=== PATIENT | male | born 1970 | race Caucasian/White ===

== ENCOUNTER 2020-12-03 15:47 | Emergency (ER) | payer MEDICARE, MEDICAID, SELFPAY ==
--- NOTE | ~2020-12-03 | XR_ITS ---
EXAMINATION: XR FOOT, RIGHT CLINICAL INFORMATION: Evaluate for ostial with wound over great toe COMPARISON: None TECHNIQUE: AP, lateral, and oblique views of the right foot. FINDINGS: There is amputation of the second third and fourth digits. The second and third digit is transmetatarsal. On the fourth digit, a portion of the proximal phalanx remains. Marked degenerative changes present at the first metatarsal tarsal joints. Surgical hardware is noted with the calcaneus and intramedullary vaughn in the tibia with a healed fibular fracture. The presumed ulcer is seen overlying the head of the first metatarsal (see stratton images). No gross bony destruction is seen there is some mild lucency seen in the metatarsal head medially with some heterotopic bone/accessory ossicle seen adjacent to this. XR/XR foot RT 2V IMPRESSION: No definite evidence of destructive osteomyelitis. MRI is recommended for greater sensitivity.
[2020-12-03 20:20] VITALS: BP 143/68; PULSE 83; RESP 18; O2SAT 98; BMI 30.7
--- NOTE | 2020-12-03 20:59 | ED_ITS ---
HPI - Wound/Laceration General Chief Complaint: Wound/Laceration Stated Complaint: diabetic foot ulcer x3 weeks Time Seen by Provider: 12/03/20 20:16 Source: EMS Mode of arrival: EMS Limitations: no limitations History of Present Illness HPI narrative: 50-year-old male with a past medical history of insulin-dependent diabetes here with complaints of wound to the right foot for about 2 weeks. Patient tells me there is redness and swelling around the site. There is drainage with foul odor. He denies any fevers or chills. He denies any injury or trauma. He does have a history of osteomyelitis to the right foot to the 2nd 3rd digit with amputation Related Data Home Medications Medication Instructions Recorded Confirmed albuterol sulfate 90 mcg/actuation 2 puff PO Q4H PRN 12/03/20 12/03/20 aerosol inhaler amlodipine 10 mg tablet 1 tab PO DAILY 12/03/20 12/03/20 atenolol 25 mg tablet 1 tab PO DAILY 12/03/20 12/03/20 clonazepam 0.5 mg tablet 1 tab PO DAILY PRN 12/03/20 12/03/20 escitalopram oxalate 10 mg tablet 1 tab PO DAILY 12/03/20 12/03/20 fluticasone propionate 110 2 puff PO BID 12/03/20 12/03/20 mcg/actuation HFA aerosol inhaler (Flovent HFA) gabapentin 800 mg tablet 1 tab PO TID 12/03/20 12/03/20 insulin aspart U-100 100 unit/mL 10 - 15 unit SUBCUT TID 12/03/20 12/03/20 subcutaneous cartridge (Novolog PenFill U-100 Insulin aspart) insulin degludec 100 unit/mL (3 18 unit SUBCUT DAILY 12/03/20 12/03/20 mL) subcutaneous pen (Tresiba FlexTouch U-100 insulin) lisinopril 40 mg tablet 1 tab PO DAILY 12/03/20 12/03/20 metformin 1,000 mg tablet 1 tab PO BID 12/03/20 12/03/20 ondansetron 4 mg disintegrating 1 tab SUBLINGUAL BID PRN 12/03/20 12/03/20 tablet Previous Rx's Medication Instructions Recorded doxycycline monohydrate 100 mg 100 mg PO BID #20 tab 12/03/20 tablet oxycodone 5 mg tablet 5 mg PO Q6H PRN #8 tab 12/03/20 Allergies Allergy/AdvReac Type Severity Reaction Status Date / Time No Known Allergies Allergy Unknown Unverified 11/30/19 15:25 [No Known Allergies*] Review of Systems Review of Systems: Yes all other systems are reviewed and are negative Constitutional: Constitutional: Reports no additional constitutional complaints, Denies body ache(s), Denies chills, Denies fever(s), Denies headache(s) and Denies weakness Eyes: Eyes: Reports no additional eye complaints and Denies change in vision ENT: Reports system reviewed and no additional complaints, except as documented, Denies dizziness, Denies headache(s), Denies nasal congestion, Denies nasal discharge and Denies neck pain Cardiovascular: Cardiovascular: Reports no additional cardiovascular complaints, Denies chest pain, Denies leg edema and Denies dyspnea Respiratory: Respiratory: Reports no additional respiratory complaints, Denies cough and Denies dyspnea Gastrointestinal: Gastrointestinal: Reports no additional gastrointestinal complaints, Denies abdominal pain, Denies diarrhea, Denies nausea and Denies vomiting Genitourinary: Genitourinary: Denies urinary incontinence Musculoskeletal: Musculoskeletal: Reports no additional musculoskeletal complaints, Denies back pain, Denies arthralgias, Denies joint swelling, Denies neck pain, Denies numbness and Denies tingling Integumentary/Breasts: Skin/Breast: Reports system reviewed and no additional complaints, except as docu, Reports swelling, Reports non-healing lesions and Denies rash Neurologic: Reports system reviewed and no additional complaints, except as documented, Denies Abnormal speech present, Denies dizziness, Denies headache(s), Denies numbness, Denies tingling and Denies weakness [facility] Past Medical History Attestation statement: The following information was validated with the patient. Source: old records reviewed and nursing notes reviewed Social History Social History Advance Directives: No Advance Directives Information Provided: No Physical Exam Vital Signs: Vital Signs: Last Vital Signs Pulse 83 12/03/20 20:20 Resp 18 12/03/20 20:20 BP 143/68 H 12/03/20 20:20 Pulse Ox 98 12/03/20 20:20 Body Mass Index 30.7 Const: General: cooperative, healthy appearing, comfortable and no acute distress Orientation/consciousness: patient oriented x3 Limitations: no limitations HENMT: Head: Yes normal to inspection Ears: hearing grossly normal bilaterally General nose exam: Normal external nose present Face and sinus: Yes normal facial exam Mouth: Normal oral and palatal mucosa present Throat: Yes posterior oropharynx normal Eyes: General: appearance normal, both eyes and all related structures Pu pils: Equal, round and reactive pupils present Neck: Neck: Yes normal visual inspection Chest: Chest palpation & inspection: normal inspection of the chest Resp: Effort & Inspection: normal respiratory effort Auscultation: clear to auscultation bilaterally Cardio: Rate: regular rate Rhythm: regular rhythm Peripheral pulses: Peripheral pulses 2+ throughout GI: Inspection: Yes normal to inspection Palpation (GI): Soft to palpation and nontender Auscultation: normal bowel sounds Back/Spine/Pelvis: Thoracic/Lumbar Spine: thoracic and lumbar spine normal to inspection Skin: General skin exam: no rashes or lesions noted Neuro: General: patient oriented x3, no focal motor deficits and normal sensation to monofilament Cranial nerves: Yes Equal, round and reactive pupils present Cognition (Neuro): normal cognition Speech: No Abnormal spe ech present Gait exam (Neuro): Normal gait present Motor exam (neuro): 5/5 motor strength present throughout Extrem: Other: Pain on palpation, warmth, redness, foul odor Palpable pulses on the dorsal aspect or felt General: Yes normal to inspection Course Course Course Narrative: 50-year-old male with a past medical history of insulin- dependent diabetes and recurrent osteomyelitis here with wound to the right foot for several weeks with redness, warmth, pain, swelling and odor. No fevers or chills. Will check x-ray of foot, labs. At this time infection suspected. Antibiotics ordered 2249-patient has elevated lactic acid with leukocytosis. He likely has osteomyelitis of the right foot. Patient tells me that he has to go home to take care of his rabbit and cat. He is aware that he has early sepsis and likely osteomyelitis and he will likely get sicker and may required amputation of the toe. He plans on returning tomorrow for admission. MDM - Wound/Laceration Medical Records Attestation: I reviewed the patient's medical records. Lab Data Attestation: I reviewed the patient's lab results. Result diagrams: 12/03/20 20:52 12/03/20 20:52 Labs: Lab Results 12/03/20 12/03/20 12/03/20 Range/Units 20:52 20:52 20:52 WBC 14.4 H (4.8-10.8) X10*3/uL RBC 4.56 L (4.60-5.80) X10*6/uL Hgb 13.4 L (14.0-18.0) g/dl Hct 39.6 L (42-52) % MCV 86.8 (80-98) fL MCH 29.4 (27.0-33.0) pg MCHC 33.8 (31.0-36.0) g/dl RDW 13.2 (11.0-16.0) % Plt Count 373 (160-400) X10*3/uL MPV 9.8 (9.4-12.4) fL Immature Gran % (Auto) 0.5 H (0.0-0.4) % Neut % (Auto) 74.0 H (45-73) % Lymph % (Auto) 18.8 L (20-40) % [place] % (Auto) 5.6 (2-11) % Eos % (Auto) 0.9 (0-4) % Baso % (Auto) 0.2 (0-2) % Lymph # (Auto) 2.7 (1.2-4.9) X10*3/uL [place] # (Auto) 0.8 (0.1-1.2) X10*3/uL Eos # (Auto) 0.1 (0.0-0.4) X10*3/uL Baso # (Auto) 0.0 (0.0-0.2) X10*3/uL Abs Immat Gran (auto) 0.07 H (0.00-0.03) X10*3/uL Absolute Neuts (auto) 10.7 H (2.0-8.3) X10*3/uL Absolute Nucleated RBC 0.000 (0.0-0.012) X10*3/uL Nucleated RBC % (auto) 0.0 (0.0-0.2) /100WBC Sodium 140 (135-145) mmol/L Potassium 4.8 (3.3-5.1) mmol/L Chloride 101 (96-108) mmol/L Carbon Dioxide 28 (22-29) mmol/L Anion Gap 16 (12-20) BUN 12 (9-16) mg/dL Creatinine 0.74 (0.5-1.4) mg/dL Estim Creat Clear Calc 140.5 Estimated GFR > 60 Random Glucose 125 H (60-115) mg/dL Lactic Acid 2.9 H* (0.5-2.0) mmol/L Calcium 9.9 (8.4-10.2) mg/dL Total Bilirubin 0.5 (0.0-1.0) mg/dL Direct Bilirubin 0.2 (0.0-0.5) mg/dL AST 14 (5-37) U/L ALT 17 (0-40) U/L Alkaline Phosphatase 101 (39-117) U/L Total Protein 6.8 (6.5-8.0) g/dL Albumin 3.9 (3.5-5.0) g/dL COVID-19 ([place]) (Negative) COVID-19 Clin Com 12/03/20 Range/Units 20:52 WBC (4.8-10.8) X10*3/uL RBC (4.60-5.80) X10*6/uL Hgb (14.0-18.0) g/dl Hct (42-52) % MCV (80-98) fL MCH (27.0-33.0) pg MCHC (31.0-36.0) g/dl RDW (11.0-16.0) % Plt Count (160-400) X10*3/uL MPV (9.4-12.4) fL Immature Gran % (Auto) (0.0-0.4) % Neut % (Auto) (45-73) % Lymph % (Auto) (20-40) % [place] % (Auto) (2-11) % Eos % (Auto) (0-4) % Baso % (Auto) (0-2) % Lymph # (Auto) (1.2-4.9) X10*3/uL [place] # (Auto) (0.1-1.2) X10*3/uL Eos # (Auto) (0.0-0.4) X10*3/uL Baso # (Auto) (0.0-0.2) X10*3/uL Abs Immat Gran (auto) (0.00-0.03) X10*3/uL Absolute Neuts (auto) (2.0-8.3) X10*3/uL Absolute Nucleated RBC (0.0-0.012) X10*3/uL Nucleated RBC % (auto) (0.0-0.2) /100WBC Sodium (135-145) mmol/L Potassium (3.3-5.1) mmol/L Chloride (96-108) mmol/L Carbon Dioxide (22-29) mmol/L Anion Gap (12-20) BUN (9-16) mg/dL Creatinine (0.5-1.4) mg/dL Estim Creat Clear Calc Estimated GFR Random Glucose (60-115) mg/dL Lactic Acid (0.5-2.0) mmol/L Calcium (8.4-10.2) mg/dL Total Bilirubin (0.0-1.0) mg/dL Direct Bilirubin (0.0-0.5) mg/dL AST (5-37) U/L ALT (0-40) U/L Alkaline Phosphatase (39-117) U/L Total Protein (6.5-8.0) g/dL Albumin (3.5-5.0) g/dL COVID-19 ([place]) Negative (Negative) COVID-19 Clin Com See Note Imaging Data foot xray: Attestation: I personally reviewed and interpreted this imaging study as follows: Radiologist's impression: FINDINGS: There is amputation of the second third and fourth digits. The second and third digit is transmetatarsal. On the fourth digit, a portion of the proximal phalanx remains. Marked degenerative changes present at the first metatarsal tarsal joints. Surgical hardware is noted with the calcaneus and intramedullary vaughn in the tibia with a healed fibular fracture. The presumed ulcer is seen overlying the head of the first metatarsal (see stratton images). No gross bony destruction is seen there is some mild lucency seen in the metatarsal head medially with some heterotopic bone/accessory ossicle seen adjacent to this. XR/XR foot RT 2V IMPRESSION: No definite evidence of destructive osteomyelitis. MRI is recommended for greater sensitivity. Discharge Plan Discharge Clinical Impression: Cellulitis, Leukocytosis, Elevated lactic acid level Patient Disposition: Left Against Medical Advice Instructions: Cellulitis (ED), Against Medical Advice (ED) Additional Instructions: We cannot rule out osteomyelitis You have evidence of sepsis Return as soon as possible Prescriptions: New doxycycline monohydrate 100 mg tablet 100 mg PO BID Qty: 20 RF: 0 oxycodone 5 mg tablet 5 mg PO Q6H PRN (Reason: pain) Qty: 8 RF: 0 No Action clonazepam 0.5 mg tablet 1 tab PO DAILY PRN (Reason: Anxiety) RF: 0 atenolol 25 mg tablet 1 tab PO DAILY RF: 0 gabapentin 800 mg tablet 1 tab PO TID RF: 0 amlodipine 10 mg tablet 1 tab PO DAILY RF: 0 metformin 1,000 mg tablet 1 tab PO BID RF: 0 albuterol sulfate 90 mcg/actuation HFA aerosol inhaler 2 puff PO Q4H PRN (Reason: Shortness Of Breath) RF: 0 lisinopril 40 mg tablet 1 tab PO DAILY RF: 0 Flovent HFA 110 mcg/actuation HFA aerosol inhaler 2 puff PO BID RF: 0 insulin aspart U-100 [Novolog PenFill U-100 Insulin] 100 unit/mL cartridge 10 - 15 unit subcut TID RF: 0 escitalopram oxalate 10 mg tablet 1 tab PO DAILY RF: 0 Tresiba FlexTouch U-100 100 unit/mL (3 mL) insulin pen 18 unit subcut DAILY RF: 0 ondansetron 4 mg tablet,disintegrating 1 tab sublingual BID PRN (Reason: Nausea) RF: 0 Referrals: Physician,Unknown [Primary Care Provider] - 2 days Stand Alone Forms: Against Medical Advice
[2020-12-03 21:07] LABS: MANUAL DIFF FLAG NO
[2020-12-03 21:10] LABS: Basophils Percent Auto 0.2 % (0-2); Eosinophils Absolute Auto 0.1 X10*3/uL (0.0-0.4); Eosinophils Percent Auto 0.9 % (0-4); Hematocrit 39.6 % (42-52); Hemoglobin 13.4 g/dl (14.0-18.0); Imm Gran Abs Auto 0.07 X10*3/uL (0.00-0.03); Imm Gran Pct Auto 0.5 % (0.0-0.4); Lymphocytes Absolute Auto 2.7 X10*3/uL (1.2-4.9); Lymphocytes Percent Auto 18.8 % (20-40); Mean Corpuscular HGB Conc 33.8 g/dl (31.0-36.0); Mean Corpuscular Hemoglobin 29.4 pg (27.0-33.0); Mean Corpuscular Volume 86.8 fL (80-98); Mean Platelet Volume 9.8 fL (9.4-12.4); Monocytes Absolute Auto 0.8 X10*3/uL (0.1-1.2); Monocytes Percent Auto 5.6 % (2-11); Neutrophils Absolute Auto 10.7 X10*3/uL (2.0-8.3); Platelet Count 373 X10*3/uL (160-400); Red Blood Count 4.56 X10*6/uL (4.60-5.80); Red Cell Distribution Width 13.2 % (11.0-16.0); White Blood Count 14.4 X10*3/uL (4.8-10.8)
--- NOTE | 2020-12-03 21:14 | PHA.MEDREC ---
Pharmacy Consult ? Medication Reconciliation Pharmacy has completed the medication reconciliation.
--- NOTE | 2020-12-03 21:20 | PC.NURSE ---
patient arrives to ED with c/o R.foot infection. Has hx of osteo of that foot and states pain is similar. Yellow drainage. 12/22 pain. A+Ox4. Resting safely.
[2020-12-03 21:27] LABS: Alanine Aminotransferase 17 U/L (0-40); Albumin Level 3.9 g/dL (3.5-5.0); Alkaline Phosphatase 101 U/L (39-117); Anion Gap 16 (12-20); Aspartate Amino Transferase 14 U/L (5-37); Bilirubin Direct 0.2 mg/dL (0.0-0.5); Bilirubin Total 0.5 mg/dL (0.0-1.0); Blood Urea Nitrogen 12 mg/dL (9-16); COVID-19 Test Negative (Negative); Calcium 9.9 mg/dL (8.4-10.2); Carbon Dioxide 28 mmol/L (22-29); Chloride 101 mmol/L (96-108); Creatinine Clr Calc Pharmacy 140.5; Estimated Glomerular Filt Rate > 60; Glucose Random 125 mg/dL (60-115); Lactic Acid 2.9 mmol/L (0.5-2.0); Potassium 4.8 mmol/L (3.3-5.1); Sodium 140 mmol/L (135-145); Total Protein 6.8 g/dL (6.5-8.0)
[2020-12-03] MEDS: Morphine Sulfate 4 MG/ML CARTRIDGE IVPUSH (22:00)
[2020-12-03] MEDS: Piperacillin Sodium/Tazobactam 3.375 GM in 0.9 % Sodium Chloride 50 ML IV (22:02)
[2020-12-03 23:03] LABS: Reflex Lactate? Lactic Acid Added
== END 2020-12-03 22:49 | disposition left against medical advice (07) ==
PROVIDERS: Nurse Practitioner Family; Emergency Provider Emergency Medicine Emergency Medical Services
DX: L03.115 Cellulitis of right lower limb (principal); E11.69 Type 2 diabetes mellitus with other specified complication; M86.9 Osteomyelitis, unspecified; Z20.822 Contact with and (suspected) exposure to COVID-19; Z79.4 Long term (current) use of insulin; Z79.899 Other long term (current) drug therapy
CPT/HCPCS: 36415; 73620; 80048; 80076; 83605; 85025; 87040; 87635; 99283; J2270; J2543

== ENCOUNTER 2020-12-04 10:58 | Inpatient (IN) | payer MEDICARE, MEDICAID, SELFPAY ==
[2020-12-04] VITALS (10 sets, daily range): BP systolic 104–140; BP diastolic 60–94; PULSE 74–88; RESP 16–18; TEMP 36.4–37.4; O2SAT 94–98; BMI 30.7
--- NOTE | ~2020-12-04 | XR_ITS ---
EXAMINATION: XR FOOT, RIGHT CLINICAL INFORMATION: Cellulitis. Diabetic. Infection. COMPARISON: Right foot December 03, 2020 TECHNIQUE: AP, lateral, and oblique views of the right foot. FINDINGS: Stable chronic changes from prior amputation to the second, third and fourth toes. There are periarticular bone erosions of the proximal phalanx of the great toe adjacent to the first metatarsal phalangeal joint. Erosion or involving both medial and lateral periarticular bone. Findings concerning for osteomyelitis. This finding can be further assessed with MRI pre and postcontrast. There is a small skin ulcer at the medial side of the foot adjacent to the head of the first metatarsal. No definite destruction of the head of the first metatarsal is present. XR/XR foot RT min 3V IMPRESSION: 1. Small skin ulcer adjacent to the head of the first metatarsal. 2. Periarticular bone erosions of the proximal phalanx of the great toe at the first metatarsal phalangeal joint. This is concerning for osteomyelitis. Consider MRI of the foot without and with contrast.
--- NOTE | 2020-12-04 12:31 | ED.LOWEXIN ---
HPI - Extremity Injury (Lower) General Chief Complaint: Extremity Injury, Lower Stated Complaint: rt foot ulcers Time Seen by Provider: 12/04/20 12:28 Source: patient Mode of arrival: ambulatory Limitations: no limitations History of Present Illness HPI Narrative: 50-year-old with 2 diabetic foot ulcers presents emergency room after leaving his medical ice last night. Patient is waiting to be admitted he bring his back to be here for several days. Patient had take care of things were getting admitted yesterday. Patient denies any falls or injuries he states he noticed the infection the past week and has gradually gotten worse patient was given a dose of antibiotics yesterday x-rays were done and they were images found in the note from yesterday as well. MD complaint: foot injury Related Data Home Medications Medication Instructions Recorded Confirmed albuterol sulfate 90 mcg/actuation 2 puff PO Q4H PRN 12/03/20 12/03/20 aerosol inhaler amlodipine 10 mg tablet 1 tab PO DAILY 12/03/20 12/03/20 atenolol 25 mg tablet 1 tab PO DAILY 12/03/20 12/03/20 clonazepam 0.5 mg tablet 1 tab PO DAILY PRN 12/03/20 12/03/20 escitalopram oxalate 10 mg tablet 1 tab PO DAILY 12/03/20 12/03/20 fluticasone propionate 110 2 puff PO BID 12/03/20 12/03/20 mcg/actuation HFA aerosol inhaler (Flovent HFA) gabapentin 800 mg tablet 1 tab PO TID 12/03/20 12/03/20 insulin aspart U-100 100 unit/mL 10 - 15 unit SUBCUT TID 12/03/20 12/03/20 subcutaneous cartridge (Novolog PenFill U-100 Insulin aspart) insulin degludec 100 unit/mL (3 18 unit SUBCUT DAILY 12/03/20 12/03/20 mL) subcutaneous pen (Tresiba FlexTouch U-100 insulin) lisinopril 40 mg tablet 1 tab PO DAILY 12/03/20 12/03/20 metformin 1,000 mg tablet 1 tab PO BID 12/03/20 12/03/20 ondansetron 4 mg disintegrating 1 tab SUBLINGUAL BID PRN 12/03/20 12/03/20 tablet Previous Rx's Medication Instructions Recorded doxycycline monohydrate 100 mg 100 mg PO BID #20 tab 12/03/20 tablet oxycodone 5 mg tablet 5 mg PO Q6H PRN #8 tab 12/03/20 Allergies Allergy/AdvReac Type Severity Reaction Status Date / Time No Known Allergies Allergy Unknown Unverified 11/30/19 15:25 [No Known Allergies*] Review of Systems Review of Systems: Review of systems: General: Patient denies any fever chills recent illness or falls Musculoskeletal: Denies back pain or body aches or other injuries HEENT: denies headache, runny nose, ear pain Respiratory: denies shortness of breath, cough Cardiovascular: no chest pain or palpitations : denies dysuria, frequency Abdomen: no nausea vomiting denies abdominal pain Extremities: To diabetic foot ulcers swelling pain redness to the midfoot pain all the way to the mid calf. Skin: no diaphoresis Yes all other systems are reviewed and are negative COUNT INCLUDES THE [facility] Past Medical History Medical History (Updated 12/04/20 @ 13:35 by Deshawn Woodard DO) Diabetes mellitus Hypertension Surgical History (Updated 12/04/20 @ 13:35 by Ismael Kim MD) History of amputation of lesser toe Social History Social History Advance Directives: Yes Advance Directives Information Provided: No Advance Directives on File: No Physical Exam Vital Signs: Vital Signs: Last Vital Signs Temp 98.7 F 12/04/20 12:00 Pulse 88 12/04/20 11:17 Resp 16 12/04/20 12:00 BP 112/63 12/04/20 12:00 Pulse Ox 95 12/04/20 12:00 Body Mass Index 30.7 MDM - Extremity Injury (Lower) MDM Narrative Medical decision making narrative: Concern for diabetic foot infection patient will need admission also the patient on vancomycin and Ancef. I will recheck labs and get a another x-ray of the foot. I did have Dr. calderon is see the patient here in the ED he agrees the patient will require admission also the patient antibiotics and admit. Discharge Plan Discharge Clinical Impression: Diabetic foot infection Patient Disposition: Admitted As Inpatient
[2020-12-04] MEDS: 0.9 % Sodium Chloride 500 ML 999 ML IV ×2 (13:08→13:42)
[2020-12-04] MEDS: Morphine Sulfate 4 MG/ML CARTRIDGE IVPUSH ×2 (13:16→15:30)
[2020-12-04] MEDS: ceFAZolin Sodium/Dextrose,Iso 2 GM/50 ML PIGGYBACK IV (13:30)
--- NOTE | 2020-12-04 13:34 | PM.CNGS ---
History of Present Illness Consult details Consult date: 12/04/20 Narrative: 50-year-old male with a long history of diabetes, who is here in the ER because of an ulcer on the right foot. He was actually here last night because of the same problem. He describes this open wound which she has noted for more than 2 weeks now. He describes redness around the area. He also says that this had been draining at home. He denies any trauma to the area. He has a history of amputation of the 2nd 3rd and 4th toes on the same foot. He signed out against medical advise last night as he said he had to take care of his CT and came back this morning. Review of Systems Constitutional: Constitutional: Denies chills and Denies fever(s) Cardiovascular: Cardiovascular: Denies chest pain, Denies dyspnea and Denies dyspnea on exertion Respiratory: Respiratory: Denies cough, Denies dyspnea and Denies dyspnea on exertion Gastrointestinal: Gastrointestinal: Denies hematochezia and Denies change in bowel habits Genitourinary: Genitourinary: Denies hematuria and Denies difficulty urinating Musculoskeletal: Musculoskeletal: Denies back pain and Denies limited range of motion Neurologic: Denies focal weakness and Denies convulsions Psychiatric: Psychiatric: Denies depression and Denies mood swings PMFSH Past Medical History Medical History Diabetes mellitus Hypertension Surgical History Surgical History History of amputation of lesser toe Social History Social History Household Members: None Household Members Other:: 1 Housing: Apartment Do you presently have visiting nurse or other home services: No Alcohol intake: never Patient Tobacco Use Status: Never used Tobacco Second Hand Smoke Exposure: No Substance Use Type: Marijuana service: No Current occupational status: disabled Meds Allergies Allergy/AdvReac Type Severity Reaction Status Date / Time No Known Allergies Allergy Unknown Unverified 11/30/19 15:25 [No Known Allergies*] Active Medications: Current Medications Vancomycin HCl 2,000 mg/ (Sodium Chloride) 540 mls @ 270 mls/hr IV ONCE ONE Stop: 12/04/20 14:43 Pharmacy Consult (Consult Rx Vancomycin Dosing) 1 each MISCELLANE DAILY PRN PRN Reason: Consult order Home Medications Medication Instructions Recorded Confirmed Last Taken Type albuterol sulfate 90 mcg/actuation 2 puff PO Q4H PRN 12/03/20 12/06/20 Unknown History aerosol inhaler amlodipine 10 mg tablet 1 tab PO DAILY 12/03/20 12/06/20 12/03/20 History atenolol 25 mg tablet 1 tab PO DAILY 12/03/20 12/06/20 12/03/20 History clonazepam 0.5 mg tablet 1 tab PO DAILY PRN 12/03/20 12/06/20 Unknown History escitalopram oxalate 10 mg tablet 1 tab PO DAILY 12/03/20 12/06/20 12/03/20 History fluticasone propionate 110 2 puff PO BID 12/03/20 12/06/20 12/03/20 History mcg/actuation HFA aerosol inhaler (Flovent HFA) gabapentin 800 mg tablet 1 tab PO TID 12/03/20 12/06/20 12/03/20 History insulin aspart U-100 100 unit/mL 10 - 15 unit SUBCUT TID 12/03/20 12/06/20 12/03/20 History subcutaneous cartridge (Novolog PenFill U-100 Insulin aspart) insulin degludec 100 unit/mL (3 18 unit SUBCUT DAILY 12/03/20 12/06/20 12/03/20 History mL) subcutaneous pen (Tresiba FlexTouch U-100 insulin) lisinopril 40 mg tablet 1 tab PO DAILY 12/03/20 12/06/20 12/03/20 History metformin 1,000 mg tablet 1 tab PO BID 12/03/20 12/06/20 12/03/20 History ondansetron 4 mg disintegrating 1 tab SUBLINGUAL BID PRN 12/03/20 12/04/20 Unknown History tablet Physical Exam Vital Signs: Vital Signs: Last Vital Signs Temp 98.7 F 12/04/20 12:00 Pulse 88 12/04/20 11:17 Resp 16 12/04/20 12:00 BP 112/63 12/04/20 12:00 Pulse Ox 95 12/04/20 12:00 Body Mass Index 30.7 Const: General: comfortable and no acute distress Orientation/consciousness: patient oriented x3 Neck: Neck: Yes no lymphadenopathy Resp: Auscultation: clear to auscultation bilaterally Cardio: Rhythm: regular rhythm GI: Palpation (GI): Soft to palpation, nontender and no guarding Neuro: General: patient oriented x3 Extrem: Other: Right foot medial aspect towards the forefoot and dorsally - ulcer involving skin and subcutaneous layer, about 2 cm in widest diameter, no pus at this time but with surrounding cellulitis; there was note of an ulcer as well on the plantar aspect of the amputation site of the forefoot, more superficial, about 3 cm in diameter with surrounding callus Second, 3rd, and 4th toes have been amputated Results Labs Result diagrams: 12/05/20 07:36 12/06/20 05:38 Labs: All other labs normal. Assessment and Plan (1) Diabetic foot infection: Status: Acute He has an known diabetic and has ulcers on the foot as described above. This does not need to be debrided at this time. However, we need to rule out an underlying osteomyelitis. Furthermore, he has some cellulitic changes so I would recommend him to be admitted for IV antibiotics. He needs good wound care and I will follow along while he is in the hospital. Procedures Date of Service Date of Service: 12/04/20
[2020-12-04 13:42] LABS: COVID-19 Test Negative (Negative)
[2020-12-04] MEDS: 0.9 % Sodium Chloride 1,000 ML 999 ML IV (13:50)
[2020-12-04 14:05] LABS: MANUAL DIFF FLAG NO
[2020-12-04 14:08] LABS: Basophils Percent Auto 0.1 % (0-2); Eosinophils Absolute Auto 0.1 X10*3/uL (0.0-0.4); Eosinophils Percent Auto 0.5 % (0-4); Hematocrit 34.5 % (42-52); Hemoglobin 11.7 g/dl (14.0-18.0); Imm Gran Abs Auto 0.08 X10*3/uL (0.00-0.03); Imm Gran Pct Auto 0.5 % (0.0-0.4); Lymphocytes Absolute Auto 2.2 X10*3/uL (1.2-4.9); Lymphocytes Percent Auto 14.1 % (20-40); Mean Corpuscular HGB Conc 33.9 g/dl (31.0-36.0); Mean Corpuscular Hemoglobin 29.4 pg (27.0-33.0); Mean Corpuscular Volume 86.7 fL (80-98); Mean Platelet Volume 9.7 fL (9.4-12.4); Monocytes Absolute Auto 0.9 X10*3/uL (0.1-1.2); Monocytes Percent Auto 5.7 % (2-11); Neutrophils Absolute Auto 12.2 X10*3/uL (2.0-8.3); Neutrophils Percent Auto 79.1 % (45-73); Platelet Count 352 X10*3/uL (160-400); Red Blood Count 3.98 X10*6/uL (4.60-5.80); Red Cell Distribution Width 13.2 % (11.0-16.0); White Blood Count 15.5 X10*3/uL (4.8-10.8)
[2020-12-04 14:26] LABS: Anion Gap 14 (12-20); Blood Urea Nitrogen 16 mg/dL (9-16); C Reactive Protein 8.52 mg/dL (< or = 0.50); Calcium 8.4 mg/dL (8.4-10.2); Carbon Dioxide 25 mmol/L (22-29); Chloride 99 mmol/L (96-108); Creatinine Clr Calc Pharmacy 95.4; Estimated Glomerular Filt Rate > 60; Glucose Random 220 mg/dL (60-115); Potassium 4.6 mmol/L (3.3-5.1); Sodium 133 mmol/L (135-145)
[2020-12-04 14:32] LABS: Lactic Acid 2.1 mmol/L (0.5-2.0)
[2020-12-04 15:06] LABS: Erythrocyte Sedimentation Rate 48 MM/HR (0-15)
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
[2020-12-04 16:06] LABS: Reflex Lactate? Lactic Acid Added
--- NOTE | 2020-12-04 16:18 | PHA.PROG ---
Admission Date/Time: December 04, 2020 15:36 Indication: Skin/Skin structure, Diabetic foot Ulcer Weight in k.79 kg Adjusted body weight in K kg [place] body weight in K.3 Obesity Dosing Indication % IBW:30% Serum Creatinine - Last 168 Hours 12/04/20 14:01 Creatinine 1.09 Estimated CrCl and GFR - Last 168 Hours 12/04/20 14:01 Estim Creat Clear Calc 95.4 Estimated GFR > 60 Vancomycin Loading Dose: 2000mg Current Vancomycin Dosing Regimen: 1000mg Q12H starting at 0200 on 12/05 (12 hours after LD) Vancomycin Monitoring using AUC goal of 400 - 600 range with trough as surrogate marker: Predicted trough 15, Predicted AUC 463 Date and Time for next Vancomycin Level to be drawn: 12/06 @ 0100 Pharmacist Comments on Vancomycin Plan: Vancomycin dosing will take advantage of [id number] as a clinical decision support tool that uses Bayesian modeling to calculate individual patient's pharmacokinetic parameters and forecast the patient's drug concentration time course with the target goal AUC 24 range of 400 - 600 mg/L/hr.
[2020-12-04 16:42] LABS: Glucose, Whole Blood 197 mg/dL (60-115)
[2020-12-04 16:45] LABS: ~Lactic Acid-LAB USE ONLY 0.7 mmol/L (0.5-2.0)
[2020-12-04] MEDS: Piperacillin Sodium/Tazobactam 3.375 GM in 0.9 % Sodium Chloride 50 ML IV ×2 (17:05→21:56)
[2020-12-04] MEDS: Enoxaparin Sodium 40 MG/0.4 ML SYRINGE SUBCUT (17:06)
[2020-12-04] MEDS: Insulin Lispro 100 UNIT/ML 3 ML VIAL SUBCUT ×2 (17:06→21:57)
[2020-12-04] MEDS: Gabapentin 400 MG CAPSULE 800 MG PO ×2 (17:07→21:56)
[2020-12-04 17:41] LABS: Appearance Urine CLEAR; Color Urine DK YELLOW; Glucose Urine UA NEG (NEG); Leukocyte Esterase Urine NEG (NEG); Nitrite Urine NEG (NEG); Specific Gravity - Urine 1.025 (1.005-1.025); Urine Blood NEG (NEG); Urine Ketones 5 MG/DL (NEG); Urine Protein NEG (NEG-TRACE)
[2020-12-04] MEDS: Lactated Ringers 1,000 ML 100 ML IVCONT (18:40)
[2020-12-04] MEDS: Morphine Sulfate 2 MG/ML CARTRIDGE IVPUSH ×2 (19:55→23:58)
[2020-12-04] MEDS: Fluticasone Propionate 100 MCG BLST.W.DEV 2 PUFF INHALE (20:45)
[2020-12-04 21:20] LABS: Glucose, Whole Blood 160 mg/dL (60-115)
[2020-12-05] MEDS: Piperacillin Sodium/Tazobactam 3.375 GM in 0.9 % Sodium Chloride 50 ML IV ×3 (06:07→19:09)
[2020-12-05] MEDS: vancomycin HCL 1,000 MG in 0.9 % Sodium Chloride 250 ML 180 MG IV (06:08)
[2020-12-05 07:49] LABS: Hematocrit 36.8 % (42-52); Hemoglobin 12.2 g/dl (14.0-18.0); Mean Corpuscular HGB Conc 33.2 g/dl (31.0-36.0); Mean Corpuscular Hemoglobin 28.7 pg (27.0-33.0); Mean Corpuscular Volume 86.6 fL (80-98); Mean Platelet Volume 9.8 fL (9.4-12.4); Platelet Count 347 X10*3/uL (160-400); Red Blood Count 4.25 X10*6/uL (4.60-5.80); Red Cell Distribution Width 13.2 % (11.0-16.0); White Blood Count 10.2 X10*3/uL (4.8-10.8)
[2020-12-05 08:11] LABS: Anion Gap 14 (12-20); Blood Urea Nitrogen 9 mg/dL (9-16); Calcium 9.2 mg/dL (8.4-10.2); Carbon Dioxide 26 mmol/L (22-29); Chloride 104 mmol/L (96-108); Creatinine Clr Calc Pharmacy 140.5; Estimated Glomerular Filt Rate > 60; Glucose Random 163 mg/dL (60-115); Potassium 5.2 mmol/L (3.3-5.1); Sodium 139 mmol/L (135-145)
[2020-12-05 08:32] VITALS: BP 117/69; PULSE 80; RESP 16; TEMP 36.7; O2SAT 93
[2020-12-05 08:41] LABS: Glucose, Whole Blood 172 mg/dL (60-115)
[2020-12-05] MEDS: Morphine Sulfate 2 MG/ML CARTRIDGE IVPUSH ×4 (08:56→21:03)
[2020-12-05] MEDS: Sodium Polystyrene Sulfon/Sorb 15 GM/60 ML ORAL.SUSP PO (08:56)
[2020-12-05] MEDS: Insulin Glargine,Hum.rec.anlog 100 UNIT/ML 10 ML VIAL 13 UNIT SUBCUT (08:56)
[2020-12-05 08:57] VITALS: BP 117/69; PULSE 80
[2020-12-05] MEDS: amLODIPine Besylate 10 MG TABLET PO (08:57)
[2020-12-05] MEDS: atenoloL 25 MG TABLET PO (08:57)
[2020-12-05] MEDS: Gabapentin 400 MG CAPSULE 800 MG PO ×3 (08:57→21:03)
[2020-12-05] MEDS: Escitalopram Oxalate 10 MG TABLET PO (08:57)
[2020-12-05 10:14] VITALS: BP 167/101; PULSE 84; RESP 18; TEMP 36.4; O2SAT 94; BMI 30.7
[2020-12-05 11:21] LABS: Glucose, Whole Blood 181 mg/dL (60-115)
[2020-12-05 11:51] VITALS: BP 140/80; PULSE 82; RESP 20; TEMP 36.1; O2SAT 90
--- NOTE | 2020-12-05 12:27 | P.CONGS_ITS ---
History of Present Illness Consult details Consult date: 12/05/20 Reason for consult: wound care Narrative: 50-year-old gentleman presented to the emergency room yesterday with nonhealing right lower extremity diabetic foot ulcer. Of note he has had prior toe amputations done at [facility]. He had increased purulence discharge over the past week. It was concerning for him and the odor was also concerning and he presented to the emergency room. He now presents to us for vascular evaluation. Review of Systems Review of Systems: Yes all other systems are reviewed and are negative Constitutional: Constitutional: Reports no additional constitutional complaints ENT: Reports Normal hearing present Cardiovascular: Cardiovascular: Denies chest pain, Denies chest pain at rest, Denies chest pain with activity and Denies pedal edema Respiratory: Respiratory: Denies cough Gastrointestinal: Gastrointestinal: Denies abdominal pain Musculoskeletal: Musculoskeletal: Denies abnormal gait, Denies muscle cramps and Denies radiating pain into limb Integumentary/Breasts: Skin/Breast: Denies skin ulcer and Denies wounds Neurologic: Reports Normal hearing present and Denies abnormal gait Psychiatric: Psychiatric: Reports no additional psychiatric complaints [facility] Past Medical History Medical History Diabetes mellitus Hypertension Surgical History Surgical History History of amputation of lesser toe Social History Social History Household Members: None Household Members Other:: 1 Housing: Apartment Do you presently have visiting nurse or other home services: No Patient Tobacco Use Status: Never used Tobacco Second Hand Smoke Exposure: No Substance Use Type: Marijuana Meds Allergies Allergy/AdvReac Type Severity Reaction Status Date / Time No Known Allergies Allergy Unknown Unverified 11/30/19 15:25 [No Known Allergies*] Active Medications: Current Medications Albuterol Sulfate (Albuterol Sulfate 90 Mcg 8 Gm Inhaler) 2 puff INHALE Q4H PRN PRN Reason: Shortness Of Breath Amlodipine Besylate (Amlodipine Besylate 10 Mg Tablet) 10 mg PO DAILY NICK; Pro tocol Last Admin: 12/05/20 08:57 Dose: 10 mg Documented by: Atenolol (Atenolol 25 Mg Tablet) 25 mg PO DAILY NICK; Protocol Last Admin: 12/05/20 08:57 Dose: 25 mg Documented by: Clonazepam (Clonazepam 0.5 Mg Tablet) 0.5 mg PO DAILY PRN PRN Reason: Anxiety Dextrose (Dextrose 50 % 25 Gm/50 Ml Vial) 25 gm IVPUSH Q15M PRN; Protocol PRN Reason: per Hypoglycemia Standing Ord. Enoxaparin Sodium (Enoxaparin Sodium 40 Mg/0.4 Ml Syringe) 40 mg SUBCUT Q24H [facility] Last Admin: 12/04/20 17:06 Dose: 40 mg Documented by: Escitalopram Oxalate (Escitalopram Oxalate 10 Mg Tablet) 10 mg PO DAILY [facility] Last Admin: 12/05/20 08:57 Dose: 10 mg Documented by: Fluticasone Propionate (Fluticasone Propionate 100 Mcg Blst.W.Dev) 2 puff INHALE RBID [facility] Last Admin: 12/05/20 08:35 Dose: Not Given Documented by: Gabapentin (Gabapentin 400 Mg Capsule) 800 mg PO TID [facility] Last Admin: 12/05/20 08:57 Dose: 800 mg Documented by: Glucose (Glucose Gel 15 Gm Gel..Gram.) 15 gm PO Q15M PRN; Protocol PRN Reason: per Hypoglycemia Standing Ord. Vancomycin HCl 1,000 mg/ (Sodium Chloride) 270 mls @ 180 mls/hr IV Q12H [facility] Last Infusion: 12/05/20 08:23 Dose: Infused Documented by: Piperacillin Sod/Tazobactam (Sod 3.375 gm/ Sodium Chloride) 50 mls @ 100 mls/hr IV Q6H [facility] Last Admin: 12/05/20 12:24 Dose: 100 mls/hr Documented by: Insulin Glargine (Insulin Glargine,Hum.Rec.Anlog 100 Unit/Ml 10 Ml Vial) 13 unit SUBCUT DAILY [facility] Last Admin: 12/05/20 08:56 Dose: 13 unit Documented by: Insulin Human Lispro (Insulin Lispro 100 Unit/Ml 3 Ml Vial) 0 unit SUBCUT QIDACHS [facility]; Protocol Last Admin: 12/05/20 10:44 Dose: Not Given Documented by: Morphine Sulfate (Morphine Sulfate 2 Mg/Ml Cartridge) 2 mg IVPUSH Q4H PRN; Protocol PRN Reason: pain Last Admin: 12/05/20 12:24 Dose: 2 mg Documented by: Pharmacy Consult (Consult Rx Perform Med Rec) 1 each MISCELLANE ONCE PRN PRN Reason: Consult order Pharmacy Consult (Consult Rx Vancomycin Dosing) 1 each MISCELLANE DAILY PRN PRN Reason: Consult order Sodium Chloride (0.9 % Sodium Chloride Flush 3 Ml Syringe) 3 ml IVFLUSH [facility] Last Admin: 12/05/20 10:48 Dose: Not Given Documented by: Sodium Chloride (0.9 % Sodium Chloride Flush 3 Ml Syringe) 3 ml IVFLUSH [facility] Last Admin: 12/05/20 10:48 Dose: Not Given Documented by: Home Medications Medication Instructions Recorded Confirmed Last Taken Type albuterol sulfate 90 mcg/actuation 2 puff PO Q4H PRN 12/03/20 12/04/20 Unknown History aerosol inhaler amlodipine 10 mg tablet 1 tab PO DAILY 12/03/20 12/04/20 12/03/20 History atenolol 25 mg tablet 1 tab PO DAILY 12/03/20 12/04/20 12/03/20 History clonazepam 0.5 mg tablet 1 tab PO DAILY PRN 12/03/20 12/04/20 Unknown History escitalopram oxalate 10 mg tablet 1 tab PO DAILY 12/03/20 12/04/20 12/03/20 History fluticasone propionate 110 2 puff PO BID 12/03/20 12/04/20 12/03/20 History mcg/actuation HFA aerosol inhaler (Flovent HFA) gabapentin 800 mg tablet 1 tab PO TID 12/03/20 12/04/20 12/03/20 History insulin aspart U-100 100 unit/mL 10 - 15 unit SUBCUT TID 12/03/20 12/04/20 12/03/20 History subcutaneous cartridge (Novolog PenFill U-100 Insulin aspart) insulin degludec 100 unit/mL (3 18 unit SUBCUT DAILY 12/03/20 12/04/20 12/03/20 History mL) subcutaneous pen (Tresiba FlexTouch U-100 insulin) lisinopril 40 mg tablet 1 tab PO DAILY 12/03/20 12/04/20 12/03/20 History metformin 1,000 mg tablet 1 tab PO BID 12/03/20 12/04/20 12/03/20 History ondansetron 4 mg disintegrating 1 tab SUBLINGUAL BID PRN 12/03/20 12/04/20 Unknown History tablet Physical Exam Vital Signs: Vital Signs: Last Vital Signs Temp 97.0 F 12/05/20 11:51 Pulse 82 12/05/20 11:51 Resp 20 12/05/20 11:51 BP 140/80 H 12/05/20 11:51 Pulse Ox 90 L 12/05/20 11:51 Body Mass Index 30.7 Const: General: cooperative, healthy appearing and comfortable Orientation/consciousness: oriented to person, oriented to place and oriented to time HENMT: Head: Yes normal to inspection Neck: Neck: Yes normal visual inspection Carotids: no bruits Chest: Chest palpation & inspection: normal inspection of the chest Resp: Effort & Inspection: normal respiratory effort and able to speak in complete sentences Auscultation: clear to auscultation bilaterally, no crackles, no rales, no rhonchi and no wheezes Cardio: Rate: regular rate Rhythm: regular rhythm Heart sounds: S1 normal heart sound present and S2 normal heart sound present Bruits: no carotid bruits Peripheral pulses: Peripheral pulses 2+ throughout GI: Inspection: Yes normal to inspection Skin: Wounds: amputation site (Amp site at nearly healed) and wounds noted (Right MT head open ulcer with surrounding cellulitis which appears stable) Hair: normal Neuro: General: oriented to person, oriented to place and oriented to time Cranial nerves: Yes CN's II-XII intact bilaterally and Yes Normal hearing p resent Cognition (Neuro): normal cognition Motor exam (neuro): 5/5 motor strength present throughout Extrem: Other: venous exam: No significant superficial varicosities or spider telangiectasias, minimal edema General: No clubbing, No cyanosis and No edema Psych: Appearance: grossly normal Mental Status: mental status grossly normal Speech and movement: Normal speech and movement present Results Labs Result diagrams: 12/05/20 07:36 12/05/20 07:36 Labs: Abnormal lab results 12/04/20 12/04/20 12/04/20 Range/Units 14:01 14:01 14:01 WBC 15.5 H (4.8-10.8) X10*3/uL RBC 3.98 L (4.60-5.80) X10*6/uL Hgb 11.7 L (14.0-18.0) g/dl Hct 34.5 L (42-52) % Immature Gran % (Auto) 0.5 H (0.0-0.4) % Neut % (Auto) 79.1 H (45-73) % Lymph % (Auto) 14.1 L (20-40) % Abs Immat Gran (auto) 0.08 H (0.00-0.03) X10*3/uL Absolute Neuts (auto) 12.2 H (2.0-8.3) X10*3/uL ESR (0-15) MM/HR Sodium 133 L (135-145) mmol/L Potassium (3.3-5.1) mmol/L POC Glucose (60-115) mg/dL Random Glucose 220 H D (60-115) mg/dL Lactic Acid 2.1 H* (0.5-2.0) mmol/L C-Reactive Protein (< or = 0.50) mg/dL 12/04/20 12/04/20 12/04/20 Range/Units 14:01 14:01 16:33 WBC (4.8-10.8) X10*3/uL RBC (4.60-5.80) X10*6/uL Hgb (14.0-18.0) g/dl Hct (42-52) % Immature Gran % (Auto) (0.0-0.4) % Neut % (Auto) (45-73) % Lymph % (Auto) (20-40) % Abs Immat Gran (auto) (0.00-0.03) X10*3/uL Absolute Neuts (auto) (2.0-8.3) X10*3/uL ESR 48 H (0-15) MM/HR Sodium (135-145) mmol/L Potassium (3.3-5.1) mmol/L POC Glucose 197 H (60-115) mg/dL Random Glucose (60-115) mg/dL Lactic Acid (0.5-2.0) mmol/L C-Reactive Protein 8.52 H (< or = 0.50) mg/dL 12/04/20 12/05/20 12/05/20 Range/Units 21:16 07:36 07:36 WBC (4.8-10.8) X10*3/uL RBC 4.25 L (4.60-5.80) X10*6/uL Hgb 12.2 L (14.0-18.0) g/dl Hct 36.8 L (42-52) % Immature Gran % (Auto) (0.0-0.4) % Neut % (Auto) (45-73) % Lymph % (Auto) (20-40) % Abs Immat Gran (auto) (0.00-0.03) X10*3/uL Absolute Neuts (auto) (2.0-8.3) X10*3/uL ESR (0-15) MM/HR Sodium (135-145) mmol/L Potassium 5.2 H (3.3-5.1) mmol/L POC Glucose 160 H (60-115) mg/dL Random Glucose 163 H (60-115) mg/dL Lactic Acid (0.5-2.0) mmol/L C-Reactive Protein (< or = 0.50) mg/dL 12/05/20 12/05/20 Range/Units 08:38 11:17 WBC (4.8-10.8) X10*3/uL RBC (4.60-5.80) X10*6/uL Hgb (14.0-18.0) g/dl Hct (42-52) % Immature Gran % (Auto) (0.0-0.4) % Neut % (Auto) (45-73) % Lymph % (Auto) (20-40) % Abs Immat Gran (auto) (0.00-0.03) X10*3/uL Absolute Neuts (auto) (2.0-8.3) X10*3/uL ESR (0-15) MM/HR Sodium (135-145) mmol/L Potassium (3.3-5.1) mmol/L POC Glucose 172 H 181 H (60-115) mg/dL Random Glucose (60-115) mg/dL Lactic Acid (0.5-2.0) mmol/L C-Reactive Protein (< or = 0.50) mg/dL Short CBC 12/04/20 12/05/20 Range/Units 14:01 07:36 WBC 15.5 H 10.2 (4.8-10.8) X10*3/uL Hgb 11.7 L 12.2 L (14.0-18.0) g/dl Hct 34.5 L 36.8 L (42-52) % Plt Count 352 347 (160-400) X10*3/uL BMP 12/04/20 12/05/20 14:01 07:36 Sodium 133 L 139 Potassium 4.6 5.2 H Chloride 99 104 Carbon Dioxide 25 26 BUN 16 9 Creatinine 1.09 0.74 Calcium 8.4 D 9.2 D Urine 12/04/20 Range/Units 17:33 Urine Color DK YELLOW Urine Appearance CLEAR Urine pH 6.0 (5.0-8.0) Ur Specific [place] 1.025 (1.005-1.025) Urine Protein NEG (NEG-TRACE) MG/DL Urine Glucose (UA) NEG (NEG) MG/DL All other labs normal. Assessment and Plan (1) Diabetic foot infection: Status: Acute Patient is stable from a vascular standpoint. I was able to appreciate a palpable dorsalis pedis pulse. It appears that the infection is better controlled. X-ray was reviewed and is concerning for osteomyelitis. He may be better served with an MRI. In addition would recommend FAC she has disease consult. At the current time will need local wound care and dressings. We will monitor this patient with you. Thank you for allowing us to assist in his care. If there are any questions or concerns please do not hesitate to contact us. Procedures Date of Service Date of Service: 12/05/20
--- NOTE | 2020-12-05 12:39 | HE.PHANOTE ---
VANCOMYCIN DOSING ADDENDUM BASED ON THE PATIENT NEW RENAL FUNCTION DOSE CHANGED 1250MG Q 12. NEW AUC GOAL OF 462 AND TROUGH OF 14.1. PREVIOUS DOSE WITH OLD RENAL FUNCTION GAVE AUC OF 371. TROUGH SAME BEFORE TO DOUBLE CHECK
--- NOTE | 2020-12-05 12:48 | HO.PM.IMPN ---
Subjective Subjective Date of Service: 12/05/20 Interval History: Foot cellulitis/osteomyelitis Review of Systems Patient still has for pain Denies any new complaint of chest pain or shortness of breath or abdominal pain or fever or chills or nausea or vomiting Denies any cough Denies any weakness or numbness. Physical Exam Vital Signs: Vital Signs: Last Vital Signs Temp 97.0 F 12/05/20 11:51 Pulse 82 12/05/20 11:51 Resp 20 12/05/20 11:51 BP 140/80 H 12/05/20 11:51 Pulse Ox 90 L 12/05/20 11:51 Body Mass Index 30.7 Physical exam : Appearance: Alert.? Oriented X3.? not in distress.? Eyes: Pupils equal, round and reactive to light.? Sclera nonicteric.? ENT: Pharynx normal.? Moist mucous membranes. cvs: rrr, [id number] , no murmur res: clear to auscultation ,no rhonchii or wheezing abd: no rebound or guarding ,nt, bs present. ext pulses present , no cyanosis ,right toe-has 2 middle toes missing probably is previous surgery due to infection. Also has big toe ulcer on that side lateral side as well as on the bottom of the toe, seems more dry and no significant discharge today. Still has erythema around the toe and midfoot area, no fluctuation. neuro: axo3 , nonfocal. Objective Data Active Medications Albuterol Sulfate (Albuterol Sulfate 90 Mcg 8 Gm Inhaler) 2 puff INHALE Q4H PRN PRN Reason: Shortness Of Breath Amlodipine Besylate (Amlodipine Besylate 10 Mg Tablet) 10 mg PO DAILY [facility]; Protocol Last Admin: 12/05/20 08:57 Dose: 10 mg Documented by: ROBERTH Atenolol (Atenolol 25 Mg Tablet) 25 mg PO DAILY [facility]; Protocol Last Admin: 12/05/20 08:57 Dose: 25 mg Documented by: ROBERTH Clonazepam (Clonazepam 0.5 Mg Tablet) 0.5 mg PO DAILY PRN PRN Reason: Anxiety Dextrose (Dextrose 50 % 25 Gm/50 Ml Vial) 25 gm IVPUSH Q15M PRN; Protocol PRN Reason: per Hypoglycemia Standing Ord. Enoxaparin Sodium (Enoxaparin Sodium 40 Mg/0.4 Ml Syringe) 40 mg SUBCUT Q24H [facility] Last Admin: 12/04/20 17:06 Dose: 40 mg Documented by: JARED Escitalopram Oxalate (Escitalopram Oxalate 10 Mg Tablet) 10 mg PO DAILY [facility] Last Admin: 12/05/20 08:57 Dose: 10 mg Documented by: ROBERTH Fluticasone Propionate (Fluticasone Propionate 100 Mcg Blst.W.Dev) 2 puff INHALE RBID [facility] Last Admin: 12/05/20 08:35 Dose: Not Given Documented by: SUZAN Non-Admin Reason: Med Not Available Gabapentin (Gabapentin 400 Mg Capsule) 800 mg PO TID [facility] Last Admin: 12/05/20 08:57 Dose: 800 mg Documented by: ROBERTH Glucose (Glucose Gel 15 Gm Gel..Gram.) 15 gm PO Q15M PRN; Protocol PRN Reason: per Hypoglycemia Standing Ord. Piperacillin Sod/Tazobactam (Sod 3.375 gm/ Sodium Chloride) 50 mls @ 100 mls/hr IV Q6H [facility] Last Admin: 12/05/20 12:24 Dose: 100 mls/hr Documented by: LEROY Vancomycin HCl 1,250 mg/ (Sodium Chloride) 250 mls @ 166.667 mls/hr IV Q12H [facility] Insulin Glargine (Insulin Glargine,Hum.Rec.Anlog 100 Unit/Ml 10 Ml Vial) 13 unit SUBCUT DAILY [facility] Last Admin: 12/05/20 08:56 Dose: 13 unit Documented by: ROBERTH Insulin Human Lispro (Insulin Lispro 100 Unit/Ml 3 Ml Vial) 0 unit SUBCUT QIDACHS [facility]; Protocol Last Admin: 12/05/20 10:44 Dose: Not Given Documented by: LEROY Non-Admin Reason: pt in the ED at this time Morphine Sulfate (Morphine Sulfate 2 Mg/Ml Cartridge) 2 mg IVPUSH Q4H PRN; Protocol PRN Reason: pain Last Admin: 12/05/20 12:24 Dose: 2 mg Documented by: LEROY Pharmacy Consult (Consult Rx Perform Med Rec) 1 each MISCELLANE ONCE PRN PRN Reason: Consult order Pharmacy Consult (Consult Rx Vancomycin Dosing) 1 each MISCELLANE DAILY PRN PRN Reason: Consult order Sodium Chloride (0.9 % Sodium Chloride Flush 3 Ml Syringe) 3 ml IVFLUSH QSHIFT [facility] Last Admin: 12/05/20 10:48 Dose: Not Given Documented by: LEROY Non-Admin Reason: pt in the ED at this time Sodium Chloride (0.9 % Sodium Chloride Flush 3 Ml Syringe) 3 ml IVFLUSH QSHIFT [facility] Last Admin: 12/05/20 10:48 Dose: Not Given Documented by: LEROY Non-Admin Reason: pt in the ED at this time Labs CBC & Chem 7: 12/05/20 07:36 12/05/20 07:36 Labs: Laboratory Results - last 24 hr 12/04/20 12/04/20 12/04/20 13:21 14:01 14:01 MCV 86.7 MCH 29.4 MCHC 33.9 RDW 13.2 Plt Count 352 MPV 9.7 Immature Gran % (Auto) 0.5 H Neut % (Auto) 79.1 H Lymph % (Auto) 14.1 L [place] % (Auto) 5.7 Eos % (Auto) 0.5 Baso % (Auto) 0.1 Lymph # (Auto) 2.2 [place] # (Auto) 0.9 Eos # (Auto) 0.1 Baso # (Auto) 0.0 Abs Immat Gran (auto) 0.08 H Absolute Neuts (auto) 12.2 H Absolute Nucleated RBC 0.000 Nucleated RBC % (auto) 0.0 ESR Anion Gap 14 Estim Creat Clear Calc 95.4 Estimated GFR > 60 POC Glucose Random Glucose 220 H D Lactic Acid Lactic Acid Fup @ 2Hr Calcium 8.4 D C-Reactive Protein Urine Color Urine Appearance Urine pH Ur Specific [place] Urine Protein Urine Glucose (UA) Urine Ketones Urine Blood Urine Nitrite Ur Leukocyte Esterase COVID-19 ([facility]) Negative COVID-19 Clin Com See Note 12/04/20 12/04/20 12/04/20 14:01 14:01 14:01 MCV MCH MCHC RDW Plt Count MPV Immature Gran % (Auto) Neut % (Auto) Lymph % (Auto) [place] % (Auto) Eos % (Auto) Baso % (Auto) Lymph # (Auto) [place] # (Auto) Eos # (Auto) Baso # (Auto) Abs Immat Gran (auto) Absolute Neuts (auto) Absolute Nucleated RBC Nucleated RBC % (auto) ESR 48 H Anion Gap Estim Creat Clear Calc Estimated GFR POC Glucose Random Glucose Lactic Acid 2.1 H* Lactic Acid Fup @ 2Hr Calcium C-Reactive Protein 8.52 H Urine Color Urine Appearance Urine pH Ur Specific [place] Urine Protein Urine Glucose (UA) Urine Ketones Urine Blood Urine Nitrite Ur Leukocyte Esterase COVID-19 ([place]) COVID-19 [employer] Com 12/04/20 12/04/20 12/04/20 16:23 16:33 17:33 MCV MCH MCHC RDW Plt Count MPV Immature Gran % (Auto) Neut % (Auto) Lymph % (Auto) [place] % (Auto) Eos % (Auto) Baso % (Auto) Lymph # (Auto) [place] # (Auto) Eos # (Auto) Baso # (Auto) Abs Immat Gran (auto) Absolute Neuts (auto) Absolute Nucleated RBC Nucleated RBC % (auto) ESR Anion Gap Estim Creat Clear Calc Estimated GFR POC Glucose 197 H Random Glucose Lactic Acid Lactic Acid Fup @ 2Hr 0.7 Calcium C-Reactive Protein Urine Color DK YELLOW Urine Appearance CLEAR Urine pH 6.0 Ur Specific [place] 1.025 Urine Protein NEG Urine Glucose (UA) NEG Urine Ketones 5 Urine Blood NEG Urine Nitrite NEG Ur Leukocyte Esterase NEG COVID-19 ([place]) COVID-Net [place] 12/04/20 12/05/20 12/05/20 21:16 07:36 07:36 MCV 86.6 MCH 28.7 MCHC 33.2 RDW 13.2 Plt Count 347 MPV 9.8 Immature Gran % (Auto) Neut % (Auto) Lymph % (Auto) [place] % (Auto) Eos % (Auto) Baso % (Auto) Lymph # (Auto) [place] # (Auto) Eos # (Auto) Baso # (Auto) Abs Immat Gran (auto) Absolute Neuts (auto) Absolute Nucleated RBC 0.000 Nucleated RBC % (auto) 0.0 ESR Anion Gap 14 Estim Creat Clear Calc 140.5 Estimated GFR > 60 POC Glucose 160 H Random Glucose 163 H Lactic Acid Lactic Acid Fup @ 2Hr Calcium 9.2 D C-Reactive Protein Urine Color Urine Appearance Urine pH Ur Specific [place] Urine Protein Urine Glucose (UA) Urine Ketones Urine Blood Urine Nitrite Ur Leukocyte Esterase COVID-19 ([place]) COVID-19 Clin Com 12/05/20 12/05/20 08:38 11:17 MCV MCH MCHC RDW Plt Count MPV Immature Gran % (Auto) Neut % (Auto) Lymph % (Auto) [place] % (Auto) Eos % (Auto) Baso % (Auto) Lymph # (Auto) [place] # (Auto) Eos # (Auto) Baso # (Auto) Abs Immat Gran (auto) Absolute Neuts (auto) Absolute Nucleated RBC Nucleated RBC % (auto) ESR Anion Gap Estim Creat Clear Calc Estimated GFR POC Glucose 172 H 181 H Random Glucose Lactic Acid Lactic Acid Fup @ 2Hr Calcium C-Reactive Protein Urine Color Urine Appearance Urine pH Ur Specific [place] Urine Protein Urine Glucose (UA) Urine Ketones Urine Blood Urine Nitrite Ur Leukocyte Esterase COVID-19 ([place]) COVID-19 Clin Com Assessment and Plan (1) Diabetic foot infection: Status: Acute (2) Diabetes mellitus: Status: Acute Assessment and Plan: 1. Probable cellulitis versus osteomyelitis of right foot ? also has hepatitis c as per patient Will start the patient on Vanco and Zosyn Id evaluation Lactic acid is sees improv improved. Gentle hydration, pain control with morphine IV, wound care evaluation 2. Diabetes:? Seems controlled Will continue fingerstick with sliding scale coverage, hold more metformin. 3. Hypertension:? Controlled Continue atenolol, hold lisinopril. 4. Anxiety:? Continue clonazepam 5. Asthma:? Stable continue albuterol and flu cortisone. 6. hyperkalemia : off fluids , given kayxelate. DVT prophylaxis:? With Lovenox. Quality Stroke Does the patient have a stroke diagnosis?: No VTE Prior VTE?: No VTE Risk Level:: Medical - moderate - high VTE Device Contraindication: N/A - Device Ordered VTE Drug Contraindication: N/A - Med Ordered
[2020-12-05] MEDS: vancomycin HCL 1,250 MG in 0.9 % Sodium Chloride 250 ML 166.67 MG IV (14:50)
[2020-12-05] MEDS: Insulin Lispro 100 UNIT/ML 3 ML VIAL SUBCUT ×3 (14:50→21:03)
[2020-12-05] MEDS: Enoxaparin Sodium 40 MG/0.4 ML SYRINGE SUBCUT (14:53)
[2020-12-05 16:00] VITALS: BP 140/74; PULSE 85; RESP 18; TEMP 36.3; O2SAT 96
--- NOTE | 2020-12-05 16:25 | MHC.CM.PN ---
Met with patient in regards to discharge planning. Patient lives alone, ambulates independently and had no services prior to coming to the hospital. Patient requesting referral to [facility] for [facility] for chronic disease management and an off-loading shoe. PCP verified. Patient denies having a HCP. Not interested in completed one. Patient denies receiving a Covid vaccine. Not interested in getting any. IMM explained and signed. Patient will use an Uber for transport home when medically stable.Continue to monitor for d/c needs.
[2020-12-05 17:07] LABS: Glucose, Whole Blood 225 mg/dL (60-115)
[2020-12-05 19:34] VITALS: BP 155/83; PULSE 87; RESP 18; TEMP 36.3; O2SAT 96
[2020-12-05 20:23] LABS: Glucose, Whole Blood 186 mg/dL (60-115)
[2020-12-05] MEDS: 0.9 % Sodium Chloride Flush 3 ML SYRINGE IVFLUSH (21:04)
[2020-12-06] VITALS: BP 160/90; PULSE 90; RESP 17; TEMP 36.3; O2SAT 97
[2020-12-06] MEDS: Piperacillin Sodium/Tazobactam 3.375 GM in 0.9 % Sodium Chloride 50 ML IV ×2 (00:08→05:49)
[2020-12-06] MEDS: 0.9 % Sodium Chloride Flush 3 ML SYRINGE IVFLUSH (00:23)
[2020-12-06] MEDS: Morphine Sulfate 2 MG/ML CARTRIDGE IVPUSH ×2 (00:55→04:56)
[2020-12-06 01:47] LABS: Vancomycin Trough 8.2 mcg/mL (10.0-20.0)
[2020-12-06] MEDS: vancomycin HCL 1,250 MG in 0.9 % Sodium Chloride 250 ML 166.67 MG IV (02:09)
[2020-12-06 04:00] VITALS: BP 164/88; PULSE 90; RESP 17; TEMP 36.5; O2SAT 95
[2020-12-06 06:42] LABS: Estimated Glomerular Filt Rate > 60
--- NOTE | 2020-12-06 07:09 | HE.PHANOTE ---
Pharmacy Note- Vancomycin Dosing Addendum Based on current Scr 0.77 and a trough that came back at 8.2, the vancomycin dose was changed to 1500 mg Q12H. This new regimen is predicting a AUC of 432 and a trough of 11.3. Tg Tejeda, PharmD [phone]
[2020-12-06 07:46] VITALS: BP 160/83; PULSE 88; RESP 18; TEMP 36.7; O2SAT 94
[2020-12-06 07:59] LABS: Glucose, Whole Blood 214 mg/dL (60-115)
--- NOTE | 2020-12-06 09:04 | P.PNVS_ITS ---
Subjective Subjective Date of Service: 12/06/20 Patient reports: no new complaints and feels better Interval history: 50-year-old gentleman for follow-up regarding nonhealing foot ulcer. Upon my arrival he was being seen and examined by the hospitalist physician. He was frustrated with the situation and was threatening to sign out AMA. Upon my arrival he was yelling at the hospitalist physician Dr. Aldrich who was trying to calmly explained the situation. It is unclear if this nonhealing ulcer is leading to osteomyelitis. We are waiting MRI. Physical Exam Vital Signs: Vital Signs: Last Vital Signs Temp 98.1 F 12/06/20 07:46 Pulse 88 12/06/20 07:46 Resp 18 12/06/20 07:46 BP 160/83 H 12/06/20 07:46 Pulse Ox 94 12/06/20 07:46 Body Mass Index 30.7 Cardio: Peripheral pulses: dorsalis pedis present (Palpable do bilateral DP noted yesterday) Skin: Other: Dressing clean dry intact Progress Note: A&P Assessment and plan (1) Diabetic foot infection: Status: Acute Assessment and Plan: Recurrent diabetic foot infection. There is concern for underlying osteomyelitis. The patient was yelling, threatening, and abusive to the hospitalist physician. The physician try to calmly explain that we are in the process of trying to work him up and provide the best care possible. I explained that his leg is stable from a vascular standpoint he may need long- term IV antibiotics and wound care. It is unclear why this patient had all his prior care performed at [facility] in showed up to our hospital. He has had his prior toe amputation is performed there as well. He has no vascular concerns at the current time. We will follow up with him on an as- needed basis. Thank you for allowing us to assist in his care. Please note a total of 40 minutes was required for the care of this patient between chart review imaging review and extensive discussion with the patient Fall Risk Details Current Medications: Current Medications Albuterol Sulfate (Albuterol Sulfate 90 Mcg 8 Gm Inhaler) 2 puff INHALE Q4H PRN PRN Reason: Shortness Of Breath Amlodipine Besylate (Amlodipine Besylate 10 Mg Tablet) 10 mg PO DAILY [facility]; Protocol Last Admin: 12/06/20 08:05 Dose: Not Given Documented by: Atenolol (Atenolol 25 Mg Tablet) 25 mg PO DAILY [facility]; Protocol Last Admin: 12/06/20 08:05 Dose: Not Given Documented by: Clonazepam (Clonazepam 0.5 Mg Tablet) 0.5 mg PO DAILY PRN PRN Reason: Anxiety Dextrose (Dextrose 50 % 25 Gm/50 Ml Vial) 25 gm IVPUSH Q15M PRN; Protocol PRN Reason: per Hypoglycemia Standing Ord. Enoxaparin Sodium (Enoxaparin Sodium 40 Mg/0.4 Ml Syringe) 40 mg SUBCUT Q24H [facility] Last Admin: 12/05/20 14:53 Dose: 40 mg Documented by: Escitalopram Oxalate (Escitalopram Oxalate 10 Mg Tablet) 10 mg PO DAILY [facility] Last Admin: 12/06/20 08:05 Dose: Not Given Documented by: Fluticasone Propionate (Fluticasone Propionate 100 Mcg Blst.W.Dev) 2 puff INHALE RBID [facility] Last Admin: 12/06/20 08:18 Dose: Not Given Documented by: Gabapentin (Gabapentin 400 Mg Capsule) 800 mg PO TID [facility] Last Admin: 12/06/20 08:06 Dose: Not Given Documented by: Glucose (Glucose Gel 15 Gm Gel..Gram.) 15 gm PO Q15M PRN; Protocol PRN Reason: per Hypoglycemia Standing Ord. Piperacillin Sod/Tazobactam (Sod 3.375 gm/ Sodium Chloride) 50 mls @ 100 mls/hr IV Q6H [facility] Last Admin: 12/06/20 05:49 Dose: 10 mls/hr Documented by: Vancomycin HCl 1,500 mg/ (Sodium Chloride) 500 mls @ 333.333 mls/hr IV Q12H [facility] Insulin Glargine (Insulin Glargine,Hum.Rec.Anlog 100 Unit/Ml 10 Ml Vial) 13 unit SUBCUT DAILY [facility] Last Admin: 12/06/20 08:57 Dose: Not Given Documented by: Insulin Human Lispro (Insulin Lispro 100 Unit/Ml 3 Ml Vial) 0 unit SUBCUT QIDACHS [facility]; Protocol Last Admin: 12/06/20 08:04 Dose: Not Given Documented by: Morphine Sulfate (Morphine Sulfate 2 Mg/Ml Cartridge) 2 mg IVPUSH Q4H PRN; Protocol PRN Reason: pain Last Admin: 12/06/20 04:56 Dose: 2 mg Documented by: Pharmacy Consult (Consult Rx Perform Med Rec) 1 each MISCELLANE ONCE PRN PRN Reason: Consult order Pharmacy Consult (Consult Rx Vancomycin Dosing) 1 each MISCELLANE DAILY PRN PRN Reason: Consult order Sodium Chloride (0.9 % Sodium Chloride Flush 3 Ml Syringe) [facility] Last Admin: 12/06/20 08:06 Dose: Not Given Documented by: Sodium Chloride (0.9 % Sodium Chloride Flush 3 Ml Syringe) 3 ml IVFLUSH [facility] Last Admin: 12/06/20 08:06 Dose: Not Given Documented by: Time Spent With Patient Time: Total time spent is greater than 50% in coordination of care (as documented) at patient's floor/unit and/or counseling patient: Time with patient: Greater than 35 minutes Procedures Date of Service Date of Service: 12/06/20 Quality Stroke Does the patient have a stroke diagnosis?: No VTE Prior VTE?: No VTE Risk Level:: Medical - moderate - high VTE Device Contraindication: N/A - Device Ordered VTE Drug Contraindication: N/A - Med Ordered
--- NOTE | 2020-12-06 09:24 | MHC.CM.PN ---
CM MET WITH PT AT THE REQUEST OF HOSPITALIST WHO REPORTED THE PT WAS SIGNING OUT AMA BUT WANTED HOME SERVICES. CM MET WITH PT WHO WAS INITIALLY PLEASANT AND REPORTED HE COULD NOT STAY ANY LONGER BECAUSE HE HAS ANIMALS HE NEEDS TO CARE FOR AT HOME. PT STATED I HAVEN'T EVEN SEEN YOU BEFORE THIS CM EXPLAINED THERE IS A DIFFERENT CM IN THE ED OVERFLOW AREA, PT STATES HE DID NOT SEE ONE BUT STILL NEEDS TO LEAVE TODAY HE HAS A CAT AND RABBIT AT HOME. PT STATED HE WAS VERY CONCERNED ABOUT THE RABBIT IT IS VERY DELICATE CM EMPATHIZED BUT ALSO REMINDED HIM THAT HIS CONDITION MAY BE SERIOUS AND REQUIRE AMP IF NOT TREATED. PT REPORTS, I KNOW, I HAD THREE TOES AMPUTATED ALREADY . CM EXPLAINED IF PT LEAVES AMA, THERE IS NO WAY TO ARRANGE VNA OR HOME INFUSIONS. PT REPORTS HE DID NOT REALIZE HOME ABX WOULD BE AN OPTION. CM EXPLAINED IT COULD BE HOWEVER HE WOULD NEED TO STAY INPT UNTIL EVERYTHING IS ARRANGED. PT REPORTS HE CANNOT STAY. PT STATES HE WAS TOLD IT WOULD BE A COUPLE DAYS AND HE DID HIS RESEARCH AND THIS SHOULD ONLY TAKE 48-72 HRS . CM EXPLAINED THIS IS NOT ALWAYS THE CASE THERE ARE SEVERAL STEPS INVOLVED. PT BEGAN TO APPEAR AGITATED AND REPORTS JUST GIVE ME AN ETA . CM ASKED WHAT HE WANTED AN ETA FOR AND HE REPORTED FOR THE HOME SERVICES. CM AGAIN EXPLAINED HE CANNOT HAVE HOME SERVICES IF HE LEAVES AMA TODAY. HE STATES, IF I WAS GOING TO STAY I WOULD NOT NEED HOME SERVICES AT ALL . CM EXPLAINED PROPER TREATMENT COULD REQUIRE 4-6 WEEKS OF IV ABX. PT BECAME ANGRY AND STATES I'M NOT STAYING HERE FOR 4-6 WEEKS! CM AGAIN EXPLAINED THAT IS WHY SERVICES ARE ARRANGED AT HOME. PT STATES DO YOU WANT TO ARGUE WITH ME THIS IS COUNTER PRODUCTIVE . CM APOLOGIZES AND EXPLAINS THERE APPEARS TO BE SOME MISCOMMUNICATION OCCURRING. PT STATES YEAH RIGHT AND WALKS OUT. OF NOTE: PT WAS SEEN BY ED CM WITHIN 24 HOURS OF ADMISSION. PT DISCHARGED TO HOME TODAY AGAINST MEDICAL ADVICE. PT ARRANGED HIS OWN TRANSPORTATION PT AWARE HOSPITALIST SENT A RX FOR PO ABX TO HIS PREFERRED PHARMACY ([id number] [id number] [place])
--- NOTE | 2020-12-06 09:29 | PC.NURSE ---
0830 Left AMA seen by Dr Aldrich, and Dr Solis. prior to him leaving. Understands consequences. also seen by [facility]. Has scripts for A/B at his pharmacy and pt aware. signed AMA paper and IV removed
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
== END 2020-12-06 09:29 | disposition left against medical advice (07) | DRG 638 ==
LOC: HO.ED 13:35 → HO.EDOVER 15:48 → HO.ISO 12-05 08:40 → HO.S3 12-05 15:32
PROVIDERS: Admitting Provider Internal Medicine; Emergency Provider Student in an Organized Health Care Education/Training Program; PCP Nurse Practitioner Pediatrics; Visit Provider Internal Medicine
DX: E11.69 Type 2 diabetes mellitus with other specified complication (principal); L03.115 Cellulitis of right lower limb; L97.516 Non-pressure chronic ulcer of other part of right foot with bone involvement without evidence of necrosis; M86.9 Osteomyelitis, unspecified; I10 Essential (primary) hypertension; E11.621 Type 2 diabetes mellitus with foot ulcer; J45.909 Unspecified asthma, uncomplicated; F41.9 Anxiety disorder, unspecified; E87.5 Hyperkalemia; Z98.1 Arthrodesis status; Z20.822 Contact with and (suspected) exposure to COVID-19; Z79.4 Long term (current) use of insulin; Z79.899 Other long term (current) drug therapy
CPT/HCPCS: 36415; 73620; 73630; 80048; 80076; 80202; 81003; 82565; 82947; 83605; 85025; 85027; 85652; 86140; 87040; 87635; 99283; 99284; J0690; J1650; J2270; J2543; J3370

== ENCOUNTER 2020-12-06 13:53 | Inpatient (IN) | payer MEDICARE, MEDICAID, SELFPAY ==
--- NOTE | ~2020-12-06 | MR_ITS ---
EXAMINATION: MRI FOOT WITHOUT AND WITH CONTRAST, RIGHT CLINICAL INFORMATION: Wound of foot. Evaluate for osteomyelitis. COMPARISON: Radiographs of foot from 12/04/2020. TECHNIQUE: MR imaging of the right foot was performed using standard sequences on a high-field 1.5 Hannah magnet without and with intravenous administration of 10 mL Gadavist. FINDINGS: The tarsometatarsal joints and midfoot joints are degenerated. The osteoarthritis is severe at the first tarsometatarsal joint where there is irregular loss of the articular cartilage, subchondral sclerosis, prominent subchondral cystic change and osteophyte formation. 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 A wound located medial to the first metatarsal head extends toward the surface of the metatarsal head and appears to penetrate into the MTP joint (image 22 of 38, series 9). There is associated metatarsophalangeal joint effusion and synovitis. There appears to be a small ulcer plantar to the 1st metatarsophalangeal joint, as well (image 24, series 9). The wound, or small abscess, extends plantar to the medial sesamoid of the great toe. The medial and lateral sesamoids of the great toe are edematous, highly suggestive of osteomyelitis involving these bones. A small pericapsular fluid collection (i.e., abscess) measures approximately 0.5 cm wide lateral and dorsolateral to the 1st MTP joint (image 24, series 9). There are marginal erosions at the base of the 1st proximal phalanx. Also, small area of cortical bone loss of the dorsal metatarsal head is noted. There is loss of fatty marrow signal from edema/inflammation within the proximal two thirds of the proximal phalanx of the great toe, highly suggestive of osteomyelitis involving this bone. Also, there is extensive loss of fatty marrow signal within the great toe metatarsal. A nondisplaced hypointense fracture line is present within the 1st metatarsal neck. Diffuse bone marrow edema and bone marrow enhancement are observed within the metatarsal which has mildly thickened cortex/periosteal reaction. The edema within the 1st metatarsal likely represents a combination of infection and stress related changes. The second and third toes have been previously amputated through the distal metatarsals, and fourth toe amputated through the base of the proximal phalanx. The residual bones within these toes have preserved fatty marrow signal. No evidence of osteomyelitis within the 2nd - 5th digits. No tears are identified within the Lisfranc ligament complex. Diffuse atrophy and partial fatty replacement of the visualized muscles of the forefoot. The atrophy and fatty replacement most severely affects the abductor digiti minimi muscle, which could be secondary to chronic denervation. The visualized muscles have a diffusely edematous appearance. Although findings could be secondary to soft tissue inflammation, chronic denervation changes of muscles could produce these signal alterations, as well. No evidence of an acute tendon tear within the foot. There appears to be localized tenosynovitis of the flexor hallucis longus where it travels plantar to the region of the great toe MTP joint. MR/MR foot RT wo/w con IMPRESSION: * Degenerative arthropathy in the visualized midfoot and Lisfranc joint. The osteoarthritis is severe at the first tarsometatarsal joint. The degenerative changes could be a manifestation of neuropathic arthropathy. * There is a nondisplaced fracture (stress fracture) of the 1st metatarsal neck. The mild cortical thickening/periosteal reaction along the 1st metatarsal shaft is probably stress related change. * An ulcer/wound medial to the 1st metatarsal head appears to penetrate into the 1st metatarsophalangeal joint space where there is synovitis and erosive changes. Also, there appears to be a small ulcer plantar to the 1st metatarsophalangeal joint. Findings are consistent with infectious synovitis and osteomyelitis involving the proximal phalanx, first metatarsal and sesamoids. A small soft tissue abscess is noted lateral and dorsolateral to the region of the 1st metatarsophalangeal joint.
[2020-12-06 14:05] VITALS: BP 122/59; PULSE 88; RESP 20; TEMP 36.8; O2SAT 95; BMI 31.2
[2020-12-06 16:49] VITALS: BP 120/70; PULSE 82; RESP 18; TEMP 37.1; O2SAT 92
[2020-12-06 16:56] LABS: MANUAL DIFF FLAG NO
[2020-12-06 16:57] LABS: Basophils Percent Auto 0.3 % (0-2); Eosinophils Absolute Auto 0.1 X10*3/uL (0.0-0.4); Eosinophils Percent Auto 1.1 % (0-4); Hemoglobin 12.2 g/dl (14.0-18.0); Imm Gran Abs Auto 0.06 X10*3/uL (0.00-0.03); Imm Gran Pct Auto 0.6 % (0.0-0.4); Lymphocytes Absolute Auto 1.5 X10*3/uL (1.2-4.9); Lymphocytes Percent Auto 14.2 % (20-40); Mean Corpuscular HGB Conc 33.9 g/dl (31.0-36.0); Mean Corpuscular Hemoglobin 28.9 pg (27.0-33.0); Mean Corpuscular Volume 85.3 fL (80-98); Mean Platelet Volume 9.4 fL (9.4-12.4); Monocytes Absolute Auto 0.7 X10*3/uL (0.1-1.2); Monocytes Percent Auto 6.6 % (2-11); Neutrophils Absolute Auto 8.3 X10*3/uL (2.0-8.3); Neutrophils Percent Auto 77.2 % (45-73); Platelet Count 384 X10*3/uL (160-400); Red Blood Count 4.22 X10*6/uL (4.60-5.80); Red Cell Distribution Width 13.1 % (11.0-16.0); White Blood Count 10.8 X10*3/uL (4.8-10.8)
[2020-12-06 17:15] LABS: Alanine Aminotransferase 14 U/L (0-40); Aspartate Amino Transferase 17 U/L (5-37); Blood Urea Nitrogen 10 mg/dL (9-16); Creatinine Clr Calc Pharmacy 127.9; Estimated Glomerular Filt Rate > 60
--- NOTE | 2020-12-06 17:57 | ED_ITS ---
HPI - General Adult General Chief complaint: General Medical Stated complaint: SEPSIS R FOOT Time Seen by Provider: 12/06/20 15:55 Source: patient Mode of arrival: ambulatory Limitations: no limitations History of Present Illness HPI narrative: Patient presents to the ED for readmission for right foot osteomyelitis. Patient was admitted yesterday for osteomyelitis and sepsis but signed out against medical advice to go to the care of his pets. Patient return to the ED to be readmitted. Patient states no other complaints. Related Data Home Medications Medication Instructions Recorded Confirmed albuterol sulfate 90 mcg/actuation 2 puff PO Q4H PRN 12/03/20 12/04/20 aerosol inhaler amlodipine 10 mg tablet 1 tab PO DAILY 12/03/20 12/04/20 atenolol 25 mg tablet 1 tab PO DAILY 12/03/20 12/04/20 clonazepam 0.5 mg tablet 1 tab PO DAILY PRN 12/03/20 12/04/20 escitalopram oxalate 10 mg tablet 1 tab PO DAILY 12/03/20 12/04/20 fluticasone propionate 110 2 puff PO BID 12/03/20 12/04/20 mcg/actuation HFA aerosol inhaler (Flovent HFA) gabapentin 800 mg tablet 1 tab PO TID 12/03/20 12/04/20 insulin aspart U-100 100 unit/mL 10 - 15 unit SUBCUT TID 12/03/20 12/04/20 subcutaneous cartridge (Novolog PenFill U-100 Insulin aspart) insulin degludec 100 unit/mL (3 18 unit SUBCUT DAILY 12/03/20 12/04/20 mL) subcutaneous pen (Tresiba FlexTouch U-100 insulin) lisinopril 40 mg tablet 1 tab PO DAILY 12/03/20 12/04/20 metformin 1,000 mg tablet 1 tab PO BID 12/03/20 12/04/20 ondansetron 4 mg disintegrating 1 tab SUBLINGUAL BID PRN 12/03/20 12/04/20 tablet Previous Rx's Medication Instructions Recorded doxycycline monohydrate 100 mg 100 mg PO BID #20 tab 12/03/20 tablet oxycodone 5 mg tablet 5 mg PO Q6H PRN #8 tab 12/03/20 amoxicillin 875 mg-potassium 1 tab PO BID #28 tab 12/06/20 clavulanate 125 mg tablet (Augmentin) doxycycline hyclate 100 mg capsule 100 mg PO DAILY #28 cap 12/06/20 Allergies Allergy/AdvReac Type Severity Reaction Status Date / Time No Known Allergies Allergy Unknown Unverified 11/30/19 15:25 [No Known Allergies*] Review of Systems Review of Systems: Yes all other systems are reviewed and are negative Constitutional: Constitutional: Reports as per HPI and Reports no additional constitutional complaints Eyes: Eyes: Reports as per HPI and Reports no additional eye complaints ENT: Reports system reviewed and no additional complaints, except as documented and Reports as per HPI Cardiovascular: Cardiovascular: Reports as per HPI and Reports no additional cardiovascular complaints Respiratory: Respiratory: Reports as per HPI and Reports no additional res piratory complaints Gastrointestinal: Gastrointestinal: Reports as per HPI and Reports no additional gastrointestinal complaints Genitourinary: Genitourinary: Reports no additional male genitourinary complaints and Reports as per HPI Musculoskeletal: Musculoskeletal: Reports no additional musculoskeletal complaints and Reports as per HPI Comments: Right foot infection Neurologic: Reports system reviewed and no additional complaints, except as documented and Reports as per HPI Psychiatric: Psychiatric: Reports no additional psychiatric complaints and Reports as per HPI [facility] Past Medical History Medical History Diabetes mellitus Hypertension Surgical History History of amputation of lesser toe Social History Social History Household Members: None Household Members Other:: 1 Housing: Apartment Do you presently have visiting nurse or other home services: No Alcohol intake: never Patient Tobacco Use Status: Never used Tobacco Second Hand Smoke Exposure: No Use of substances other than those prescribed or required for medical reasons: No Substance Use Type: Marijuana Advance Directives: No Advance Directives Information Provided: No service: No Physical Exam 2 Vital Signs: Vital Signs: Last Vital Signs Temp 98.8 F 12/06/20 16:49 Pulse 82 12/06/20 16:49 Resp 18 12/06/20 16:49 BP 120/70 12/06/20 16:49 Pulse Ox 92 12/06/20 16:49 Body Mass Index 31.2 Const: General: cooperative, healthy appearing, comfortable, no acute distress, well developed, alert, awake and Physically active Orientation/consciousness: patient oriented x3 HENMT: Head: Yes normal to inspection, Yes No palpable skull fracture present, Yes normocephalic, Yes atraumatic and No abrasion Eyes: General: appearance normal, both eyes and all related structures Neck: Neck: Yes normal visual inspection, Yes full ROM, Yes no lymphadenopath y, Yes no meningeal signs, Yes trachea midline, Yes supple and No tender Chest: Chest palpation & inspection: normal inspection of the chest and normal palpation of entire chest wall Resp: Effort & Inspection: normal respiratory effort and able to speak in complete sentences Auscultation: clear to auscultation bilaterally Cardio: Jugular venous distension: no JVD Heart sounds: S1 normal heart sound present and S2 normal heart sound present GI: Inspection: Yes normal to inspection and No abdominal wall ecchymosis Palpation (GI): Soft to palpation, not firm, nontender, no guarding and not rigid : General: No CVA tenderness and Yes no CVA tenderness Back/Spine/Pelvis: Back: no CVA tenderness, No CVA tenderness and No back tenderness Skin: General skin exam: no rashes or lesions noted and elasticity normal Neuro: General: patient oriented x3, gait normal, no meningeal signs and CN's II-XI intact bilaterally Cranial nerves: Yes CN's II-XII intact bilaterally Extrem: Other: Right foot dorsal cellulitis with 2 plantar ulcers with yellow discharge and foul odor with pus Course Course Course Narrative: Patient to be readmitted. Reevaluation(s) Reevaluation #1: Spoke with the hospitalist who accepted the case for patient to be readmitted for osteomyelitis. Time: 18:06 Medical Decision Making [facility] Narrative Medical decision making narrative: Osteomyelitis Lab Data Result diagrams: 12/06/20 16:48 12/06/20 16:48 Labs: Lab Results 12/06/20 12/06/20 Range/Units 16:48 16:48 WBC 10.8 (4.8-10.8) X10*3/uL RBC 4.22 L (4.60-5.80) X10*6/uL Hgb 12.2 L (14.0-18.0) g/dl Hct 36.0 L (42-52) % MCV 85.3 (80-98) fL MCH 28.9 (27.0-33.0) pg MCHC 33.9 (31.0-36.0) g/dl RDW 13.1 (11.0-16.0) % Plt Count 384 (160-400) X10*3/uL MPV 9.4 (9.4-12.4) fL Immature Gran % (Auto) 0.6 H (0.0-0.4) % Neut % (Auto) 77.2 H (45-73) % Lymph % (Auto) 14.2 L (20-40) % [place] % (Auto) 6.6 (2-11) % Eos % (Auto) 1.1 (0-4) % Baso % (Auto) 0.3 (0-2) % Lymph # (Auto) 1.5 (1.2-4.9) X10*3/uL [place] # (Auto) 0.7 (0.1-1.2) X10*3/uL Eos # (Auto) 0.1 (0.0-0.4) X10*3/uL Baso # (Auto) 0.0 (0.0-0.2) X10*3/uL Abs Immat Gran (auto) 0.06 H (0.00-0.03) X10*3/uL Absolute Neuts (auto) 8.3 (2.0-8.3) X10*3/uL Absolute Nucleated RBC 0.000 (0.0-0.012) X10*3/uL Nucleated RBC % (auto) 0.0 (0.0-0.2) /100WBC BUN 10 (9-16) mg/dL Creatinine 0.82 (0.5-1.4) mg/dL Estim Creat Clear Calc 127.9 Estimated GFR > 60 AST 17 (5-37) U/L ALT 14 (0-40) U/L Discharge Plan Discharge Clinical Impression: Osteomyelitis Patient Disposition: Admitted As Inpatient
--- NOTE | 2020-12-06 18:04 | PM.IMHP ---
History of Present Illness Date of Service: 12/06/20 Attending physician on admission: Nelly Gleason Chief Complaint: Right foot wound This is a 50-year-old male with history of diabetes, hypertension, hepatitis-C who presents to the emergency department with diabetic foot wound. Patient was evaluated in the emergency department on December 03 and was determined to have probable osteomyelitis. At that time the patient decided to leave against medical advice to care for his pets. He returned the next day and was admitted to the hospital and was started on IV antibiotics. Unfortunately he left the hospital against medical advice earlier today again to take care of his pets. He returns to the emergency department this evening requesting antibiotics and management for his foot wound. He is reporting burning pain in his affected foot. His lab work was reviewed and there is no leukocytosis, chemistries are unremarkable. Patient is afebrile. He has no other specific complaints at this time. He is stating that he will only be able to stay in the hospital for 3 days at the most. It was relayed to the patient that it is unclear how long his workup and management will take, but it is likely that he will need to remain in the hospital through the weekend. The patient is agreeable for admission at this time. Review of Systems Review of Systems: Yes all other systems are reviewed and are negative Constitutional: Constitutional: Denies chills and Denies fever(s) Cardiovascular: Cardiovascular: Denies chest pain Respiratory: Respiratory: Denies cough Gastrointestinal: Gastrointestinal: Denies abdominal pain [facility] Medical History Diabetes mellitus Hypertension Pertinent family history: Mom-hyperlipidemia Father history of bladder cancer Surgical History History of amputation of lesser toe Social History Household Members: None Household Members Other:: 1 Housing: Apartment Do you presently have visiting nurse or other home services: No Alcohol intake: never Patient Tobacco Use Status: Never used Tobacco Second Hand Smoke Exposure: No Use of substances other than those prescribed or required for medical reasons: No Substance Use Type: Marijuana Advance Directives: No Advance Directives Information Provided: No service: No Meds Allergies Allergy/AdvReac Type Severity Reaction Status Date / Time No Known Allergies Allergy Unknown Unverified 11/30/19 15:25 [No Known Allergies*] Active Medications: Current Medications Acetaminophen (Acetaminophen 325 Mg Tablet) 650 mg PO Q6H PRN PRN Reason: Pain, Mild (Pain Scale 1-3) Dextrose (Dextrose 50 % 25 Gm/50 Ml Vial) 25 gm IVPUSH Q15M PRN; Protocol PRN Reason: per Hypoglycemia Standing Ord. Docusate Sodium (Docusate Sodium 100 Mg Capsule) 100 mg PO DAILY PRN PRN Reason: Constipation Enoxaparin Sodium (Enoxaparin Sodium 40 Mg/0.4 Ml Syringe) 40 mg SUBCUT Q24H NICK Glucose (Glucose Gel 15 Gm Gel..Gram.) 15 gm PO Q15M PRN; Protocol PRN Reason: per Hypoglycemia Standing Ord. Piperacillin Sod/Tazobactam (Sod 3.375 gm/ Sodium Chloride) 50 mls @ 100 mls/hr IV Q6H [facility]1983 Insulin Human Lispro (Insulin Lispro 100 Unit/Ml 3 Ml Vial) 0 unit SUBCUT QIDACHS [facility], 1928[facility]1983; Protocol Magnesium Hydroxide (Milk Of Magnesia 30 Ml Oral.Susp) 30 ml PO DAILY PRN PRN Reason: Constipation Ondansetron HCl (Ondansetron Hcl 4 Mg/2 Ml Vial) 4 mg IVPUSH Q8H PRN PRN Reason: Nausea and Vomiting Oxycodone HCl (Oxycodone Hcl Immed Release 5 Mg Tablet) 5 mg PO Q6H PRN PRN Reason: Pain, Severe (Pain Scale 7-10) Pharmacy Consult (Consult Rx Vancomycin Dosing) 1 each MISCELLANE DAILY PRN PRN Reason: Consult order Sodium Chloride (0.9 % Sodium Chloride Flush 3 Ml Syringe) 3 ml IVFLUSH [facility] Home Medications Medication Instructions Recorded Confirmed Last Taken Type albuterol sulfate 90 mcg/actuation 2 puff PO Q4H PRN 12/03/20 12/04/20 Unknown History aerosol inhaler amlodipine 10 mg tablet 1 tab PO DAILY 12/03/20 12/04/20 12/03/20 History atenolol 25 mg tablet 1 tab PO DAILY 12/03/20 12/04/20 12/03/20 History clonazepam 0.5 mg tablet 1 tab PO DAILY PRN 12/03/20 12/04/20 Unknown History escitalopram oxalate 10 mg tablet 1 tab PO DAILY 12/03/20 12/04/20 12/03/20 History fluticasone propionate 110 2 puff PO BID 12/03/20 12/04/20 12/03/20 History mcg/actuation HFA aerosol inhaler (Flovent HFA) gabapentin 800 mg tablet 1 tab PO TID 12/03/20 12/04/20 12/03/20 History insulin aspart U-100 100 unit/mL 10 - 15 unit SUBCUT TID 12/03/20 12/04/20 12/03/20 History subcutaneous cartridge (Novolog PenFill U-100 Insulin aspart) insulin degludec 100 unit/mL (3 18 unit SUBCUT DAILY 12/03/20 12/04/20 12/03/20 History mL) subcutaneous pen (Tresiba FlexTouch U-100 insulin) lisinopril 40 mg tablet 1 tab PO DAILY 12/03/20 12/04/20 12/03/20 History metformin 1,000 mg tablet 1 tab PO BID 12/03/20 12/04/20 12/03/20 History ondansetron 4 mg disintegrating 1 tab SUBLINGUAL BID PRN 12/03/20 12/04/20 Unknown History tablet Physical Exam Vital Signs and Narrative: Vital Signs: Last Vital Signs Temp 98.8 F 12/06/20 16:49 Pulse 82 12/06/20 16:49 Resp 18 12/06/20 16:49 BP 120/70 12/06/20 16:49 Pulse Ox 92 12/06/20 16:49 Body Mass Index 31.2 Const: Nutritional Appearance: well nourished Orientation/consciousness: patient oriented x3 HENMT: Head: Yes normocephalic and Yes atraumatic Eyes: Sclerae: sclerae normal Resp: Effort & Inspection: normal respiratory effort and no respiratory distress Cardio: Rate: regular rate Rhythm: regular rhythm GI: Palpation (GI): Soft to palpation and nontender Skin: Other: Neuro: General: patient oriented x3 Cranial nerves: Yes CN's II-XII intact bilaterally and Yes Bilaterally intact EOM present Results Labs CBC and Chem 7: 12/06/20 16:48 12/06/20 16:48 Labs: Laboratory Results - last 24 hr 12/06/20 12/06/20 16:48 16:48 MCV 85.3 MCH 28.9 MCHC 33.9 RDW 13.1 Plt Count 384 MPV 9.4 Immature Gran % (Auto) 0.6 H Neut % (Auto) 77.2 H Lymph % (Auto) 14.2 L [place] % (Auto) 6.6 Eos % (Auto) 1.1 Baso % (Auto) 0.3 Lymph # (Auto) 1.5 [place] # (Auto) 0.7 Eos # (Auto) 0.1 Baso # (Auto) 0.0 Abs Immat Gran (auto) 0.06 H Absolute Neuts (auto) 8.3 Absolute Nucleated RBC 0.000 Nucleated RBC % (auto) 0.0 Estim Creat Clear Calc 127.9 Estimated GFR > 60 AST 17 ALT 14 Assessment and Plan (1) Diabetic foot infection: Status: Acute (2) Hypertension: Status: Acute (3) Diabetes mellitus: Status: Acute This is a 50-year-old male with diabetes, hypertension, hepatitis-C virus, recent admission for right foot wound who returns after leaving against medical advice for the same. Right foot diabetic wound Probable osteomyelitis No evidence of sepsis Vancomycin, Zosyn MRI to evaluate for osteomyelitis Pain management ID consult Patient has been seen by both General surgery and vascular surgery on previous admissions and was not deemed to need any debridement or vascular intervention Diabetes SSI, POC Continue ADA diet Hypertension Will resume home meds with med reconciliation has been completed DVT prophylaxis-Lovenox Code status-full code Attending physician-Dr. Gleason Quality Stroke Does the patient have a stroke diagnosis?: No VTE Prior VTE?: No VTE Risk Level:: Medical - moderate - high VTE Device Contraindication: N/A - Device Ordered VTE Drug Contraindication: N/A - Med Ordered
[2020-12-06 18:07] LABS: COVID-19 Test Negative (Negative)
[2020-12-06 18:15] LABS: Albumin Level 3.7 g/dL (3.5-5.0); Alkaline Phosphatase 88 U/L (39-117); Anion Gap 12 (12-20); Bilirubin Total 0.4 mg/dL (0.0-1.0); Calcium 9.1 mg/dL (8.4-10.2); Carbon Dioxide 29 mmol/L (22-29); Chloride 104 mmol/L (96-108); Glucose Random 130 mg/dL (60-115); Sodium 141 mmol/L (135-145); Total Protein 6.4 g/dL (6.5-8.0)
[2020-12-06] MEDS: oxyCODONE HCl Immed Release 5 MG TABLET PO (19:33)
[2020-12-06] MEDS: Piperacillin Sodium/Tazobactam 3.375 GM in 0.9 % Sodium Chloride 50 ML IV (19:33)
--- NOTE | 2020-12-06 19:52 | PC.NURSE ---
Report called x3. Recieving RN unable to take report, bedside report to be given.
[2020-12-06 21:09] VITALS: BP 168/84; PULSE 93; RESP 18; TEMP 37.3; O2SAT 98
[2020-12-06 21:22] LABS: Glucose, Whole Blood 124 mg/dL (60-115)
[2020-12-06 22:46] VITALS: BMI 30.7
[2020-12-06] MEDS: vancomycin HCL 1,500 MG in 0.9 % Sodium Chloride 500 ML 333.33 MG IV (23:00)
[2020-12-06] MEDS: 0.9 % Sodium Chloride Flush 3 ML SYRINGE IVFLUSH (23:01)
[2020-12-06] MEDS: Enoxaparin Sodium 40 MG/0.4 ML SYRINGE SUBCUT (23:01)
[2020-12-06 23:05] LABS: Glucose, Whole Blood 271 mg/dL (60-115)
[2020-12-06] MEDS: Insulin Lispro 100 UNIT/ML 3 ML VIAL SUBCUT (23:13)
[2020-12-06] MEDS: Morphine Sulfate 4 MG/ML CARTRIDGE IVPUSH (23:52)
[2020-12-07] VITALS (7 sets, daily range): BP systolic 138–157; BP diastolic 53–88; PULSE 70–94; RESP 15–20; TEMP 36.1–36.9; O2SAT 93–97
[2020-12-07] MEDS: Piperacillin Sodium/Tazobactam 3.375 GM in 0.9 % Sodium Chloride 50 ML IV ×4 (00:55→19:20)
[2020-12-07] MEDS: Morphine Sulfate 4 MG/ML CARTRIDGE IVPUSH ×5 (06:06→22:43)
[2020-12-07 06:32] LABS: MANUAL DIFF FLAG NO
[2020-12-07 06:47] LABS: Basophils Percent Auto 0.3 % (0-2); Eosinophils Absolute Auto 0.2 X10*3/uL (0.0-0.4); Eosinophils Percent Auto 2.1 % (0-4); Hematocrit 41.7 % (42-52); Hemoglobin 13.9 g/dl (14.0-18.0); Imm Gran Abs Auto 0.04 X10*3/uL (0.00-0.03); Imm Gran Pct Auto 0.4 % (0.0-0.4); Lymphocytes Absolute Auto 2.2 X10*3/uL (1.2-4.9); Lymphocytes Percent Auto 22.2 % (20-40); Mean Corpuscular HGB Conc 33.3 g/dl (31.0-36.0); Mean Corpuscular Hemoglobin 28.9 pg (27.0-33.0); Mean Corpuscular Volume 86.7 fL (80-98); Monocytes Absolute Auto 0.7 X10*3/uL (0.1-1.2); Monocytes Percent Auto 6.6 % (2-11); Neutrophils Absolute Auto 6.9 X10*3/uL (2.0-8.3); Neutrophils Percent Auto 68.4 % (45-73); Platelet Count 469 X10*3/uL (160-400); Red Blood Count 4.81 X10*6/uL (4.60-5.80); Red Cell Distribution Width 13.2 % (11.0-16.0); White Blood Count 10.1 X10*3/uL (4.8-10.8)
[2020-12-07 06:55] LABS: Anion Gap 17 (12-20); Blood Urea Nitrogen 8 mg/dL (9-16); Calcium 9.6 mg/dL (8.4-10.2); Carbon Dioxide 28 mmol/L (22-29); Chloride 101 mmol/L (96-108); Creatinine Clr Calc Pharmacy 138.6; Estimated Glomerular Filt Rate > 60; Glucose Random 128 mg/dL (60-115); Potassium 4.4 mmol/L (3.3-5.1); Sodium 142 mmol/L (135-145)
--- NOTE | 2020-12-07 07:44 | MHC.CM.PN ---
PATIENT LIVES ALONE. HE IS DISABLED FROM A [id number], AND REPORTS THAT HE IS HOPING TO OBTAIN A CANE AND OFF LOADING BOOT PATIENT IS AWARE THAT PLAN IS FOR HOME WITH [facility] AND HOME INFUSION. HE CHOOSE [facility] AND [facility]. REFERRALS PLACED FOR AGENCIES TO FOLLOW. PATIENT USES [employer] TO TRAVEL WHERE NEEDED, WHICH IS BECOMING COSTLY. HE IS AWARE THAT HE CAN BE PROVIDED A TAXI (OR [facility] SHUTTLE IF DC AT TIME THAT TRANSPORT CAN ACCOMMODATE) NO HCP IS ON FILE AND PATIENT DOES NOT HAVE ANYONE THAT HE FEELS WOULD BE HIS AGENT. HE WILL CONSIDER THIS FURTHER CASE MANAGEMENT ABLE TO ASSIST WITH COMPLETION IF NEEDED. IMM 12/07 IN CHART
[2020-12-07 07:58] LABS: Glucose, Whole Blood 125 mg/dL (60-115)
[2020-12-07] MEDS: amLODIPine Besylate 10 MG TABLET PO (08:39)
[2020-12-07] MEDS: lisinopriL 40 MG TABLET PO (08:40)
[2020-12-07] MEDS: Insulin Glargine,Hum.rec.anlog 100 UNIT/ML 10 ML VIAL 13 UNIT SUBCUT (08:40)
[2020-12-07] MEDS: atenoloL 25 MG TABLET PO (08:40)
[2020-12-07] MEDS: Escitalopram Oxalate 10 MG TABLET PO (08:40)
[2020-12-07] MEDS: vancomycin HCL 1,500 MG in 0.9 % Sodium Chloride 500 ML 333.33 MG IV ×2 (08:41→20:37)
[2020-12-07] MEDS: 0.9 % Sodium Chloride Flush 3 ML SYRINGE IVFLUSH ×2 (08:41→15:57)
[2020-12-07 11:50] LABS: Glucose, Whole Blood 228 mg/dL (60-115)
[2020-12-07] MEDS: Insulin Lispro 100 UNIT/ML 3 ML VIAL SUBCUT ×3 (12:58→20:41)
--- NOTE | 2020-12-07 13:31 | HO.PM.IMPN ---
Subjective Subjective Date of Service: 12/07/20 <EMERITA Cortes - Last Filed: 12/07/20 14:03> 12/07/20 <Nelly Gleason MD - Last Filed: 12/07/20 16:18> Interval History: seen and examined this morning follow-up for right foot wound no overnight events no specific complaints this morning. Reiterates that he will not stay in the hospital for too long <EMERITA Cortes - Last Filed: 12/07/20 14:03> Review of Systems Review of Systems: Yes all other systems are reviewed and are negative <EMERITA Cortes - Last Filed: 12/07/20 14:03> Constitutional Constitutional: Denies chills and Denies fever(s) <EMERITA Cortes - Last Filed: 12/07/20 14:03> Cardiovascular Cardiovascular: Denies chest pain <EMERITA Cortes - Last Filed: 12/07/20 14:03> Respiratory Respiratory: Denies cough <EMERITA Cortes - Last Filed: 12/07/20 14:03> Gastrointestinal Gastrointestinal: Denies abdominal pain <EMERITA Cortes - Last Filed: 12/07/20 14:03> Physical Exam Vital Signs: Vital Signs: Last Vital Signs Temp 98.1 F 12/07/20 11:42 Pulse 76 12/07/20 11:42 Resp 15 12/07/20 11:42 BP 138/65 12/07/20 11:42 Pulse Ox 95 12/07/20 11:42 Body Mass Index 30.7 <EMERITA Cortes - Last Filed: 12/07/20 14:03> Const: Nutritional Appearance: well nourished <EMERITA Cortes - Last Filed: 12/07/20 14:03> Orientation/consciousness: patient oriented x3 <EMERITA Cortes - Last Filed: 12/07/20 14:03> HENMT: Head: Yes normocephalic and Yes atraumatic <EMERITA Cortes Last Filed: 12/07/20 14:03> Eyes: Sclerae: sclerae normal <EMERITA Cortes - Last Filed: 12/07/20 14:03> Resp: Effort & Inspection: normal respiratory effort and no respiratory distress <EMERITA Cortes Last Filed: 12/07/20 14:03> Cardio: Rate: regular rate <EMERITA Cortes - Last Filed: 12/07/20 14:03> Rhythm: regular rhythm <EMERITA Cortes - Last Filed: 12/07/20 14:03> GI: Palpation (GI): Soft to palpation and nontender <EMERITA Cortes - Last Filed: 12/07/20 14:03> Skin: Other: seems similar to yesterday <EMERITA Cortes - Last Filed: 12/07/20 14:03> Neuro: General: patient oriented x3 <EMERITA Cortes Last Filed: 12/07/20 14:03> Cranial nerves: Yes CN's II-XII intact bilaterally and Yes Bilaterally intact EOM present <EMERITA Cortes Last Filed: 12/07/20 14:03> Objective Data Active Medications Acetaminophen (Acetaminophen 325 Mg Tablet) 650 mg PO Q6H PRN PRN Reason: Pain, Mild (Pain Scale 1-3) Albuterol Sulfate (Albuterol Sulfate 90 Mcg 8 Gm Inhaler) 2 puff INHALE Q4H PRN PRN Reason: Shortness Of Breath Amlodipine Besylate (Amlodipine Besylate 10 Mg Tablet) 10 mg PO DAILY [facility]; Protocol Last Admin: 12/07/20 08:39 Dose: 10 mg Documented by: AURY Atenolol (Atenolol 25 Mg Tablet) 25 mg PO DAILY [facility]; Protocol Last Admin: 12/07/20 08:40 Dose: 25 mg Documented by: AURY Clonazepam (Clonazepam 0.5 Mg Tablet) 0.5 mg PO DAILY PRN PRN Reason: Anxiety Dextrose (Dextrose 50 % 25 Gm/50 Ml Vial) 25 gm IVPUSH Q15M PRN; Protocol PRN Reason: per Hypoglycemia Standing Ord. Docusate Sodium (Docusate Sodium 100 Mg Capsule) 100 mg PO DAILY PRN PRN Reason: Constipation Enoxaparin Sodium (Enoxaparin Sodium 40 Mg/0.4 Ml Syringe) 40 mg SUBCUT Q24H [facility] Last Admin: 12/06/20 23:01 Dose: 40 mg Documented by: TARYN Escitalopram Oxalate (Escitalopram Oxalate 10 Mg Tablet) 10 mg PO DAILY [facility] Last Admin: 12/07/20 08:40 Dose: 10 mg Documented by: AURY Glucose (Glucose Gel 15 Gm Gel..Gram.) 15 gm PO Q15M PRN; Protocol PRN Reason: per Hypoglycemia Standing Ord. Piperacillin Sod/Tazobactam (Sod 3.375 gm/ Sodium Chloride) 50 mls @ 100 mls/hr IV Q6H [facility] Last Admin: 12/07/20 12:59 Dose: 100 mls/hr Documented by: AURY Vancomycin HCl 1,500 mg/ (Sodium Chloride) 500 mls @ 333.333 mls/hr IV Q12H [facility] Last Infusion: 12/07/20 10:12 Dose: 333.33 mls/hr Documented by: AURY Insulin Glargine (Insulin Glargine,Hum.Rec.Anlog 100 Unit/Ml 10 Ml Vial) 13 unit SUBCUT DAILY [facility] Last Admin: 12/07/20 08:40 Dose: 1 unit Documented by: AURY Insulin Human Lispro (Insulin Lispro 100 Unit/Ml 3 Ml Vial) 0 unit SUBCUT QIDACHS [facility]; Protocol Last Admin: 12/07/20 12:58 Dose: 4 unit Documented by: AURY Lisinopril (Lisinopril 40 Mg Tablet) 40 mg PO DAILY [facility]; Protocol Last Admin: 12/07/20 08:40 Dose: 40 mg Documented by: AURY Magnesium Hydroxide (Milk Of Magnesia 30 Ml Oral.Susp) 30 ml PO DAILY PRN PRN Reason: Constipation Morphine Sulfate (Morphine Sulfate 4 Mg/Ml Cartridge) 4 mg IVPUSH Q4H PRN; Protocol PRN Reason: Pain, Severe (Pain Scale 7-10) Last Admin: 12/07/20 10:04 Dose: 4 mg Documented by: AURY Ondansetron HCl (Ondansetron Hcl 4 Mg/2 Ml Vial) 4 mg IVPUSH Q8H PRN PRN Reason: Nausea and Vomiting Oxycodone HCl (Oxycodone Hcl Immed Release 5 Mg Tablet) 5 mg PO Q6H PRN PRN Reason: Pain, Severe (Pain Scale 7-10) Last Admin: 12/06/20 19:33 Dose: 5 mg Documented by: NELLY Pharmacy Consult (Consult Rx Vancomycin Dosing) 1 each MISCELLANE DAILY PRN PRN Reason: Consult order Sodium Chloride (0.9 % Sodium Chloride Flush 3 Ml Syringe) [facility] Last Admin: 12/07/20 08:41 Dose: 3 ml Documented by: AURY <EMERITA Cortes - Last Filed: 12/07/20 14:03> Labs CBC & Chem 7: : 12/07/20 05:54 12/07/20 05:54 <EMERITA Cortes - Last Filed: 12/07/20 14:03> Labs: Laboratory Results - last 24 hr 12/06/20 12/06/20 12/06/20 16:48 16:48 17:43 MCV 85.3 MCH 28.9 MCHC 33.9 RDW 13.1 Plt Count 384 MPV 9.4 Immature Gran % (Auto) 0.6 H Neut % (Auto) 77.2 H Lymph % (Auto) 14.2 L Burnett % (Auto) 6.6 Eos % (Auto) 1.1 Baso % (Auto) 0.3 Lymph # (Auto) 1.5 Burnett # (Auto) 0.7 Eos # (Auto) 0.1 Baso # (Auto) 0.0 Abs Immat Gran (auto) 0.06 H Absolute Neuts (auto) 8.3 Absolute Nucleated RBC 0.000 Nucleated RBC % (auto) 0.0 Anion Gap 12 Estim Creat Clear Calc 127.9 Estimated GFR > 60 POC Glucose Random Glucose 130 H Calcium 9.1 Total Bilirubin 0.4 AST 17 ALT 14 Alkaline Phosphatase 88 Total Protein 6.4 L Albumin 3.7 COVID-19 ([facility]) Negative COVID-19 Clin Com See Note 12/06/20 12/06/20 12/07/20 21:16 22:59 05:54 MCV 86.7 MCH 28.9 MCHC 33.3 RDW 13.2 Plt Count 469 H MPV 10.0 Immature Gran % (Auto) 0.4 Neut % (Auto) 68.4 Lymph % (Auto) 22.2 Burnett % (Auto) 6.6 Eos % (Auto) 2.1 Baso % (Auto) 0.3 Lymph # (Auto) 2.2 Burnett # (Auto) 0.7 Eos # (Auto) 0.2 Baso # (Auto) 0.0 Abs Immat Gran (auto) 0.04 H Absolute Neuts (auto) 6.9 Absolute Nucleated RBC 0.000 Nucleated RBC % (auto) 0.0 Anion Gap Estim Creat Clear Calc Estimated GFR POC Glucose 124 H 271 H Random Glucose Calcium Total Bilirubin AST ALT Alkaline Phosphatase Total Protein Albumin COVID-19 ([facility]) COVID-19 Clin Com 12/07/20 12/07/20 12/07/20 05:54 07:14 11:41 MCV MCH MCHC RDW Plt Count MPV Immature Gran % (Auto) Neut % (Auto) Lymph % (Auto) Burnett % (Auto) Eos % (Auto) Baso % (Auto) Lymph # (Auto) Burnett # (Auto) Eos # (Auto) Baso # (Auto) Abs Immat Gran (auto) Absolute Neuts (auto) Absolute Nucleated RBC Nucleated RBC % (auto) Anion Gap 17 Estim Creat Clear Calc 138.6 Estimated GFR > 60 POC Glucose 125 H 228 H Random Glucose 128 H Calcium 9.6 Total Bilirubin AST ALT Alkaline Phosphatase Total Protein Albumin COVID-19 ([facility]) COVID-19 Clin Com <EMERITA Cortes - Last Filed: 12/07/20 14:03> Assessment and Plan (1) Diabetic foot infection: Status: Acute <EMERITA Cortes - Last Filed: 12/07/20 14:03> (2) Hypertension: Status: Acute <EMERITA Cortes - Last Filed: 12/07/20 14:03> (3) Diabetes mellitus: Status: Acute <EMERITA Cortes - Last Filed: 12/07/20 14:03> Assessment and Plan: This is a 50-year-old male with diabetes, hypertension, hepatitis-C virus, recent admission for right foot wound who returns after leaving against medical advice for the same. Right foot diabetic wound Probable osteomyelitis No evidence of sepsis Continue Vancomycin, Zosyn started 12/06 MRI to evaluate for osteomyelitis, report pending Pain management ID consult Patient has been seen by both General surgery and vascular surgery on previous admission and was not deemed to need any debridement or vascular intervention Diabetes Tresiba is converted to Lantus SSI, POC Continue ADA diet Hypertension BP controlled Continue home dose of Norvasc, atenolol, lisinopril DVT prophylaxis-Lovenox Code status-full code Attending physician-Dr. Gleason <EMERITA Cortes - Last Filed: 12/07/20 14:03> Quality Stroke Does the patient have a stroke diagnosis?: No <EMERITA Cortes - Last Filed: 12/07/20 14:03> VTE Prior VTE?: No <EMERITA Cortes - Last Filed: 12/07/20 14:03> VTE Risk Level:: Medical - moderate - high <EMERITA Cortes - Last Filed: 12/07/20 14:03> VTE Device Contraindication: N/A - Device Ordered <EMERITA Cortes - Last Filed: 12/07/20 14:03> VTE Drug Contraindication: N/A - Med Ordered <EMERITA Cortes - Last Filed: 12/07/20 14:03>
[2020-12-07] MEDS: clonazePAM 0.5 MG TABLET PO (16:10)
[2020-12-07] MEDS: oxyCODONE HCl Immed Release 5 MG TABLET PO (16:11)
[2020-12-07 16:37] LABS: Glucose, Whole Blood 151 mg/dL (60-115)
[2020-12-07 20:25] LABS: Glucose, Whole Blood 228 mg/dL (60-115)
[2020-12-07] MEDS: Enoxaparin Sodium 40 MG/0.4 ML SYRINGE SUBCUT (20:40)
--- NOTE | 2020-12-07 22:48 | W.PM.IDCN ---
History of Present Illness Data of Consult Service Date: 12/07/20 Requesting physician: Renetta Duarte Primary Care Provider: Erica Aguilar NP HPI Reason for consult: diabetic foot ulcer He presents to hospital with right foot ulcer under great toe. He says it is present about a month He has no fever and chills He has no injury. He has previous amputation of 2,3,4 toes in 2016 due to osteomyelitis. Review of Systems Review of Systems: Yes all other systems are reviewed and are negative PMFSH Past Medical History Medical History Diabetes mellitus Hypertension Family History Family history: reviewed and not pertinent Surgical History Surgical History History of amputation of lesser toe Social History Social History Household Members: None Household Members Other:: 1 Housing: Apartment Do you presently have visiting nurse or other home services: No Alcohol intake: never Patient Tobacco Use Status: Never used Tobacco Second Hand Smoke Exposure: No Substance Use Type: Marijuana service: No Current occupational status: disabled Meds Allergies Allergy/AdvReac Type Severity Reaction Status Date / Time No Known Allergies Allergy Unknown Unverified 11/30/19 15:25 [No Known Allergies*] Active Medications: Current Medications Acetaminophen (Acetaminophen 325 Mg Tablet) 650 mg PO Q6H PRN PRN Reason: Pain, Mild (Pain Scale 1-3) Albuterol Sulfate (Albuterol Sulfate 90 Mcg 8 Gm Inhaler) 2 puff INHALE Q4H PRN PRN Reason: Shortness Of Breath Amlodipine Besylate (Amlodipine Besylate 10 Mg Tablet) 10 mg PO DAILY [facility]; Protocol Last Admin: 12/07/20 08:39 Dose: 10 mg Documented by: Atenolol (Atenolol 25 Mg Tablet) 25 mg PO DAILY [facility]; Protocol Last Admin: 12/07/20 08:40 Dose: 25 mg Documented by: Clonazepam (Clonazepam 0.5 Mg Tablet) 0.5 mg PO DAILY PRN PRN Reason: Anxiety Last Admin: 12/07/20 16:10 Dose: 0.5 mg Documented by: Dextrose (Dextrose 50 % 25 Gm/50 Ml Vial) 25 gm IVPUSH Q15M PRN; Protocol PRN Reason: per Hypoglycemia Standing Ord. Docusate Sodium (Docusate Sodium 100 Mg Capsule) 100 mg PO DAILY PRN PRN Reason: Constipation Enoxaparin Sodium (Enoxaparin Sodium 40 Mg/0.4 Ml Syringe) 40 mg SUBCUT Q24H [facility] Last Admin: 12/07/20 20:40 Dose: 40 mg Documented by: Escitalopram Oxalate (Escitalopram Oxalate 10 Mg Tablet) 10 mg PO DAILY [facility] Last Admin: 12/07/20 08:40 Dose: 10 mg Documented by: Glucose (Glucose Gel 15 Gm Gel..Gram.) 15 gm PO Q15M PRN; Protocol PRN Reason: per Hypoglycemia Standing Ord. Piperacillin Sod/Tazobactam (Sod 3.375 gm/ Sodium Chloride) 50 mls @ 100 mls/hr IV Q6H [facility] Last Infusion: 12/07/20 20:04 Dose: Infused Documented by: Vancomycin HCl 1,500 mg/ (Sodium Chloride) 500 mls @ 333.333 mls/hr IV Q12H [facility] Last Infusion: 12/07/20 22:35 Dose: Infused Documented by: Insulin Glargine (Insulin Glargine,Hum.Rec.Anlog 100 Unit/Ml 10 Ml Vial) 13 unit SUBCUT DAILY [facility] Last Admin: 12/07/20 08:40 Dose: 1 unit Documented by: Insulin Human Lispro (Insulin Lispro 100 Unit/Ml 3 Ml Vial) 0 unit SUBCUT QIDACHS [facility]; Protocol Last Admin: 12/07/20 20:41 Dose: 4 unit Documented by: Lisinopril (Lisinopril 40 Mg Tablet) 40 mg PO DAILY [facility]; Protocol Last Admin: 12/07/20 08:40 Dose: 40 mg Documented by: Magnesium Hydroxide (Milk Of Magnesia 30 Ml Oral.Susp) 30 ml PO DAILY PRN PRN Reason: Constipation Morphine Sulfate (Morphine Sulfate 4 Mg/Ml Cartridge) 4 mg IVPUSH Q4H PRN; Protocol PRN Reason: Pain, Severe (Pain Scale 7-10) Last Admin: 12/07/20 22:43 Dose: 4 mg Documented by: Ondansetron HCl (Ondansetron Hcl 4 Mg/2 Ml Vial) 4 mg IVPUSH Q8H PRN PRN Reason: Nausea and Vomiting Oxycodone HCl (Oxycodone Hcl Immed Release 5 Mg Tablet) 5 mg PO Q6H PRN PRN Reason: Pain, Severe (Pain Scale 7-10) Last Admin: 12/07/20 16:11 Dose: 5 mg Documented by: Pharmacy Consult (Consult Rx Vancomycin Dosing) 1 each MISCELLANE DAILY PRN PRN Reason: Consult order Sodium Chloride (0.9 % Sodium Chloride Flush 3 Ml Syringe) [facility] Last Admin: 12/07/20 15:57 Dose: 3 ml Documented by: Home Medications Medication Instructions Recorded Confirmed Last Taken Type albuterol sulfate 90 mcg/actuation 2 puff PO Q4H PRN 12/03/20 12/06/20 Unknown History aerosol inhaler amlodipine 10 mg tablet 1 tab PO DAILY 12/03/20 12/06/20 12/03/20 History atenolol 25 mg tablet 1 tab PO DAILY 12/03/20 12/06/20 12/03/20 History clonazepam 0.5 mg tablet 1 tab PO DAILY PRN 12/03/20 12/06/20 Unknown History escitalopram oxalate 10 mg tablet 1 tab PO DAILY 12/03/20 12/06/20 12/03/20 History fluticasone propionate 110 2 puff PO BID 12/03/20 12/06/20 12/03/20 History mcg/actuation HFA aerosol inhaler (Flovent HFA) gabapentin 800 mg tablet 1 tab PO TID 12/03/20 12/06/20 12/03/20 History insulin aspart U-100 100 unit/mL 10 - 15 unit SUBCUT TID 12/03/20 12/06/20 12/03/20 History subcutaneous cartridge (Novolog PenFill U-100 Insulin aspart) insulin degludec 100 unit/mL (3 18 unit SUBCUT DAILY 12/03/20 12/06/20 12/03/20 History mL) subcutaneous pen (Tresiba FlexTouch U-100 insulin) lisinopril 40 mg tablet 1 tab PO DAILY 12/03/20 12/06/20 12/03/20 History metformin 1,000 mg tablet 1 tab PO BID 12/03/20 12/06/20 12/03/20 History ondansetron 4 mg disintegrating 1 tab SUBLINGUAL BID PRN 12/03/20 12/04/20 Unknown History tablet Physical Exam Vital Signs: Vital Signs: Last Vital Signs Temp 97.0 F 12/07/20 19:17 Pulse 70 12/07/20 19:17 Resp 16 12/07/20 19:17 BP 144/71 H 12/07/20 19:17 Pulse Ox 93 12/07/20 19:17 Body Mass Index 30.7 Const: General: cooperative HENMT: Head: Yes normal to inspection Mouth: Normal oral and palatal mucosa present Eyes: General: appearance normal, both eyes and all related structures Resp: Effort & Inspection: normal respiratory effort Cardio: Rate: regular rate Rhythm: regular rhythm GI: Palpation (GI): Soft to palpation and nontender Extrem: Other: right foot 1 cm ulcer as well as redness around toe Results Labs CBC & Chem 7: 12/07/20 05:54 12/07/20 05:54 Labs: Short CBC 12/07/20 Range/Units 05:54 WBC 10.1 (4.8-10.8) X10*3/uL Hgb 13.9 L (14.0-18.0) g/dl Hct 41.7 L (42-52) % Plt Count 469 H (160-400) X10*3/uL BMP 12/07/20 05:54 Sodium 142 Potassium 4.4 Chloride 101 Carbon Dioxide 28 BUN 8 L Creatinine 0.75 Calcium 9.6 Assessment and Plan (1) Osteomyelitis: Status: Acute (2) Diabetic foot infection: Status: Acute There is possible staph or strep He has osteomyelits great toe on Xray Would continue broad spectrum antibiotics Would have Vascular see ?drain abscess seen MRI if able. Will need six weeks IV antibiotics depends on culture.
[2020-12-08] VITALS: BP 134/67; PULSE 78; RESP 16; TEMP 36.1; O2SAT 95
[2020-12-08] MEDS: Piperacillin Sodium/Tazobactam 3.375 GM in 0.9 % Sodium Chloride 50 ML IV ×4 (00:41→17:57)
[2020-12-08] MEDS: oxyCODONE HCl Immed Release 5 MG TABLET PO ×3 (00:46→18:14)
[2020-12-08] MEDS: 0.9 % Sodium Chloride Flush 3 ML SYRINGE IVFLUSH ×3 (00:54→15:51)
[2020-12-08] MEDS: Morphine Sulfate 4 MG/ML CARTRIDGE IVPUSH ×5 (03:00→20:07)
[2020-12-08 04:00] VITALS: BP 154/79; PULSE 86; RESP 16; TEMP 37.1; O2SAT 98
[2020-12-08 07:03] VITALS: BP 161/85; PULSE 87; RESP 16; TEMP 36.6; O2SAT 96
[2020-12-08 07:22] LABS: Glucose, Whole Blood 172 mg/dL (60-115)
[2020-12-08] MEDS: Insulin Lispro 100 UNIT/ML 3 ML VIAL SUBCUT ×3 (07:57→21:43)
[2020-12-08] MEDS: lisinopriL 40 MG TABLET PO (07:58)
[2020-12-08] MEDS: Escitalopram Oxalate 10 MG TABLET PO (07:58)
[2020-12-08] MEDS: Insulin Glargine,Hum.rec.anlog 100 UNIT/ML 10 ML VIAL 13 UNIT SUBCUT (07:58)
[2020-12-08] MEDS: amLODIPine Besylate 10 MG TABLET PO (07:58)
[2020-12-08 07:59] LABS: Creatinine Clr Calc Pharmacy 136.7; Estimated Glomerular Filt Rate > 60
[2020-12-08] MEDS: atenoloL 25 MG TABLET PO (07:59)
[2020-12-08 08:00] LABS: Vancomycin Trough 13.2 mcg/mL (10.0-20.0)
[2020-12-08] MEDS: vancomycin HCL 1,500 MG in 0.9 % Sodium Chloride 500 ML 333.33 MG IV ×2 (09:52→20:09)
[2020-12-08 11:09] VITALS: BP 165/90; PULSE 91; RESP 17; TEMP 36.2; O2SAT 97
--- NOTE | 2020-12-08 11:31 | HO.PM.IMPN ---
Subjective Subjective Date of Service: 12/08/20 Interval History: Seen and examined this morning Follow-up for diabetic foot wound/osteomyelitis No overnight events Upset this morning about how long it takes for him to get his pain medication Reporting 8/10 pain prior to medication administration No fevers/chills Review of Systems Review of Systems: Yes all other systems are reviewed and are negative Constitutional Constitutional: Denies chills and Denies fever(s) Eyes Eyes: Reports as per HPI and Reports no additional eye complaints ENT Ears, Nose, Mouth, and Throat: Reports system reviewed and no additional complaints, except as documented and Reports as per HPI Cardiovascular Cardiovascular: Denies chest pain Respiratory Respiratory: Denies cough Gastrointestinal Gastrointestinal: Denies abdominal pain Genitourinary Genitourinary: Reports no additional male genitourinary complaints and Reports as per HPI Musculoskeletal Musculoskeletal: Reports no additional musculoskeletal complaints and Reports as per HPI Neurologic Neurologic: Reports system reviewed and no additional complaints, except as documented and Reports as per HPI Psychiatric Psychiatric: Reports no additional psychiatric complaints and Reports as per HPI Physical Exam Vital Signs: Vital Signs: Last Vital Signs Temp 97.2 F 12/08/20 11:09 Pulse 91 12/08/20 11:09 Resp 17 12/08/20 11:09 BP 165/90 H 12/08/20 11:09 Pulse Ox 97 12/08/20 11:09 Body Mass Index 30.7 Const: Nutritional Appearance: well nourished Orientation/consciousness: patient oriented x3 HENMT: Head: Yes normocephalic and Yes atraumatic Eyes: Sclerae: sclerae normal Resp: Effort & Inspection: normal respiratory effort and no respiratory distress Cardio: Rate: regular rate Rhythm: regular rhythm GI: Palpation (GI): Soft to palpation and nontender Skin: Other: some improvement in erythema Neuro: General: patient oriented x3 Cranial nerves: Yes CN's II-XII intact bilaterally and Yes Bilaterally intact EOM present Objective Data Active Medications Acetaminophen (Acetaminophen 325 Mg Tablet) 650 mg PO Q6H PRN PRN Reason: Pain, Mild (Pain Scale 1-3) Albuterol Sulfate (Albuterol Sulfate 90 Mcg 8 Gm Inhaler) 2 puff INHALE Q4H PRN PRN Reason: Shortness Of Breath Amlodipine Besylate (Amlodipine Besylate 10 Mg Tablet) 10 mg PO DAILY N[facility]; Protocol Last Admin: 12/08/20 07:58 Dose: 10 mg Documented by: PLACIDO Atenolol (Atenolol 25 Mg Tablet) 25 mg PO DAILY [facility]; Protocol Last Admin: 12/08/20 07:59 Dose: 25 mg Documented by: PLACIDO Clonazepam (Clonazepam 0.5 Mg Tablet) 0.5 mg PO DAILY PRN PRN Reason: Anxiety Last Admin: 12/07/20 16:10 Dose: 0.5 mg Documented by: SANDY Dextrose (Dextrose 50 % 25 Gm/50 Ml Vial) 25 gm IVPUSH Q15M PRN; Protocol PRN Reason: per Hypoglycemia Standing Ord. Docusate Sodium (Docusate Sodium 100 Mg Capsule) 100 mg PO DAILY PRN PRN Reason: Constipation Enoxaparin Sodium (Enoxaparin Sodium 40 Mg/0.4 Ml Syringe) 40 mg SUBCUT Q24H [facility] Last Admin: 12/07/20 20:40 Dose: 40 mg Documented by: SANDY Escitalopram Oxalate (Escitalopram Oxalate 10 Mg Tablet) 10 mg PO DAILY [facility] Last Admin: 12/08/20 07:58 Dose: 10 mg Documented by: PLACIDO Glucose (Glucose Gel 15 Gm Gel..Gram.) 15 gm PO Q15M PRN; Protocol PRN Reason: per Hypoglycemia Standing Ord. Piperacillin Sod/Tazobactam (Sod 3.375 gm/ Sodium Chloride) 50 mls @ 100 mls/hr IV Q6H [facility] Last Infusion: 12/08/20 08:02 Dose: 0 mls/hr Documented by: PLACIDO Vancomycin HCl 1,500 mg/ (Sodium Chloride) 500 mls @ 333.333 mls/hr IV Q12H [facility] Last Admin: 12/08/20 09:52 Dose: 333.33 mls/hr Documented by: AURY Insulin Glargine (Insulin Glargine,Hum.Rec.Anlog 100 Unit/Ml 10 Ml Vial) 13 unit SUBCUT DAILY [facility] Last Admin: 12/08/20 07:58 Dose: 13 unit Documented by: PLACIDO Insulin Human Lispro (Insulin Lispro 100 Unit/Ml 3 Ml Vial) 0 unit SUBCUT QIDACHS [facility]; Protocol Last Admin: 12/08/20 07:57 Dose: 2 unit Documented by: PLACIDO Lisinopril (Lisinopril 40 Mg Tablet) 40 mg PO DAILY [facility]; Protocol Last Admin: 12/08/20 07:58 Dose: 40 mg Documented by: PLACIDO Magnesium Hydroxide (Milk Of Magnesia 30 Ml Oral.Susp) 30 ml PO DAILY PRN PRN Reason: Constipation Morphine Sulfate (Morphine Sulfate 4 Mg/Ml Cartridge) 4 mg IVPUSH Q4H PRN; Protocol PRN Reason: Pain, Severe (Pain Scale 7-10) Last Admin: 12/08/20 07:43 Dose: 4 mg Documented by: PLACIDO Ondansetron HCl (Ondansetron Hcl 4 Mg/2 Ml Vial) 4 mg IVPUSH Q8H PRN PRN Reason: Nausea and Vomiting Oxycodone HCl (Oxycodone Hcl Immed Release 5 Mg Tablet) 5 mg PO Q6H PRN PRN Reason: Pain, Severe (Pain Scale 7-10) Last Admin: 12/08/20 09:57 Dose: 5 mg Documented by: AURY Pharmacy Consult (Consult Rx Vancomycin Dosing) 1 each MISCELLANE DAILY PRN PRN Reason: Consult order Sodium Chloride (0.9 % Sodium Chloride Flush 3 Ml Syringe) 3 ml IVFLUSH [facility] Last Admin: 12/08/20 07:50 Dose: 3 ml Documented by: PLACIDO Labs CBC & Chem 7: 12/07/20 05:54 12/08/20 07:05 Labs: Laboratory Results - last 24 hr 12/07/20 12/07/20 12/07/20 11:41 16:29 20:02 Estim Creat Clear Calc Estimated GFR POC Glucose 228 H 151 H 228 H Vancomycin Trough 12/08/20 12/08/20 12/08/20 07:02 07:04 07:05 Estim Creat Clear Calc 136.7 Estimated GFR > 60 POC Glucose 172 H Vancomycin Trough 13.2 Assessment and Plan (1) Diabetic foot infection: Status: Acute Assessment and Plan: his is a 50-year-old male with diabetes, hypertension, hepatitis-C virus, recent admission for right foot wound who returns after leaving against medical advice for the same. Right foot diabetic wound MRI confirms synovitis/osteomyelitis. also showing abscess Continue Vancomycin, Zosyn started 12/06 General surgery consult for drainage of abscess Pain management Seen by ID, further antibiotic selection based on wound culture if able to obtain Blood cultures negative Patient see by vascular surgery on previous admission and was not deemed to need any vascular intervention PICC line ordered for 6 weeks of IV antibiotics Diabetes Tresiba is converted to Lantus SSI, POC Continue ADA diet Hypertension BP somewhat elevated this morning Follow blood pressure closely. May need up titration of home medication if no improvement Continue home dose of Norvasc, atenolol, lisinopril DVT prophylaxis-Lovenox Code status-full code Attending physician-Dr. Gleason Quality Stroke Does the patient have a stroke diagnosis?: No VTE Prior VTE?: No VTE Risk Level:: Medical - moderate - high VTE Device Contraindication: N/A - Device Ordered VTE Drug Contraindication: N/A - Med Ordered
[2020-12-08 11:34] LABS: Glucose, Whole Blood 152 mg/dL (60-115)
--- NOTE | 2020-12-08 11:54 | P.PNGS_ITS ---
Subjective Subjective Date of Service: 12/08/20 Patient reports: pain is less Interval history: right foot pain better Ordering Physician: Renetta Duarte Date of Service: 12/06/20 Procedure(s): MR foot RT wo/w con Accession Number(s): [id number] cc: Renetta Duarte~ EXAMINATION: MRI FOOT WITHOUT AND WITH CONTRAST, RIGHT CLINICAL INFORMATION: Wound of foot. Evaluate for osteomyelitis.? COMPARISON: Radiographs of foot from 12/04/2020.? TECHNIQUE: MR imaging of the right foot was performed using standard sequences on a high-field 1.5 Hannah magnet without and with intravenous administration of 10 mL Gadavist.? FINDINGS: The tarsometatarsal joints and midfoot joints are degenerated. The osteoarthritis is severe at the first tarsometatarsal joint where there is irregular loss of the articular cartilage, subchondral sclerosis, prominent subchondral cystic change and osteophyte formation. 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 A wound located medial to the first metatarsal head extends toward the surface of the metatarsal head and appears to penetrate into the MTP joint (image 22 of 38, series 9). There is associated metatarsophalangeal joint effusion and synovitis. There appears to be a small ulcer plantar to the 1st metatarsophalangeal joint, as well (image 24, series 9). The wound, or small abscess, extends plantar to the medial sesamoid of the great toe. The medial and lateral sesamoids of the great toe are edematous, highly suggestive of osteomyelitis involving these bones. A small pericapsular fluid collection (i.e., abscess) measures approximately 0.5 cm wide lateral and dorsolateral to the 1st MTP joint (image 24, series 9). There are marginal erosions at the base of the 1st proximal phalanx. Also, small area of cortical bone loss of the dorsal metatarsal head is noted. There is loss of fatty marrow signal from edema/inflammation within the proximal two thirds of the proximal phalanx of the great toe, highly suggestive of osteomyelitis involving this bone. Also, there is extensive loss of fatty marrow signal within the great toe metatarsal. A nondisplaced hypointense fracture line is present within the 1st metatarsal neck. Diffuse bone marrow edema and bone marrow enhancement are observed within the metatarsal which has mildly thickened cortex/periosteal reaction. The edema within the 1st metatarsal likely represents a combination of infection and stress related changes. The second and third toes have been previously amputated through the distal metatarsals, and fourth toe amputated through the base of the proximal phalanx. The residual bones within these toes have preserved fatty marrow signal. No evidence of osteomyelitis within the 2nd - 5th digits. No tears are identified within the Lisfranc ligament complex.? Diffuse atrophy and partial fatty replacement of the visualized muscles of the forefoot. The atrophy and fatty replacement most severely affects the abductor digiti minimi muscle, which could be secondary to chronic denervation.? The visualized muscles have a diffusely edematous appearance. Although findings could be secondary to soft tissue inflammation, chronic denervation changes of muscles could produce these signal alterations, as well. No evidence of an acute tendon tear within the foot. There appears to be localized tenosynovitis of the flexor hallucis longus where it travels plantar to the region of the great toe MTP joint. MR/MR foot RT wo/w con IMPRESSION: *? Degenerative arthropathy in the visualized midfoot and Lisfranc joint. The osteoarthritis is severe at the first tarsometatarsal joint. The degenerative changes could be a manifestation of neuropathic arthropathy. *? There is a nondisplaced fracture (stress fracture) of the 1st metatarsal neck. The mild cortical thickening/periosteal reaction along the 1st metatarsal shaft is probably stress related change. *? An ulcer/wound medial to the 1st metatarsal head appears to penetrate into the 1st metatarsophalangeal joint space where there is synovitis and erosive changes. Also, there appears to be a small ulcer plantar to the 1st metatarsophalangeal joint. Findings are consistent with infectious synovitis and osteomyelitis involving the proximal phalanx, first metatarsal and sesamoids. A small soft tissue abscess is noted lateral and dorsolateral to the region of the 1st metatarsophalangeal joint. Dictated By: MARIO POLLACK MD Signed By: <Electronically signed by MARIO POLLACK MD in OV> 12/07/20 1641 DD/ 29 TD/TT:? Clinic Nurse: Physical Exam Vital Signs: Vital Signs: Last Vital Signs Temp 97.2 F 12/08/20 11:09 Pulse 91 12/08/20 11:09 Resp 17 12/08/20 11:09 BP 165/90 H 12/08/20 11:09 Pulse Ox 97 12/08/20 11:09 Body Mass Index 30.7 Extrem: Other: right foot medial area has erythema and some puffy tissue along dorsum of foot that is erythematous but not truly fluctuant and compression does not express any pus either here or the plantar aspect. area is tender to palpation vascular status seems fine Procedures Date of Service Date of Service: 12/08/20 Progress Note: A&P Assessment and plan (1) Diabetic foot infection: Status: Acute Assessment and Plan: at this point i dont see any indication for surgery or drainage. cont with iv antibx as per ID for infection and osteo may consider outpt wound care visits and possible hyperbaric oxygen treatment for osteo if chronic refractory - pt says the area was treated for osteo in the past. (2) Osteomyelitis: Status: Acute Fall Risk Details Current Medications: Current Medications Acetaminophen (Acetaminophen 325 Mg Tablet) 650 mg PO Q6H PRN PRN Reason: Pain, Mild (Pain Scale 1-3) Albuterol Sulfate (Albuterol Sulfate 90 Mcg 8 Gm Inhaler) 2 puff INHALE Q4H PRN PRN Reason: Shortness Of Breath Amlodipine Besylate (Amlodipine Besylate 10 Mg Tablet) 10 mg PO DAILY [facility]; Protocol Last Admin: 12/08/20 07:58 Dose: 10 mg Documented by: Atenolol (Atenolol 25 Mg Tablet) 25 mg PO DAILY [facility]; Protocol Last Admin: 12/08/20 07:59 Dose: 25 mg Documented by: Clonazepam (Clonazepam 0.5 Mg Tablet) 0.5 mg PO DAILY PRN PRN Reason: Anxiety Last Admin: 12/07/20 16:10 Dose: 0.5 mg Documented by: Dextrose (Dextrose 50 % 25 Gm/50 Ml Vial) 25 gm IVPUSH Q15M PRN; Protocol PRN Reason: per Hypoglycemia Standing Ord. Docusate Sodium (Docusate Sodium 100 Mg Capsule) 100 mg PO DAILY PRN PRN Reason: Constipation Enoxaparin Sodium (Enoxaparin Sodium 40 Mg/0.4 Ml Syringe) 40 mg SUBCUT Q24H [facility] Last Admin: 12/07/20 20:40 Dose: 40 mg Documented by: Escitalopram Oxalate (Escitalopram Oxalate 10 Mg Tablet) 10 mg PO DAILY [facility] Last Admin: 12/08/20 07:58 Dose: 10 mg Documented by: Glucose (Glucose Gel 15 Gm Gel..Gram.) 15 gm PO Q15M PRN; Protocol PRN Reason: per Hypoglycemia Standing Ord. Piperacillin Sod/Tazobactam (Sod 3.375 gm/ Sodium Chloride) 50 mls @ 100 mls/hr IV Q6H [facility] Last Infusion: 12/08/20 08:02 Dose: Infused Documented by: Vancomycin HCl 1,500 mg/ (Sodium Chloride) 500 mls @ 333.333 mls/hr IV Q12H [facility] Last Admin: 12/08/20 09:52 Dose: 333.33 mls/hr Documented by: Insulin Glargine (Insulin Glargine,Hum.Rec.Anlog 100 Unit/Ml 10 Ml Vial) 13 unit SUBCUT DAILY [facility] Last Admin: 12/08/20 07:58 Dose: 13 unit Documented by: Insulin Human Lispro (Insulin Lispro 100 Unit/Ml 3 Ml Vial) 0 unit SUBCUT QIDACHS [facility]; Protocol Last Admin: 12/08/20 07:57 Dose: 2 unit Documented by: Lisinopril (Lisinopril 40 Mg Tablet) 40 mg PO DAILY [facility]; Protocol Last Admin: 12/08/20 07:58 Dose: 40 mg Documented by: Magnesium Hydroxide (Milk Of Magnesia 30 Ml Oral.Susp) 30 ml PO DAILY PRN PRN Reason: Constipation Morphine Sulfate (Morphine Sulfate 4 Mg/Ml Cartridge) 4 mg IVPUSH Q4H PRN; Protocol PRN Reason: Pain, Severe (Pain Scale 7-10) Last Admin: 12/08/20 07:43 Dose: 4 mg Documented by: Ondansetron HCl (Ondansetron Hcl 4 Mg/2 Ml Vial) 4 mg IVPUSH Q8H PRN PRN Reason: Nausea and Vomiting Oxycodone HCl (Oxycodone Hcl Immed Release 5 Mg Tablet) 5 mg PO Q6H PRN PRN Reason: Pain, Severe (Pain Scale 7-10) Last Admin: 12/08/20 09:57 Dose: 5 mg Documented by: Pharmacy Consult (Consult Rx Vancomycin Dosing) 1 each MISCELLANE DAILY PRN PRN Reason: Consult order Sodium Chloride (0.9 % Sodium Chloride Flush 3 Ml Syringe) 3 ml IVFLUSH QSHIFT [facility] Last Admin: 12/08/20 07:50 Dose: 3 ml Documented by: Time Spent With Patient Time: Total time spent is greater than 50% in coordination of care (as documented) at patient's floor/unit and/or counseling patient: Time with patient: 25 - 35 minutes Quality Stroke Does the patient have a stroke diagnosis?: No VTE Prior VTE?: No VTE Risk Level:: Medical - moderate - high VTE Device Contraindication: N/A - Device Ordered VTE Drug Contraindication: N/A - Med Ordered
[2020-12-08 15:11] VITALS: BP 138/77; PULSE 80; RESP 17; TEMP 36.2; O2SAT 97
[2020-12-08] MEDS: clonazePAM 0.5 MG TABLET PO (15:43)
[2020-12-08 16:55] LABS: Glucose, Whole Blood 138 mg/dL (60-115)
[2020-12-08 20:00] VITALS: BP 156/89; PULSE 83; RESP 17; TEMP 36.6; O2SAT 95
[2020-12-08] MEDS: Enoxaparin Sodium 40 MG/0.4 ML SYRINGE SUBCUT (20:08)
[2020-12-08 21:15] LABS: Glucose, Whole Blood 227 mg/dL (60-115)
[2020-12-09] VITALS: BP 130/70; PULSE 75; RESP 17; TEMP 36.2; O2SAT 93
[2020-12-09] MEDS: Morphine Sulfate 4 MG/ML CARTRIDGE IVPUSH ×4 (00:14→13:02)
[2020-12-09] MEDS: Piperacillin Sodium/Tazobactam 3.375 GM in 0.9 % Sodium Chloride 50 ML IV ×3 (00:14→13:03)
[2020-12-09] MEDS: 0.9 % Sodium Chloride Flush 3 ML SYRINGE IVFLUSH ×2 (00:15→07:34)
[2020-12-09] MEDS: oxyCODONE HCl Immed Release 5 MG TABLET PO ×3 (02:35→16:16)
[2020-12-09 04:00] VITALS: BP 148/89; PULSE 80; RESP 17; TEMP 36.2; O2SAT 96
[2020-12-09 05:05] LABS: Mean Corpuscular HGB Conc 34.2 g/dl (31.0-36.0); Mean Corpuscular Volume 84.8 fL (80-98); Mean Platelet Volume 9.7 fL (9.4-12.4); Platelet Count 396 X10*3/uL (160-400); Red Blood Count 4.48 X10*6/uL (4.60-5.80); Red Cell Distribution Width 13.1 % (11.0-16.0); White Blood Count 9.9 X10*3/uL (4.8-10.8)
[2020-12-09 05:24] LABS: Creatinine Clr Calc Pharmacy 136.7; Estimated Glomerular Filt Rate > 60
[2020-12-09] MEDS: vancomycin HCL 1,500 MG in 0.9 % Sodium Chloride 500 ML 333.33 MG IV (07:32)
[2020-12-09 07:34] VITALS: BP 127/67; PULSE 71; RESP 18; TEMP 36.1; O2SAT 93
[2020-12-09 07:36] LABS: Glucose, Whole Blood 123 mg/dL (60-115)
[2020-12-09] MEDS: Insulin Glargine,Hum.rec.anlog 100 UNIT/ML 10 ML VIAL 13 UNIT SUBCUT (08:51)
[2020-12-09] MEDS: amLODIPine Besylate 10 MG TABLET PO (08:51)
[2020-12-09] MEDS: atenoloL 25 MG TABLET PO (08:51)
[2020-12-09] MEDS: lisinopriL 40 MG TABLET PO (08:52)
[2020-12-09] MEDS: Escitalopram Oxalate 10 MG TABLET PO (08:52)
--- NOTE | 2020-12-09 12:07 | PM.DS ---
DS: Providers Provider Date of Service: 12/09/20 Date of admission: 12/06/20 17:57 Primary care physician: Erica Aguilar NP Consults: 12/06/20 18:01 Consult to Infectious Diseases Routine Consulting Provider: Chantelle Santillan Reason for consultation: DM foot wound ?osteo Has provider been notified: No 12/08/20 07:15 Consult to General Surgery Routine Consulting Provider: Chelo Oconnor Reason for consultation: diabetic foot wound with abscess Has provider been notified: No DS: Diagnosis Discharge Diagnosis (1) Diabetic foot infection: Status: Acute (2) Hypertension: Status: Acute (3) Osteomyelitis: Status: Acute DS: Summary Status at Discharge Cognitive/behavioral status at discharge: Patient was admitted for right foot diabetic wound with osteomyelitis. He was treated with vancomycin Zosyn. He was seen by vascular in deemed not to need vascular intervention. He was seen by surgery and did not need surgical intervention. He was seen by infectious disease recommended 6 weeks of IV ertapenem. Blood cultures are negative. Patient had PICC line placed and will continue treatment at home. End date 01/16/2021. Time Spent with Patient Time attestation: Total time spent providing and/or coordinating discharge services: Discharge coordination time: Greater than 30 minutes Quality: Stroke Does the patient have a stroke diagnosis?: No Physical Exam Vital Signs: Vital Signs: Last Vital Signs Temp 97.0 F 12/09/20 07:34 Pulse 71 12/09/20 07:34 Resp 18 12/09/20 07:34 BP 127/67 12/09/20 07:34 Pulse Ox 93 12/09/20 07:34 Body Mass Index 30.7 right foot medial area has erythema and some puffy tissue along dorsum of foot that is erythematous but not truly fluctuant and compression does not express any pus either here or the plantar aspect. area is tender to palpation vascular status seems fine DS: Data Data Completed and Pending Labs on day of discharge: Laboratory Results - last 24 hr 12/08/20 12/08/20 12/09/20 16:31 20:46 04:20 WBC RBC Hgb Hct MCV MCH MCHC RDW Plt Count MPV Absolute Nucleated RBC Nucleated RBC % (auto) Creatinine 0.76 Estim Creat Clear Calc 136.7 Estimated GFR > 60 POC Glucose 138 H 227 H 12/09/20 12/09/20 04:20 07:19 WBC 9.9 RBC 4.48 L Hgb 13.0 L Hct 38.0 L MCV 84.8 MCH 29.0 MCHC 34.2 RDW 13.1 Plt Count 396 MPV 9.7 Absolute Nucleated RBC 0.000 Nucleated RBC % (auto) 0.0 Creatinine Estim Creat Clear Calc Estimated GFR POC Glucose 123 H Discharge Plan Discharge Patient Disposition: Home Health Service Discharge Diagnosis: om Referrals: Erica Aguilar NP [Primary Care Provider] - 1 Week Chantelle Santillan MD [Physician] - 1 Week Discharge Medications: New ertapenem 1 gram recon soln 1 g IM DAILY 38 Days Qty: 10 RF: 0 Continued clonazepam 0.5 mg tablet 1 tab PO DAILY PRN (Reason: Anxiety) RF: 0 atenolol 25 mg tablet 1 tab PO DAILY RF: 0 gabapentin 800 mg tablet 1 tab PO TID RF: 0 amlodipine 10 mg tablet 1 tab PO DAILY RF: 0 metformin 1,000 mg tablet 1 tab PO BID RF: 0 albuterol sulfate 90 mcg/actuation HFA aerosol inhaler 2 puff PO Q4H PRN (Reason: Shortness Of Breath) RF: 0 lisinopril 40 mg tablet 1 tab PO DAILY RF: 0 Flovent HFA 110 mcg/actuation HFA aerosol inhaler 2 puff PO BID RF: 0 insulin aspart U-100 [Novolog PenFill U-100 Insulin] 100 unit/mL cartridge 10 - 15 unit subcut TID RF: 0 escitalopram oxalate 10 mg tablet 1 tab PO DAILY RF: 0 Tresiba FlexTouch U-100 100 unit/mL (3 mL) insulin pen 18 unit subcut DAILY RF: 0 ondansetron 4 mg tablet,disintegrating 1 tab sublingual BID PRN (Reason: Nausea) RF: 0 oxycodone 5 mg tablet 5 mg PO Q6H PRN (Reason: pain) Qty: 8 RF: 0 Discontinued doxycycline monohydrate 100 mg tablet 100 mg PO BID Qty: 20 RF: 0 doxycycline hyclate 100 mg capsule 100 mg PO DAILY Qty: 28 RF: 0 Discharge Orders: Discharge Order (Routine); Ordered 12/09/20 Ordered By: Tahir Servin Diet: advance to usual diet Activity on Discharge: As tolerated Stand Alone Forms: Patient Portal Discharge page Care Plan Goals: recovery Health Concerns: OM Plan of Treatment: ertapenem 6 weeks Assessment: see above
--- NOTE | 2020-12-09 13:10 | HO.PICC ---
PICC Line Insertion NPICC Diagnosis: [Osteomyelitis] Indication: [assisted antibiotics needed] Pertinent Labs: [reviewed] Technique: Following informed consent including risks, benefits and alternatives and using sterile technique including cap and mask, sterile gown, glove and drape, the [right] arm was prepped and draped in the usual sterile fashion of full barrier technique with CHG. Following completion of [place] Protocol the skin and soft tissues were anesthetized with 1% Lidocaine plain. Using ultrasound guidance, [right brachial] vein access was obtained twice by Ami Salas RN and twice by Cirilo Georges RN, but unable to pass guidewire. Right basilic vein accessed by Dr Coates. Over an 0.018 wire through peel-away sheath, a [4FR single lumen] PICC line was positioned. Catheter length is [48 CM] internal length, [0 CM] external length, for a total trimmed length of [48 CM]. The procedure was performed in [room 272]. Tip verification was performed by Sammie Miller with Sherlock 3CG. Tip located in SVC. Ultrasound was used to document vein patency and for needle entry. A formal ultrasound picture and cardiac rhythm strip was recorded. Vascular Configuration Management Analyst has released the line for use and it is currently dressed with a StatLock, Tegaderm, and CHG disc. Verification has been performed for blood return and line patency. Arm Circumference: [36 CM] Equipment: [[employer] Power PICC Solo] Catheter Type: [4FR single lumen PICC] Lot #: [[id number]]
[2020-12-09] MEDS: Insulin Lispro 100 UNIT/ML 3 ML VIAL SUBCUT (13:24)
--- NOTE | 2020-12-09 13:31 | P.F2F_ITS ---
Service Date Service Date: 12/09/20 Encounter Date of encounter: 12/09/20 Reasons for Services Reason for senior living: medication management and medication treatment Homebound: Leaving the home is medically contraindicated at this time without the asist of a device and/or another person due th the listed conditions above and below. Certification: Based on the above findings, I certify that this patient is confined to the home and needs intermittent senior living care, physical therapy and/or speech therapy, or continues to need occupational therapy. The patient is under my care, and I have initiated the establishment of the plan of care. The patient will be followed by a physician who will periodically review the plan of care.
[2020-12-09 13:41] LABS: Glucose, Whole Blood 159 mg/dL (60-115)
--- NOTE | 2020-12-09 14:00 | MHC.CM.PN ---
Addendum entered by Naima Herring RN 12/09/20 16:33: PER [facility] NEXT AVAILABLE IS 5:30-6PM, PT, NSG AND UNIT AWARE. Original Note: PT DISCHARGING HOME W/[facility] AND [facility] FOR IV ABX IV X 38 DAYS, CM TO ARRANGE TRANSPORT
[2020-12-09] MEDS: Ertapenem Sodium 1 GM in 0.9 % Sodium Chloride 50 ML IV (14:37)
[2020-12-09 15:20] VITALS: BP 152/73; PULSE 74; RESP 16; TEMP 36.6; O2SAT 94
--- NOTE | 2020-12-09 16:10 | MHC.INPTTRAN ---
PICC line placed today. Had ist dose of A/B therapy and elaine well.
== END 2020-12-09 17:04 | disposition home health service (06) | DRG 638 ==
LOC: HO.ED 18:07 → HO.EDOVER 18:14 → HO.S3 18:29
PROVIDERS: Physician Assistant; Admitting Provider Physician Assistant Medical; Emergency Provider Emergency Medicine; PCP Nurse Practitioner Pediatrics; Visit Provider Internal Medicine
DX: E11.69 Type 2 diabetes mellitus with other specified complication (principal); M86.9 Osteomyelitis, unspecified; L97.516 Non-pressure chronic ulcer of other part of right foot with bone involvement without evidence of necrosis; I10 Essential (primary) hypertension; E11.621 Type 2 diabetes mellitus with foot ulcer; Z20.822 Contact with and (suspected) exposure to COVID-19; Z79.4 Long term (current) use of insulin; Z79.899 Other long term (current) drug therapy
CPT/HCPCS: 36415; 36573; 73620; 73630; 73720; 80048; 80053; 80076; 80202; 81003; 82565; 82947; 83605; 85025; 85027; 85652; 86140; 87040; 87635; 99283; 99284; 99285; A9585; C1751; J0690; J1335; J1650; J2270; J2543; J3370

== ENCOUNTER 2020-12-16 10:06 | Outpatient (REF) | payer MEDICARE, MEDICAID, SELFPAY ==
[2020-12-16 10:09] LABS: MANUAL DIFF FLAG NO
[2020-12-16 10:11] LABS: Basophils Percent Auto 0.3 % (0-2); Eosinophils Absolute Auto 0.3 X10*3/uL (0.0-0.4); Eosinophils Percent Auto 2.7 % (0-4); Hematocrit 37.5 % (42-52); Hemoglobin 12.4 g/dl (14.0-18.0); Imm Gran Abs Auto 0.03 X10*3/uL (0.00-0.03); Imm Gran Pct Auto 0.3 % (0.0-0.4); Lymphocytes Absolute Auto 2.8 X10*3/uL (1.2-4.9); Lymphocytes Percent Auto 29.6 % (20-40); Mean Corpuscular HGB Conc 33.1 g/dl (31.0-36.0); Mean Corpuscular Hemoglobin 28.8 pg (27.0-33.0); Mean Platelet Volume 10.6 fL (9.4-12.4); Monocytes Absolute Auto 0.6 X10*3/uL (0.1-1.2); Monocytes Percent Auto 5.9 % (2-11); Neutrophils Absolute Auto 5.8 X10*3/uL (2.0-8.3); Neutrophils Percent Auto 61.2 % (45-73); Platelet Count 284 X10*3/uL (160-400); Red Blood Count 4.31 X10*6/uL (4.60-5.80); Red Cell Distribution Width 13.5 % (11.0-16.0); White Blood Count 9.5 X10*3/uL (4.8-10.8)
[2020-12-16 10:37] LABS: Anion Gap 13 (12-20); Blood Urea Nitrogen 15 mg/dL (9-16); Calcium 9.4 mg/dL (8.4-10.2); Carbon Dioxide 29 mmol/L (22-29); Chloride 104 mmol/L (96-108); Estimated Glomerular Filt Rate > 60; Glucose Random 171 mg/dL (60-115); Potassium 4.5 mmol/L (3.3-5.1); Sodium 141 mmol/L (135-145)
== END 2020-12-16 10:07 | disposition home or self-care (01) ==
LOC: HO.HVNA 10:06
PROVIDERS: Visit Provider Internal Medicine
DX: M86.171 Other acute osteomyelitis, right ankle and foot (principal); Z79.2 Long term (current) use of antibiotics
CPT/HCPCS: 36415; 80048; 85025

== ENCOUNTER 2020-12-24 10:11 | Outpatient (REF) | payer MEDICARE, MEDICAID, SELFPAY ==
[2020-12-24 10:16] LABS: MANUAL DIFF FLAG NO
[2020-12-24 10:21] LABS: Basophils Absolute Auto 0.1 X10*3/uL (0.0-0.2); Basophils Percent Auto 0.5 % (0-2); Eosinophils Absolute Auto 0.3 X10*3/uL (0.0-0.4); Eosinophils Percent Auto 2.6 % (0-4); Hematocrit 41.1 % (42-52); Hemoglobin 13.9 g/dl (14.0-18.0); Imm Gran Abs Auto 0.03 X10*3/uL (0.00-0.03); Imm Gran Pct Auto 0.3 % (0.0-0.4); Lymphocytes Absolute Auto 2.5 X10*3/uL (1.2-4.9); Lymphocytes Percent Auto 23.6 % (20-40); Mean Corpuscular HGB Conc 33.8 g/dl (31.0-36.0); Mean Corpuscular Hemoglobin 29.3 pg (27.0-33.0); Mean Corpuscular Volume 86.7 fL (80-98); Mean Platelet Volume 11.2 fL (9.4-12.4); Monocytes Absolute Auto 0.5 X10*3/uL (0.1-1.2); Monocytes Percent Auto 4.4 % (2-11); Neutrophils Absolute Auto 7.3 X10*3/uL (2.0-8.3); Neutrophils Percent Auto 68.6 % (45-73); Platelet Count 245 X10*3/uL (160-400); Red Blood Count 4.74 X10*6/uL (4.60-5.80); White Blood Count 10.6 X10*3/uL (4.8-10.8)
[2020-12-24 11:01] LABS: Anion Gap 13 (12-20); Blood Urea Nitrogen 10 mg/dL (9-16); Carbon Dioxide 28 mmol/L (22-29); Chloride 103 mmol/L (96-108); Estimated Glomerular Filt Rate > 60; Glucose Random 138 mg/dL (60-115); Potassium 4.7 mmol/L (3.3-5.1); Sodium 139 mmol/L (135-145)
== END 2020-12-24 10:12 | disposition home or self-care (01) ==
LOC: HO.HVNA 10:11
PROVIDERS: Visit Provider Internal Medicine
DX: E11.621 Type 2 diabetes mellitus with foot ulcer (principal); L97.415 Non-pressure chronic ulcer of right heel and midfoot with muscle involvement without evidence of necrosis; M86.171 Other acute osteomyelitis, right ankle and foot
CPT/HCPCS: 36415; 80048; 85025

== ENCOUNTER 2020-12-31 10:32 | Outpatient (REF) | payer MEDICARE, MEDICAID, SELFPAY ==
[2020-12-31 10:34] LABS: MANUAL DIFF FLAG NO
[2020-12-31 10:40] LABS: Basophils Percent Auto 0.3 % (0-2); Eosinophils Absolute Auto 0.4 X10*3/uL (0.0-0.4); Eosinophils Percent Auto 4.2 % (0-4); Hematocrit 39.6 % (42-52); Hemoglobin 13.2 g/dl (14.0-18.0); Imm Gran Abs Auto 0.03 X10*3/uL (0.00-0.03); Imm Gran Pct Auto 0.3 % (0.0-0.4); Lymphocytes Absolute Auto 2.8 X10*3/uL (1.2-4.9); Lymphocytes Percent Auto 31.7 % (20-40); Mean Corpuscular HGB Conc 33.3 g/dl (31.0-36.0); Mean Corpuscular Hemoglobin 28.9 pg (27.0-33.0); Mean Corpuscular Volume 86.8 fL (80-98); Mean Platelet Volume 11.4 fL (9.4-12.4); Monocytes Absolute Auto 0.5 X10*3/uL (0.1-1.2); Monocytes Percent Auto 5.3 % (2-11); Neutrophils Absolute Auto 5.1 X10*3/uL (2.0-8.3); Neutrophils Percent Auto 58.2 % (45-73); Platelet Count 229 X10*3/uL (160-400); Red Blood Count 4.56 X10*6/uL (4.60-5.80); Red Cell Distribution Width 14.4 % (11.0-16.0); White Blood Count 8.8 X10*3/uL (4.8-10.8)
[2020-12-31 11:40] LABS: Anion Gap 14 (12-20); Blood Urea Nitrogen 17 mg/dL (9-16); Calcium 9.3 mg/dL (8.4-10.2); Carbon Dioxide 26 mmol/L (22-29); Chloride 101 mmol/L (96-108); Estimated Glomerular Filt Rate > 60; Glucose Random 187 mg/dL (60-115); Potassium 4.8 mmol/L (3.3-5.1); Sodium 136 mmol/L (135-145)
== END 2020-12-31 10:33 | disposition home or self-care (01) ==
LOC: HO.HVNA 10:32
PROVIDERS: Visit Provider Internal Medicine
DX: M86.171 Other acute osteomyelitis, right ankle and foot (principal)
CPT/HCPCS: 36415; 80048; 85025

== ENCOUNTER 2021-01-07 11:58 | Outpatient (REF) | payer MEDICARE, MEDICAID, SELFPAY ==
[2021-01-07 12:00] LABS: MANUAL DIFF FLAG NO
[2021-01-07 12:04] LABS: Basophils Absolute Auto 0.1 X10*3/uL (0.0-0.2); Basophils Percent Auto 0.5 % (0-2); Eosinophils Absolute Auto 0.4 X10*3/uL (0.0-0.4); Eosinophils Percent Auto 3.4 % (0-4); Hematocrit 41.6 % (42-52); Imm Gran Abs Auto 0.04 X10*3/uL (0.00-0.03); Imm Gran Pct Auto 0.4 % (0.0-0.4); Lymphocytes Absolute Auto 2.5 X10*3/uL (1.2-4.9); Lymphocytes Percent Auto 22.9 % (20-40); Mean Corpuscular HGB Conc 33.7 g/dl (31.0-36.0); Mean Corpuscular Hemoglobin 29.5 pg (27.0-33.0); Mean Corpuscular Volume 87.6 fL (80-98); Mean Platelet Volume 10.9 fL (9.4-12.4); Monocytes Absolute Auto 0.7 X10*3/uL (0.1-1.2); Monocytes Percent Auto 6.1 % (2-11); Neutrophils Absolute Auto 7.3 X10*3/uL (2.0-8.3); Neutrophils Percent Auto 66.7 % (45-73); Platelet Count 212 X10*3/uL (160-400); Red Blood Count 4.75 X10*6/uL (4.60-5.80); Red Cell Distribution Width 14.5 % (11.0-16.0); White Blood Count 10.9 X10*3/uL (4.8-10.8)
[2021-01-07 12:48] LABS: Anion Gap 13 (12-20); Blood Urea Nitrogen 18 mg/dL (9-16); Calcium 8.9 mg/dL (8.4-10.2); Carbon Dioxide 25 mmol/L (22-29); Chloride 103 mmol/L (96-108); Estimated Glomerular Filt Rate > 60; Glucose Random 275 mg/dL (60-115); Potassium 4.8 mmol/L (3.3-5.1); Sodium 136 mmol/L (135-145)
== END 2021-01-07 11:59 | disposition home or self-care (01) ==
LOC: HO.HVNA 11:58
PROVIDERS: Visit Provider Internal Medicine
DX: M86.171 Other acute osteomyelitis, right ankle and foot (principal)
CPT/HCPCS: 36415; 80048; 85025

== ENCOUNTER 2021-01-14 10:22 | Outpatient (REF) | payer MEDICARE, MEDICAID, SELFPAY ==
[2021-01-14 10:25] LABS: MANUAL DIFF FLAG NO
[2021-01-14 11:00] LABS: Basophils Percent Auto 0.3 % (0-2); Eosinophils Absolute Auto 0.3 X10*3/uL (0.0-0.4); Eosinophils Percent Auto 2.5 % (0-4); Hematocrit 46.6 % (42.0-52.0); Hemoglobin 15.7 g/dl (14.0-18.0); Imm Gran Abs Auto 0.04 X10*3/uL (0.00-0.03); Imm Gran Pct Auto 0.4 % (0.0-0.4); Lymphocytes Absolute Auto 2.6 X10*3/uL (1.2-4.9); Lymphocytes Percent Auto 22.9 % (20-40); Mean Corpuscular HGB Conc 33.7 g/dl (31.0-36.0); Mean Platelet Volume 11.5 fL (9.4-12.4); Monocytes Absolute Auto 0.7 X10*3/uL (0.1-1.2); Monocytes Percent Auto 5.7 % (2-11); Neutrophils Absolute Auto 7.76 x10*3/uL (2.0-8.3); Neutrophils Percent Auto 68.2 % (45-73); Platelet Count 252 X10*3/uL (160-400); Red Blood Count 5.42 X10*6/uL (4.60-5.80); Red Cell Distribution Width 14.5 % (11.0-16.0); White Blood Count 11.4 X10*3/uL (4.8-10.8)
[2021-01-14 12:06] LABS: Anion Gap 15 (12-20); Blood Urea Nitrogen 15 mg/dL (9-16); Calcium 9.4 mg/dL (8.4-10.2); Carbon Dioxide 24 mmol/L (22-29); Chloride 104 mmol/L (96-108); Estimated Glomerular Filt Rate > 60; Glucose Random 220 mg/dL (60-115); Potassium 4.2 mmol/L (3.3-5.1); Sodium 139 mmol/L (135-145)
== END 2021-01-14 10:23 | disposition home or self-care (01) ==
LOC: HO.HVNA 10:22
PROVIDERS: Visit Provider Internal Medicine
DX: M86.171 Other acute osteomyelitis, right ankle and foot (principal)
CPT/HCPCS: 36415; 80048; 85025

== ENCOUNTER → 2021-01-21 10:35 | Outpatient (BNVA) | payer MEDICARE, MEDICAID, SELFPAY | PROVIDERS: PCP Nurse Practitioner Pediatrics; Visit Provider Internal Medicine | DX: E11.628 Type 2 diabetes mellitus with other skin complications (principal); L08.9 Local infection of the skin and subcutaneous tissue, unspecified; M86.9 Osteomyelitis, unspecified | CPT/HCPCS: 99212 ==

== ENCOUNTER 2021-03-02 13:30 | Inpatient (IN) | payer MEDICARE, MEDICAID, SELFPAY ==
--- NOTE | ~2021-03-02 | MR_ITS ---
EXAMINATION: MR FOOT WITHOUT AND WITH CONTRAST, LEFT CLINICAL INFORMATION: Left diabetic foot infection; evaluate for osteomyelitis. COMPARISON: None TECHNIQUE: MRI of the left foot was performed before and after the intravenous administration of 10 mL of Gadavist on a high-field scanner. FINDINGS: There is soft tissue swelling along the plantar-medial aspect of the 1st MTP joint and proximal phalanx. There is an irregular banana-shaped region of low T1 and increased T2 signal intensity extending along the deep subcutaneous tissues plantar and medial to the 1st MTP joint and proximal phalanx measuring approximately 2.1 cm proximal to distal, 2.7 cm transverse, and 0.7 cm plantar to dorsal. This demonstrates a peripheral rim of enhancement and no central enhancement. This is suspicious for a complex abscess. There is no evidence of bone marrow edema to suggest osteomyelitis. There is fatty atrophy and some edema involving multiple foot muscles which is nonspecific and could be related to denervation injury or myositis. MR/MR foot LT wo/w con IMPRESSION: Complex subcutaneous abscess along the plantar-medial aspect of the 1st MTP joint and 1st proximal phalanx. No MRI evidence of osteomyelitis.
--- NOTE | ~2021-03-02 | XR_ITS ---
EXAMINATION: XR FOOT, LEFT CLINICAL INFORMATION: Evaluate for osteopenia. COMPARISON: None TECHNIQUE: AP, lateral, and oblique views of the left foot. FINDINGS: There is mild hallux valgus deformity and the knee joint. There is mild soft tissue swelling along the first MTP joint but no visible fracture, dislocation or loose bodies. The ankle mortise and subtalar joints are normal. There is a moderate size retrocalcaneal enthesophyte. Mild dorsal intertarsal spurring is seen. XR/XR foot LT min 3V IMPRESSION: Moderate soft tissue swelling first MTP joint without any underlying fracture, dislocation bony erosive changes. Mild hallux valgus deformity first MTP joint. Moderate-sized retrocalcaneal enthesophyte.
[2021-03-02 13:39] VITALS: BP 123/64; PULSE 86; O2SAT 98
[2021-03-02 13:46] VITALS: BP 109/62; PULSE 91; RESP 19; TEMP 37.4; O2SAT 96; BMI 32.1
--- NOTE | 2021-03-02 14:19 | ED.WOUNDLAC ---
HPI - Wound/Laceration General Chief Complaint: Wound/Laceration Stated Complaint: TOE INFECTION,H/O SEPSIS PER EMS Time Seen by Provider: 03/02/21 13:42 Source: patient Mode of arrival: ambulatory History of Present Illness HPI narrative: 50-year-old male with a past medical history of diabetes, hypertension, recently discharged from our facility for right foot diabetic wound with osteo finished 6 weeks of IV Ertapenem, followed by 1 month of PO Doxycycline last week presenting to the ED complaining of left foot swelling, erythema, pain, and blistering progressively worsening over 3 days. Also reports chills and subjective fever. Denies CP/SOB, abdominal pain, drainage from site, known injury/trauma Onset (ago): day(s) Related Data Home Medications Medication Instructions Recorded Confirmed albuterol sulfate 90 mcg/actuation 2 puff PO Q4H PRN 12/03/20 03/02/21 aerosol inhaler amlodipine 10 mg tablet 1 tab PO DAILY 12/03/20 03/02/21 atenolol 25 mg tablet 1 tab PO DAILY 12/03/20 03/02/21 clonazepam 0.5 mg tablet 1 tab PO DAILY PRN 12/03/20 03/02/21 escitalopram oxalate 10 mg tablet 1 tab PO DAILY 12/03/20 03/02/21 fluticasone propionate 110 2 puff PO BID 12/03/20 03/02/21 mcg/actuation HFA aerosol inhaler (Flovent HFA) gabapentin 800 mg tablet 1 tab PO TID PRN 12/03/20 03/02/21 insulin aspart U-100 100 unit/mL 10 - 15 unit SUBCUT TID 12/03/20 03/02/21 subcutaneous cartridge (Novolog PenFill U-100 Insulin aspart) insulin degludec 100 unit/mL (3 33 unit SUBCUT DAILY 12/03/20 03/02/21 mL) subcutaneous pen (Tresiba FlexTouch U-100 insulin) lisinopril 40 mg tablet 1 tab PO DAILY 12/03/20 03/02/21 metformin 1,000 mg tablet 1 tab PO BID 12/03/20 03/02/21 ondansetron 4 mg disintegrating 1 tab SUBLINGUAL BID PRN 12/03/20 03/02/21 tablet empagliflozin 10 mg tablet 10 mg PO DAILY 03/02/21 03/02/21 (Jardiance) omeprazole 40 mg capsule,delayed 40 mg PO DAILY@0630 03/02/21 03/02/21 release Allergies Allergy/AdvReac Type Severity Reaction Status Date / Time No Known Allergies Allergy Unknown Verified 01/21/21 10:31 [No Known Allergies*] Review of Systems Review of Systems: Constitutional: + Fever, + Chills, No Fatigue, No Malaise ENT/Mouth: No Ear Pain, No Nasal Congestion, No sore throat, No Rhinorrhea, No Swallowing Difficulty Eyes: No Eye Pain, No Swelling, No Vision Changes Cardiovascular: No Chest Pain, No SOB, No Edema Respiratory: No Cough, No Dyspnea Gastrointestinal: No Nausea, No Vomiting, No Diarrhea, No Constipation, No Abdominal pain Genitourinary: No Dysuria, No Urinary Frequency, No Hematuria, No Flank Pain Musculoskeletal: + joint pain, No Myalgias, + Joint Swelling Skin: + Skin Lesions, No rash Neuro: No Weakness, No Numbness, No Paresthesias, No Dizziness, No Headache Yes all other systems are reviewed and are negative [facility] Past Medical History Attestation statement: The following information was validated with the patient. Medical History (Updated 03/02/21 @ 16:51 by EMERITA Cortes) Asthma Diabetes mellitus Hypertension Neuropathy Surgical History History of amputation of lesser toe Family History Family History (Updated 03/02/21 @ 16:51 by EMERITA Cortes) Mother HLD (hyperlipidemia) Father Bladder cancer Social History Social History Household Members: None Household Members Other:: 1 Housing: Apartment Do you presently have visiting nurse or other home services: No Alcohol intake: never Patient Tobacco Use Status: Former Tobacco user Second Hand Smoke Exposure: No Substance Use Type: Marijuana Advance Directives: No Advance Directives Information Provided: Yes service: No Current occupational status: disabled Physical Exam Vital Signs: Vital Signs: Last Vital Signs Temp 99.1 F 03/02/21 16:36 Pulse 91 03/02/21 16:36 Resp 18 03/02/21 16:36 BP 130/68 03/02/21 16:36 Pulse Ox 94 03/02/21 16:36 BMI result Body Mass Index 32.1 Const: General: cooperative and no acute distress Orientation/consciousness: patient oriented x3 Limitations: no limitations HENMT: Head: Yes normal to inspection and Yes atraumatic Ears: hearing grossly normal bilaterally General nose exam: Normal external nose present Face and sinus: Yes normal facial exam Eyes: General: appearance normal, both eyes and all related structures EOM: EOMs intact bilaterally Neck: Neck: Yes normal visual inspection and Yes no meningeal signs Resp: Effort & Inspection: normal respiratory effort and no respiratory distress Auscultation: clear to auscultation bilaterally Cardio: Rate: regular rate Heart sounds: S1 normal heart sound present and S2 normal heart sound present Peripheral pulses: dorsalis pedis present Skin: Rashes: no rashes Wounds: no wounds Neuro: General: patient oriented x3 and no meningeal signs Gait exam (Neuro): Normal gait present Extrem: Other: Please refer to images above. Left foot with noted swelling, erythema, warmth, and blistering to 1st MCP. Very tender to palpation. Course Course Course Narrative: -1526--noted leukocytosis of 16.8, CRP elevated to 15.49. Lactic acid negative -1530--Patient does not meet severe sepsis criteria at this time. sepsis fluids based on patient's ideal body weight due to obesity = 1560cc IVF XR foot LT min 3V IMPRESSION: Moderate soft tissue swelling first MTP joint without any underlying fracture, dislocation bony erosive changes. Mild hallux valgus deformity first MTP joint. ? Moderate-sized retrocalcaneal enthesophyte. >> plan for admission MDM - Wound/Laceration MDM Narrative Medical decision making narrative: 50-year-old male with a past medical history of diabetes, hypertension, recently discharged from our facility for right foot diabetic wound with osteo finished 6 weeks of IV Ertapenem, followed by 1 month of PO Doxycycline last week presenting to the ED complaining of left foot swelling, erythema, pain, and blistering progressively worsening over 3 days. On exam low-grade temp 99.3?, physical exam as above please refer to images. Concern for cellulitis vs osteomyelitis vs tenosynovitis/septic joint Low concern for severe sepsis at this time Plan: Labs, lactic/blood cultures, empiric IV antibiotics, x-ray, anticipated admission Medical Records Attestation: I reviewed the patient's medical records. Lab Data Attestation: I reviewed the patient's lab results. Result diagrams: 03/02/21 14:48 03/02/21 14:48 Labs: Lab Results 03/02/21 03/02/21 03/02/21 Range/Units 14:47 14:48 14:48 WBC 16.8 H (4.8-10.8) X10*3/uL RBC 4.95 (4.60-5.80) X10*6/uL Hgb 14.7 (14.0-18.0) g/dl Hct 43.3 (42.0-52.0) % MCV 87.5 (80.0-98.0) fL MCH 29.7 (27.0-33.0) pg MCHC 33.9 (31.0-36.0) g/dl RDW 14.2 (11.0-16.0) % Plt Count 195 (160-400) X10*3/uL MPV 11.0 (9.4-12.4) fL Immature Gran % (Auto) 0.5 H (0.0-0.4) % Neut % (Auto) 77.7 H (45-73) % Lymph % (Auto) 14.3 L (20-40) % [place] % (Auto) 7.1 (2-11) % Eos % (Auto) 0.2 (0-4) % Baso % (Auto) 0.2 (0-2) % Lymph # (Auto) 2.4 (1.2-4.9) X10*3/uL [place] # (Auto) 1.2 (0.1-1.2) X10*3/uL Eos # (Auto) 0.0 (0.0-0.4) X10*3/uL Baso # (Auto) 0.0 (0.0-0.2) X10*3/uL Abs Immat Gran (auto) 0.08 H (0.00-0.03) X10*3/uL Absolute Neuts (auto) 13.1 H (2.0-8.3) x10*3/uL Absolute Nucleated RBC 0.000 (0.0-0.012) X10*3/uL Nucleated RBC % (auto) 0.0 (0.0-0.2) /100WBC Sodium 136 (135-145) mmol/L Potassium 4.2 (3.3-5.1) mmol/L Chloride 99 (96-108) mmol/L Carbon Dioxide 27 (22-29) mmol/L Anion Gap 14 (12-20) BUN 14 (9-16) mg/dL Creatinine 0.91 (0.5-1.4) mg/dL Estim Creat Clear Calc 116.7 Estimated GFR > 60 Random Glucose 125 H D (60-115) mg/dL Lactic Acid 1.4 (0.5-2.0) mmol/L Calcium 9.3 (8.4-10.2) mg/dL Magnesium 1.8 (1.6-2.6) mg/dL Total Bilirubin 0.7 (0.0-1.0) mg/dL Direct Bilirubin 0.3 (0.0-0.5) mg/dL AST 17 (5-37) U/L ALT 21 (0-40) U/L Alkaline Phosphatase 112 D (39-117) U/L C-Reactive Protein 15.49 H (< or = 0.50) mg/dL B-Natriuretic Peptide (<100) pg/mL Total Protein 6.8 (6.5-8.0) g/dL Albumin 3.9 (3.5-5.0) g/dL 03/02/21 Range/Units 14:48 WBC (4.8-10.8) X10*3/uL RBC (4.60-5.80) X10*6/uL Hgb (14.0-18.0) g/dl Hct (42.0-52.0) % MCV (80.0-98.0) fL MCH (27.0-33.0) pg MCHC (31.0-36.0) g/dl RDW (11.0-16.0) % Plt Count (160-400) X10*3/uL MPV (9.4-12.4) fL Immature Gran % (Auto) (0.0-0.4) % Neut % (Auto) (45-73) % Lymph % (Auto) (20-40) % [place] % (Auto) (2-11) % Eos % (Auto) (0-4) % Baso % (Auto) (0-2) % Lymph # (Auto) (1.2-4.9) X10*3/uL [place] # (Auto) (0.1-1.2) X10*3/uL Eos # (Auto) (0.0-0.4) X10*3/uL Baso # (Auto) (0.0-0.2) X10*3/uL Abs Immat Gran (auto) (0.00-0.03) X10*3/uL Absolute Neuts (auto) (2.0-8.3) x10*3/uL Absolute Nucleated RBC (0.0-0.012) X10*3/uL Nucleated RBC % (auto) (0.0-0.2) /100WBC Sodium (135-145) mmol/L Potassium (3.3-5.1) mmol/L Chloride (96-108) mmol/L Carbon Dioxide (22-29) mmol/L Anion Gap (12-20) BUN (9-16) mg/dL Creatinine (0.5-1.4) mg/dL Estim Creat Clear Calc Estimated GFR Random Glucose (60-115) mg/dL Lactic Acid (0.5-2.0) mmol/L Calcium (8.4-10.2) mg/dL Magnesium (1.6-2.6) mg/dL Total Bilirubin (0.0-1.0) mg/dL Direct Bilirubin (0.0-0.5) mg/dL AST (5-37) U/L ALT (0-40) U/L Alkaline Phosphatase (39-117) U/L C-Reactive Protein (< or = 0.50) mg/dL B-Natriuretic Peptide 71 (<100) pg/mL Total Protein (6.5-8.0) g/dL Albumin (3.5-5.0) g/dL Critical Care Time Critical Care Time Critical Care Time: Yes Total Critical Care Time: 35 Attestation: I have personally provided critical care time exclusive of time spent on separately billable procedures. Time includes review of lab data, radiology results, discussion with consultants, and monitoring for potential decompensation. Intervention performed as documented. Discharge Plan Discharge Clinical Impression: Cellulitis Qualifiers: Site of cellulitis: extremity Site of cellulitis of extremity: lower extremity Laterality: left Qualified Code(s): L03.116 - Cellulitis of left lower limb Patient Disposition: Admitted As Inpatient
[2021-03-02] MEDS: Piperacillin Sodium/Tazobactam 3.375 GM in 0.9 % Sodium Chloride 50 ML IV ×2 (14:52→21:14)
[2021-03-02] MEDS: 0.9 % Sodium Chloride 1,000 ML 999 ML IVCONT ×2 (14:53→17:38)
[2021-03-02 14:55] LABS: MANUAL DIFF FLAG NO
[2021-03-02 14:56] LABS: Basophils Percent Auto 0.2 % (0-2); Eosinophils Percent Auto 0.2 % (0-4); Hematocrit 43.3 % (42.0-52.0); Hemoglobin 14.7 g/dl (14.0-18.0); Imm Gran Abs Auto 0.08 X10*3/uL (0.00-0.03); Imm Gran Pct Auto 0.5 % (0.0-0.4); Lymphocytes Absolute Auto 2.4 X10*3/uL (1.2-4.9); Lymphocytes Percent Auto 14.3 % (20-40); Mean Corpuscular HGB Conc 33.9 g/dl (31.0-36.0); Mean Corpuscular Hemoglobin 29.7 pg (27.0-33.0); Mean Corpuscular Volume 87.5 fL (80.0-98.0); Monocytes Absolute Auto 1.2 X10*3/uL (0.1-1.2); Monocytes Percent Auto 7.1 % (2-11); Neutrophils Absolute Auto 13.1 x10*3/uL (2.0-8.3); Neutrophils Percent Auto 77.7 % (45-73); Platelet Count 195 X10*3/uL (160-400); Red Blood Count 4.95 X10*6/uL (4.60-5.80); Red Cell Distribution Width 14.2 % (11.0-16.0); White Blood Count 16.8 X10*3/uL (4.8-10.8)
[2021-03-02 15:08] LABS: Lactic Acid 1.4 mmol/L (0.5-2.0)
[2021-03-02 15:13] LABS: Alanine Aminotransferase 21 U/L (0-40); Albumin Level 3.9 g/dL (3.5-5.0); Alkaline Phosphatase 112 U/L (39-117); Anion Gap 14 (12-20); Aspartate Amino Transferase 17 U/L (5-37); Bilirubin Direct 0.3 mg/dL (0.0-0.5); Bilirubin Total 0.7 mg/dL (0.0-1.0); Blood Urea Nitrogen 14 mg/dL (9-16); C Reactive Protein 15.49 mg/dL (< or = 0.50); Calcium 9.3 mg/dL (8.4-10.2); Carbon Dioxide 27 mmol/L (22-29); Chloride 99 mmol/L (96-108); Creatinine Clr Calc Pharmacy 116.7; Estimated Glomerular Filt Rate > 60; Glucose Random 125 mg/dL (60-115); Magnesium 1.8 mg/dL (1.6-2.6); Potassium 4.2 mmol/L (3.3-5.1); Sodium 136 mmol/L (135-145); Total Protein 6.8 g/dL (6.5-8.0)
[2021-03-02 15:19] LABS: B Type Natriuretic Peptide 71 pg/mL (<100)
[2021-03-02] MEDS: oxyCODONE HCl Immed Release 5 MG TABLET PO ×2 (15:32→21:10)
--- NOTE | 2021-03-02 15:58 | PHA.MEDREC ---
MED REC COMPLETE, NO ISSUES Pharmacy Consult ? Medication Reconciliation Pharmacy has completed the medication reconciliation.
[2021-03-02 16:36] VITALS: BP 130/68; PULSE 91; RESP 18; TEMP 37.3; O2SAT 94
--- NOTE | 2021-03-02 16:44 | P.HPHOSP_ITS ---
History of Present Illness Date of Service: 03/02/21 <EMERITA Cortes - Last Filed: 03/02/21 17:00> Attending physician on admission: Rosy Villasenor <EMERITA Cortes - Last Filed: 03/02/21 17:00> Chief Complaint: left leg pain <EMERITA Cortes - Last Filed: 03/02/21 17:00> this is a 50-year-old male history of diabetes who presents to the emergency department today with pain in his left foot. He has noticed pain and swelling of his left foot and left leg which as been progressing over the past few days. He has generally been feeling unwell, feeling very tired and sleeping more than usual. He has also had associated nausea but no vomiting. He was treated with antibiotics for osteomyelitis of the right foot in November in completed his antibiotics at the beginning of January. This is right foot has improved and is doing well at this time. in the emergency department his workup was significant for leukocytosis of 16.8, elevated CRP 15.49. X-ray of his left foot showed soft tissue swelling with no bony erosions. He was started on broad-spectrum antibiotics in the decision was made to admit him to the hospital for further management. <EMERITA Cortes - Last Filed: 03/02/21 17:00> Review of Systems Review of Systems: Yes all other systems are reviewed and are negative <EMERITA Cortes Last Filed: 03/02/21 17:00> Constitutional: Constitutional: Denies chills, Reports fatigue, Reports feve r(s) and Reports lethargy <EMERITA Cortes Last Filed: 03/02/21 17:00> Cardiovascular: Cardiovascular: Denies chest pain <EMERITA Cortes Last Filed: 03/02/21 17:00> Respiratory: Respiratory: Denies cough <EMERITA Cortes Last Filed: 03/02/21 17:00> Gastrointestinal: Gastrointestinal: Denies abdominal pain <EMERITA Cortes Last Filed: 03/02/21 17:00> Musculoskeletal: Comments: left leg pain <EMERITA Cortes Last Filed: 03/02/21 17:00> Endocrine: Endocrine: Reports fatigue <EMERITA Cortes - Last Filed: 03/02/21 17:00> [facility] Medical History: Medical History (Updated 03/02/21 @ 16:51 by EMERITA Cortes) Asthma Diabetes mellitus Hypertension Neuropathy <EMERITA Cortes - Last Filed: 03/02/21 17:00> Functional capacity: independent ambulation <EMERITA Cortes - Last Filed: 03/02/21 17:00> Family History: Family History (Updated 03/02/21 @ 16:51 by EMERITA Cortes) Mother HLD (hyperlipidemia) Father Bladder cancer <EMERITA Cortes - Last Filed: 03/02/21 17:00> Surgical History: Surgical History History of amputation of lesser toe <EMERITA Cortes - Last Filed: 03/02/21 17:00> Social History: Social History Household Members: None Household Members Other:: 1 Housing: Apartment Do you presently have visiting nurse or other home services: No Alcohol intake: never Patient Tobacco Use Status: Former Tobacco user Second Hand Smoke Exposure: No Substance Use Type: Marijuana Advance Directives: No Advance Directives Information Provided: Yes service: No Current occupational status: disabled <EMERITA Cortes - Last Filed: 03/02/21 17:00> Meds Allergies/Adverse reactions: Allergies Allergy/AdvReac Type Severity Reaction Status Date / Time No Known Allergies Allergy Unknown Verified 01/21/21 10:31 [No Known Allergies*] <EMERITA Cortes - Last Filed: 03/02/21 17:00> Active Medications: Current Medications Acetaminophen (Acetaminophen 325 Mg Tablet) 650 mg PO Q6H PRN PRN Reason: Pain, Mild (Pain Scale 1-3) Dextrose (Dextrose 50 % 25 Gm/50 Ml Vial) 25 gm IVPUSH Q15M PRN; Protocol PRN Reason: per Hypoglycemia Standing Ord. Docusate Sodium (Docusate Sodium 100 Mg Capsule) 100 mg PO DAILY NICK Enoxaparin Sodium (Enoxaparin Sodium 40 Mg/0.4 Ml Syringe) 40 mg SUBCUT Q24H [facility] Glucose (Glucose Gel 15 Gm Gel..Gram.) 15 gm PO Q15M PRN; Protocol PRN Reason: per Hypoglycemia Standing Ord. Piperacillin Sod/Tazobactam (Sod 3.375 gm/ Sodium Chloride) 50 mls @ 100 mls/hr IV Q6H [facility] Insulin Human Lispro (Insulin Lispro 100 Unit/Ml 3 Ml Vial) 0 unit SUBCUT QIDACHS NICK; Protocol Magnesium Hydroxide (Milk Of Magnesia 30 Ml Oral.Susp) 30 ml PO DAILY PRN PRN Reason: Constipation Morphine Sulfate (Morphine Sulfate 4 Mg/Ml Cartridge) 2 mg IVPUSH Q4H PRN; Protocol PRN Reason: Pain, Severe (Pain Scale 7-10) Ondansetron HCl (Ondansetron Hcl 4 Mg/2 Ml Vial) 4 mg IVPUSH Q8H PRN PRN Reason: Nausea and Vomiting Oxycodone HCl (Oxycodone Hcl Immed Release 5 Mg Tablet) 5 mg PO Q6H PRN PRN Reason: Pain, Moderate (Pain Scale 4-6 Pharmacy Consult (Consult Rx Perform Med Rec) 1 each MISCELLANE ONCE PRN PRN Reason: Consult order Pharmacy Consult (Consult Rx Vancomycin Dosing) 1 each MISCELLANE DAILY PRN PRN Reason: Consult order Sodium Chloride (0.9 % Sodium Chloride Flush 3 Ml Syringe) 3 ml IVFLUSH QSHIFT [facility] <EMERITA Cortes - Last Filed: 03/02/21 17:00> Home medications: Home Medications Medication Instructions Recorded Confirmed Last Taken Type albuterol sulfate 90 mcg/actuation 2 puff PO Q4H PRN 12/03/20 03/02/21 Unknown History aerosol inhaler amlodipine 10 mg tablet 1 tab PO DAILY 12/03/20 03/02/21 12/03/20 History atenolol 25 mg tablet 1 tab PO DAILY 12/03/20 03/02/21 12/03/20 History clonazepam 0.5 mg tablet 1 tab PO DAILY PRN 12/03/20 03/02/21 Unknown History escitalopram oxalate 10 mg tablet 1 tab PO DAILY 12/03/20 03/02/21 12/03/20 History fluticasone propionate 110 2 puff PO BID 12/03/20 03/02/21 12/03/20 History mcg/actuation HFA aerosol inhaler (Flovent HFA) gabapentin 800 mg tablet 1 tab PO TID PRN 12/03/20 03/02/21 12/03/20 History insulin aspart U-100 100 unit/mL 10 - 15 unit SUBCUT TID 12/03/20 03/02/21 12/03/20 History subcutaneous cartridge (Novolog PenFill U-100 Insulin aspart) insulin degludec 100 unit/mL (3 33 unit SUBCUT DAILY 12/03/20 03/02/21 03/02/21 History mL) subcutaneous pen (Tresiba FlexTouch U-100 insulin) lisinopril 40 mg tablet 1 tab PO DAILY 12/03/20 03/02/21 03/02/21 History metformin 1,000 mg tablet 1 tab PO BID 12/03/20 03/02/21 12/03/20 History ondansetron 4 mg disintegrating 1 tab SUBLINGUAL BID PRN 12/03/20 03/02/21 Unknown History tablet empagliflozin 10 mg tablet 10 mg PO DAILY 03/02/21 03/02/21 03/02/21 History (Jardiance) omeprazole 40 mg capsule,delayed 40 mg PO DAILY@0630 03/02/21 03/02/21 03/02/21 History release <EMERITA Cortes - Last Filed: 03/02/21 17:00> Physical Exam Vital Signs and Narrative: Vital Signs: Last Vital Signs Temp 99.1 F 03/02/21 16:36 Pulse 91 03/02/21 16:36 Resp 18 03/02/21 16:36 BP 130/68 03/02/21 16:36 Pulse Ox 94 03/02/21 16:36 BMI result Body Mass Index 32.1 <EMERITA Cortes - Last Filed: 03/02/21 17:00> Const: General: comfortable, alert and awake <EMERITA Cortes - Last Filed: 03/02/21 17:00> Nutritional Appearance: well nourished <EMERITA Cortes - Last Filed: 03/02/21 17:00> Orientation/consciousness: patient oriented x3 <EMERITA Cortes - Last Filed: 03/02/21 17:00> HENMT: Head: Yes normocephalic and Yes atraumatic <EMERITA Cortes - Last Filed: 03/02/21 17:00> Eyes: Sclerae: sclerae normal <EMERITA Cortes - Last Filed: 03/02/21 17:00> Resp: Effort & Inspection: normal respiratory effort and no respiratory distress <EMERITA Cortes - Last Filed: 03/02/21 17:00> Auscultation: clear to auscultation bilaterally <EMERITA Cortes - Last Filed: 03/02/21 17:00> Cardio: Rate: regular rate <EMERITA Cortes - Last Filed: 03/02/21 17:00> Rhythm: regular rhythm <EMERITA Cortes - Last Filed: 03/02/21 17:00> GI: Inspection: No distended <EMERITA Cortes - Last Filed: 03/02/21 17:00> Palpation (GI): Soft to palpation and nontender <EMERITA Cortes - Last Filed: 03/02/21 17:00> Neuro: General: patient oriented x3 <EMERITA Cortes - Last Filed: 03/02/21 17:00> Cranial nerves: Yes CN's II-XII intact bilaterally and Yes Bilaterally intact EOM present <EMERITA Cortes - Last Filed: 03/02/21 17:00> Extrem: Other: erythema of left foot with more mild erythema extending up left leg; very tender to touch; no drainage above left foot; below right foot <EMERITA Cortes - Last Filed: 03/02/21 17:00> Results Labs CBC and Chem 7: : 03/02/21 14:48 03/02/21 14:48 <EMERITA Cortes - Last Filed: 03/02/21 17:00> Labs: Laboratory Results - last 24 hr 03/02/21 03/02/21 03/02/21 14:47 14:48 14:48 MCV 87.5 MCH 29.7 MCHC 33.9 RDW 14.2 Plt Count 195 MPV 11.0 Immature Gran % (Auto) 0.5 H Neut % (Auto) 77.7 H Lymph % (Auto) 14.3 L [place] % (Auto) 7.1 Eos % (Auto) 0.2 Baso % (Auto) 0.2 Lymph # (Auto) 2.4 [place] # (Auto) 1.2 Eos # (Auto) 0.0 Baso # (Auto) 0.0 Abs Immat Gran (auto) 0.08 H Absolute Neuts (auto) 13.1 H Absolute Nucleated RBC 0.000 Nucleated RBC % (auto) 0.0 Anion Gap 14 Estim Creat Clear Calc 116.7 Estimated GFR > 60 Random Glucose 125 H D Lactic Acid 1.4 Calcium 9.3 Magnesium 1.8 Total Bilirubin 0.7 Direct Bilirubin 0.3 AST 17 ALT 21 Alkaline Phosphatase 112 D C-Reactive Protein 15.49 H B-Natriuretic Peptide Total Protein 6.8 Albumin 3.9 03/02/21 14:48 MCV MCH MCHC RDW Plt Count MPV Immature Gran % (Auto) Neut % (Auto) Lymph % (Auto) [place] % (Auto) Eos % (Auto) Baso % (Auto) Lymph # (Auto) [place] # (Auto) Eos # (Auto) Baso # (Auto) Abs Immat Gran (auto) Absolute Neuts (auto) Absolute Nucleated RBC Nucleated RBC % (auto) Anion Gap Estim Creat Clear Calc Estimated GFR Random Glucose Lactic Acid Calcium Magnesium Total Bilirubin Direct Bilirubin AST ALT Alkaline Phosphatase C-Reactive Protein B-Natriuretic Peptide 71 Total Protein Albumin <EMERITA Cortes - Last Filed: 03/02/21 17:00> Imaging Radiologist's Impressions: Impressions Foot X-Ray 03/02/21 14:28 IMPRESSION: Moderate soft tissue swelling first MTP joint without any underlying fracture, dislocation bony erosive changes. Mild hallux valgus deformity first MTP joint. Moderate-sized retrocalcaneal enthesophyte. <EMERITA Cortes - Last Filed: 03/02/21 17:00> Assessment and Plan (1) Cellulitis: Qualifiers: Laterality: left Site of cellulitis: extremity Site of cellulitis of extremity: lower extremity Qualified Code(s): L03.116 - Cellulitis of left lower limb <EMERITA Cortes - Last Filed: 03/02/21 17:00> Status: Acute <EMERITA Cortes - Last Filed: 03/02/21 17:00> (2) Diabetic foot infection: Status: Acute <EMERITA Cortes - Last Filed: 03/02/21 17:00> This is a 50-year-old male with history of diabetes, hypertension, peripheral neuropathy who presents to the emergency department with pain redness and swelling of his left leg found to have cellulitis/ diabetic foot infection sepsis secondary to cellulitis/diabetic foot wound meets sepsis criteria with HR 91, WBC 16.8 LA 1.4, no severe features left diabetic foot wound/ left leg cellulitis possible osteomyelitis continue IV vancomycin, zosyn MRI of left foot pain control DM Tresiba will be converted to Lantus hold Jardiance, hold metformin SSI, POCs, ADA diet HTN bp controlled continue home lisinopril, norvasc and atenolol Mood Continue lexapro, klonopin peripheral neuropathy continue gabapentin dvt ppx - lovenox code status - full code attending - dr villasenor <EMERITA Cortes - Last Filed: 03/02/21 17:00> Quality Stroke Does the patient have a stroke diagnosis?: No <EMERITA Cortes - Last Filed: 03/02/21 17:00> VTE Prior VTE?: No <EMERITA Cortes - Last Filed: 03/02/21 17:00> VTE Risk Level:: Medical - moderate - high <EMERITA Cortes - Last Filed: 03/02/21 17:00> VTE Device Contraindication: Treatment Not Indicated <EMERITA Cortes - Last Filed: 03/02/21 17:00> VTE Drug Contraindication: N/A - Med Ordered <EMERITA Cortes - Last Filed: 03/02/21 17:00>
[2021-03-02 17:00] LABS: COVID-19 Test Negative (Negative); IDNOW Serial# 9DD0AD1C
[2021-03-02] MEDS: vancomycin HCL 1,250 MG in 0.9 % Sodium Chloride 250 ML 166.67 MG IV (17:38)
[2021-03-02] MEDS: Morphine Sulfate 4 MG/ML CARTRIDGE 2 MG IVPUSH ×2 (17:58→22:24)
[2021-03-02 18:54] LABS: Erythrocyte Sedimentation Rate 29 MM/HR (0-15)
[2021-03-02 21:07] LABS: Glucose, Whole Blood 266 mg/dL (60-115)
[2021-03-02] MEDS: Enoxaparin Sodium 40 MG/0.4 ML SYRINGE SUBCUT (21:11)
--- NOTE | 2021-03-02 21:22 | PC.NURSE ---
PT BECAME VERY ANGRY ABOUT HIS INSULIN SCHEDULE AND PT SPOKE WITH AND THERE WAS AN ARGUMENT ASK ME TO CALL PHARMACY TO CHANGE THE PRESCRIPTION AND THEY SAID THEY COULD NOT CHANGE THE PRESCRIPTION BECAUSE IT WAS OUTSIDE THERE SCOPE OF PRACTICE.
--- NOTE | 2021-03-02 21:50 | PC.NURSE ---
rn called to [facility] where this pt is being cared for, pt yelling at the staff, stating he is not getting good care, the staff isn't doing anything rn tried to explain to pt the acuity with the dept. pt began to escalate stating he has been recording all interactions w/staff, security called to bedside to explain recording policy. pt began to threaten staff I will see you again don't worry big boy to the Clinical Coordinator. per security d/t pts escalating behavior hpd has called to speak w/pt re: recording policy & threatening the staff. pt speaking w/hpd at this time, pt also challenging this rn to a lie detector test
[2021-03-02] MEDS: Insulin Lispro 100 UNIT/ML 3 ML VIAL SUBCUT (22:23)
--- NOTE | 2021-03-02 22:23 | PC.NURSE ---
6 UNITS OF SLIDING SCALE INSULIN GIVEN TO PT AT 9PM UNABLE TO SCAN IN ROOM PT WAS BEING VERBALLY ABUSIVE TO STAFF SECURITY INVOLVED SUPERVISIOR INVOLVED.
[2021-03-02 22:24] VITALS: RESP 20
--- NOTE | 2021-03-02 23:52 | PC.NURSE ---
Assumed care of pt Pt AxO x 4 Pt ambulatory Pt verbalized understanding of plan -- awaiting MRI in AM Will continue to monitor
[2021-03-03 04:07] VITALS: BP 80/38; PULSE 79; RESP 23; O2SAT 89
[2021-03-03] MEDS: Morphine Sulfate 4 MG/ML CARTRIDGE 2 MG IVPUSH ×4 (04:52→21:03)
[2021-03-03] MEDS: Piperacillin Sodium/Tazobactam 3.375 GM in 0.9 % Sodium Chloride 50 ML IV ×4 (04:54→21:04)
[2021-03-03 06:09] VITALS: BP 118/64; PULSE 80; RESP 14; TEMP 37.2; O2SAT 99
[2021-03-03 07:22] LABS: MANUAL DIFF FLAG NO
[2021-03-03 07:57] LABS: Anion Gap 14 (12-20); Blood Urea Nitrogen 11 mg/dL (9-16); Calcium 8.5 mg/dL (8.4-10.2); Carbon Dioxide 23 mmol/L (22-29); Chloride 102 mmol/L (96-108); Creatinine Clr Calc Pharmacy 151.7; Estimated Glomerular Filt Rate > 60; Glucose Random 118 mg/dL (60-115); Sodium 135 mmol/L (135-145)
[2021-03-03 08:39] LABS: Basophils Percent Auto 0.2 % (0-2); Eosinophils Absolute Auto 0.1 X10*3/uL (0.0-0.4); Eosinophils Percent Auto 0.5 % (0-4); Hematocrit 42.2 % (42.0-52.0); Hemoglobin 13.9 g/dl (14.0-18.0); Imm Gran Abs Auto 0.04 X10*3/uL (0.00-0.03); Imm Gran Pct Auto 0.3 % (0.0-0.4); Lymphocytes Absolute Auto 1.4 X10*3/uL (1.2-4.9); Lymphocytes Percent Auto 10.4 % (20-40); Mean Corpuscular HGB Conc 32.9 g/dl (31.0-36.0); Mean Corpuscular Hemoglobin 28.3 pg (27.0-33.0); Mean Corpuscular Volume 85.9 fL (80.0-98.0); Mean Platelet Volume 12.2 fL (9.4-12.4); Monocytes Absolute Auto 0.9 X10*3/uL (0.1-1.2); Neutrophils Absolute Auto 10.5 x10*3/uL (2.0-8.3); Neutrophils Percent Auto 81.6 % (45-73); Platelet Count 195 X10*3/uL (160-400); Red Blood Count 4.91 X10*6/uL (4.60-5.80); Red Cell Distribution Width 13.9 % (11.0-16.0); White Blood Count 12.9 X10*3/uL (4.8-10.8)
[2021-03-03 08:56] LABS: Glucose, Whole Blood 121 mg/dL (60-115)
--- NOTE | 2021-03-03 09:18 | PC.NURSE ---
Pt received from hand stitcher: Pt AOx4. Heart sounds normal and clear lungs. Diabetic ulcer noted to L foot. Pt able to ambulate with no complaints.
--- NOTE | 2021-03-03 09:43 | P.PNIM_ITS ---
Subjective Subjective Date of Service: 03/03/21 Review of Systems follow-up left foot cellulitis Complaints of pain and swelling to left foot Denies chest pain, shortness breath, nausea, vomiting, diarrhea All other systems are reviewed and are negative Physical Exam Vital Signs: Vital Signs: Last Vital Signs Temp 99 F 03/03/21 06:09 Pulse 80 03/03/21 06:09 Resp 14 03/03/21 06:09 BP 118/64 03/03/21 06:09 Pulse Ox 99 03/03/21 06:09 BMI result Body Mass Index 32.1 Appearing in no acute distress lung sounds are clear to auscultation heart regular rate rhythm, clear S1, S2 positive bowel sounds, abdomen is soft, nontender neuro patient is alert x3, no focal deficits Large callused area to left foot, no drainage or eschar noted Objective Data Active Medications Acetaminophen (Acetaminophen 325 Mg Tablet) 650 mg PO Q6H PRN PRN Reason: Pain, Mild (Pain Scale 1-3) Albuterol Sulfate (Albuterol Sulfate 90 Mcg 8 Gm Inhaler) 2 puff INHALE Q4H PRN PRN Reason: Shortness Of Breath Amlodipine Besylate (Amlodipine Besylate 10 Mg Tablet) 10 mg PO DAILY [facility]; Protocol Atenolol (Atenolol 25 Mg Tablet) 25 mg PO DAILY [facility]; Protocol Clonazepam (Clonazepam 0.5 Mg Tablet) 0.5 mg PO DAILY PRN PRN Reason: Anxiety Dextrose (Dextrose 50 % 25 Gm/50 Ml Vial) 25 gm IVPUSH Q15M PRN; Protocol PRN Reason: per Hypoglycemia Standing Ord. Docusate Sodium (Docusate Sodium 100 Mg Capsule) 100 mg PO DAILY [facility] Enoxaparin Sodium (Enoxaparin Sodium 40 Mg/0.4 Ml Syringe) 40 mg SUBCUT Q24H [facility] Last Admin: 03/02/21 21:11 Dose: 40 mg Documented by: CHRISTOPHER Escitalopram Oxalate (Escitalopram Oxalate 10 Mg Tablet) 10 mg PO DAILY [facility] Fluticasone Propionate (Fluticasone Propionate 100 Mcg Blst.W.Dev) 2 puff INHALE RBID [facility] Last Admin: 03/03/21 08:08 Dose: Not Given Documented by: SUZAN Non-Admin Reason: Med Not Available Gabapentin (Gabapentin 400 Mg Capsule) 800 mg PO TID PRN PRN Reason: NERVE PAIN Glucose (Glucose Gel 15 Gm Gel..Gram.) 15 gm PO Q15M PRN; Protocol PRN Reason: per Hypoglycemia Standing Ord. Piperacillin Sod/Tazobactam (Sod 3.375 gm/ Sodium Chloride) 50 mls @ 100 mls/hr IV Q6H [facility] Last Infusion: 03/03/21 06:11 Dose: 0 mls/hr Documented by: DUNCAN Vancomycin HCl 1,500 mg/ (Sodium Chloride) 500 mls @ 333.333 mls/hr IV Q12H [facility] Insulin Glargine (Insulin Glargine,Hum.Rec.Anlog 100 Unit/Ml 10 Ml Vial) 23 unit SUBCUT DAILY [facility] Insulin Human Lispro (Insulin Lispro 100 Unit/Ml 3 Ml Vial) 0 unit SUBCUT QIDACHS [facility]; Protocol Last Admin: 03/03/21 09:17 Dose: Not Given Documented by: VY Non-Admin Reason: No Insulin Coverage Comments: B/S 121 Lisinopril (Lisinopril 40 Mg Tablet) 40 mg PO DAILY [facility]; Protocol Magnesium Hydroxide (Milk Of Magnesia 30 Ml Oral.Susp) 30 ml PO DAILY PRN PRN Reason: Constipation Morphine Sulfate (Morphine Sulfate 4 Mg/Ml Cartridge) 2 mg IVPUSH Q4H PRN; Protocol PRN Reason: Pain, Severe (Pain Scale 7-10) Last Admin: 03/03/21 04:52 Dose: 2 mg Documented by: DUNCAN Omeprazole (Omeprazole 40 Mg Capsule.Dr) 40 mg PO DAILY@0630 [facility] Last Admin: 03/03/21 06:12 Dose: Not Given Documented by: DUNCAN Non-Admin Reason: Patient Refused Ondansetron HCl (Ondansetron Hcl 4 Mg/2 Ml Vial) 4 mg IVPUSH Q8H PRN PRN Reason: Nausea and Vomiting Oxycodone HCl (Oxycodone Hcl Immed Release 5 Mg Tablet) 5 mg PO Q6H PRN PRN Reason: Pain, Moderate (Pain Scale 4-6 Last Admin: 03/02/21 21:10 Dose: 5 mg Documented by: CHRISTOPHER Pharmacy Consult (Consult Rx Perform Med Rec) 1 each MISCELLANE ONCE PRN PRN Reason: Consult order Pharmacy Consult (Consult Rx Vancomycin Dosing) 1 each MISCELLANE DAILY PRN PRN Reason: Consult order Sodium Chloride (0.9 % Sodium Chloride Flush 3 Ml Syringe) 3 ml IVFLUSH QSHIFT [facility] Last Admin: 03/03/21 09:17 Dose: Not Given Documented by: VY Non-Admin Reason: Med Not Available Labs CBC & Chem 7: 03/03/21 06:32 03/03/21 06:32 Labs: Laboratory Results - last 24 hr 03/02/21 03/02/21 03/02/21 14:47 14:48 14:48 MCV 87.5 MCH 29.7 MCHC 33.9 RDW 14.2 Plt Count 195 MPV 11.0 Immature Gran % (Auto) 0.5 H Neut % (Auto) 77.7 H Lymph % (Auto) 14.3 L Mcdonald % (Auto) 7.1 Eos % (Auto) 0.2 Baso % (Auto) 0.2 Lymph # (Auto) 2.4 Mcdonald # (Auto) 1.2 Eos # (Auto) 0.0 Baso # (Auto) 0.0 Abs Immat Gran (auto) 0.08 H Absolute Neuts (auto) 13.1 H Absolute Nucleated RBC 0.000 Nucleated RBC % (auto) 0.0 ESR 29 H Anion Gap Estim Creat Clear Calc Estimated GFR POC Glucose Random Glucose Lactic Acid 1.4 Calcium Magnesium Total Bilirubin Direct Bilirubin AST ALT Alkaline Phosphatase C-Reactive Protein B-Natriuretic Peptide Total Protein Albumin COVID-19 ([facility]) COVID-19 Clin Com 03/02/21 03/02/21 03/02/21 14:48 14:48 16:33 MCV MCH MCHC RDW Plt Count MPV Immature Gran % (Auto) Neut % (Auto) Lymph % (Auto) Mcdonald % (Auto) Eos % (Auto) Baso % (Auto) Lymph # (Auto) Mcdonald # (Auto) Eos # (Auto) Baso # (Auto) Abs Immat Gran (auto) Absolute Neuts (auto) Absolute Nucleated RBC Nucleated RBC % (auto) ESR Anion Gap 14 Estim Creat Clear Calc 116.7 Estimated GFR > 60 POC Glucose Random Glucose 125 H D Lactic Acid Calcium 9.3 Magnesium 1.8 Total Bilirubin 0.7 Direct Bilirubin 0.3 AST 17 ALT 21 Alkaline Phosphatase 112 D C-Reactive Protein 15.49 H B-Natriuretic Peptide 71 Total Protein 6.8 Albumin 3.9 COVID-19 ([facility]) Negative COVID-19 Clin Com See Note 03/02/21 03/03/21 03/03/21 21:03 06:32 06:32 MCV 85.9 MCH 28.3 MCHC 32.9 RDW 13.9 Plt Count 195 MPV 12.2 Immature Gran % (Auto) 0.3 Neut % (Auto) 81.6 H Lymph % (Auto) 10.4 L Mcdonald % (Auto) 7.0 Eos % (Auto) 0.5 Baso % (Auto) 0.2 Lymph # (Auto) 1.4 Mcdonald # (Auto) 0.9 Eos # (Auto) 0.1 Baso # (Auto) 0.0 Abs Immat Gran (auto) 0.04 H Absolute Neuts (auto) 10.5 H Absolute Nucleated RBC 0.000 Nucleated RBC % (auto) 0.0 ESR Anion Gap 14 Estim Creat Clear Calc 151.7 Estimated GFR > 60 POC Glucose 266 H Random Glucose 118 H Lactic Acid Calcium 8.5 D Magnesium Total Bilirubin Direct Bilirubin AST ALT Alkaline Phosphatase C-Reactive Protein B-Natriuretic Peptide Total Protein Albumin COVID-19 ([facility]) COVID-19 Clin Com 03/03/21 08:51 MCV MCH MCHC RDW Plt Count MPV Immature Gran % (Auto) Neut % (Auto) Lymph % (Auto) Mcdonald % (Auto) Eos % (Auto) Baso % (Auto) Lymph # (Auto) Mcdonald # (Auto) Eos # (Auto) Baso # (Auto) Abs Immat Gran (auto) Absolute Neuts (auto) Absolute Nucleated RBC Nucleated RBC % (auto) ESR Anion Gap Estim Creat Clear Calc Estimated GFR POC Glucose 121 H Random Glucose Lactic Acid Calcium Magnesium Total Bilirubin Direct Bilirubin AST ALT Alkaline Phosphatase C-Reactive Protein B-Natriuretic Peptide Total Protein Albumin COVID-19 ([facility]) COVID-19 Clin Com Assessment and Plan (1) Cellulitis: Status: Acute (2) Diabetic foot infection: Status: Acute (3) Hypertension: Status: Acute (4) Diabetes mellitus: Status: Acute Assessment and Plan: This is a 50-year-old male with history of diabetes, hypertension, peripheral neuropathy who presents to the emergency department with pain redness and swelling of his left leg found to have cellulitis/ diabetic foot infection Left diabetic foot wound/ left leg cellulitis possible osteomyelitis continue IV vancomycin, zosyn MRI of left foot pending pain control sepsis secondary to cellulitis/diabetic foot wound. Resolved meets sepsis criteria with HR 91, WBC 16.8 LA 1.4, no severe features DM Tresiba will be converted to Lantus hold Jardiance, hold metformin SSI, POCs, ADA diet HTN bp controlled continue home lisinopril, norvasc and atenolol Mood Continue lexapro, klonopin peripheral neuropathy continue gabapentin dvt ppx - lovenox code status? - full code attending Dr. [place] Quality Stroke Does the patient have a stroke diagnosis?: No VTE Prior VTE?: No VTE Risk Level:: Medical - moderate - high VTE Device Contraindication: Treatment Not Indicated VTE Drug Contraindication: N/A - Med Ordered
[2021-03-03] MEDS: Insulin Glargine,Hum.rec.anlog 100 UNIT/ML 10 ML VIAL 23 UNIT SUBCUT (10:18)
[2021-03-03] MEDS: lisinopriL 40 MG TABLET PO (10:19)
[2021-03-03] MEDS: amLODIPine Besylate 10 MG TABLET PO (10:20)
[2021-03-03] MEDS: Escitalopram Oxalate 10 MG TABLET PO (10:20)
[2021-03-03 10:29] VITALS: BP 165/93; PULSE 109; RESP 18; TEMP 36.7; O2SAT 96
--- NOTE | 2021-03-03 10:31 | PC.NURSE ---
Pt up to nursing station multiple times: L foot diabetic ulcer popped and yellow drainage on floor and dressing. Dressing redone at this time.
[2021-03-03] MEDS: atenoloL 25 MG TABLET PO (10:44)
--- NOTE | 2021-03-03 12:15 | HE.PHANOTE ---
Vancomycin Dosing - Patient was order vancomycin 1500 mg on 03/03 @ 0800. Dose was never given. RN state she held it since patient was given Zosyn and was going to give it after. Vancomycin q12h schedule switched to start on 03/03 @ 1300. Trough on 03/04 may not be at steady state due to the late administration today. Liana [place], KurtisD
--- NOTE | 2021-03-03 12:36 | MHC.CM.PN ---
PT LIVES ALONE AND IS INDEPENDENT PT HAS NO SERVICES AND NO DME PT CONFIRMS HIS PCP IS ENRI[facility] MAN PT DECLINES TO COMPLETE A HCP IMM DELIVERED, COPY SENT TO [facility] DCP TBD. PT MAY NEED IV ABX AGAIN. HE HAD THEM IN DECEMBER AND REPORTS HE COMPLETED THEM PT WOULD LIKE THE SAME AGENCIES IF NEEDED AGAIN PT ALSO CONCERNED THAT HE BE ABLE TO LEAVE TODAY HE HAS PETS AT HOME (RABBIT AND CAT) THAT NEED CARE PT WILL ARRANGE AN UBER AT DC
[2021-03-03 13:18] LABS: Glucose, Whole Blood 137 mg/dL (60-115)
--- NOTE | 2021-03-03 13:24 | PC.NURSE ---
Pt to MRI at this time
[2021-03-03] MEDS: oxyCODONE HCl Immed Release 5 MG TABLET PO (15:00)
[2021-03-03] MEDS: vancomycin HCL 1,500 MG in 0.9 % Sodium Chloride 500 ML 333.33 MG IV (15:01)
--- NOTE | 2021-03-03 18:09 | PC.NURSE ---
Pt up and ambulating throughout unit very often. Pt has IV ABT running but pt unable to receive full dose as pt continues to bend arm and walk around despite this RN's constant reminder. Pt's main concern seems to be centered around PRN pain medication and nothing else.
[2021-03-03 18:44] LABS: Glucose, Whole Blood 233 mg/dL (60-115)
[2021-03-03 18:50] VITALS: BP 147/76; PULSE 88; RESP 20; TEMP 36.6; O2SAT 95
[2021-03-03] MEDS: Enoxaparin Sodium 40 MG/0.4 ML SYRINGE SUBCUT (19:51)
[2021-03-03 20:59] LABS: Glucose, Whole Blood 182 mg/dL (60-115)
[2021-03-03 21:03] VITALS: RESP 20
[2021-03-03] MEDS: Insulin Lispro 100 UNIT/ML 3 ML VIAL SUBCUT (21:05)
[2021-03-03] MEDS: Fluticasone Propionate 100 MCG BLST.W.DEV 2 PUFF INHALE (21:32)
[2021-03-03 21:33] VITALS: PULSE 89; RESP 16; O2SAT 96
[2021-03-04] MEDS: vancomycin HCL 1,500 MG in 0.9 % Sodium Chloride 500 ML 333.33 MG IV (01:21)
[2021-03-04] MEDS: Morphine Sulfate 4 MG/ML CARTRIDGE 2 MG IVPUSH ×2 (01:34→09:47)
[2021-03-04] MEDS: Piperacillin Sodium/Tazobactam 3.375 GM in 0.9 % Sodium Chloride 50 ML IV ×2 (03:03→09:40)
[2021-03-04] MEDS: Fluticasone Propionate 100 MCG BLST.W.DEV 2 PUFF INHALE (07:40)
[2021-03-04 07:43] VITALS: PULSE 88; RESP 18; O2SAT 96
[2021-03-04 08:03] LABS: Glucose, Whole Blood 139 mg/dL (60-115)
[2021-03-04 08:19] LABS: Creatinine Clr Calc Pharmacy 141.6; Estimated Glomerular Filt Rate > 60
--- NOTE | 2021-03-04 08:22 | P.CONGS_ITS ---
History of Present Illness Consult details Consult date: 03/04/21 Requesting physician: Nell Joe Narrative: 50-year-old male patient with history of type 2 diabetes mellitus and previous history of diabetic foot infections/osteomyelitis, status post amputati on of several toes of the right foot now presenting with an area of redness and swelling of the left foot located at the distal metatarsal head of the great toe. He reports pain and swelling at the site for several days and developed a large blister approximately 3 days ago. The blisters subsequently ruptured but continues to have an area of redness likely over the distal metatarsal head. He is concerned about developing osteomyelitis once again in this foot. MRI of the foot yesterday reveals ?Complex subcutaneous abscess along the plantar-medial aspect of the 1st MTP joint and 1st proximal phalanx. No MRI evidence of osteomyelitis.? Surgical consultation is requested for possible incision and drainage. Review of Systems Constitutional: Constitutional: Denies chills, Denies fever(s), Denies headache(s) and Denies poor appetite ENT: Denies dizziness and Denies headache(s) Cardiovascular: Cardiovascular: Denies chest pain, Denies rapid heart rate, Denies palpitations and Denies slow heart rate Respiratory: Respiratory: Denies chest congestion, Denies cough, Denies pain on inspiration and Denies wheezing Gastrointestinal: Gastrointestinal: Denies abdominal pain, Denies bloating, Denies change in stool character, Denies constipation, Denies diarrhea, Denies nausea, Denies vomiting and Denies hematemesis Musculoskeletal: Musculoskeletal: Denies back pain, Reports arthralgias, Reports joint swelling and Reports numbness Integumentary/Breasts: Skin/Breast: Reports as per HPI, Reports change in pigmentation, Reports erythema and Denies rash Neurologic: Denies dizziness, Denies headache(s) and Reports numbness Psychiatric: Psychiatric: Denies anxiety and Denies depression Endocrine: Endocrine: Denies palpitations Hematologic/Lymphatic: Hematologic/Lymphatic: Denies easy bleeding, Denies easy bruising and Denies lymphadenopathy Allergic/Immunologic: Allergic/Immunologic: Denies wheezing PMFSH Past Medical History Medical History Asthma Diabetes mellitus Hypertension Neuropathy Functional capacity: independent ambulation Family History Family History Mother HLD (hyperlipidemia) Father Bladder cancer Surgical History Surgical History History of amputation of lesser toe Social History Social History Household Members: None Household Members Other:: 1 Housing: Apartment Do you presently have visiting nurse or other home services: No Alcohol intake: never Patient Tobacco Use Status: Former Tobacco user Second Hand Smoke Exposure: No Substance Use Type: Marijuana Advance Directives: No Advance Directives Information Provided: Yes service: No Current occupational status: unemployed Meds Allergies Allergy/AdvReac Type Severity Reaction Status Date / Time No Known Allergies Allergy Unknown Verified 01/21/21 10:31 [No Known Allergies*] Active Medications: Current Medications Acetaminophen (Acetaminophen 325 Mg Tablet) 650 mg PO Q6H PRN PRN Reason: Pain, Mild (Pain Scale 1-3) Albuterol Sulfate (Albuterol Sulfate 90 Mcg 8 Gm Inhaler) 2 puff INHALE Q4H PRN PRN Reason: Shortness Of Breath Amlodipine Besylate (Amlodipine Besylate 10 Mg Tablet) 10 mg PO DAILY [facility]; Protocol Last Admin: 03/03/21 10:20 Dose: 10 mg Documented by: Atenolol (Atenolol 25 Mg Tablet) 25 mg PO DAILY [facility]; Protocol Last Admin: 03/03/21 10:44 Dose: 25 mg Documented by: Clonazepam (Clonazepam 0.5 Mg Tablet) 0.5 mg PO DAILY PRN PRN Reason: Anxiety Dextrose (Dextrose 50 % 25 Gm/50 Ml Vial) 25 gm IVPUSH Q15M PRN; Protocol PRN Reason: per Hypoglycemia Standing Ord. Docusate Sodium (Docusate Sodium 100 Mg Capsule) 100 mg PO DAILY [facility] Last Admin: 03/03/21 10:32 Dose: Not Given Documented by: Enoxaparin Sodium (Enoxaparin Sodium 40 Mg/0.4 Ml Syringe) 40 mg SUBCUT Q24H [facility] Last Admin: 03/03/21 19:51 Dose: 40 mg Documented by: Escitalopram Oxalate (Escitalopram Oxalate 10 Mg Tablet) 10 mg PO DAILY [facility] Last Admin: 03/03/21 10:20 Dose: 10 mg Documented by: Fluticasone Propionate (Fluticasone Propionate 100 Mcg Blst.W.Dev) 2 puff INHALE RBID [facility] Last Admin: 03/04/21 07:40 Dose: 2 puff Documented by: Gabapentin (Gabapentin 400 Mg Capsule) 800 mg PO TID PRN PRN Reason: NERVE PAIN Glucose (Glucose Gel 15 Gm Gel..Gram.) 15 gm PO Q15M PRN; Protocol PRN Reason: per Hypoglycemia Standing Ord. Piperacillin Sod/Tazobactam (Sod 3.375 gm/ Sodium Chloride) 50 mls @ 100 mls/hr IV Q6H [facility] Last Infusion: 03/04/21 03:43 Dose: Infused Documented by: Vancomycin HCl 1,500 mg/ (Sodium Chloride) 500 mls @ 333.333 mls/hr IV Q12H [facility] Last Infusion: 03/04/21 03:02 Dose: Infused Documented by: Insulin Glargine (Insulin Glargine,Hum.Rec.Anlog 100 Unit/Ml 10 Ml Vial) 23 unit SUBCUT DAILY [facility] Last Admin: 03/03/21 10:18 Dose: 23 unit Documented by: Insulin Human Lispro (Insulin Lispro 100 Unit/Ml 3 Ml Vial) 0 unit SUBCUT QIDACHS [facility]; Protocol Last Admin: 03/03/21 21:05 Dose: 2 unit Documented by: Lisinopril (Lisinopril 40 Mg Tablet) 40 mg PO DAILY [facility]; Protocol Last Admin: 03/03/21 10:19 Dose: 40 mg Documented by: Magnesium Hydroxide (Milk Of Magnesia 30 Ml Oral.Susp) 30 ml PO DAILY PRN PRN Reason: Constipation Morphine Sulfate (Morphine Sulfate 4 Mg/Ml Cartridge) 2 mg IVPUSH Q4H PRN; Protocol PRN Reason: Pain, Severe (Pain Scale 7-10) Last Admin: 03/04/21 01:34 Dose: 2 mg Documented by: Omeprazole (Omeprazole 40 Mg Capsule.Dr) 40 mg PO DAILY@0630 [facility] Last Admin: 03/04/21 06:43 Dose: Not Given Documented by: Ondansetron HCl (Ondansetron Hcl 4 Mg/2 Ml Vial) 4 mg IVPUSH Q8H PRN PRN Reason: Nausea and Vomiting Oxycodone HCl (Oxycodone Hcl Immed Release 5 Mg Tablet) 5 mg PO Q6H PRN PRN Reason: Pain, Moderate (Pain Scale 4-6 Last Admin: 03/03/21 15:00 Dose: 5 mg Documented by: Pharmacy Consult (Consult Rx Perform Med Rec) 1 each MISCELLANE ONCE PRN PRN Reason: Consult order Pharmacy Consult (Consult Rx Vancomycin Dosing) 1 each MISCELLANE DAILY PRN PRN Reason: Consult order Sodium Chloride (0.9 % Sodium Chloride Flush 3 Ml Syringe) 3 ml IVFLUSH QSTXFT [facility] Last Admin: 03/03/21 23:00 Dose: Not Given Documented by: Home Medications Medication Instructions Recorded Confirmed Last Taken Type albuterol sulfate 90 mcg/actuation 2 puff PO Q4H PRN 12/03/20 03/02/21 Unknown History aerosol inhaler amlodipine 10 mg tablet 1 tab PO DAILY 12/03/20 03/02/21 12/03/20 History atenolol 25 mg tablet 1 tab PO DAILY 12/03/20 03/02/21 12/03/20 History clonazepam 0.5 mg tablet 1 tab PO DAILY PRN 12/03/20 03/02/21 Unknown History escitalopram oxalate 10 mg tablet 1 tab PO DAILY 12/03/20 03/02/21 12/03/20 History fluticasone propionate 110 2 puff PO BID 12/03/20 03/02/21 12/03/20 History mcg/actuation HFA aerosol inhaler (Flovent HFA) gabapentin 800 mg tablet 1 tab PO TID PRN 12/03/20 03/02/21 12/03/20 History insulin aspart U-100 100 unit/mL 10 - 15 unit SUBCUT TID 12/03/20 03/02/21 12/03/20 History subcutaneous cartridge (Novolog PenFill U-100 Insulin aspart) insulin degludec 100 unit/mL (3 33 unit SUBCUT DAILY 12/03/20 03/02/21 03/02/21 History mL) subcutaneous pen (Tresiba FlexTouch U-100 insulin) lisinopril 40 mg tablet 1 tab PO DAILY 12/03/20 03/02/21 03/02/21 History metformin 1,000 mg tablet 1 tab PO BID 12/03/20 03/02/21 12/03/20 History ondansetron 4 mg disintegrating 1 tab SUBLINGUAL BID PRN 12/03/20 03/02/21 Unknown History tablet empagliflozin 10 mg tablet 10 mg PO DAILY 03/02/21 03/02/21 03/02/21 History (Jardiance) omeprazole 40 mg capsule,delayed 40 mg PO DAILY@0630 03/02/21 03/02/21 03/02/21 History release Physical Exam Vital Signs: Vital Signs: Last Vital Signs Temp 97.9 F 03/03/21 18:50 Pulse 88 03/04/21 07:43 Resp 18 03/04/21 07:43 BP 147/76 H 03/03/21 18:50 Pulse Ox 95 03/03/21 18:50 BMI result Body Mass Index 32.1 Const: General: cooperative, no acute distress, alert and awake Nutritional Appearance: well nourished Orientation/consciousness: patient oriented x3 Limitations: no limitations HENMT: Head: Yes normocephalic and Yes atraumatic Ears: hearing grossly normal bilaterally Neck: Neck: Yes no lymphadenopathy Resp: Effort & Inspection: normal respiratory effort, no audible wheezes, no cough and no respiratory distress GI: Inspection: Yes normal to inspection Skin: General skin exam: erythema, eschar, fluctuance and induration Neuro: General: patient oriented x3 Extrem: Other: Left 1st metatarsal distal head with an area of redness and overlying desquamated skin. Disc made a skin was excised revealing an area of fluctuance directly over the metatarsal head. Site is tender to palpation. There is erythema extending up the metatarsal with associated tenderness. Findings are consistent with an abscess. Ankle/foot/toe images: 1. Site of abscess left foot Results Labs Result diagrams: 03/03/21 06:32 03/04/21 07:00 Labs: Abnormal lab results 03/03/21 03/03/21 03/03/21 Range/Units 06:32 08:51 13:14 WBC 12.9 H (4.8-10.8) X10*3/uL Hgb 13.9 L (14.0-18.0) g/dl Neut % (Auto) 81.6 H (45-73) % Lymph % (Auto) 10.4 L (20-40) % Abs Immat Gran (auto) 0.04 H (0.00-0.03) X10*3/uL Absolute Neuts (auto) 10.5 H (2.0-8.3) x10*3/uL POC Glucose 121 H 137 H (60-115) mg/dL 03/03/21 03/03/21 03/04/21 Range/Units 18:39 20:55 07:37 WBC (4.8-10.8) X10*3/uL Hgb (14.0-18.0) g/dl Neut % (Auto) (45-73) % Lymph % (Auto) (20-40) % Abs Immat Gran (auto) (0.00-0.03) X10*3/uL Absolute Neuts (auto) (2.0-8.3) x10*3/uL POC Glucose 233 H 182 H 139 H (60-115) mg/dL Short CBC 03/03/21 Range/Units 06:32 WBC 12.9 H (4.8-10.8) X10*3/uL Hgb 13.9 L (14.0-18.0) g/dl Hct 42.2 (42.0-52.0) % Plt Count 195 (160-400) X10*3/uL BMP 03/04/21 07:00 Creatinine 0.75 All other labs normal. Assessment and Plan (1) Diabetic foot infection: Status: Acute 50-year-old male patient with diabetes mellitus presenting with a new left foot infection involving the 1st metatarsal with a probable underlying abscess. Patient will require incision and drainage. I will return later today to perform this procedure at the bedside. After discussion of the procedure, risks, and alternatives, the patient consents to the procedure. Procedures Date of Service Date of Service: 03/04/21
[2021-03-04 09:37] VITALS: BP 181/92; PULSE 99; RESP 18; O2SAT 98
[2021-03-04] MEDS: Docusate Sodium 100 MG CAPSULE PO (09:38)
[2021-03-04 09:39] VITALS: BP 181/99; BP 189/99; PULSE 100
[2021-03-04] MEDS: lisinopriL 40 MG TABLET PO (09:39)
[2021-03-04] MEDS: amLODIPine Besylate 10 MG TABLET PO (09:39)
[2021-03-04 09:40] VITALS: BP 189/99; PULSE 100
[2021-03-04] MEDS: atenoloL 25 MG TABLET PO (09:40)
[2021-03-04] MEDS: Escitalopram Oxalate 10 MG TABLET PO (09:40)
[2021-03-04] MEDS: Insulin Glargine,Hum.rec.anlog 100 UNIT/ML 10 ML VIAL 23 UNIT SUBCUT (09:48)
[2021-03-04] MEDS: 0.9 % Sodium Chloride Flush 3 ML SYRINGE IVFLUSH (10:18)
[2021-03-04 11:18] LABS: Vancomycin Trough 10.3 mcg/mL (10.0-20.0)
--- NOTE | 2021-03-04 11:20 | PC.NURSE ---
pt resting peacefully, reports pain improved, pain is currently at 7/10
--- NOTE | 2021-03-04 12:22 | ED.SKABFB ---
HPI - Skin/Abscess/Foreign Bdy General Source: patient Mode of arrival: ambulatory Related Data Home Medications Medication Instructions Recorded Confirmed albuterol sulfate 90 mcg/actuation 2 puff PO Q4H PRN 12/03/20 03/02/21 aerosol inhaler amlodipine 10 mg tablet 1 tab PO DAILY 12/03/20 03/02/21 atenolol 25 mg tablet 1 tab PO DAILY 12/03/20 03/02/21 clonazepam 0.5 mg tablet 1 tab PO DAILY PRN 12/03/20 03/02/21 escitalopram oxalate 10 mg tablet 1 tab PO DAILY 12/03/20 03/02/21 fluticasone propionate 110 2 puff PO BID 12/03/20 03/02/21 mcg/actuation HFA aerosol inhaler (Flovent HFA) gabapentin 800 mg tablet 1 tab PO TID PRN 12/03/20 03/02/21 insulin aspart U-100 100 unit/mL 10 - 15 unit SUBCUT TID 12/03/20 03/02/21 subcutaneous cartridge (Novolog PenFill U-100 Insulin aspart) insulin degludec 100 unit/mL (3 33 unit SUBCUT DAILY 12/03/20 03/02/21 mL) subcutaneous pen (Tresiba FlexTouch U-100 insulin) lisinopril 40 mg tablet 1 tab PO DAILY 12/03/20 03/02/21 metformin 1,000 mg tablet 1 tab PO BID 12/03/20 03/02/21 ondansetron 4 mg disintegrating 1 tab SUBLINGUAL BID PRN 12/03/20 03/02/21 tablet empagliflozin 10 mg tablet 10 mg PO DAILY 03/02/21 03/02/21 (Jardiance) omeprazole 40 mg capsule,delayed 40 mg PO DAILY@0630 03/02/21 03/02/21 release Previous Rx's Medication Instructions Recorded amoxicillin 875 mg-potassium 1 tab PO BID #20 tab 03/04/21 clavulanate 125 mg tablet (Augmentin) cefuroxime axetil 500 mg tablet 500 mg PO BID #20 tab 03/04/21 oxycodone 5 mg tablet 5 mg PO Q4H PRN #24 tab 03/04/21 Allergies Allergy/AdvReac Type Severity Reaction Status Date / Time No Known Allergies Allergy Unknown Verified 01/21/21 10:31 [No Known Allergies*] PMFSH Past Medical History Medical History Asthma Diabetes mellitus Hypertension Neuropathy Surgical History History of amputation of lesser toe Family History Family History Mother HLD (hyperlipidemia) Father Bladder cancer Social History Social History Household Members: None Household Members Other:: 1 Housing: Apartment Do you presently have visiting nurse or other home services: No Alcohol intake: never Patient Tobacco Use Status: Former Tobacco user Second Hand Smoke Exposure: No Substance Use Type: Marijuana Advance Directives: No Advance Directives Information Provided: Yes service: No Current occupational status: unemployed Physical Exam Vital Signs: Vital Signs: Last Vital Signs Temp 97.9 F 03/03/21 18:50 Pulse 100 03/04/21 09:40 Resp 18 03/04/21 09:37 BP 189/99 H 03/04/21 09:40 Pulse Ox 98 03/04/21 09:37 BMI result Body Mass Index 32.1 MDM - Skin/Abscess/Foreign Bdy Lab Data Result diagrams: 03/03/21 06:32 03/04/21 07:00 Labs: Lab Results 03/02/21 03/02/21 03/02/21 Range/Units 14:47 14:48 14:48 WBC 16.8 H (4.8-10.8) X10*3/uL RBC 4.95 (4.60-5.80) X10*6/uL Hgb 14.7 (14.0-18.0) g/dl Hct 43.3 (42.0-52.0) % MCV 87.5 (80.0-98.0) fL MCH 29.7 (27.0-33.0) pg MCHC 33.9 (31.0-36.0) g/dl RDW 14.2 (11.0-16.0) % Plt Count 195 (160-400) X10*3/uL MPV 11.0 (9.4-12.4) fL Immature Gran % (Auto) 0.5 H (0.0-0.4) % Neut % (Auto) 77.7 H (45-73) % Lymph % (Auto) 14.3 L (20-40) % [place] % (Auto) 7.1 (2-11) % Eos % (Auto) 0.2 (0-4) % Baso % (Auto) 0.2 (0-2) % Lymph # (Auto) 2.4 (1.2-4.9) X10*3/uL [place] # (Auto) 1.2 (0.1-1.2) X10*3/uL Eos # (Auto) 0.0 (0.0-0.4) X10*3/uL Baso # (Auto) 0.0 (0.0-0.2) X10*3/uL Abs Immat Gran (auto) 0.08 H (0.00-0.03) X10*3/uL Absolute Neuts (auto) 13.1 H (2.0-8.3) x10*3/uL Absolute Nucleated RBC 0.000 (0.0-0.012) X10*3/uL Nucleated RBC % (auto) 0.0 (0.0-0.2) /100WBC ESR 29 H (0-15) MM/HR Sodium (135-145) mmol/L Potassium (3.3-5.1) mmol/L Chloride (96-108) mmol/L Carbon Dioxide (22-29) mmol/L Anion Gap (12-20) BUN (9-16) mg/dL Creatinine (0.5-1.4) mg/dL Estim Creat Clear Calc Estimated GFR Random Glucose (60-115) mg/dL Lactic Acid 1.4 (0.5-2.0) mmol/L Calcium (8.4-10.2) mg/dL Magnesium (1.6-2.6) mg/dL Total Bilirubin (0.0-1.0) mg/dL Direct Bilirubin (0.0-0.5) mg/dL AST (5-37) U/L ALT (0-40) U/L Alkaline Phosphatase (39-117) U/L C-Reactive Protein (< or = 0.50) mg/dL B-Natriuretic Peptide (<100) pg/mL Total Protein (6.5-8.0) g/dL Albumin (3.5-5.0) g/dL 03/02/21 03/02/21 Range/Units 14:48 14:48 WBC (4.8-10.8) X10*3/uL RBC (4.60-5.80) X10*6/uL Hgb (14.0-18.0) g/dl Hct (42.0-52.0) % MCV (80.0-98.0) fL MCH (27.0-33.0) pg MCHC (31.0-36.0) g/dl RDW (11.0-16.0) % Plt Count (160-400) X10*3/uL MPV (9.4-12.4) fL Immature Gran % (Auto) (0.0-0.4) % Neut % (Auto) (45-73) % Lymph % (Auto) (20-40) % [place] % (Auto) (2-11) % Eos % (Auto) (0-4) % Baso % (Auto) (0-2) % Lymph # (Auto) (1.2-4.9) X10*3/uL [place] # (Auto) (0.1-1.2) X10*3/uL Eos # (Auto) (0.0-0.4) X10*3/uL Baso # (Auto) (0.0-0.2) X10*3/uL Abs Immat Gran (auto) (0.00-0.03) X10*3/uL Absolute Neuts (auto) (2.0-8.3) x10*3/uL Absolute Nucleated RBC (0.0-0.012) X10*3/uL Nucleated RBC % (auto) (0.0-0.2) /100WBC ESR (0-15) MM/HR Sodium 136 (135-145) mmol/L Potassium 4.2 (3.3-5.1) mmol/L Chloride 99 (96-108) mmol/L Carbon Dioxide 27 (22-29) mmol/L Anion Gap 14 (12-20) BUN 14 (9-16) mg/dL Creatinine 0.91 (0.5-1.4) mg/dL Estim Creat Clear Calc 116.7 Estimated GFR > 60 Random Glucose 125 H D (60-115) mg/dL Lactic Acid (0.5-2.0) mmol/L Calcium 9.3 (8.4-10.2) mg/dL Magnesium 1.8 (1.6-2.6) mg/dL Total Bilirubin 0.7 (0.0-1.0) mg/dL Direct Bilirubin 0.3 (0.0-0.5) mg/dL AST 17 (5-37) U/L ALT 21 (0-40) U/L Alkaline Phosphatase 112 D (39-117) U/L C-Reactive Protein 15.49 H (< or = 0.50) mg/dL B-Natriuretic Peptide 71 (<100) pg/mL Total Protein 6.8 (6.5-8.0) g/dL Albumin 3.9 (3.5-5.0) g/dL Procedures Abscess I/D Site: foot (Distal 1st metatarsal head) Side (if applicable): left Sedation/analgesia: none Local Anesthetic: lidocaine 1% Amount of anesthesia used (mL): 5 Technique: incised with blade Amount of fluid expressed (mL): 1 Sent for culture/gram staining?: Yes Irrigation: No Packing used?: plain Discharge Plan Discharge Clinical Impression: Cellulitis Qualifiers: Site of cellulitis: extremity Site of cellulitis of extremity: lower extremity Laterality: left Qualified Code(s): L03.116 - Cellulitis of left lower limb Patient Disposition: Admitted As Inpatient
--- NOTE | 2021-03-04 12:25 | PM.DS ---
DS: Providers Provider Date of Service: 03/04/21 <Nell Joe NP - Last Filed: 03/04/21 12:38> Date of admission: 03/02/21 16:30 <Nell Joe NP - Last Filed: 03/04/21 12:38> Primary care physician: Erica Aguilar NP <Nell Joe NP - Last Filed: 03/04/21 12:38> Consults: 03/04/21 07:55 Consult to General Surgery Routine Consulting Provider: Jarek Pelaez Reason for consultation: subc abscess on plantar medial aspect of 1st MTP joint left foot Has provider been notified: No <Nell Joe NP - Last Filed: 03/04/21 12:38> Attending physician on discharge: [place] <Nell Joe NP - Last Filed: 03/04/21 12:38> Discharging clinician: Nell Joe <Nell Joe NP - Last Filed: 03/04/21 12:38> DS: Diagnosis Discharge Diagnosis (1) Diabetic foot infection: Status: Acute <Nell Joe NP - Last Filed: 03/04/21 12:38> DS: Summary Hospital Course Hospital Course: HP as per admitting provider this is a 50-year-old male history of diabetes who presents to the emergency department today with pain in his left foot.? He has noticed pain and swelling of his left foot and left leg which as been progressing over the past few days.? He has generally been feeling unwell, feeling very tired and sleeping more than usual.? He has also had associated nausea but no vomiting.? He was treated with antibiotics for osteomyelitis of the right foot in November in completed his antibiotics at the beginning of January.? This is right foot has improved and is doing well at this time.? in the emergency department his workup was significant for leukocytosis of 16.8, elevated CRP 15.49.? X-ray of his left foot showed soft tissue swelling with no bony erosions.? He was started on broad-spectrum antibiotics in the decision was made to admit him to the hospital for further management . Sepsis secondary to Left diabetic foot wound/ left leg cellulitis. Sepsis resolved, blood cultures negative after 24 hours. MRI did not show osteomyelitis, however did show complex subcutaneous abscess along the plantar-medial aspect of the 1st MTP joint and 1st proximal phalanx. he was seen by the general surgeon and area abscessed was incised and drained. Wound care orders are for dry gauze and Raudel wrap daily. He will need to follow-up with the general surgeon, Dr. Pelaez in 1 week. He was initially treated with vancomycin and Zosyn however will go home with 10 days of Augmentin and Ceftin. <Nell Joe NP - Last Filed: 03/04/21 12:38> Time Spent with Patient Time attestation: Total time spent providing and/or coordinating discharge services: <Nell Joe NP - Last Filed: 03/04/21 12:38> Discharge coordination time: Greater than 30 minutes <Nell Joe NP - Last Filed: 03/04/21 12:38> Quality: Stroke Does the patient have a stroke diagnosis?: No <Nell Joe NP - Last Filed: 03/04/21 12:38> Physical Exam Vital Signs: Vital Signs: Last Vital Signs Temp 97.9 F 03/03/21 18:50 Pulse 100 03/04/21 09:40 Resp 18 03/04/21 09:37 BP 189/99 H 03/04/21 09:40 Pulse Ox 98 03/04/21 09:37 BMI result Body Mass Index 32.1 <Nell Joe NP - Last Filed: 03/04/21 12:38> Appearing in no acute distress head is normocephalic atraumatic eyes pupils are PERRLA sclera is anicteric mouth throat mucous membranes are intact and moist neck is supple no lymphadenopathy, no JVD noted lung sounds are clear to auscultation heart regular rate rhythm, clear S1, S2 positive bowel sounds, abdomen is soft, nontender neuro patient is alert x3, no focal deficits redness and swelling of the left foot located at the distal metatarsal head of the great toe, old blister, s/p I&D <Nell Joe NP - Last Filed: 03/04/21 12:38> DS: Data Data Completed and Pending Completed studies during hospitalization [Text1]: Procedures Insertion of Infusion Device into Superior Vena Cava, Percutaneous Approach (12/06/20) <Nell Joe NP - Last Filed: 03/04/21 12:38> Labs on day of discharge: Laboratory Results - last 24 hr 03/03/21 03/03/21 03/03/21 13:14 18:39 20:55 Creatinine Estim Creat Clear Calc Estimated GFR POC Glucose 137 H 233 H 182 H Vancomycin Trough 03/04/21 03/04/21 03/04/21 07:00 07:00 07:37 Creatinine 0.75 Estim Creat Clear Calc 141.6 Estimated GFR > 60 POC Glucose 139 H Vancomycin Trough Cancelled 03/04/21 10:47 Creatinine Estim Creat Clear Calc Estimated GFR POC Glucose Vancomycin Trough 10.3 Preliminary micro results at discharge 03/02/21 14:48 Blood Culture - Preliminary Blood - Venous No growth after 24 hours. 03/02/21 14:47 Blood Culture - Preliminary Blood - Venous No growth after 24 hours. <Nell Joe NP - Last Filed: 03/04/21 12:38> Discharge Plan Discharge Anticipated Discharge Date/Time: 03/04/21 12:18 <Nell Joe NP - Last Filed: 03/04/21 12:38> Patient Disposition: Home Health Service <Nell Joe NP - Last Filed: 03/04/21 12:38> Discharge Diagnosis: Cellulitis Foot abscess <Nell Joe NP - Last Filed: 03/04/21 12:38> Cellulitis Foot abscess <[place] MD - Last Filed: 03/04/21 12:44> Referrals: Erica Aguilar NP [Primary Care Provider] - 1 Week Jarek Pelaez MD [Physician] - 1 Week <Nell Joe NP - Last Filed: 03/04/21 12:38> Discharge Medications: New oxycodone 5 mg tablet 5 mg PO Q4H PRN (Reason: pain) Qty: 24 RF: 0 cefuroxime axetil 500 mg tablet 500 mg PO BID Qty: 20 RF: 0 amoxicillin-pot clavulanate [Augmentin] 875-125 mg tablet 1 tab PO BID Qty: 20 RF: 0 Continued clonazepam 0.5 mg tablet 1 tab PO DAILY PRN (Reason: Anxiety) RF: 0 atenolol 25 mg tablet 1 tab PO DAILY RF: 0 gabapentin 800 mg tablet 1 tab PO TID PRN (Reason: NERVE PAIN) RF: 0 amlodipine 10 mg tablet 1 tab PO DAILY RF: 0 metformin 1,000 mg tablet 1 tab PO BID RF: 0 albuterol sulfate 90 mcg/actuation HFA aerosol inhaler 2 puff PO Q4H PRN (Reason: Shortness Of Breath) RF: 0 lisinopril 40 mg tablet 1 tab PO DAILY RF: 0 Flovent HFA 110 mcg/actuation HFA aerosol inhaler 2 puff PO BID RF: 0 insulin aspart U-100 [Novolog PenFill U-100 Insulin] 100 unit/mL cartridge 10 - 15 unit subcut TID RF: 0 escitalopram oxalate 10 mg tablet 1 tab PO DAILY RF: 0 Tresiba FlexTouch U-100 100 unit/mL (3 mL) insulin pen 33 unit subcut DAILY RF: 0 ondansetron 4 mg tablet,disintegrating 1 tab sublingual BID PRN (Reason: Nausea) RF: 0 omeprazole 40 mg Capsule,Delayed Release(Dr/Ec) 40 mg PO DAILY@0630 RF: 0 Jardiance 10 mg Tablet 10 mg PO DAILY RF: 0 <Nell Joe NP - Last Filed: 03/04/21 12:38> Discharge Orders: Discharge Order (Routine); Ordered 03/04/21 Ordered By: Nell Joe <Nell Joe NP - Last Filed: 03/04/21 12:38> Diet: advance to usual diet <Nell Joe NP - Last Filed: 03/04/21 12:38> advance to usual diet <[place] MD - Last Filed: 03/04/21 12:44> Activity on Discharge: As tolerated <Nell Joe NP - Last Filed: 03/04/21 12:38> As tolerated <[place] MD - Last Filed: 03/04/21 12:44> Stand Alone Forms: Patient Portal Discharge page <Nell Joe NP - Last Filed: 03/04/21 12:38> Care Plan Goals: Resolution of foot wound/abscess Dry gauze and cling wrap daily to left foot <Nell Joe NP - Last Filed: 03/04/21 12:38> Health Concerns: Cellulitis Foot abscess <Nell Joe NP - Last Filed: 03/04/21 12:38> Plan of Treatment: Follow-up with General surgery, Dr. Pelaez in 1 week Follow-up with primary care provider as needed Visiting nurse services for wound care. <Nell Joe WORK[employer]VE[employer]MENT ACT CAREER MANAGER - Last Filed: 03/04/21 12:38> Assessment: see discharge summary Attending Attestation: I have personally seen and examined the patient independently (on the date of service as documented by NPP), reviewed the NPP history, exam and?MDM and agree with the assessment and plan as?written. Will d/c on Augmetin / Doxy (not ceftin) x 10 more days. <Nell Joe NP - Last Filed: 03/04/21 12:38>
--- NOTE | 2021-03-04 12:45 | HE.PHANOTE ---
Vancomycin Addendum Trough was 10.3. Second dose of Vancomycin was given 5 hours late. Patient is most likely not at steady state yet. Per rx insight, patient should be in therapuetic ranges after next dose with an AUC of 405. The expected AUC at steady state is 456. Will continue 1500 mg Q12H for 3 more dose then draw another trough. Renal function is stable. Liana Denton, PharmD
[2021-03-04 13:40] LABS: Glucose, Whole Blood 128 mg/dL (60-115)
--- NOTE | 2021-03-05 09:43 | MHC.CM.PN ---
Late entry from 03/04/21 at 15:00: Received notification patient will be discharged and needs transportation. David booked.
== END 2021-03-04 12:15 | disposition home health service (06) | DRG 872 ==
LOC: HO.ED 15:37 → HO.EDOVER 16:59
PROVIDERS: Physician Assistant; Admitting Provider Physician Assistant Medical; Emergency Provider Emergency Medicine; PCP Nurse Practitioner Pediatrics; Visit Provider Nurse Practitioner Acute Care
DX: A41.9 Sepsis, unspecified organism (principal); L03.116 Cellulitis of left lower limb; L02.612 Cutaneous abscess of left foot; I10 Essential (primary) hypertension; E11.42 Type 2 diabetes mellitus with diabetic polyneuropathy; Z20.822 Contact with and (suspected) exposure to COVID-19; Z87.891 Personal history of nicotine dependence; Z79.51 Long term (current) use of inhaled steroids; Z79.4 Long term (current) use of insulin; Z79.84 Long term (current) use of oral hypoglycemic drugs; Z79.899 Other long term (current) drug therapy
CPT/HCPCS: 36415; 73630; 73720; 80048; 80076; 80202; 82565; 82947; 83605; 83735; 83880; 85025; 85652; 86140; 87040; 87071; 87077; 87186; 87205; 87635; 94640; 96361; 96374; 99285; 99291; A9585; J1650; J2270; J2543; J3370

== ENCOUNTER 2021-04-24 19:00 | Inpatient (IN) | payer MEDICARE, MEDICAID, SELFPAY ==
--- NOTE | ~2021-04-24 | IR_ITS ---
PROCEDURE: PICC LINE replacement UNDER FLUOROSCOPIC GUIDANCE CLINICAL INFORMATION: Needs for antibiotic therapy. TECHNIQUE/FINDINGS: Informed consent was obtained from the patient prior to the procedure. During this process, the procedure and potential alternatives was explained, along with the intended outcome and benefits. The risks of the procedure, as well as the risk of not doing the procedure, were discussed. The patient was given the opportunity to ask questions regarding the procedure and appeared competent to make medical decisions. A signed consent form which documents this discussion was placed in the medical record. The patient was brought to the conventional radiology suite and a timeout procedure was performed. The right arm was sterilely prepped and draped. Maximum sterile barrier technique was maintained throughout the procedure. ?All elements of maximal sterile barrier technique followed including use of cap, mask, sterile gown, sterile gloves, a sterile full body drape and hand hygiene. Also followed skin preparation with 2% chlorhexidine for cutaneous antisepsis, and sterile ultrasound preparation with sterile gel and probe cover when applicable.? Following administration of local anesthesia using 1% lidocaine, a guidewire was placed in the indwelling PIC catheter with the catheter being straightened out. Guidewire was then placed into the right atrium and the old PICC line removed. A 5 Luxembourger peel-away sheath was then in inserted using standard Seldinger technique. A 5 [place] single lumen PICC was cut to 40 cm. The catheter was advanced under fluoroscopic guidance until its tip was at the SVC-right atrial junction. The port could be easily aspirated. The lumen of the PICC line was flushed with saline. A Biopatch was placed around around the catheter at the entrance site. The catheter was secured with a StatLock. A sterile dressing was applied. The patient tolerated the procedure well. There was no evidence of complications. FLUOROSCOPY TIME: 1.4 minutes IR/IR cvc replace non tunneled IMPRESSION: Successful replacement of a 40 cm length right arm PICC line under fluoroscopic guidance. No evidence of complications.
--- NOTE | ~2021-04-24 | CT_ITS ---
EXAMINATION: CT ABDOMEN AND PELVIS WITH CONTRAST CLINICAL INFORMATION: Diffuse abdominal tenderness to palpation with nausea, vomiting and diarrhea COMPARISON: CT abdomen pelvis 11/26/2012 TECHNIQUE: Multidetector volumetric images were obtained from the superior aspect of the liver through the pubic symphysis following administration 85 mL of Omnipaque 350 intravenous contrast. Sagittal and coronal reformatted images were obtained on the technologist's workstation. Oral contrast: No This CT examination was performed using dose optimization techniques as appropriate, variously including the following: *Automated exposure control *Adjustment of mA and/or kV according to patient size (this includes techniques or standardized protocols for targeted exams where dose is matched to indication/reason for exam; i.e. extremities or head) *Use of iterative reconstruction technique DLP: 912 mGy-cm FINDINGS: LUNG BASES: The visualized lung bases are unremarkable. LIVER, GALLBLADDER, AND BILIARY TREE: The liver is normal in size, shape, and attenuation. No focal hepatic lesion or biliary ductal dilatation is present. The gallbladder contains layering high density material consistent with stones or possibly sludge. The gallbladder otherwise is unremarkable with no evidence of gallbladder wall thickening, or obvious pericholecystic inflammatory changes. PANCREAS: Unremarkable. SPLEEN: Unremarkable. ADRENAL GLANDS: Both adrenal glands are thickened, increased when compared to the prior study. KIDNEYS AND URETERS: The kidneys are normal in size, shape, and attenuation. There is a 4 mm right upper pole nonobstructing calculus. There is a tiny punctate 1 to 2 mm calculus in the right lower pole. No hydronephrosis, hydroureter, or ureteral calculi seen. There is nonspecific bilateral perinephric stranding. BLADDER: Unremarkable. GASTROINTESTINAL TRACT: The small and large bowel are unremarkable. The appendix is unremarkable. ABDOMINAL WALL: No significant hernia is appreciated. LYMPH NODES: No retroperitoneal lymphadenopathy. VASCULAR: Calcific plaque is present in the aorta and iliofemoral vessels without aneurysm. PELVIC VISCERA: Prostate and seminal vesicles appear normal. The vas deferens calcified. There is a left hip prosthesis present that obscures some detail. OSSEOUS STRUCTURES: Unremarkable. CT/CT abdomen pelvis w con IMPRESSION: 1. Bilateral nonobstructing renal calculi. 2. Cholelithiasis without evidence of cholecystitis 3. Bilateral thickening of both adrenal glands 4. A cause for the patient's diffuse abdominal tenderness, nausea, vomiting and diarrhea has not been found Fleischner guidelines were followed.
--- NOTE | ~2021-04-24 | XR_ITS ---
EXAMINATION: XR FOOT, LEFT CLINICAL INFORMATION: Concern for osteomyelitis. COMPARISON: None TECHNIQUE: AP, lateral, and oblique views of the left foot. FINDINGS: Small soft tissue defect at the medial side of the foot adjacent to the first MTP joint. There is bone destruction of the medial first metatarsal ossicle as seen on lateral view. There is focal decreased bone density and loss of cortex at the head of the first metatarsal at the plantar side of the bone also best seen on lateral view. These findings consistent with osteomyelitis. Small vessel calcifications in the foot. Small posterior calcaneal spur. XR/XR foot LT min 3V IMPRESSION: Bone destruction of the plantar surface of the head of the first metatarsal and the medial first metatarsal plantar ossicle consistent with osteomyelitis.
--- NOTE | ~2021-04-24 | XR_ITS ---
EXAMINATION: XR CHEST CLINICAL INFORMATION: PICC line placement. COMPARISON: Chest radiograph dated from 04/24/2021. TECHNIQUE: AP view of the chest was obtained. FINDINGS: The right-sided PICC line curves upon itself and terminates in the right axillary region. Normal cardiomediastinal silhouette. No focal airspace opacities, pleural effusions or pneumothorax. No acute osseous abnormalities. Partially visualized cervical fusion hardware. XR/XR chest 1V IMPRESSION: Right-sided PICC line curves upon itself and terminates in the right axillary region. Recommend repositioning. This result was discussed with Dr Cardenas at 04/29/2021 5:22 PM and it was ascertained that the content and urgency of the report was understood at the time of direct communication.
--- NOTE | ~2021-04-24 | XR_ITS ---
EXAMINATION: XR CHEST CLINICAL INFORMATION: SOB. COMPARISON: None TECHNIQUE: Frontal view of the chest was obtained. FINDINGS: No significant abnormality is noted involving the heart, lungs, mediastinum, bony thorax or soft tissues. XR/XR chest 1V IMPRESSION: Unremarkable chest examination.
[2021-04-24 19:08] VITALS: BP 139/82; PULSE 107; O2SAT 96
--- NOTE | 2021-04-24 19:28 | ECG_ITS ---
Test Reason : ABDOMINAL PAIN Blood Pressure : / mmHG Vent. Rate : 102 BPM Atrial Rate : 102 BPM P-R Int : 144 ms QRS Dur : 082 ms QT Int : 340 ms P-R-T Axes : 067 004 039 degrees QTc Int : 443 ms Sinus tachycardia Otherwise normal ECG When compared with ECG of 04-AUG-2014 21:57, Criteria for Inferior infarct are no longer Present Referred By: Ilda Posada Electronically Signed By:Aries Butt
[2021-04-24 19:46] VITALS: BP 139/82; PULSE 107; RESP 20; TEMP 37.1; O2SAT 96; BMI 43.9
--- NOTE | 2021-04-24 19:53 | PHA.MEDREC ---
Pharmacy Consult ? Medication Reconciliation Pharmacy has completed the medication reconciliation. Spoke with the patient, he took all of his morning medications but threw them up. Novolog is a sliding scale of 10-15 units TID with a max daily dose of 65 units.
[2021-04-24 19:56] VITALS: PULSE 107
[2021-04-24 20:10] LABS: Basophils Percent Auto 0.2 % (0-2); Hemoglobin 15.2 g/dl (14.0-18.0); Imm Gran Abs Auto 0.13 X10*3/uL (0.00-0.03); Imm Gran Pct Auto 0.6 % (0.0-0.4); Lymphocytes Absolute Auto 0.9 X10*3/uL (1.2-4.9); Lymphocytes Percent Auto 4.3 % (20-40); MANUAL DIFF FLAG SCAN; Mean Corpuscular Hemoglobin 28.1 pg (27.0-33.0); Monocytes Absolute Auto 0.5 X10*3/uL (0.1-1.2); Monocytes Percent Auto 2.5 % (2-11); Neutrophils Percent Auto 92.4 % (45-73); Red Blood Count 5.41 X10*6/uL (4.60-5.80); Red Cell Distribution Width 13.2 % (11.0-16.0); SCAN SMEAR FLAG 1; White Blood Count 20.5 X10*3/uL (4.8-10.8)
--- NOTE | 2021-04-24 20:13 | ED.GENADULT ---
HPI - General Adult General Stated complaint: ?sepsis <EMERITA Dhaliwal - Last Filed: 04/24/21 20:56> Time Seen by Provider: 04/24/21 19:16 <EMERITA Dhaliwal Last Filed: 04/24/21 20:56> Source: patient and EMS <EMERITA Dhaliwal - Last Filed: 04/24/21 20:56> Mode of arrival: EMS <EMERITA Dhaliwal Last Filed: 04/24/21 20:56> History of Present Illness HPI narrative: 50-year-old male with a past medical history of diabetes, hypertension, hepatitis C, recently discharged from our facility on 03/04/2021 with left foot cellulitis/abscess s/p finishing course of Augmentin and Doxycycline, presenting to the ED c/o left foot open wound with weeping drainage, swelling, erythema. Also reports acute on chronic diffuse abdominal pain, nausea, vomiting, and diarrhea. Also reports SOB. Per EMS on arrival patient was diaphoretic. Patient denies fever, CP, dysuria/hematuria, pedal edema <EMERITA Dhaliwal - Last Filed: 04/24/21 20:56> Onset (ago): day(s) <EMERITA Dhaliwal Last Filed: 04/24/21 20:56> Related Data Home medications: Home Medications Medication Instructions Recorded Confirmed albuterol sulfate 90 mcg/actuation 2 puff PO Q4H PRN 12/03/20 04/24/21 aerosol inhaler amlodipine 10 mg tablet 1 tab PO DAILY 12/03/20 04/24/21 atenolol 25 mg tablet 1 tab PO DAILY 12/03/20 04/24/21 clonazepam 0.5 mg tablet 1 tab PO DAILY PRN 12/03/20 04/24/21 escitalopram oxalate 10 mg tablet 1 tab PO DAILY 12/03/20 04/24/21 fluticasone propionate 110 2 puff PO BID 12/03/20 04/24/21 mcg/actuation HFA aerosol inhaler (Flovent HFA) gabapentin 800 mg tablet 1 tab PO TID PRN 12/03/20 04/24/21 insulin aspart U-100 100 unit/mL 10 - 15 unit SUBCUT TID 12/03/20 04/24/21 subcutaneous cartridge (Novolog PenFill U-100 Insulin aspart) insulin degludec 100 unit/mL (3 33 unit SUBCUT DAILY 12/03/20 04/24/21 mL) subcutaneous pen (Tresiba FlexTouch U-100 insulin) lisinopril 40 mg tablet 1 tab PO DAILY 12/03/20 04/24/21 metformin 1,000 mg tablet 1 tab PO BID 12/03/20 04/24/21 ondansetron 4 mg disintegrating 1 tab SUBLINGUAL BID PRN 12/03/20 04/24/21 tablet empagliflozin 10 mg tablet 10 mg PO DAILY 03/02/21 04/24/21 (Jardiance) omeprazole 40 mg capsule,delayed 40 mg PO DAILY@0630 03/02/21 04/24/21 release <EMERITA Dhaliwal Last Filed: 04/24/21 20:56> Allergies/adverse reactions: Allergies Allergy/AdvReac Type Severity Reaction Status Date / Time No Known Allergies Allergy Unknown Verified 01/21/21 10:31 [No Known Allergies*] <EMERITA Dhaliwal Last Filed: 04/24/21 20:56> Review of Systems Review of Systems: Constitutional: No Fever, No Chills, No Fatigue, No Malaise ENT/Mouth: No Ear Pain, No Nasal Congestion, No sore throat, No Rhinorrhea, No Swallowing Difficulty Eyes: No Eye Pain, No Swelling, No Redness, No Discharge Cardiovascular: No Chest Pain, + SOB, No Dyspnea on Exertion, No Orthopnea, No Edema Respiratory: No Cough, No Sputum, No Dyspnea Gastrointestinal: + Nausea, + Vomiting, + Diarrhea, No Constipation, + Abdominal pain Genitourinary: No Dysuria, No Urinary Frequency, No Hematuria, No Flank Pain, No Urinary Flow Changes Musculoskeletal: No joint pain, No Myalgias, No Joint Swelling Skin: + Skin Lesions, No rash Neuro: No Weakness, No Numbness, No Dizziness, No Headache <EMERITA Dhaliwal Last Filed: 04/24/21 20:56> Yes all other systems are reviewed and are negative <EMERITA Dhaliwal Last Filed: 04/24/21 20:56> PMFSH Past Medical History Attestation statement: The following information was validated with the patient. <EMERITA Dhaliwal - Last Filed: 04/24/21 20:56> Medical History: Medical History Asthma Diabetes mellitus Hypertension Neuropathy <EMERITA Dhaliwal - Last Filed: 04/24/21 20:56> Surgical History: Surgical History History of amputation of lesser toe <EMERITA Dhaliwal - Last Filed: 04/24/21 20:56> Family History Family History: Family History Mother HLD (hyperlipidemia) Father Bladder cancer <EMERITA Dhaliwal - Last Filed: 04/24/21 20:56> Social History Social History: Social History Household Members: None Household Members Other:: 1 Housing: Apartment Do you presently have visiting nurse or other home services: No Alcohol intake: never Patient Tobacco Use Status: Former Tobacco user Second Hand Smoke Exposure: No Use of substances other than those prescribed or required for medical reasons: No Substance Use Type: Marijuana Advance Directives: No service: No Current occupational status: unemployed <EMERITA Dhaliwal - Last Filed: 04/24/21 20:56> Physical Exam Vital Signs: Vital Signs: Last Vital Signs Temp 98.1 F 04/24/21 21:15 Pulse 115 H 04/24/21 21:15 Resp 04/24/21 21:45 BP 160/89 H 04/24/21 21:15 Pulse Ox 97 04/24/21 21:15 BMI result Body Mass Index 43.9 <EMERITA Dhaliwal - Last Filed: 04/24/21 20:56> Vital Signs: Last Vital Signs Temp 98.1 F 04/24/21 21:15 Pulse 115 H 04/24/21 21:15 Resp 04/24/21 21:45 BP 160/89 H 04/24/21 21:15 Pulse Ox 97 04/24/21 21:15 BMI result Body Mass Index 43.9 <EMERITA Garcia - Last Filed: 04/24/21 23:22> Const: General: cooperative and no acute distress <EMERITA Dhaliwal - Last Filed: 04/24/21 20:56> Orientation/consciousness: patient oriented x3 <EMERITA Dhaliwal - Last Filed: 04/24/21 20:56> Limitations: no limitations <EMERITA Dhaliwal - Last Filed: 04/24/21 20:56> HENMT: Head: Yes normal to inspection <EMERITA Dhaliwal - Last Filed: 04/24/21 20:56> Ears: hearing grossly normal bilaterally <EMERITA Dhaliwal - Last Filed: 04/24/21 20:56> General nose exam: Normal external nose present <EMERITA Dhaliwal - Last Filed: 04/24/21 20:56> Face and sinus: Yes normal facial exam <EMERITA Dhaliwal - Last Filed: 04/24/21 20:56> Eyes: General: appearance normal, both eyes and all related structures <EMERITA Dhaliwal - Last Filed: 04/24/21 20:56> EOM: EOMs intact bilaterally <EMERITA Dhaliwal - Last Filed: 04/24/21 20:56> Neck: Neck: Yes normal visual inspection and Yes no meningeal signs <EMERITA Dhaliwal - Last Filed: 04/24/21 20:56> Resp: Effort & Inspection: normal respiratory effort and no respiratory distress <EMERITA Dhaliwal - Last Filed: 04/24/21 20:56> Auscultation: clear to auscultation bilaterally, no rales, no rhonchi and no wheezes <Ilda Posada PA - Last Filed: 04/24/21 20:56> Cardio: Rate: regular rate <EMERITA Dhaliwal - Last Filed: 04/24/21 20:56> Heart sounds: S1 normal heart sound present and S2 normal heart sound present <EMERITA Dhaliwal - Last Filed: 04/24/21 20:56> Peripheral pulses: dorsalis pedis present <EMERITA Dhaliwal - Last Filed: 04/24/21 20:56> GI: Inspection: Yes normal to inspection <EMERITA Dhaliwal - Last Filed: 04/24/21 20:56> Palpation (GI): Soft to palpation, Tenderness to palpation present (GI) (Diffusely), no guarding and not rigid <EMERITA Dhaliwal Last Filed: 04/24/21 20:56> Skin: Rashes: no rashes <EMERITA Dhaliwal Last Filed: 04/24/21 20:56> Wounds: no wounds <EMERITA Dhaliwal Last Filed: 04/24/21 20:56> Neuro: General: patient oriented x3 and no meningeal signs <EMERITA Dhaliwal Last Filed: 04/24/21 20:56> Extrem: Other: Please refer to images above. Left foot erythema/cellulitis, warmth noted with open wound to medial aspect. No appreciable drainage. No fluctuance/induration. No streaking. NV intact <EMERITA Dhaliwal Last Filed: 04/24/21 20:56> Course Course Course Narrative: -2043--will cover patient with Levaquin as susceptible to prior foot wound culture. Noted leukocytosis of 20.5 -due to patient's obesity will give IVF based on ideal body weight, IBW= 50kg x 30mg/kg =1500cc IVF XR foot LT min 3V IMPRESSION: Bone destruction of the plantar surface of the head of the first metatarsal and the medial first metatarsal plantar ossicle consistent with osteomyelitis. XR chest 1V IMPRESSION: Unremarkable chest examination. -ESR elevated to 56. Lactic acid elevated to 2.9 -2100--ED care transferred to [facility] pending remaining labs, CT, and admission <EMERITA Dhaliwal Last Filed: 04/24/21 20:56> Reevaluation(s) Reevaluation #1: CTAP- CT/CT abdomen pelvis w con IMPRESSION: 1.? Bilateral nonobstructing renal calculi. 2.? Cholelithiasis without evidence of cholecystitis 3.? Bilateral thickening of both adrenal glands 4.? A cause for the patient's diffuse abdominal tenderness, nausea, vomiting and diarrhea has not been found ? Fleischner guidelines were followed. Will admit to hospitalist team patient is getting fluids and insulin for his sugar. <EMERITA Garcia - Last Filed: 04/24/21 23:22> Time: 23:22 <EMERITA Garcia - Last Filed: 04/24/21 23:22> Medical Decision Making MDM Narrative Medical decision making narrative: 50-year-old male with a past medical history of diabetes, hypertension, hepatitis C, recently discharged from our facility on 03/04/2021 with left foot cellulitis/abscess s/p finishing course of Augmentin and Doxycycline, presenting to the ED c/o left foot open wound with weeping drainage, swelling, erythema. Also reports acute on chronic diffuse abdominal pain, nausea, vomiting, and diarrhea. On exam tachycardic, NAD, abdomen soft diffusely tender, no rebound or guarding, LLE cellulitis with open wound noted. Please refer to images. Concern for cellulitis vs osteomyelitis vs ?Recurrent abscess although no appreciable fluctuance/induration. Concern for acute on chronic gastritis/gastroenteritis vs diverticulitis or appendicitis Plan: EKG, labs, UA, CXR, CTAP, XR, IVF, lactic/blood cultures, empiric IV antibiotics <EMERITA Dhaliwal - Last Filed: 04/24/21 20:56> Medical Records Medical records reviewed: Yes I reviewed the patient's medical records. <EMERITA Dhaliwal - Last Filed: 04/24/21 20:56> Lab Data Lab results reviewed: Yes I reviewed the patient's lab results. <EMERITA Dhaliwal - Last Filed: 04/24/21 20:56> Result diagrams: : 04/24/21 19:58 04/24/21 19:58 <EMERITA Dhaliwal - Last Filed: 04/24/21 20:56> Labs: Lab Results 04/24/21 04/24/21 04/24/21 Range/Units 19:58 19:58 19:58 WBC 20.5 H (4.8-10.8) X10*3/uL RBC 5.41 (4.60-5.80) X10*6/uL Hgb 15.2 (14.0-18.0) g/dl Hct 46.0 (42.0-52.0) % MCV 85.0 (80.0-98.0) fL MCH 28.1 (27.0-33.0) pg MCHC 33.0 (31.0-36.0) g/dl RDW 13.2 (11.0-16.0) % Plt Count Not Reportable MPV Not Reportable Immature Gran % (Auto) 0.6 H (0.0-0.4) % Neut % (Auto) 92.4 H (45-73) % Lymph % (Auto) 4.3 L (20-40) % [place] % (Auto) 2.5 (2-11) % Eos % (Auto) 0.0 (0-4) % Baso % (Auto) 0.2 (0-2) % Lymph # (Auto) 0.9 L (1.2-4.9) X10*3/uL [place] # (Auto) 0.5 (0.1-1.2) X10*3/uL Eos # (Auto) 0.0 (0.0-0.4) X10*3/uL Baso # (Auto) 0.0 (0.0-0.2) X10*3/uL Abs Immat Gran (auto) 0.13 H (0.00-0.03) X10*3/uL Absolute Neuts (auto) 19.0 H (2.0-8.3) x10*3/uL Absolute Nucleated RBC 0.000 (0.0-0.012) X10*3/uL Nucleated RBC % (auto) 0.0 (0.0-0.2) /100WBC Smear Tech's Comments VERIFIED ESR 56 H (0-15) MM/HR Sodium 132 L (135-145) mmol/L Potassium 4.3 (3.3-5.1) mmol/L Chloride 87 L (96-108) mmol/L Carbon Dioxide 28 (22-29) mmol/L Anion Gap 21 H (12-20) BUN 9 (9-16) mg/dL Creatinine 0.90 (0.5-1.4) mg/dL Estim Creat Clear Calc 96.1 Estimated GFR > 60 Random Glucose 425 H* (60-115) mg/dL Lactic Acid (0.5-2.0) mmol/L Lactic Acid F/U @ 2Hr (0.5-2.0) mmol/L Calcium 9.6 D (8.4-10.2) mg/dL Magnesium 1.3 L* (1.6-2.6) mg/dL Total Bilirubin 0.7 (0.0-1.0) mg/dL Direct Bilirubin 0.3 (0.0-0.5) mg/dL AST 9 D (5-37) U/L ALT 9 (0-40) U/L Alkaline Phosphatase 122 H (39-117) U/L Troponin I High Sens (<3.5-35.0) ng/L C-Reactive Protein 9.75 H (< or = 0.50) mg/dL B-Natriuretic Peptide (<100) pg/mL Total Protein 7.5 (6.5-8.0) g/dL Albumin 3.9 (3.5-5.0) g/dL Lipase 22 (8-78) U/L Urine Color Urine Appearance Urine pH (5.0-8.0) Ur Specific [place] (1.005-1.025) Urine Protein (NEG-TRACE) MG/DL Urine Glucose (UA) (NEG) MG/DL Urine Ketones (NEG) MG/DL Urine Blood (NEG) Urine Nitrite (NEG) Ur Leukocyte Esterase (NEG) Urine RBC (0) /HPF Urine WBC (0-4) /HPF Ur Squamous Epith Cells /LPF Urine Bacteria /LPF Urine Mucus /LPF COVID-19 ([facility]) (Negative) COVID-19 Clin Com 04/24/21 04/24/21 04/24/21 Range/Units 19:58 19:58 19:58 WBC (4.8-10.8) X10*3/uL RBC (4.60-5.80) X10*6/uL Hgb (14.0-18.0) g/dl Hct (42.0-52.0) % MCV (80.0-98.0) fL MCH (27.0-33.0) pg MCHC (31.0-36.0) g/dl RDW (11.0-16.0) % Plt Count MPV Immature Gran % (Auto) (0.0-0.4) % Neut % (Auto) (45-73) % Lymph % (Auto) (20-40) % [place] % (Auto) (2-11) % Eos % (Auto) (0-4) % Baso % (Auto) (0-2) % Lymph # (Auto) (1.2-4.9) X10*3/uL [place] # (Auto) (0.1-1.2) X10*3/uL Eos # (Auto) (0.0-0.4) X10*3/uL Baso # (Auto) (0.0-0.2) X10*3/uL Abs Immat Gran (auto) (0.00-0.03) X10*3/uL Absolute Neuts (auto) (2.0-8.3) x10*3/uL Absolute Nucleated RBC (0.0-0.012) X10*3/uL Nucleated RBC % (auto) (0.0-0.2) /100WBC Smear Tech's Comments ESR (0-15) MM/HR Sodium (135-145) mmol/L Potassium (3.3-5.1) mmol/L Chloride (96-108) mmol/L Carbon Dioxide (22-29) mmol/L Anion Gap (12-20) BUN (9-16) mg/dL Creatinine (0.5-1.4) mg/dL Estim Creat Clear Calc Estimated GFR Random Glucose (60-115) mg/dL Lactic Acid 2.9 H* (0.5-2.0) mmol/L Lactic Acid F/U @ 2Hr (0.5-2.0) mmol/L Calcium (8.4-10.2) mg/dL Magnesium (1.6-2.6) mg/dL Total Bilirubin (0.0-1.0) mg/dL Direct Bilirubin (0.0-0.5) mg/dL AST (5-37) U/L ALT (0-40) U/L Alkaline Phosphatase (39-117) U/L Troponin I High Sens 3.6 (<3.5-35.0) ng/L C-Reactive Protein (< or = 0.50) mg/dL B-Natriuretic Peptide 61 (<100) pg/mL Total Protein (6.5-8.0) g/dL Albumin (3.5-5.0) g/dL Lipase (8-78) U/L Urine Color Urine Appearance Urine pH (5.0-8.0) Ur Specific [place] (1.005-1.025) Urine Protein (NEG-TRACE) MG/DL Urine Glucose (UA) (NEG) MG/DL Urine Ketones (NEG) MG/DL Urine Blood (NEG) Urine Nitrite (NEG) Ur Leukocyte Esterase (NEG) Urine RBC (0) /HPF Urine WBC (0-4) /HPF Ur Squamous Epith Cells /LPF Urine Bacteria /LPF Urine Mucus /LPF COVID-19 ([facility]) Negative (Negative) COVID-19 Clin Com See Note 04/24/21 04/24/21 Range/Units 21:00 22:18 WBC (4.8-10.8) X10*3/uL RBC (4.60-5.80) X10*6/uL Hgb (14.0-18.0) g/dl Hct (42.0-52.0) % MCV (80.0-98.0) fL MCH (27.0-33.0) pg MCHC (31.0-36.0) g/dl RDW (11.0-16.0) % Plt Count MPV Immature Gran % (Auto) (0.0-0.4) % Neut % (Auto) (45-73) % Lymph % (Auto) (20-40) % [place] % (Auto) (2-11) % Eos % (Auto) (0-4) % Baso % (Auto) (0-2) % Lymph # (Auto) (1.2-4.9) X10*3/uL [place] # (Auto) (0.1-1.2) X10*3/uL Eos # (Auto) (0.0-0.4) X10*3/uL Baso # (Auto) (0.0-0.2) X10*3/uL Abs Immat Gran (auto) (0.00-0.03) X10*3/uL Absolute Neuts (auto) (2.0-8.3) x10*3/uL Absolute Nucleated RBC (0.0-0.012) X10*3/uL Nucleated RBC % (auto) (0.0-0.2) /100WBC Smear Tech's Comments ESR (0-15) MM/HR Sodium (135-145) mmol/L Potassium (3.3-5.1) mmol/L Chloride (96-108) mmol/L Carbon Dioxide (22-29) mmol/L Anion Gap (12-20) BUN (9-16) mg/dL Creatinine (0.5-1.4) mg/dL Estim Creat Clear Calc Estimated GFR Random Glucose (60-115) mg/dL Lactic Acid (0.5-2.0) mmol/L Lactic Acid F/U @ 2Hr 1.7 (0.5-2.0) mmol/L Calcium (8.4-10.2) mg/dL Magnesium (1.6-2.6) mg/dL Total Bilirubin (0.0-1.0) mg/dL Direct Bilirubin (0.0-0.5) mg/dL AST (5-37) U/L ALT (0-40) U/L Alkaline Phosphatase (39-117) U/L Troponin I High Sens (<3.5-35.0) ng/L C-Reactive Protein (< or = 0.50) mg/dL B-Natriuretic Peptide (<100) pg/mL Total Protein (6.5-8.0) g/dL Albumin (3.5-5.0) g/dL Lipase (8-78) U/L Urine Color YELLOW Urine Appearance CLEAR Urine pH 6.0 (5.0-8.0) Ur Specific [place] 1.020 (1.005-1.025) Urine Protein 2+ H (NEG-TRACE) MG/DL Urine Glucose (UA) >=1000 H (NEG) MG/DL Urine Ketones 40 (NEG) MG/DL Urine Blood 1+ H (NEG) Urine Nitrite NEG (NEG) Ur Leukocyte Esterase NEG (NEG) Urine RBC 0-2 (0) /HPF Urine WBC 0-2 (0-4) /HPF Ur Squamous Epith Cells TRACE /LPF Urine Bacteria NONE /LPF Urine Mucus TRACE /LPF COVID-19 ([facility]) (Negative) COVID-19 Clin Com <EMERITA Dhaliwal - Last Filed: 04/24/21 20:56> Lab Results 04/24/21 04/24/21 04/24/21 Range/Units 19:58 19:58 19:58 WBC 20.5 H (4.8-10.8) X10*3/uL RBC 5.41 (4.60-5.80) X10*6/uL Hgb 15.2 (14.0-18.0) g/dl Hct 46.0 (42.0-52.0) % MCV 85.0 (80.0-98.0) fL MCH 28.1 (27.0-33.0) pg MCHC 33.0 (31.0-36.0) g/dl RDW 13.2 (11.0-16.0) % Plt Count Not Reportable MPV Not Reportable Immature Gran % (Auto) 0.6 H (0.0-0.4) % Neut % (Auto) 92.4 H (45-73) % Lymph % (Auto) 4.3 L (20-40) % [place] % (Auto) 2.5 (2-11) % Eos % (Auto) 0.0 (0-4) % Baso % (Auto) 0.2 (0-2) % Lymph # (Auto) 0.9 L (1.2-4.9) X10*3/uL [place] # (Auto) 0.5 (0.1-1.2) X10*3/uL Eos # (Auto) 0.0 (0.0-0.4) X10*3/uL Baso # (Auto) 0.0 (0.0-0.2) X10*3/uL Abs Immat Gran (auto) 0.13 H (0.00-0.03) X10*3/uL Absolute Neuts (auto) 19.0 H (2.0-8.3) x10*3/uL Absolute Nucleated RBC 0.000 (0.0-0.012) X10*3/uL Nucleated RBC % (auto) 0.0 (0.0-0.2) /100WBC Smear Tech's Comments VERIFIED ESR 56 H (0-15) MM/HR Sodium 132 L (135-145) mmol/L Potassium 4.3 (3.3-5.1) mmol/L Chloride 87 L (96-108) mmol/L Carbon Dioxide 28 (22-29) mmol/L Anion Gap 21 H (12-20) BUN 9 (9-16) mg/dL Creatinine 0.90 (0.5-1.4) mg/dL Estim Creat Clear Calc 96.1 Estimated GFR > 60 Random Glucose 425 H* (60-115) mg/dL Lactic Acid (0.5-2.0) mmol/L Lactic Acid F/U @ 2Hr (0.5-2.0) mmol/L Calcium 9.6 D (8.4-10.2) mg/dL Magnesium 1.3 L* (1.6-2.6) mg/dL Total Bilirubin 0.7 (0.0-1.0) mg/dL Direct Bilirubin 0.3 (0.0-0.5) mg/dL AST 9 D (5-37) U/L ALT 9 (0-40) U/L Alkaline Phosphatase 122 H (39-117) U/L Troponin I High Sens (<3.5-35.0) ng/L C-Reactive Protein 9.75 H (< or = 0.50) mg/dL B-Natriuretic Peptide (<100) pg/mL Total Protein 7.5 (6.5-8.0) g/dL Albumin 3.9 (3.5-5.0) g/dL Lipase 22 (8-78) U/L Urine Color Urine Appearance Urine pH (5.0-8.0) Ur Specific [place] (1.005-1.025) Urine Protein (NEG-TRACE) MG/DL Urine Glucose (UA) (NEG) MG/DL Urine Ketones (NEG) MG/DL Urine Blood (NEG) Urine Nitrite (NEG) Ur Leukocyte Esterase (NEG) Urine RBC (0) /HPF Urine WBC (0-4) /HPF Ur Squamous Epith Cells /LPF Urine Bacteria /LPF Urine Mucus /LPF COVID-19 ([facility]) (Negative) COVID-19 Clin Com 04/24/21 04/24/21 04/24/21 Range/Units 19:58 19:58 19:58 WBC (4.8-10.8) X10*3/uL RBC (4.60-5.80) X10*6/uL Hgb (14.0-18.0) g/dl Hct (42.0-52.0) % MCV (80.0-98.0) fL MCH (27.0-33.0) pg MCHC (31.0-36.0) g/dl RDW (11.0-16.0) % Plt Count MPV Immature Gran % (Auto) (0.0-0.4) % Neut % (Auto) (45-73) % Lymph % (Auto) (20-40) % [place] % (Auto) (2-11) % Eos % (Auto) (0-4) % Baso % (Auto) (0-2) % Lymph # (Auto) (1.2-4.9) X10*3/uL [place] # (Auto) (0.1-1.2) X10*3/uL Eos # (Auto) (0.0-0.4) X10*3/uL Baso # (Auto) (0.0-0.2) X10*3/uL Abs Immat Gran (auto) (0.00-0.03) X10*3/uL Absolute Neuts (auto) (2.0-8.3) x10*3/uL Absolute Nucleated RBC (0.0-0.012) X10*3/uL Nucleated RBC % (auto) (0.0-0.2) /100WBC Smear Tech's Comments ESR (0-15) MM/HR Sodium (135-145) mmol/L Potassium (3.3-5.1) mmol/L Chloride (96-108) mmol/L Carbon Dioxide (22-29) mmol/L Anion Gap (12-20) BUN (9-16) mg/dL Creatinine (0.5-1.4) mg/dL Estim Creat Clear Calc Estimated GFR Random Glucose (60-115) mg/dL Lactic Acid 2.9 H* (0.5-2.0) mmol/L Lactic Acid F/U @ 2Hr (0.5-2.0) mmol/L Calcium (8.4-10.2) mg/dL Magnesium (1.6-2.6) mg/dL Total Bilirubin (0.0-1.0) mg/dL Direct Bilirubin (0.0-0.5) mg/dL AST (5-37) U/L ALT (0-40) U/L Alkaline Phosphatase (39-117) U/L Troponin I High Sens 3.6 (<3.5-35.0) ng/L C-Reactive Protein (< or = 0.50) mg/dL B-Natriuretic Peptide 61 (<100) pg/mL Total Protein (6.5-8.0) g/dL Albumin (3.5-5.0) g/dL Lipase (8-78) U/L Urine Color Urine Appearance Urine pH (5.0-8.0) Ur Specific [place] (1.005-1.025) Urine Protein (NEG-TRACE) MG/DL Urine Glucose (UA) (NEG) MG/DL Urine Ketones (NEG) MG/DL Urine Blood (NEG) Urine Nitrite (NEG) Ur Leukocyte Esterase (NEG) Urine RBC (0) /HPF Urine WBC (0-4) /HPF Ur Squamous Epith Cells /LPF Urine Bacteria /LPF Urine Mucus /LPF COVID-19 ([facility]) Negative (Negative) COVID-19 Clin Com See Note 04/24/21 04/24/21 Range/Units 21:00 22:18 WBC (4.8-10.8) X10*3/uL RBC (4.60-5.80) X10*6/uL Hgb (14.0-18.0) g/dl Hct (42.0-52.0) % MCV (80.0-98.0) fL MCH (27.0-33.0) pg MCHC (31.0-36.0) g/dl RDW (11.0-16.0) % Plt Count MPV Immature Gran % (Auto) (0.0-0.4) % Neut % (Auto) (45-73) % Lymph % (Auto) (20-40) % [place] % (Auto) (2-11) % Eos % (Auto) (0-4) % Baso % (Auto) (0-2) % Lymph # (Auto) (1.2-4.9) X10*3/uL [place] # (Auto) (0.1-1.2) X10*3/uL Eos # (Auto) (0.0-0.4) X10*3/uL Baso # (Auto) (0.0-0.2) X10*3/uL Abs Immat Gran (auto) (0.00-0.03) X10*3/uL Absolute Neuts (auto) (2.0-8.3) x10*3/uL Absolute Nucleated RBC (0.0-0.012) X10*3/uL Nucleated RBC % (auto) (0.0-0.2) /100WBC Smear Tech's Comments ESR (0-15) MM/HR Sodium (135-145) mmol/L Potassium (3.3-5.1) mmol/L Chloride (96-108) mmol/L Carbon Dioxide (22-29) mmol/L Anion Gap (12-20) BUN (9-16) mg/dL Creatinine (0.5-1.4) mg/dL Estim Creat Clear Calc Estimated GFR Random Glucose (60-115) mg/dL Lactic Acid (0.5-2.0) mmol/L Lactic Acid F/U @ 2Hr 1.7 (0.5-2.0) mmol/L Calcium (8.4-10.2) mg/dL Magnesium (1.6-2.6) mg/dL Total Bilirubin (0.0-1.0) mg/dL Direct Bilirubin (0.0-0.5) mg/dL AST (5-37) U/L ALT (0-40) U/L Alkaline Phosphatase (39-117) U/L Troponin I High Sens (<3.5-35.0) ng/L C-Reactive Protein (< or = 0.50) mg/dL B-Natriuretic Peptide (<100) pg/mL Total Protein (6.5-8.0) g/dL Albumin (3.5-5.0) g/dL Lipase (8-78) U/L Urine Color YELLOW Urine Appearance CLEAR Urine pH 6.0 (5.0-8.0) Ur Specific [place] 1.020 (1.005-1.025) Urine Protein 2+ H (NEG-TRACE) MG/DL Urine Glucose (UA) >=1000 H (NEG) MG/DL Urine Ketones 40 (NEG) MG/DL Urine Blood 1+ H (NEG) Urine Nitrite NEG (NEG) Ur Leukocyte Esterase NEG (NEG) Urine RBC 0-2 (0) /HPF Urine WBC 0-2 (0-4) /HPF Ur Squamous Epith Cells TRACE /LPF Urine Bacteria NONE /LPF Urine Mucus TRACE /LPF COVID-19 ([facility]) (Negative) COVID-19 Clin Com <EMERITA Garcia - Last Filed: 04/24/21 23:22> Critical Care Time Critical Care Time Critical Care Time: Yes <EMERITA Dhaliwal - Last Filed: 04/24/21 20:56> Total Critical Care Time: 45 <EMERITA Dhaliwal - Last Filed: 04/24/21 20:56> Attestation: I have personally provided critical care time exclusive of time spent on separately billable procedures. Time includes review of lab data, radiology results, discussion with consultants, and monitoring for potential decompensation. Intervention performed as documented. <EMERITA Dhaliwal - Last Filed: 04/24/21 20:56> Discharge Plan Discharge Clinical Impression: Osteomyelitis, Cellulitis <EMERITA Dhaliwal - Last Filed: 04/24/21 20:56> Prescriptions: No Action clonazepam 0.5 mg tablet 1 tab PO DAILY PRN (Reason: Anxiety) 0RF atenolol 25 mg tablet 1 tab PO DAILY 0RF gabapentin 800 mg tablet 1 tab PO TID PRN (Reason: NERVE PAIN) 0RF Rx Instructions: rx for qid, pt takes tid amlodipine 10 mg tablet 1 tab PO DAILY 0RF metformin 1,000 mg tablet 1 tab PO BID 0RF albuterol sulfate 90 mcg/actuation HFA aerosol inhaler 2 puff PO Q4H PRN (Reason: Shortness Of Breath) 0RF lisinopril 40 mg tablet 1 tab PO DAILY 0RF Flovent HFA 110 mcg/actuation HFA aerosol inhaler 2 puff PO BID 0RF insulin aspart U-100 [Novolog PenFill U-100 Insulin] 100 unit/mL cartridge 10 - 15 unit subcut TID 0RF escitalopram oxalate 10 mg tablet 1 tab PO DAILY 0RF Tresiba FlexTouch U-100 100 unit/mL (3 mL) insulin pen 33 unit subcut DAILY 0RF ondansetron 4 mg tablet,disintegrating 1 tab sublingual BID PRN (Reason: Nausea) 0RF omeprazole 40 mg Capsule,Delayed Release(Dr/Ec) 40 mg PO DAILY@0630 0RF Jardiance 10 mg Tablet 10 mg PO DAILY 0RF <EMERITA Dhaliwal Last Filed: 04/24/21 20:56>
[2021-04-24 20:27] LABS: COVID-19 Test Negative (Negative)
[2021-04-24 20:35] LABS: SLIDE REVIEW VERIFIED
[2021-04-24 20:40] LABS: B Type Natriuretic Peptide 61 pg/mL (<100); Troponin-I High Sensitivity 3.6 ng/L (<3.5-35.0)
[2021-04-24 20:47] LABS: Erythrocyte Sedimentation Rate 56 MM/HR (0-15)
[2021-04-24 20:54] LABS: Lactic Acid 2.9 mmol/L (0.5-2.0)
[2021-04-24 20:55] LABS: Alanine Aminotransferase 9 U/L (0-40); Albumin Level 3.9 g/dL (3.5-5.0); Alkaline Phosphatase 122 U/L (39-117); Anion Gap 21 (12-20); Aspartate Amino Transferase 9 U/L (5-37); Bilirubin Direct 0.3 mg/dL (0.0-0.5); Bilirubin Total 0.7 mg/dL (0.0-1.0); Blood Urea Nitrogen 9 mg/dL (9-16); C Reactive Protein 9.75 mg/dL (< or = 0.50); Calcium 9.6 mg/dL (8.4-10.2); Carbon Dioxide 28 mmol/L (22-29); Chloride 87 mmol/L (96-108); Creatinine Clr Calc Pharmacy 96.1; Estimated Glomerular Filt Rate > 60; Glucose Random 425 mg/dL (60-115); Lipase 22 U/L (8-78); Magnesium 1.3 mg/dL (1.6-2.6); Potassium 4.3 mmol/L (3.3-5.1); Sodium 132 mmol/L (135-145); Total Protein 7.5 g/dL (6.5-8.0)
[2021-04-24] MEDS: diphenhydrAMINE HCL 50 MG/ML VIAL 12.5 MG IVPUSH (20:55)
[2021-04-24] MEDS: ondansetron HCL 4 MG/2 ML VIAL IVPUSH (20:55)
[2021-04-24] MEDS: levoFLOXacin/D5W 750 MG/150 ML PIGGYBACK 100 MG IV (20:56)
[2021-04-24] MEDS: 0.9 % Sodium Chloride 1,000 ML 999 ML IV (20:56)
[2021-04-24] MEDS: 0.9 % Sodium Chloride 500 ML 999 ML IV (20:57)
[2021-04-24 21:07] LABS: Appearance Urine CLEAR; Color Urine YELLOW; Glucose Urine UA >=1000 MG/DL (NEG); Leukocyte Esterase Urine NEG (NEG); Nitrite Urine NEG (NEG); UACC Culture Trigger NO; Urine Blood 1+ (NEG); Urine Ketones 40 MG/DL (NEG); Urine Protein 2+ MG/DL (NEG-TRACE)
[2021-04-24 21:15] VITALS: BP 160/89; PULSE 115; RESP 18; TEMP 36.7; O2SAT 97
[2021-04-24] MEDS: iohexoL 350 MG/ML 100 ML INFUS..BTL 85 ML IV (21:31)
[2021-04-24 21:36] LABS: Mucus Urine TRACE /LPF; RBC Urine 0-2 /HPF (0); Squamous Epithelial Cell Urine TRACE /LPF; WBC Urine 0-2 /HPF (0-4)
[2021-04-24 21:45] VITALS: RESP 15
[2021-04-24] MEDS: Morphine Sulfate 4 MG/ML CARTRIDGE IVPUSH (21:45)
[2021-04-24 22:05] LABS: Reflex Lactate? Lactic Acid Added
[2021-04-24 22:35] LABS: ~Lactic Acid-LAB USE ONLY 1.7 mmol/L (0.5-2.0)
--- NOTE | 2021-04-24 22:49 | P.HPHOSP_ITS ---
History of Present Illness Date of Service: 04/24/21 Chief Complaint: non-healing foot wound this is a 50-year-old male with past medical history of diabetes, history of osteomyelitis with amputation of 3 of his right foot toes, hypertension, hep C, and recently his cellulitis and complicated diabetic wound of the left foot to presents to the hospital with complaints of nonhealing wound. Patient reports that he has had worsening left foot wound / recurrent infection, the wound is very painful tender of 10, draining, bleeding, he has had some chills with no fever. He is also complaining of epigastric abdominal pain associated with nausea and vomiting, pain is radiating to the back, he has had this abdominal pain for the past 1 year, intermittent, but got worse in the past few days. He has had nausea vomiting diarrhea every other day. Nonbloody. Patient was discharged in February after presenting with a left diabetic foot wound/left leg cellulitis. He was septic at that time, blood cultures were negative but MRI did show complex subcutaneous abscess along the plantar medial aspect of the 1st MTP joint and 1st proximal phalanx. At that time he was seen by general surgeon and the area abscess was incised and drained. He was discharged on Augmentin And Ceftinfor 10 days. Patient reports at that he completed his medications that he was compliant. On arrival to the ED patient hemodynamically stable with no significant abnormal vitals except a slightly elevated heart rate of 107 Labs are significant for WBC count of 20.5, ESR 56, glucose of 425, lactic acid of 2.9, magnesium of 1.3, UA negative, Foot x-ray showed bone destruction of the plantar surface of the head of the 1st metatarsal and the medial 1st metatarsal plantar consistent with osteomyelitis abdominal CT shows bilateral nonobstructing renal calculi, cholelithiasis without evidence of cholecystitis, bilateral thickening of both adrenal glands, no cause for the patient's diffuse abdominal pain nausea vomiting and diarrhea have been found. patient Started on IV antibiotics and will be admitted for further management Review of Systems Review of Systems: Yes all other systems are reviewed and are negative FOR[facility]LY [facility] Medical History (Updated 04/25/21 @ 06:41 by Sarahy Tamayo MD) Asthma Diabetes mellitus Hypertension Neuropathy Osteomyelitis Family History Mother HLD (hyperlipidemia) Father Bladder cancer Surgical History History of amputation of lesser toe Social History Household Members: None Household Members Other:: 1 Housing: Apartment Do you presently have visiting nurse or other home services: No Alcohol intake: never Patient Tobacco Use Status: Former Tobacco user Second Hand Smoke Exposure: No Use of substances other than those prescribed or required for medical reasons: No Substance Use Type: Marijuana Advance Directives: No service: No Current occupational status: unemployed Meds Allergies Allergy/AdvReac Type Severity Reaction Status Date / Time No Known Allergies Allergy Unknown Verified 01/21/21 10:31 [No Known Allergies*] Active Medications: Current Medications Pharmacy Consult (Consult Rx Perform Med Rec) 1 each MISCELLANE ONCE PRN PRN Reason: Consult order Home Medications Medication Instructions Recorded Confirmed Last Taken Type albuterol sulfate 90 mcg/actuation 2 puff PO Q4H PRN 12/03/20 04/24/21 Unknown History aerosol inhaler amlodipine 10 mg tablet 1 tab PO DAILY 12/03/20 04/24/21 04/24/21 History atenolol 25 mg tablet 1 tab PO DAILY 12/03/20 04/24/21 04/24/21 History clonazepam 0.5 mg tablet 1 tab PO DAILY PRN 12/03/20 04/24/21 Unknown History escitalopram oxalate 10 mg tablet 1 tab PO DAILY 12/03/20 04/24/21 04/24/21 History fluticasone propionate 110 2 puff PO BID 12/03/20 04/24/21 12/03/20 History mcg/actuation HFA aerosol inhaler (Flovent HFA) gabapentin 800 mg tablet 1 tab PO TID PRN 12/03/20 04/24/21 12/03/20 History insulin aspart U-100 100 unit/mL 10 - 15 unit SUBCUT TID 12/03/20 04/24/21 04/24/21 History subcutaneous cartridge (Novolog PenFill U-100 Insulin aspart) insulin degludec 100 unit/mL (3 33 unit SUBCUT DAILY 12/03/20 04/24/21 04/24/21 History mL) subcutaneous pen (Tresiba FlexTouch U-100 insulin) lisinopril 40 mg tablet 1 tab PO DAILY 12/03/20 04/24/21 04/24/21 History metformin 1,000 mg tablet 1 tab PO BID 12/03/20 04/24/21 04/24/21 History ondansetron 4 mg disintegrating 1 tab SUBLINGUAL BID PRN 12/03/20 04/24/21 Unknown History tablet empagliflozin 10 mg tablet 10 mg PO DAILY 03/02/21 04/24/21 04/24/21 History (Jardiance) omeprazole 40 mg capsule,delayed 40 mg PO DAILY@0630 03/02/21 04/24/21 04/24/21 History release Physical Exam Vital Signs and Narrative: Vital Signs: Last Vital Signs Temp 98.1 F 04/24/21 21:15 Pulse 115 H 04/24/21 21:15 Resp 15 04/24/21 21:45 BP 160/89 H 04/24/21 21:15 Pulse Ox 97 04/24/21 21:15 BMI result Body Mass Index 43.9 Const: General: cooperative and no acute distress Orientation/consciousness: patient oriented x3 Eyes: General: appearance normal, both eyes and all related structures Pupils: Equal, round and reactive pupils present Resp: Effort & Inspection: normal respiratory effort Auscultation: clear to auscultation bilaterally Cardio: Rate: regular rate Rhythm: regular rhythm GI: Palpation (GI): Soft to palpation Auscultation: normal bowel sounds Skin: Other: has left foot lesion does draining blood, erythematous, warm Neuro: General: patient oriented x3 Cranial nerves: Yes Equal, round and reactive pupils present Cognition (Neuro): normal cognition Extrem: Other: right lower extremity amputation of 2nd 3rd and 4th toe left foot showing 1st metatarsal wound, draining bloody drainage, erythematous, warm, tender Results Labs CBC and Chem 7: 04/24/21 19:58 04/24/21 19:58 Labs: Laboratory Results - last 24 hr 04/24/21 04/24/21 04/24/21 19:58 19:58 19:58 MCV 85.0 MCH 28.1 MCHC 33.0 RDW 13.2 Plt Count Not Reportable MPV Not Reportable Immature Gran % (Auto) 0.6 H Neut % (Auto) 92.4 H Lymph % (Auto) 4.3 L [place] % (Auto) 2.5 Eos % (Auto) 0.0 Baso % (Auto) 0.2 Lymph # (Auto) 0.9 L [place] # (Auto) 0.5 Eos # (Auto) 0.0 Baso # (Auto) 0.0 Abs Immat Gran (auto) 0.13 H Absolute Neuts (auto) 19.0 H Absolute Nucleated RBC 0.000 Nucleated RBC % (auto) 0.0 Smear Tech's Comments VERIFIED ESR 56 H Anion Gap 21 H Estim Creat Clear Calc 96.1 Estimated GFR > 60 Random Glucose 425 H* Lactic Acid Lactic Acid F/U @ 2Hr Calcium 9.6 D Magnesium 1.3 L* Total Bilirubin 0.7 Direct Bilirubin 0.3 AST 9 D ALT 9 Alkaline Phosphatase 122 H C-Reactive Protein 9.75 H B-Natriuretic Peptide Total Protein 7.5 Albumin 3.9 Lipase 22 Urine Color Urine Appearance Urine pH Ur Specific [place] Urine Protein Urine Glucose (UA) Urine Ketones Urine Blood Urine Nitrite Ur Leukocyte Esterase Urine RBC Urine WBC Ur Squamous Epith Cells Urine Bacteria Urine Mucus COVID-19 ([place]) [employer] 04/24/21 04/24/21 04/24/21 19:58 19:58 19:58 MCV MCH MCHC RDW Plt Count MPV Immature Gran % (Auto) Neut % (Auto) Lymph % (Auto) [place] % (Auto) Eos % (Auto) Baso % (Auto) Lymph # (Auto) [place] # (Auto) Eos # (Auto) Baso # (Auto) Abs Immat Gran (auto) Absolute Neuts (auto) Absolute Nucleated RBC Nucleated RBC % (auto) Smear Tech's Comments ESR Anion Gap Estim Creat Clear Calc Estimated GFR Random Glucose Lactic Acid 2.9 H* Lactic Acid F/U @ 2Hr Calcium Magnesium Total Bilirubin Direct Bilirubin AST ALT Alkaline Phosphatase C-Reactive Protein B-Natriuretic Peptide 61 Total Protein Albumin Lipase Urine Color Urine Appearance Urine pH Ur Specific [place] Urine Protein Urine Glucose (UA) Urine Ketones Urine Blood Urine Nitrite Ur Leukocyte Esterase Urine RBC Urine WBC Ur Squamous Epith Cells Urine Bacteria Urine Mucus COVID-19 ([place]) Negative [employer] See Note 04/24/21 04/24/21 21:00 22:18 MCV MCH MCHC RDW Plt Count MPV Immature Gran % (Auto) Neut % (Auto) Lymph % (Auto) [place] % (Auto) Eos % (Auto) Baso % (Auto) Lymph # (Auto) [place] # (Auto) Eos # (Auto) Baso # (Auto) Abs Immat Gran (auto) Absolute Neuts (auto) Absolute Nucleated RBC Nucleated RBC % (auto) Smear Tech's Comments ESR Anion Gap Estim Creat Clear Calc Estimated GFR Random Glucose Lactic Acid Lactic Acid F/U @ 2Hr 1.7 Calcium Magnesium Total Bilirubin Direct Bilirubin AST ALT Alkaline Phosphatase C-Reactive Protein B-Natriuretic Peptide Total Protein Albumin Lipase Urine Color YELLOW Urine Appearance CLEAR Urine pH 6.0 Ur Specific [place] 1.020 Urine Protein 2+ H Urine Glucose (UA) >=1000 H Urine Ketones 40 Urine Blood 1+ H Urine Nitrite NEG Ur Leukocyte Esterase NEG Urine RBC 0-2 Urine WBC 0-2 Ur Squamous Epith Cells TRACE Urine Bacteria NONE Urine Mucus TRACE COVID-19 ([place]) COVID-19 Clin Com Imaging Radiologist's Impressions: Impressions Chest X-Ray 04/24/21 19:40 IMPRESSION: Unremarkable chest examination. Foot X-Ray 04/24/21 19:40 IMPRESSION: Bone destruction of the plantar surface of the head of the first metatarsal and the medial first metatarsal plantar ossicle consistent with osteomyelitis. Assessment and Plan (1) Sepsis: Status: Acute (2) Osteomyelitis: Status: Acute (3) Cellulitis: Status: Acute (4) Diabetic foot infection: Status: Acute (5) Abdominal pain: Status: Acute (6) Nausea vomiting and diarrhea: Status: Acute Plan this is a 50-year-old male past medical history of diabetes, osteomyelitis of the right foot, complicated left diabetic foot wound presents to the hospital with nonhealing wound now found to have osteomyelitis of the left 1st metatarsal # sepsis - likely secondary to osteomyelitis of the left foot - tachycardia, leukocytosis, elevated lactic acid - start on IV antibiotics, and fluids - follow cultures # acute osteomyelitis - 1st metatarsal in the medial 1st metatarsal plantar also goal as seen on x- ray of the foot - has leukocytosis, slightly tachycardic, elevated ESR and CRP - started on broad-spectrum IV antibiotics - infectious disease and general surgery consulted - follow cultures # abdominal pain - unclear etiology, lipase is negative, CT abdomen negative, possibly secondary to choledocholithiasis versus renal calculi although there is no evidence of cholecystitis or blocking renal stones - conservative management, antiemetics, pain control # hypertension - stable - continue home medications # diabetes - hold oral anti hyperglycemic necks - will continue home insulin -start low-dose sliding scale insulin -diabetic diet # asthma - not in exacerbation - continue home inhalers DVT prophylaxis: SCDs in anticipation of surgical intervention Quality Stroke Does the patient have a stroke diagnosis?: No VTE Prior VTE?: No VTE Risk Level:: Medical - moderate - high VTE Device Contraindication: Treatment Not Indicated VTE Drug Contraindication: N/A - Med Ordered
[2021-04-24] MEDS: Piperacillin Sodium/Tazobactam 3.375 GM in 0.9 % Sodium Chloride 50 ML IV (23:10)
[2021-04-24] MEDS: Insulin Lispro 100 UNIT/ML 3 ML VIAL SUBCUT (23:10)
--- NOTE | 2021-04-25 00:57 | PC.NURSE ---
Patient asking for pain medication which was 9 out of 10. Patient stated that he didn't want that because it was for breakthrough pain. He refused it and stated he wanted IV medication. I informed patient that I was not going to argue with him regarding medication and took the medication back so that I could give him Dilaudid which was prescribed for pain of 7 to 10 as well. Patient asked to see his orders. He then asked to speak to the charge nurse. I informed charge nurse of the situation.
[2021-04-25] MEDS: HYDROmorphone HCl 1 MG/ML SYRINGE 0.5 MG IVPUSH ×6 (01:16→21:27)
--- NOTE | 2021-04-25 01:17 | PC.NURSE ---
medicated per Mar.
[2021-04-25 01:20] VITALS: BP 108/51; PULSE 96; RESP 12; O2SAT 95
[2021-04-25] MEDS: Piperacillin Sodium/Tazobactam 3.375 GM in 0.9 % Sodium Chloride 50 ML IV ×4 (05:16→21:50)
[2021-04-25 07:18] LABS: Glucose, Whole Blood 261 mg/dL (60-115)
[2021-04-25 07:36] LABS: MANUAL DIFF FLAG NO
[2021-04-25 07:39] LABS: Basophils Percent Auto 0.2 % (0-2); Eosinophils Percent Auto 0.1 % (0-4); Hematocrit 41.9 % (42.0-52.0); Hemoglobin 14.2 g/dl (14.0-18.0); Imm Gran Abs Auto 0.12 X10*3/uL (0.00-0.03); Imm Gran Pct Auto 0.7 % (0.0-0.4); Lymphocytes Absolute Auto 2.4 X10*3/uL (1.2-4.9); Lymphocytes Percent Auto 13.7 % (20-40); Mean Corpuscular HGB Conc 33.9 g/dl (31.0-36.0); Mean Corpuscular Hemoglobin 28.7 pg (27.0-33.0); Mean Corpuscular Volume 84.8 fL (80.0-98.0); Mean Platelet Volume 10.1 fL (9.4-12.4); Monocytes Percent Auto 5.8 % (2-11); Neutrophils Absolute Auto 13.9 x10*3/uL (2.0-8.3); Neutrophils Percent Auto 79.5 % (45-73); Platelet Count 446 X10*3/uL (160-400); Red Blood Count 4.94 X10*6/uL (4.60-5.80); Red Cell Distribution Width 13.2 % (11.0-16.0); White Blood Count 17.4 X10*3/uL (4.8-10.8)
[2021-04-25 07:46] VITALS: BP 159/91; PULSE 137; RESP 18; O2SAT 96
[2021-04-25 07:55] LABS: Anion Gap 15 (12-20); Blood Urea Nitrogen 12 mg/dL (9-16); Calcium 9.5 mg/dL (8.4-10.2); Carbon Dioxide 33 mmol/L (22-29); Chloride 92 mmol/L (96-108); Creatinine Clr Calc Pharmacy 91.1; Estimated Glomerular Filt Rate > 60; Glucose Random 258 mg/dL (60-115); Potassium 4.4 mmol/L (3.3-5.1); Sodium 136 mmol/L (135-145)
[2021-04-25] MEDS: Insulin Glargine,Hum.rec.anlog 100 UNIT/ML 10 ML VIAL 26 UNIT SUBCUT (09:02)
[2021-04-25] MEDS: Insulin Lispro 100 UNIT/ML 3 ML VIAL SUBCUT ×4 (09:02→21:23)
[2021-04-25] MEDS: lisinopriL 40 MG TABLET PO (09:03)
[2021-04-25] MEDS: Escitalopram Oxalate 10 MG TABLET PO (09:03)
[2021-04-25] MEDS: amLODIPine Besylate 10 MG TABLET PO (09:03)
[2021-04-25] MEDS: clonazePAM 0.5 MG TABLET PO (09:03)
[2021-04-25] MEDS: Gabapentin 400 MG CAPSULE 800 MG PO (09:03)
--- NOTE | 2021-04-25 09:59 | HO.PM.IMPN ---
Subjective Subjective Date of Service: 04/25/21 Interval History: F/u on diabetic foot wound, celulitis and osteomylitis, n/v abd pain--abd pain is better, foot looks the same Review of Systems Gen: no fever Resp: no sob, no cough CV: no chest, no [place] OCA, no leg edema GI: n/v, abd pain Neuro: No confusion no pain in the foot Physical Exam Vital Signs: Vital Signs: Last Vital Signs Temp 98.1 F 04/24/21 21:15 Pulse 137 H 04/25/21 07:46 Resp 18 04/25/21 07:46 BP 159/91 H 04/25/21 07:46 Pulse Ox 96 04/25/21 07:46 BMI result Body Mass Index 43.9 Const: Other: General: AO X 3, no acute distress Resp: CTA bilateral CVS: S1,S2,RRR GI: +BS, NT, no distention Skin: Neuro: motor grossly intact Psych: appropriate affect Objective Data Active Medications Acetaminophen (Acetaminophen 325 Mg Tablet) 650 mg PO Q6H PRN PRN Reason: Pain, Mild (Pain Scale 1-3) Albuterol Sulfate (Albuterol Sulfate 90 Mcg 8 Gm Inhaler) 2 puff INHALE Q4H PRN PRN Reason: Shortness Of Breath Amlodipine Besylate (Amlodipine Besylate 10 Mg Tablet) 10 mg PO DAILY [facility]; Protocol Last Admin: 04/25/21 09:03 Dose: 10 mg Documented by: JOSE ALBERTO Atenolol (Atenolol 25 Mg Tablet) 25 mg PO DAILY [facility]; Protocol Last Admin: 04/25/21 09:04 Dose: Not Given Documented by: JOSE ALBERTO Non-Admin Reason: Med Not Available Clonazepam (Clonazepam 0.5 Mg Tablet) 0.5 mg PO DAILY PRN PRN Reason: Anxiety Last Admin: 04/25/21 09:03 Dose: 0.5 mg Documented by: JOSE ALBERTO Dextrose (Dextrose 50 % 25 Gm/50 Ml Syringe) 25 gm IVPUSH Q15M PRN; Protocol PRN Reason: per Hypoglycemia Standing Ord. Docusate Sodium (Docusate Sodium 100 Mg Capsule) 100 mg PO DAILY PRN PRN Reason: Constipation Escitalopram Oxalate (Escitalopram Oxalate 10 Mg Tablet) 10 mg PO DAILY [facility] Last Admin: 04/25/21 09:03 Dose: 10 mg Documented by: JOSE ALBERTO Fluticasone Propionate (Fluticasone Propionate 100 Mcg Blst.W.Dev) 2 puff INHALE RBID [facility] Last Admin: 04/25/21 09:04 Dose: Not Given Documented by: JOSE ALBERTO Non-Admin Reason: Med Not Available Gabapentin (Gabapentin 400 Mg Capsule) 800 mg PO TID PRN PRN Reason: NERVE PAIN Last Admin: 04/25/21 09:03 Dose: 800 mg Documented by: JOSE ALBERTO Glucose (Glucose Gel 15 Gm Gel..Gram.) 15 gm PO Q15M PRN; Protocol PRN Reason: per Hypoglycemia Standing Ord. Heparin Sodium (Porcine) (Heparin Sodium,Porcine 5,000 Unit/Ml Vial) 5,000 unit SUBCUT Q12H [facility] Last Admin: 04/24/21 23:01 Dose: Not Given Documented by: YEE Non-Admin Reason: Patient Refused Hydromorphone HCl (Hydromorphone Hcl 1 Mg/Ml Syringe) 0.5 mg IVPUSH Q4H PRN; Protocol PRN Reason: Pain, Severe (Pain Scale 7-10) Last Admin: 04/25/21 09:02 Dose: 0.5 mg Documented by: JOSE ALBERTO Piperacillin Sod/Tazobactam (Sod 3.375 gm/ Sodium Chloride) 50 mls @ 100 mls/hr IV Q6H [facility] Last Infusion: 04/25/21 09:09 Dose: 0 mls/hr Documented by: JOSE ALBERTO Levofloxacin (Levaquin) 750 mg in 150 mls @ 100 mls/hr IV Q24H [facility] Insulin Glargine (Insulin Glargine,Hum.Rec.Anlog 100 Unit/Ml 10 Ml Vial) 26 unit SUBCUT DAILY [facility] Last Admin: 04/25/21 09:02 Dose: 26 unit Documented by: JOSE ALBERTO Insulin Human Lispro (Insulin Lispro 100 Unit/Ml 3 Ml Vial) 0 unit SUBCUT QIDACHS [facility]; Protocol Last Admin: 04/25/21 09:02 Dose: 6 unit Documented by: JOSE ALBERTO Lisinopril (Lisinopril 40 Mg Tablet) 40 mg PO DAILY [facility]; Protocol Last Admin: 04/25/21 09:03 Dose: 40 mg Documented by: JOSE ALBERTO Omeprazole (Omeprazole 40 Mg Capsule.Dr) 40 mg PO DAILY@0630 [facility] Oxycodone HCl (Oxycodone Hcl Immed Release 5 Mg Tablet) 5 mg PO Q6H PRN PRN Reason: Pain, Severe (Pain Scale 7-10) Pharmacy Consult (Consult Rx Perform Med Rec) 1 each MISCELLANE ONCE PRN PRN Reason: Consult order Prochlorperazine Edisylate (Prochlorperazine Edisylate 10 Mg/2 Ml Vial) 5 mg IVPUSH Q4H PRN PRN Reason: Nausea and Vomiting Sodium Chloride (0.9 % Sodium Chloride Flush 3 Ml Syringe) 3 ml IVFLUSH QSHIFT [facility] Last Admin: 04/25/21 09:19 Dose: Not Given Documented by: JOSE ALBERTO Non-Admin Reason: Med Not Available Labs CBC & Chem 7: 04/25/21 07:10 04/25/21 07:10 Labs: Laboratory Results - last 24 hr 04/24/21 04/24/21 04/24/21 19:58 19:58 19:58 MCV 85.0 MCH 28.1 MCHC 33.0 RDW 13.2 Plt Count Not Reportable MPV Not Reportable Immature Gran % (Auto) 0.6 H Neut % (Auto) 92.4 H Lymph % (Auto) 4.3 L [place] % (Auto) 2.5 Eos % (Auto) 0.0 Baso % (Auto) 0.2 Lymph # (Auto) 0.9 L [place] # (Auto) 0.5 Eos # (Auto) 0.0 Baso # (Auto) 0.0 Abs Immat Gran (auto) 0.13 H Absolute Neuts (auto) 19.0 H Absolute Nucleated RBC 0.000 Nucleated RBC % (auto) 0.0 Smear Tech's Comments VERIFIED ESR 56 H Anion Gap 21 H Estim Creat Clear Calc 96.1 Estimated GFR > 60 POC Glucose Random Glucose 425 H* Lactic Acid Lactic Acid F/U @ 2Hr Calcium 9.6 D Magnesium 1.3 L* Total Bilirubin 0.7 Direct Bilirubin 0.3 AST 9 D ALT 9 Alkaline Phosphatase 122 H C-Reactive Protein 9.75 H B-Natriuretic Peptide Total Protein 7.5 Albumin 3.9 Lipase 22 Urine Color Urine Appearance Urine pH Ur Specific [place] Urine Protein Urine Glucose (UA) Urine Ketones Urine Blood Urine Nitrite Ur Leukocyte Esterase Urine RBC Urine WBC Ur Squamous Epith Cells Urine Bacteria Urine Mucus COVID-19 ([facility]) COVID-19 Clin Com 04/24/21 04/24/21 04/24/21 19:58 19:58 19:58 MCV MCH MCHC RDW Plt Count MPV Immature Gran % (Auto) Neut % (Auto) Lymph % (Auto) [place] % (Auto) Eos % (Auto) Baso % (Auto) Lymph # (Auto) [place] # (Auto) Eos # (Auto) Baso # (Auto) Abs Immat Gran (auto) Absolute Neuts (auto) Absolute Nucleated RBC Nucleated RBC % (auto) Smear Tech's Comments ESR Anion Gap Estim Creat Clear Calc Estimated GFR POC Glucose Random Glucose Lactic Acid 2.9 H* Lactic Acid F/U @ 2Hr Calcium Magnesium Total Bilirubin Direct Bilirubin AST ALT Alkaline Phosphatase C-Reactive Protein B-Natriuretic Peptide 61 Total Protein Albumin Lipase Urine Color Urine Appearance Urine pH Ur Specific [place] Urine Protein Urine Glucose (UA) Urine Ketones Urine Blood Urine Nitrite Ur Leukocyte Esterase Urine RBC Urine WBC Ur Squamous Epith Cells Urine Bacteria Urine Mucus COVID-19 ([facility]) Negative COVID-19 Clin Com See Note 04/24/21 04/24/21 04/25/21 21:00 22:18 07:10 MCV 84.8 MCH 28.7 MCHC 33.9 RDW 13.2 Plt Count 446 H D MPV 10.1 Immature Gran % (Auto) 0.7 H Neut % (Auto) 79.5 H Lymph % (Auto) 13.7 L [place] % (Auto) 5.8 Eos % (Auto) 0.1 Baso % (Auto) 0.2 Lymph # (Auto) 2.4 [place] # (Auto) 1.0 Eos # (Auto) 0.0 Baso # (Auto) 0.0 Abs Immat Gran (auto) 0.12 H Absolute Neuts (auto) 13.9 H Absolute Nucleated RBC 0.000 Nucleated RBC % (auto) 0.0 Smear Tech's Comments ESR Anion Gap Estim Creat Clear Calc Estimated GFR POC Glucose Random Glucose Lactic Acid Lactic Acid F/U @ 2Hr 1.7 Calcium Magnesium Total Bilirubin Direct Bilirubin AST ALT Alkaline Phosphatase C-Reactive Protein B-Natriuretic Peptide Total Protein Albumin Lipase Urine Color YELLOW Urine Appearance CLEAR Urine pH 6.0 Ur Specific [place] 1.020 Urine Protein 2+ H Urine Glucose (UA) >=1000 H Urine Ketones 40 Urine Blood 1+ H Urine Nitrite NEG Ur Leukocyte Esterase NEG Urine RBC 0-2 Urine WBC 0-2 Ur Squamous Epith Cells TRACE Urine Bacteria NONE Urine Mucus TRACE COVID-19 ([facility]) COVID-19 Clin Com 04/25/21 04/25/21 07:10 07:13 MCV MCH MCHC RDW Plt Count MPV Immature Gran % (Auto) Neut % (Auto) Lymph % (Auto) [place] % (Auto) Eos % (Auto) Baso % (Auto) Lymph # (Auto) [place] # (Auto) Eos # (Auto) Baso # (Auto) Abs Immat Gran (auto) Absolute Neuts (auto) Absolute Nucleated RBC Nucleated RBC % (auto) Smear Tech's Comments ESR Anion Gap 15 Estim Creat Clear Calc 91.1 Estimated GFR > 60 POC Glucose 261 H Random Glucose 258 H D Lactic Acid Lactic Acid F/U @ 2Hr Calcium 9.5 Magnesium Total Bilirubin Direct Bilirubin AST ALT Alkaline Phosphatase C-Reactive Protein B-Natriuretic Peptide Total Protein Albumin Lipase Urine Color Urine Appearance Urine pH Ur Specific [place] Urine Protein Urine Glucose (UA) Urine Ketones Urine Blood Urine Nitrite Ur Leukocyte Esterase Urine RBC Urine WBC Ur Squamous Epith Cells Urine Bacteria Urine Mucus COVID-19 ([facility]) COVID-19 Clin Com Assessment and Plan (1) Cellulitis: Status: Acute (2) Diabetic foot infection: Status: Acute (3) Hypertension: (4) Diabetes mellitus: Plan 50-year-old male past medical history of diabetes, osteomyelitis of the right foot, complicated left diabetic foot wound presents to the hospital with nonhealing wound now found to have osteomyelitis of the left 1st metatarsal #? sepsis due to left foot cellulitis and osteomylitis of the left 1st metatarsal bone. -Zosyn and Levaquin-->Change Levaquin to Vanco -ID, Surgery consult. -Follow consult #?Abdominal pain, n/v--seem improved. CT non-obstructing anibal kidney stones, and cholelithiassis. I think symptoms are due to gastroparesis. Will try reglan before meals #? diabetes--Change TResiba to Lantus, SSI, diabetic diet -? hold Metformin and Jardiance for now #? asthma - ? not in exacerbation -? continue home inhalers #HTN continue home lisinopril, norvasc and atenolol #Mood--Continue lexapro, klonopin #peripheral neuropathy continue gabapentin dvt ppx - Heparin code status? - full code Quality Stroke Does the patient have a stroke diagnosis?: No VTE Prior VTE?: No VTE Risk Level:: Medical - moderate - high VTE Device Contraindication: Treatment Not Indicated VTE Drug Contraindication: N/A - Med Ordered
--- NOTE | 2021-04-25 10:28 | PHA.PROG ---
Addendum entered by Liana Denton RPh 04/25/21 10:35: Patient weight was confirmed with Sourav. Original Note: Admission Date/Time: April 24, 2021 22:45 Indication: Sepsis, cellulitis + osteomylitis Weight in k.058 kg Adjusted body weight in K.82 kg [place] body weight in K kg Obesity Dosing Indication % IBW: 204% Serum Creatinine - Last 168 Hours 04/24/21 04/25/21 19:58 07:10 Creatinine 0.90 0.95 Estimated CrCl and GFR - Last 168 Hours 04/24/21 04/25/21 19:58 07:10 Estim Creat Clear Calc 96.1 91.1 Estimated GFR > 60 > 60 Vancomycin Loading Dose: 2000 mg (19.6 mg/kg) Current Vancomycin Dosing Regimen: 750 mg Q12H Date and Time for next Vancomycin Level to be drawn: 04/26 @ 2100 Pharmacist Comments on Vancomycin Plan: Patient is morbidly obese, required obesity dosing. Vancomycin level can be unpredictable therefore pharmacy will thoroughly monitor level and renal function daily Will give patient loading dose of vancomycin 2 g on 04/25 @ 1100. Maintenance dose vancomycin 750 mg Q12H to be started 04/25 @ 2300. Expected AUC 437 wth a trough of 13.3 Trough to be drawn prior to 4th dose Pharmacy will monitor renal function daily. Liana Denton PharmD Vancomycin dosing will take advantage of [employer] as a clinical decision support tool that uses Bayesian modeling to calculate individual patient's pharmacokinetic parameters and forecast the patient's drug concentration time course with the target goal AUC 24 range of 400 - 600 mg/L/hr.
[2021-04-25] MEDS: Acetaminophen 325 MG TABLET 650 MG PO (10:56)
[2021-04-25] MEDS: Heparin Sodium,Porcine 5,000 UNIT/ML VIAL 5000 UNIT SUBCUT ×2 (10:57→22:25)
[2021-04-25] MEDS: oxyCODONE HCl Immed Release 5 MG TABLET PO (10:57)
[2021-04-25 11:35] LABS: Glucose, Whole Blood 195 mg/dL (60-115)
[2021-04-25 11:39] VITALS: BP 141/86; PULSE 91; RESP 18; O2SAT 95
--- NOTE | 2021-04-25 12:32 | P.CONGS_ITS ---
History of Present Illness Consult details Consult date: 04/25/21 Requesting physician: Sarahy Tamayo Narrative: 50-year-old male patient with history of type 2 diabetes mellitus and previous history of diabetic foot infections/osteomyelitis, status post amputation of several toes of the right foot now presenting with an area of redness and swelling of the left foot located at the distal metatarsal head of the great toe.? He was admitted several months ago for similar complaint and found to have an abscess at the metatarsal head of the great toe. Incision and drainage was performed at that time. He reported the wound improved but then over the last several days he noted increased pain, redness, and discharge. He reports numbness at the toes from neuropathy. He subsequently presented to the emergency department and has been admitted to the hospitalist service further management. He also reports complaints of abdominal pain. He underwent a CT of the abdomen and pelvis in the emergency department. This revealed bilateral nonobstructing renal calculi, cholelithiasis without evidence of cholecystitis, and bilateral thickening of the adrenal glands. Because of the abdominal tenderness nausea and vomiting has not been identified. X-rays of the foot indicate osteomyelitis. He is being considered for intravenous antibiotics to manage the osteomyelitis once again. Review of Systems Constitutional: Constitutional: Denies chills, Denies fever(s), Denies headache(s) and Denies poor appetite ENT: Denies dizziness and Denies headache(s) Cardiovascular: Cardiovascular: Denies chest pain, Denies rapid heart rate, Denies palpitations and Denies slow heart rate Respiratory: Respiratory: Denies chest congestion, Denies cough, Denies pain on inspiration and Denies wheezing Gastrointestinal: Gastrointestinal: Reports abdominal pain, Denies bloating, Denies change in stool character, Denies constipation, Denies diarrhea, Reports nausea, Reports vomiting and Denies hematemesis Musculoskeletal: Musculoskeletal: Denies back pain, Reports arthralgias, Reports joint swelling and Reports numbness Integumentary/Breasts: Skin/Breast: Reports as per HPI, Reports change in pigmentation, Reports erythema and Denies rash Neurologic: Denies dizziness, Denies headache(s) and Reports numbness Psychiatric: Psychiatric: Denies anxiety and Denies depression Endocrine: Endocrine: Denies palpitations Hematologic/Lymphatic: Hematologic/Lymphatic: Denies easy bleeding, Denies easy bruising and Denies lymphadenopathy Allergic/Immunologic: Allergic/Immunologic: Denies wheezing [facility] Past Medical History Medical History (Updated 04/25/21 @ 06:41 by Sarahy Tamayo MD) Asthma Diabetes mellitus Hypertension Neuropathy Osteomyelitis Family History Family History Mother HLD (hyperlipidemia) Father Bladder cancer Surgical History Surgical History History of amputation of lesser toe Social History Social History Household Members: None Household Members Other:: 1 Housing: Apartment Do you presently have visiting nurse or other home services: No Alcohol intake: never Patient Tobacco Use Status: Former Tobacco user Second Hand Smoke Exposure: No Use of substances other than those prescribed or required for medical reasons: No Substance Use Type: Marijuana Advance Directives: No service: No Current occupational status: unemployed Meds Allergies Allergy/AdvReac Type Severity Reaction Status Date / Time No Known Allergies Allergy Unknown Verified 01/21/21 10:31 [No Known Allergies*] Active Medications: Current Medications Acetaminophen (Acetaminophen 325 Mg Tablet) 650 mg PO Q6H PRN PRN Reason: Pain, Mild (Pain Scale 1-3) Last Admin: 04/25/21 10:56 Dose: 650 mg Documented by: Albuterol Sulfate (Albuterol Sulfate 90 Mcg 8 Gm Inhaler) 2 puff INHALE Q4H PRN PRN Reason: Shortness Of Breath Amlodipine Besylate (Amlodipine Besylate 10 Mg Tablet) 10 mg PO DAILY [facility]; Protocol Last Admin: 04/25/21 09:03 Dose: 10 mg Documented by: Atenolol (Atenolol 25 Mg Tablet) 25 mg PO DAILY [facility]; Protocol Last Admin: 04/25/21 09:04 Dose: Not Given Documented by: Clonazepam (Clonazepam 0.5 Mg Tablet) 0.5 mg PO DAILY PRN PRN Reason: Anxiety Last Admin: 04/25/21 09:03 Dose: 0.5 mg Documented by: Dextrose (Dextrose 50 % 25 Gm/50 Ml Syringe) 25 gm IVPUSH Q15M PRN; Protocol PRN Reason: per Hypoglycemia Standing Ord. Docusate Sodium (Docusate Sodium 100 Mg Capsule) 100 mg PO DAILY PRN PRN Reason: Constipation Escitalopram Oxalate (Escitalopram Oxalate 10 Mg Tablet) 10 mg PO DAILY [facility] Last Admin: 04/25/21 09:03 Dose: 10 mg Documented by: Fluticasone Propionate (Fluticasone Propionate 100 Mcg Blst.W.Dev) 2 puff INHALE RBID [facility] Last Admin: 04/25/21 09:04 Dose: Not Given Documented by: Gabapentin (Gabapentin 400 Mg Capsule) 800 mg PO TID PRN PRN Reason: NERVE PAIN Last Admin: 04/25/21 09:03 Dose: 800 mg Documented by: Glucose (Glucose Gel 15 Gm Gel..Gram.) 15 gm PO Q15M PRN; Protocol PRN Reason: per Hypoglycemia Standing Ord. Heparin Sodium (Porcine) (Heparin Sodium,Porcine 5,000 Unit/Ml Vial) 5,000 unit SUBCUT Q12H [facility] Last Admin: 04/25/21 10:57 Dose: 5,000 unit Documented by: Hydromorphone HCl (Hydromorphone Hcl 1 Mg/Ml Syringe) 0.5 mg IVPUSH Q4H PRN; Protocol PRN Reason: Pain, Severe (Pain Scale 7-10) Last Admin: 04/25/21 09:02 Dose: 0.5 mg Documented by: Piperacillin Sod/Tazobactam (Sod 3.375 gm/ Sodium Chloride) 50 mls @ 100 mls/hr IV Q6H [facility] Last Admin: 04/25/21 10:57 Dose: 100 mls/hr Documented by: Vancomycin HCl 2,000 mg/ (Sodium Chloride) 540 mls @ 270 mls/hr IV ONCE ONE Stop: 04/25/21 12:59 Last Admin: 04/25/21 11:47 Dose: 270 mls/hr Documented by: Vancomycin HCl 750 mg/ Sodium (Chloride) 265 mls @ 265 mls/hr IV Q12H [facility] Insulin Glargine (Insulin Glargine,Hum.Rec.Anlog 100 Unit/Ml 10 Ml Vial) 26 unit SUBCUT DAILY [facility] Last Admin: 04/25/21 09:02 Dose: 26 unit Documented by: Insulin Human Lispro (Insulin Lispro 100 Unit/Ml 3 Ml Vial) 0 unit SUBCUT QIDACHS [facility]; Protocol Last Admin: 04/25/21 09:02 Dose: 6 unit Documented by: Lisinopril (Lisinopril 40 Mg Tablet) 40 mg PO DAILY [facility]; Protocol Last Admin: 04/25/21 09:03 Dose: 40 mg Documented by: Omeprazole (Omeprazole 40 Mg Capsule.Dr) 40 mg PO DAILY@0630 [facility] Oxycodone HCl (Oxycodone Hcl Immed Release 5 Mg Tablet) 5 mg PO Q6H PRN PRN Reason: Pain, Severe (Pain Scale 7-10) Last Admin: 04/25/21 10:57 Dose: 5 mg Documented by: Pharmacy Consult (Consult Rx Perform Med Rec) 1 each MISCELLANE ONCE PRN PRN Reason: Consult order Pharmacy Consult (Consult Rx Vancomycin Dosing) 1 each MISCELLANE DAILY PRN PRN Reason: Consult order Prochlorperazine Edisylate (Prochlorperazine Edisylate 10 Mg/2 Ml Vial) 5 mg IVPUSH Q4H PRN PRN Reason: Nausea and Vomiting Sodium Chloride (0.9 % Sodium Chloride Flush 3 Ml Syringe) 3 ml IVFLUSH [facility] Last Admin: 04/25/21 09:19 Dose: Not Given Documented by: Home Medications Medication Instructions Recorded Confirmed Last Taken Type albuterol sulfate 90 mcg/actuation 2 puff PO Q4H PRN 12/03/20 04/24/21 Unknown History aerosol inhaler amlodipine 10 mg tablet 1 tab PO DAILY 12/03/20 04/24/21 04/24/21 History atenolol 25 mg tablet 1 tab PO DAILY 12/03/20 04/24/21 04/24/21 History clonazepam 0.5 mg tablet 1 tab PO DAILY PRN 12/03/20 04/24/21 Unknown History escitalopram oxalate 10 mg tablet 1 tab PO DAILY 12/03/20 04/24/21 04/24/21 History fluticasone propionate 110 2 puff PO BID 12/03/20 04/24/21 12/03/20 History mcg/actuation HFA aerosol inhaler (Flovent HFA) gabapentin 800 mg tablet 1 tab PO TID PRN 12/03/20 04/24/21 12/03/20 History insulin aspart U-100 100 unit/mL 10 - 15 unit SUBCUT TID 12/03/20 04/24/21 04/24/21 History subcutaneous cartridge (Novolog PenFill U-100 Insulin aspart) insulin degludec 100 unit/mL (3 33 unit SUBCUT DAILY 12/03/20 04/24/21 04/24/21 History mL) subcutaneous pen (Tresiba FlexTouch U-100 insulin) lisinopril 40 mg tablet 1 tab PO DAILY 12/03/20 04/24/21 04/24/21 History metformin 1,000 mg tablet 1 tab PO BID 12/03/20 04/24/21 04/24/21 History ondansetron 4 mg disintegrating 1 tab SUBLINGUAL BID PRN 12/03/20 04/24/21 Unknown History tablet empagliflozin 10 mg tablet 10 mg PO DAILY 03/02/21 04/24/21 04/24/21 History (Jardiance) omeprazole 40 mg capsule,delayed 40 mg PO DAILY@0630 03/02/21 04/24/21 04/24/21 History release Physical Exam Vital Signs: Vital Signs: Last Vital Signs Temp 98.1 F 04/24/21 21:15 Pulse 91 04/25/21 11:39 Resp 18 04/25/21 11:39 BP 141/86 H 04/25/21 11:39 Pulse Ox 95 04/25/21 11:39 BMI result Body Mass Index 43.9 Const: General: no acute distress and well developed Nutritional Appearance: well nourished Orientation/consciousness: patient oriented x3 Limitations: no limitations HENMT: Head: Yes normocephalic and Yes atraumatic Ears: hearing grossly normal bilaterally Resp: Effort & Inspection: normal respiratory effort, no audible wheezes, no cough and no respiratory distress GI: Inspection: Yes normal to inspection Palpation (GI): Soft to palpation, nontender and no guarding Skin: General skin exam: no rashes or lesions noted Neuro: General: patient oriented x3 Extrem: Other: Left 1st metatarsal distal head with an area of redness and overlying desquamated skin.? Open wound noted at the distal metatarsal head with fibrinous tissue at the base. There is a surrounding area of erythema extending up the dorsal surface of the foot. Site is tender to palpation.? No underlying abscess is appreciated. Left foot erythema at dorsum. right foot callus Left foot open wound at 1st MP joint Left foot plantar ulcer at 1st distal metatarsal head Results Labs Result diagrams: 04/25/21 07:10 04/25/21 07:10 Labs: Abnormal lab results 04/24/21 04/24/21 04/24/21 Range/Units 19:58 19:58 19:58 WBC 20.5 H (4.8-10.8) X10*3/uL Hct (42.0-52.0) % Plt Count (160-400) X10*3/uL Immature Gran % (Auto) 0.6 H (0.0-0.4) % Neut % (Auto) 92.4 H (45-73) % Lymph % (Auto) 4.3 L (20-40) % Lymph # (Auto) 0.9 L (1.2-4.9) X10*3/uL Abs Immat Gran (auto) 0.13 H (0.00-0.03) X10*3/uL Absolute Neuts (auto) 19.0 H (2.0-8.3) x10*3/uL ESR 56 H (0-15) MM/HR Sodium 132 L (135-145) mmol/L Chloride 87 L (96-108) mmol/L Carbon Dioxide (22-29) mmol/L Anion Gap 21 H (12-20) POC Glucose (60-115) mg/dL Random Glucose 425 H* (60-115) mg/dL Lactic Acid (0.5-2.0) mmol/L Magnesium 1.3 L* (1.6-2.6) mg/dL Alkaline Phosphatase 122 H (39-117) U/L C-Reactive Protein 9.75 H (< or = 0.50) mg/dL Urine Protein (NEG-TRACE) MG/DL Urine Glucose (UA) (NEG) MG/DL Urine Blood (NEG) 04/24/21 04/24/21 04/25/21 Range/Units 19:58 21:00 07:10 WBC 17.4 H (4.8-10.8) X10*3/uL Hct 41.9 L (42.0-52.0) % Plt Count 446 H D (160-400) X10*3/uL Immature Gran % (Auto) 0.7 H (0.0-0.4) % Neut % (Auto) 79.5 H (45-73) % Lymph % (Auto) 13.7 L (20-40) % Lymph # (Auto) (1.2-4.9) X10*3/uL Abs Immat Gran (auto) 0.12 H (0.00-0.03) X10*3/uL Absolute Neuts (auto) 13.9 H (2.0-8.3) x10*3/uL ESR (0-15) MM/HR Sodium (135-145) mmol/L Chloride (96-108) mmol/L Carbon Dioxide (22-29) mmol/L Anion Gap (12-20) POC Glucose (60-115) mg/dL Random Glucose (60-115) mg/dL Lactic Acid 2.9 H* (0.5-2.0) mmol/L Magnesium (1.6-2.6) mg/dL Alkaline Phosphatase (39-117) U/L C-Reactive Protein (< or = 0.50) mg/dL Urine Protein 2+ H (NEG-TRACE) MG/DL Urine Glucose (UA) >=1000 H (NEG) MG/DL Urine Blood 1+ H (NEG) 04/25/21 04/25/21 04/25/21 Range/Units 07:10 07:13 11:32 WBC (4.8-10.8) X10*3/uL Hct (42.0-52.0) % Plt Count (160-400) X10*3/uL Immature Gran % (Auto) (0.0-0.4) % Neut % (Auto) (45-73) % Lymph % (Auto) (20-40) % Lymph # (Auto) (1.2-4.9) X10*3/uL Abs Immat Gran (auto) (0.00-0.03) X10*3/uL Absolute Neuts (auto) (2.0-8.3) x10*3/uL ESR (0-15) MM/HR Sodium (135-145) mmol/L Chloride 92 L (96-108) mmol/L Carbon Dioxide 33 H (22-29) mmol/L Anion Gap (12-20) POC Glucose 261 H 195 H (60-115) mg/dL Random Glucose 258 H D (60-115) mg/dL Lactic Acid (0.5-2.0) mmol/L Magnesium (1.6-2.6) mg/dL Alkaline Phosphatase (39-117) U/L C-Reactive Protein (< or = 0.50) mg/dL Urine Protein (NEG-TRACE) MG/DL Urine Glucose (UA) (NEG) MG/DL Urine Blood (NEG) Short CBC 04/24/21 04/25/21 Range/Units 19:58 07:10 WBC 20.5 H 17.4 H (4.8-10.8) X10*3/uL Hgb 15.2 14.2 (14.0-18.0) g/dl Hct 46.0 41.9 L (42.0-52.0) % Plt Count Not Reportable 446 H D BMP 04/24/21 04/25/21 19:58 07:10 Sodium 132 L 136 Potassium 4.3 4.4 Chloride 87 L 92 L Carbon Dioxide 28 33 H BUN 9 12 Creatinine 0.90 0.95 Calcium 9.6 D 9.5 Liver Function 04/24/21 Range/Units 19:58 Total Bilirubin 0.7 (0.0-1.0) mg/dL Direct Bilirubin 0.3 (0.0-0.5) mg/dL AST 9 D (5-37) U/L ALT 9 (0-40) U/L Alkaline Phosphatase 122 H (39-117) U/L Albumin 3.9 (3.5-5.0) g/dL Urine 04/24/21 Range/Units 21:00 Urine Color YELLOW Urine Appearance CLEAR Urine pH 6.0 (5.0-8.0) Ur Specific [place] 1.020 (1.005-1.025) Urine Protein 2+ H (NEG-TRACE) MG/DL Urine Glucose (UA) >=1000 H (NEG) MG/DL All other labs normal. Assessment and Plan (1) Osteomyelitis: Status: Acute (2) Diabetic foot infection: Status: Acute Plan Patient with recurrent osteomyelitis of the left great toe and returns with increased pain and redness. Foot x-rays seem to indicate increased osteomyeli tis. Patient has a nonhealing wound over the MP joint and is willing to try prolonged IV antibiotics once again. If this is unsuccessful great toe amputation may be necessary. The patient expressed understanding and agrees with the plan. Procedures Date of Service Date of Service: 04/25/21
--- NOTE | 2021-04-25 13:45 | PC.NURSE ---
this rn taking call from rn communications representative from [facility] home health agency, they received ping that pt is at [facility]. communications representative informing this rn that the agency will not accept pt back into their care d/t previous hostile behaviors in his home w previous staff. no other pt information shared in this interaction.
[2021-04-25 15:44] VITALS: BP 107/68; PULSE 92; RESP 16; TEMP 36.6; O2SAT 96
--- NOTE | 2021-04-25 15:49 | MHC.CM.PN ---
PT REPORTS HE LIVES ALONE AND IS INDEPENDENT WITH CARE PT HAS DM SUPPLIES ONLY FOR DME PT CONFIRMS HIS PCP IS [facility] HE DOES NOT HAVE A HCP AND DECLINES TO COMPLETE ONE IMM DELIVERED, ORIGINAL AT BEDSIDE, COPY SENT TO [facility] CURRENTLY DCP IS TBD PT LIKELY TO NEED IV ABX AT HOME REFERRALS MADE TO [facility] PER PT REQUEST PT HAS HAD IV ABX AT HOME MULTIPLE TIMES IN THE PAST AND FEELS COMFORTABLE
--- NOTE | 2021-04-25 17:02 | P.CNID_ITS ---
History of Present Illness Data of Consult Service Date: 04/25/21 Requesting physician: Munir Guido Primary Care Provider: Erica Aguilar NP HPI Reason for consult: left foot infection He presents with a week worsening left foot first metarsal swelling and redness and yellowish exudate I had seen him in fall for right foot osteomyelitis and he had PICC 12/05- 01/17/2021. The right foot area has been doing well PMFSH Past Medical History Medical History Asthma Diabetes mellitus Hypertension Neuropathy Osteomyelitis Family History Family History Mother HLD (hyperlipidemia) Father Bladder cancer Family history: reviewed and not pertinent Surgical History Surgical History History of amputation of lesser toe Social History Social History Household Members: None Household Members Other:: 1 Housing: Apartment Do you presently have visiting nurse or other home services: Yes Alcohol intake: never Patient Tobacco Use Status: Former Tobacco user Second Hand Smoke Exposure: No Substance Use Type: Marijuana service: No Current occupational status: unemployed Meds Allergies Allergy/AdvReac Type Severity Reaction Status Date / Time No Known Allergies Allergy Unknown Verified 01/21/21 10:31 [No Known Allergies*] Active Medications: Current Medications Acetaminophen (Acetaminophen 325 Mg Tablet) 650 mg PO Q6H PRN PRN Reason: Pain, Mild (Pain Scale 1-3) Last Admin: 04/25/21 10:56 Dose: 650 mg Documented by: Albuterol Sulfate (Albuterol Sulfate 90 Mcg 8 Gm Inhaler) 2 puff INHALE Q4H PRN PRN Reason: Shortness Of Breath Amlodipine Besylate (Amlodipine Besylate 10 Mg Tablet) 10 mg PO DAILY [facility]; Protocol Last Admin: 04/25/21 09:03 Dose: 10 mg Documented by: Atenolol (Atenolol 25 Mg Tablet) 25 mg PO DAILY [facility]; Protocol Last Admin: 04/25/21 09:04 Dose: Not Given Documented by: Clonazepam (Clonazepam 0.5 Mg Tablet) 0.5 mg PO DAILY PRN PRN Reason: Anxiety Last Admin: 04/25/21 09:03 Dose: 0.5 mg Documented by: Dextrose (Dextrose 50 % 25 Gm/50 Ml Syringe) 25 gm IVPUSH Q15M PRN; Protocol PRN Reason: per Hypoglycemia Standing Ord. Docusate Sodium (Docusate Sodium 100 Mg Capsule) 100 mg PO DAILY PRN PRN Reason: Constipation Escitalopram Oxalate (Escitalopram Oxalate 10 Mg Tablet) 10 mg PO DAILY [facility] Last Admin: 04/25/21 09:03 Dose: 10 mg Documented by: Fluticasone Propionate (Fluticasone Propionate 100 Mcg Blst.W.Dev) 2 puff INHALE RBID [facility] Last Admin: 04/25/21 09:04 Dose: Not Given Documented by: Gabapentin (Gabapentin 400 Mg Capsule) 800 mg PO TID PRN PRN Reason: NERVE PAIN Last Admin: 04/25/21 09:03 Dose: 800 mg Documented by: Glucose (Glucose Gel 15 Gm Gel..Gram.) 15 gm PO Q15M PRN; Protocol PRN Reason: per Hypoglycemia Standing Ord. Heparin Sodium (Porcine) (Heparin Sodium,Porcine 5,000 Unit/Ml Vial) 5,000 unit SUBCUT Q12H [facility] Last Admin: 04/25/21 10:57 Dose: 5,000 unit Documented by: Hydromorphone HCl (Hydromorphone Hcl 1 Mg/Ml Syringe) 0.5 mg IVPUSH Q4H PRN; Protocol PRN Reason: Pain, Severe (Pain Scale 7-10) Last Admin: 04/25/21 13:02 Dose: 0.5 mg Documented by: Piperacillin Sod/Tazobactam (Sod 3.375 gm/ Sodium Chloride) 50 mls @ 100 mls/hr IV Q6H [facility] Last Infusion: 04/25/21 13:47 Dose: Infused Documented by: Vancomycin HCl 750 mg/ Sodium (Chloride) 265 mls @ 265 mls/hr IV Q12H [facility] Insulin Glargine (Insulin Glargine,Hum.Rec.Anlog 100 Unit/Ml 10 Ml Vial) 26 unit SUBCUT DAILY [facility] Last Admin: 04/25/21 09:02 Dose: 26 unit Documented by: Insulin Human Lispro (Insulin Lispro 100 Unit/Ml 3 Ml Vial) 0 unit SUBCUT QIDACHS [facility]; Protocol Last Admin: 04/25/21 13:20 Dose: 2 unit Documented by: Lisinopril (Lisinopril 40 Mg Tablet) 40 mg PO DAILY [facility]; Protocol Last Admin: 04/25/21 09:03 Dose: 40 mg Documented by: Omeprazole (Omeprazole 40 Mg Capsule.Dr) 40 mg PO DAILY@0630 [facility] Oxycodone HCl (Oxycodone Hcl Immed Release 5 Mg Tablet) 5 mg PO Q6H PRN PRN Reason: Pain, Severe (Pain Scale 7-10) Last Admin: 04/25/21 10:57 Dose: 5 mg Documented by: Pharmacy Consult (Consult Rx Perform Med Rec) 1 each MISCELLANE ONCE PRN PRN Reason: Consult order Pharmacy Consult (Consult Rx Vancomycin Dosing) 1 each MISCELLANE DAILY PRN PRN Reason: Consult order Prochlorperazine Edisylate (Prochlorperazine Edisylate 10 Mg/2 Ml Vial) 5 mg IVPUSH Q4H PRN PRN Reason: Nausea and Vomiting Sodium Chloride (0.9 % Sodium Chloride Flush 3 Ml Syringe) 3 ml IVFLUSH QSHIFT [facility] Last Admin: 04/25/21 09:19 Dose: Not Given Documented by: Home Medications Medication Instructions Recorded Confirmed Last Taken Type albuterol sulfate 90 mcg/actuation 2 puff PO Q4H PRN 12/03/20 04/24/21 Unknown History aerosol inhaler amlodipine 10 mg tablet 1 tab PO DAILY 12/03/20 04/24/21 04/24/21 History atenolol 25 mg tablet 1 tab PO DAILY 12/03/20 04/24/21 04/24/21 History clonazepam 0.5 mg tablet 1 tab PO DAILY PRN 12/03/20 04/24/21 Unknown History escitalopram oxalate 10 mg tablet 1 tab PO DAILY 12/03/20 04/24/21 04/24/21 History fluticasone propionate 110 2 puff PO BID 12/03/20 04/24/21 12/03/20 History mcg/actuation HFA aerosol inhaler (Flovent HFA) gabapentin 800 mg tablet 1 tab PO TID PRN 12/03/20 04/24/21 12/03/20 History insulin aspart U-100 100 unit/mL 10 - 15 unit SUBCUT TID 12/03/20 04/24/2122 History subcutaneous cartridge (Novolog PenFill U-100 Insulin aspart) insulin degludec 100 unit/mL (3 33 unit SUBCUT DAILY 12/03/20 04/24/21 04/24/21 History mL) subcutaneous pen (Tresiba FlexTouch U-100 insulin) lisinopril 40 mg tablet 1 tab PO DAILY 12/03/20 04/24/21 04/24/21 History metformin 1,000 mg tablet 1 tab PO BID 12/03/20 04/24/21 04/24/21 History ondansetron 4 mg disintegrating 1 tab SUBLINGUAL BID PRN 12/03/20 04/24/21 U nknown History tablet empagliflozin 10 mg tablet 10 mg PO DAILY 03/02/21 04/24/21 04/24/21 History (Jardiance) omeprazole 40 mg capsule,delayed 40 mg PO DAILY@0630 03/02/21 04/24/21 04/24/21 History release Physical Exam Vital Signs: Vital Signs: Last Vital Signs Temp 97.9 F 04/25/21 15:44 Pulse 92 04/25/21 15:44 Resp 16 04/25/21 15:44 BP 107/68 04/25/21 15:44 Pulse Ox 96 04/25/21 15:44 BMI result Body Mass Index 43.9 Const: General: cooperative Eyes: General: appearance normal, both eyes and all related structures Resp: Effort & Inspection: normal respiratory effort Cardio: Rate: regular rate Rhythm: regular rhythm GI: Palpation (GI): Soft to palpation and nontender Extrem: Other: reddened oozing yellow fluid left first metatarsal region,erythema extending up leg Results Labs CBC & Chem 7: 04/27/21 06:10 04/30/21 05:59 Labs: Short CBC 04/24/21 04/25/21 Range/Units 19:58 07:10 WBC 20.5 H 17.4 H (4.8-10.8) X10*3/uL Hgb 15.2 14.2 (14.0-18.0) g/dl Hct 46.0 41.9 L (42.0-52.0) % Plt Count Not Reportable 446 H D BMP 04/24/21 04/25/21 19:58 07:10 Sodium 132 L 136 Potassium 4.3 4.4 Chloride 87 L 92 L Carbon Dioxide 28 33 H BUN 9 12 Creatinine 0.90 0.95 Calcium 9.6 D 9.5 Liver Function 04/24/21 Range/Units 19:58 Total Bilirubin 0.7 (0.0-1.0) mg/dL Direct Bilirubin 0.3 (0.0-0.5) mg/dL AST 9 D (5-37) U/L ALT 9 (0-40) U/L Alkaline Phosphatase 122 H (39-117) U/L Albumin 3.9 (3.5-5.0) g/dL Urine 04/24/21 Range/Units 21:00 Urine Color YELLOW Urine Appearance CLEAR Urine pH 6.0 (5.0-8.0) Ur Specific [place] 1.020 (1.005-1.025) Urine Protein 2+ H (NEG-TRACE) MG/DL Urine Glucose (UA) >=1000 H (NEG) MG/DL Assessment and Plan (1) Sepsis: Status: Resolved He now has left foot infection He has had infections on both feet at different times There is no specific cause (2) Osteomyelitis: Status: Acute Await any blood cultures Continue broad spectrum antibiotics for now and possible Ertapenem or Vancomycin for six weeks (3) Diabetic foot infection: Status: Acute
[2021-04-25 18:10] LABS: Glucose, Whole Blood 287 mg/dL (60-115)
[2021-04-25 20:47] LABS: Glucose, Whole Blood 176 mg/dL (60-115)
--- NOTE | 2021-04-25 21:50 | PC.NURSE ---
Assumed care of pt Pt resting on hospital bed Pt medicated per MAY Pt tolerated well Will continue to monitor
[2021-04-25] MEDS: vancomycin HCL 750 MG in 0.9 % Sodium Chloride 250 ML 265 MG IV (22:20)
[2021-04-25 22:25] VITALS: BP 106/62; PULSE 96; RESP 16; TEMP 36.2; O2SAT 96
[2021-04-26] VITALS (9 sets, daily range): BP systolic 111–144; BP diastolic 55–92; PULSE 84–107; RESP 14–24; TEMP 36.1–37.5; O2SAT 93–98
[2021-04-26] MEDS: HYDROmorphone HCl 1 MG/ML SYRINGE 0.5 MG IVPUSH ×6 (01:22→22:17)
[2021-04-26] MEDS: 0.9 % Sodium Chloride Flush 3 ML SYRINGE IVFLUSH (01:27)
[2021-04-26] MEDS: Acetaminophen 325 MG TABLET 650 MG PO (02:17)
[2021-04-26] MEDS: Prochlorperazine Edisylate 10 MG/2 ML VIAL 5 MG IVPUSH ×2 (02:24→22:34)
--- NOTE | 2021-04-26 02:44 | PC.NURSE ---
Pt c/o feeling feverish. Oral temp: 99.5 Pt medicated per MAR After medicated with tylenol, pt c/o nausea. Pt given compazine. Will continue to monitor
[2021-04-26] MEDS: Piperacillin Sodium/Tazobactam 3.375 GM in 0.9 % Sodium Chloride 50 ML IV ×4 (05:31→22:28)
[2021-04-26] MEDS: Omeprazole 40 MG CAPSULE.DR PO (06:05)
[2021-04-26 07:58] LABS: Glucose, Whole Blood 144 mg/dL (60-115)
--- NOTE | 2021-04-26 08:19 | PC.NURSE ---
Pt received from meat apprentice: Pt AOX$ and offers no complaints. Pt ambulatory to nurse's station to drop off breakfast tray- pt tolerated 90% of it. Heart sounds normal and lungs clear. Pt abd soft and non-tender. L foot, great toe DM ulcer noted to toe padding.
[2021-04-26 08:21] LABS: Hematocrit 38.2 % (42.0-52.0); Hemoglobin 12.8 g/dl (14.0-18.0); Mean Corpuscular HGB Conc 33.5 g/dl (31.0-36.0); Mean Corpuscular Hemoglobin 28.8 pg (27.0-33.0); Mean Corpuscular Volume 85.8 fL (80.0-98.0); Mean Platelet Volume 10.4 fL (9.4-12.4); Platelet Count 376 X10*3/uL (160-400); Red Blood Count 4.45 X10*6/uL (4.60-5.80); Red Cell Distribution Width 13.2 % (11.0-16.0); White Blood Count 11.1 X10*3/uL (4.8-10.8)
[2021-04-26] MEDS: Fluticasone Propionate 100 MCG BLST.W.DEV 2 PUFF INHALE (08:24)
[2021-04-26 08:39] LABS: Anion Gap 14 (12-20); Blood Urea Nitrogen 11 mg/dL (9-16); Calcium 9.1 mg/dL (8.4-10.2); Carbon Dioxide 32 mmol/L (22-29); Chloride 96 mmol/L (96-108); Estimated Glomerular Filt Rate > 60; Glucose Random 151 mg/dL (60-115); Potassium 4.9 mmol/L (3.3-5.1); Sodium 137 mmol/L (135-145)
--- NOTE | 2021-04-26 09:28 | HO.PM.IMPN ---
Subjective Subjective Date of Service: 04/26/21 Interval History: F/u on diabetic foot wound, celulitis and osteomylitis, no new issues. Review of Systems Gen: no fever Resp: no sob, no cough CV: no chest, no MONTES DE OCA, no leg edema GI: n/v, abd pain Neuro: No confusion no pain in the foot Physical Exam Vital Signs: Vital Signs: Last Vital Signs Temp 97.8 F 04/26/21 08:48 Pulse 93 04/26/21 08:48 Resp 14 04/26/21 08:48 BP 128/62 04/26/21 08:48 Pulse Ox 93 04/26/21 08:48 BMI result Body Mass Index 43.9 Const: Other: General: AO X 3, no acute distress Resp: CTA bilateral CVS: S1,S2,RRR GI: +BS, NT, no distention Skin: Neuro: motor grossly intact Psych: appropriate affect Objective Data Active Medications Acetaminophen (Acetaminophen 325 Mg Tablet) 650 mg PO Q6H PRN PRN Reason: Pain, Mild (Pain Scale 1-3) Last Admin: 04/26/21 02:17 Dose: 650 mg Documented by: DUNCAN Albuterol Sulfate (Albuterol Sulfate 90 Mcg 8 Gm Inhaler) 2 puff INHALE Q4H PRN PRN Reason: Shortness Of Breath Amlodipine Besylate (Amlodipine Besylate 10 Mg Tablet) 10 mg PO DAILY [facility]; Protocol Last Admin: 04/25/21 09:03 Dose: 10 mg Documented by: JOSE ALBERTO Atenolol (Atenolol 25 Mg Tablet) 25 mg PO DAILY [facility]; Protocol Last Admin: 04/25/21 09:04 Dose: Not Given Documented by: JOSE ALBERTO Non-Admin Reason: Med Not Available Clonazepam (Clonazepam 0.5 Mg Tablet) 0.5 mg PO DAILY PRN PRN Reason: Anxiety Last Admin: 04/25/21 09:03 Dose: 0.5 mg Documented by: JOSE ALBERTO Dextrose (Dextrose 50 % 25 Gm/50 Ml Syringe) 25 gm IVPUSH Q15M PRN; Protocol PRN Reason: per Hypoglycemia Standing Ord. Docusate Sodium (Docusate Sodium 100 Mg Capsule) 100 mg PO DAILY PRN PRN Reason: Constipation Escitalopram Oxalate (Escitalopram Oxalate 10 Mg Tablet) 10 mg PO DAILY [facility] Last Admin: 04/25/21 09:03 Dose: 10 mg Documented by: JOSE ALBERTO Fluticasone Propionate (Fluticasone Propionate 100 Mcg Blst.W.Dev) 2 puff INHALE RBID [facility] Last Admin: 04/26/21 08:24 Dose: 2 puff Documented by: LIBERTY Gabapentin (Gabapentin 400 Mg Capsule) 800 mg PO TID PRN PRN Reason: NERVE PAIN Last Admin: 04/25/21 09:03 Dose: 800 mg Documented by: JOSE ALBERTO Glucose (Glucose Gel 15 Gm Gel..Gram.) 15 gm PO Q15M PRN; Protocol PRN Reason: per Hypoglycemia Standing Ord. Heparin Sodium (Porcine) (Heparin Sodium,Porcine 5,000 Unit/Ml Vial) 5,000 unit SUBCUT Q12H [facility] Last Admin: 04/25/21 22:25 Dose: 5,000 unit Documented by: DUNCAN Hydromorphone HCl (Hydromorphone Hcl 1 Mg/Ml Syringe) 0.5 mg IVPUSH Q4H PRN; Protocol PRN Reason: Pain, Severe (Pain Scale 7-10) Last Admin: 04/26/21 05:33 Dose: 0.5 mg Documented by: DUNCAN Piperacillin Sod/Tazobactam (Sod 3.375 gm/ Sodium Chloride) 50 mls @ 100 mls/hr IV Q6H [facility] Last Infusion: 04/26/21 06:05 Dose: 0 mls/hr Documented by: DUNCAN Vancomycin HCl 750 mg/ Sodium (Chloride) 265 mls @ 265 mls/hr IV Q12H [facility] Last Infusion: 04/25/21 23:30 Dose: 0 mls/hr Documented by: DUNCAN Insulin Glargine (Insulin Glargine,Hum.Rec.Anlog 100 Unit/Ml 10 Ml Vial) 26 unit SUBCUT DAILY [facility] Last Admin: 04/25/21 09:02 Dose: 26 unit Documented by: JOSE ALBERTO Insulin Human Lispro (Insulin Lispro 100 Unit/Ml 3 Ml Vial) 0 unit SUBCUT QIDACHS [facility]; Protocol Last Admin: 04/26/21 08:08 Dose: Not Given Documented by: VY Non-Admin Reason: No Insulin Coverage Comments: B/S 144 Lisinopril (Lisinopril 40 Mg Tablet) 40 mg PO DAILY [facility]; Protocol Last Admin: 04/25/21 09:03 Dose: 40 mg Documented by: JOSE ALBERTO Omeprazole (Omeprazole 40 Mg Capsule.Dr) 40 mg PO DAILY@0630 [facility] Last Admin: 04/26/21 06:05 Dose: 40 mg Documented by: DUNCAN Oxycodone HCl (Oxycodone Hcl Immed Release 5 Mg Tablet) 5 mg PO Q6H PRN PRN Reason: Pain, Severe (Pain Scale 7-10) Last Admin: 04/25/21 10:57 Dose: 5 mg Documented by: JOSE ALBERTO Pharmacy Consult (Consult Rx Perform Med Rec) 1 each MISCELLANE ONCE PRN PRN Reason: Consult order Pharmacy Consult (Consult Rx Vancomycin Dosing) 1 each MISCELLANE DAILY PRN PRN Reason: Consult order Prochlorperazine Edisylate (Prochlorperazine Edisylate 10 Mg/2 Ml Vial) 5 mg IVPUSH Q4H PRN PRN Reason: Nausea and Vomiting Last Admin: 04/26/21 02:24 Dose: 5 mg Documented by: DUNCAN Sodium Chloride (0.9 % Sodium Chloride Flush 3 Ml Syringe) 3 ml IVFLUSH [facility] Last Admin: 04/26/21 08:07 Dose: Not Given Documented by: VY Non-Admin Reason: Med Not Available Labs CBC & Chem 7: 04/26/21 07:52 04/26/21 07:52 Labs: Laboratory Results - last 24 hr 04/25/21 04/25/21 04/25/21 11:32 18:07 20:38 MCV MCH MCHC RDW Plt Count MPV Absolute Nucleated RBC Nucleated RBC % (auto) Anion Gap Estim Creat Clear Calc Estimated GFR POC Glucose 195 H 287 H 176 H Random Glucose Calcium 04/26/21 04/26/21 04/26/21 07:51 07:52 07:52 MCV 85.8 MCH 28.8 MCHC 33.5 RDW 13.2 Plt Count 376 MPV 10.4 Absolute Nucleated RBC 0.000 Nucleated RBC % (auto) 0.0 Anion Gap 14 Estim Creat Clear Calc 103.0 Estimated GFR > 60 POC Glucose 144 H Random Glucose 151 H D Calcium 9.1 Microbiology Microbiology Results: Microbiology 04/24/21 21:00 Blood Culture - Preliminary Blood - Venous No growth after 24 hours. 04/24/21 19:58 Blood Culture - Preliminary Blood - Venous No growth after 24 hours. Assessment and Plan (1) Cellulitis: Status: Acute (2) Diabetic foot infection: Status: Acute (3) Hypertension: (4) Diabetes mellitus: Plan 50-year-old male past medical history of diabetes, osteomyelitis of the right foot, complicated left diabetic foot wound presents to the hospital with nonhealing wound now found to have osteomyelitis of the left 1st metatarsal #? sepsis due to left foot cellulitis and osteomylitis of the left 1st metatarsal bone. --sepsis resolved -Zosyn and Levaquin-->Change Levaquin to Vanco -ID recommending half-way Abx, will need a picc line after cultures negative over 48 hrs -Surgery is recommending trial of Abx and if not successful then amputaton. #?Abdominal pain, n/v--seem improved. CT non-obstructing anibal kidney stones, and cholelithiassis. I think symptoms are due to gastroparesis. Will try reglan before meals #? diabetes--Change TResiba to Lantus, SSI, diabetic diet -? hold Metformin and Jardiance for now #? asthma - ? not in exacerbation -? continue home inhalers #HTN continue home lisinopril, norvasc and atenolol--BP normal hold Lisinopril 40 today #Mood--Continue lexapro, klonopin #peripheral neuropathy continue gabapentin dvt ppx - Heparin code status? - full code Quality Stroke Does the patient have a stroke diagnosis?: No VTE Prior VTE?: No VTE Risk Level:: Medical - moderate - high VTE Device Contraindication: Treatment Not Indicated VTE Drug Contraindication: N/A - Med Ordered
[2021-04-26] MEDS: Insulin Glargine,Hum.rec.anlog 100 UNIT/ML 10 ML VIAL 26 UNIT SUBCUT (10:17)
[2021-04-26] MEDS: amLODIPine Besylate 10 MG TABLET PO (10:17)
[2021-04-26] MEDS: Escitalopram Oxalate 10 MG TABLET PO (10:17)
[2021-04-26] MEDS: Heparin Sodium,Porcine 5,000 UNIT/ML VIAL 5000 UNIT SUBCUT ×2 (10:18→22:28)
[2021-04-26] MEDS: atenoloL 25 MG TABLET PO (10:29)
[2021-04-26] MEDS: vancomycin HCL 750 MG in 0.9 % Sodium Chloride 250 ML 265 MG IV (11:07)
--- NOTE | 2021-04-26 11:57 | PC.NURSE ---
Addendum entered by Shannan Cabrera RN 04/26/21 13:11: MD Guido made aware of situation. relays that it is okay for IV zosyn to continue on regular schedule with no change. RN will continue to monitor. Original Note: Went into pt's room to hang new scheduled IV vancomycin. Upon entry, pt noted to be very angry stating he called on his call light twice, told the PCT, and was even up at the nurse's station to state there was an issue with the IV. RN unable to enter room right away as this RN was dealing with other pt issues. RN noted that IV tubing was on the opposite site of pt's IV site and on the ground, and pt states he did not receive any of his IV zosyn. RN attempted to verify with pt that IV was hooked prior to RN initially exiting pt room around 10AM. Pt remains very accusatory and another RN Clarelee into room in attempt to diffuse situation. This RN exited room to remove herself from the situation and Deon continued with nursing care. Principal Strategist Cesia and Charge Nurse Derek made aware. Cesia at bedside and will attempt to get pt an upstairs room assignment, as pt does not want this RN to be his healthcare provider. RN will continue to monitor pt.
--- NOTE | 2021-04-26 12:30 | PC.NURSE ---
this field underwriter went into pt's room to take down vanco and noted that the iv pump was turned off and iv line disconnected from the pt. this field underwriter asked pt who turned off the iv pump and he stated that he turned it off and disconnected his iv line because he had to us the restroom. this field underwriter reminded pt to ring the call sarkar next time so staff can disconnect his line. pt ok with reminder.
[2021-04-26 14:03] LABS: Glucose, Whole Blood 232 mg/dL (60-115)
[2021-04-26] MEDS: Insulin Lispro 100 UNIT/ML 3 ML VIAL SUBCUT ×2 (14:16→16:36)
[2021-04-26 16:07] LABS: Glucose, Whole Blood 195 mg/dL (60-115)
[2021-04-26] MEDS: oxyCODONE HCl Immed Release 5 MG TABLET PO (20:33)
[2021-04-26] MEDS: clonazePAM 0.5 MG TABLET PO (20:33)
[2021-04-26 20:35] LABS: Glucose, Whole Blood 138 mg/dL (60-115)
[2021-04-26 22:06] LABS: Vancomycin Trough 7.7 mcg/mL (10.0-20.0)
--- NOTE | 2021-04-26 22:19 | PHA.PROG ---
Admission Date/Time: April 24, 2021 22:45 Indication: Weight in k.058 kg Adjusted body weight in Kg: [place] body weight in Kg: Obesity Dosing Indication % IBW: Serum Creatinine - Last 168 Hours 04/24/21 04/25/21 04/26/21 19:58 07:10 07:52 Creatinine 0.90 0.95 0.84 Estimated CrCl and GFR - Last 168 Hours 04/24/21 04/25/21 04/26/21 19:58 07:10 07:52 Estim Creat Clear Calc 96.1 91.1 103.0 Estimated GFR > 60 > 60 > 60 Vancomycin Loading Dose: Current Vancomycin Dosing Regimen: Vancomycin Monitoring using AUC goal of 400 - 600 range with trough as surrogate marker: Date and Time for next Vancomycin Level to be drawn: Vancomycin Trough 7.7 mcg/mL (10.0-20.0) L 04/26/21 21:16 Pharmacist Comments on Vancomycin Plan: Dose increase to 1250 mg q12h predicted AUC 475 even though trough maybe low Vancomycin dosing will take advantage of [employer] as a clinical decision support tool that uses Bayesian modeling to calculate individual patient's pharmacokinetic parameters and forecast the patient's drug concentration time course with the target goal AUC 24 range of 400 - 600 mg/L/hr.
[2021-04-26] MEDS: vancomycin HCL 1,250 MG in 0.9 % Sodium Chloride 250 ML 166.67 MG IV (23:13)
[2021-04-27] MEDS: 0.9 % Sodium Chloride Flush 3 ML SYRINGE IVFLUSH ×3 (01:16→16:25)
[2021-04-27 02:50] VITALS: BP 181/68; PULSE 88; RESP 18; TEMP 37.2; O2SAT 96
[2021-04-27] MEDS: HYDROmorphone HCl 1 MG/ML SYRINGE 0.5 MG IVPUSH ×5 (02:56→20:43)
[2021-04-27 03:48] VITALS: BP 136/72; PULSE 91
[2021-04-27] MEDS: Piperacillin Sodium/Tazobactam 3.375 GM in 0.9 % Sodium Chloride 50 ML IV ×4 (05:44→23:04)
[2021-04-27] MEDS: Omeprazole 40 MG CAPSULE.DR PO (05:46)
[2021-04-27] MEDS: oxyCODONE HCl Immed Release 5 MG TABLET PO ×2 (05:48→23:12)
[2021-04-27 06:39] LABS: Hemoglobin 12.6 g/dl (14.0-18.0); Mean Corpuscular HGB Conc 34.1 g/dl (31.0-36.0); Mean Corpuscular Hemoglobin 28.8 pg (27.0-33.0); Mean Corpuscular Volume 84.5 fL (80.0-98.0); Mean Platelet Volume 10.2 fL (9.4-12.4); Platelet Count 392 X10*3/uL (160-400); Red Blood Count 4.38 X10*6/uL (4.60-5.80); Red Cell Distribution Width 13.1 % (11.0-16.0); White Blood Count 11.8 X10*3/uL (4.8-10.8)
[2021-04-27 07:08] LABS: Anion Gap 15 (12-20); Blood Urea Nitrogen 7 mg/dL (9-16); Calcium 8.7 mg/dL (8.4-10.2); Carbon Dioxide 29 mmol/L (22-29); Chloride 95 mmol/L (96-108); Creatinine Clr Calc Pharmacy 120.2; Estimated Glomerular Filt Rate > 60; Glucose Random 136 mg/dL (60-115); Potassium 4.2 mmol/L (3.3-5.1); Sodium 135 mmol/L (135-145)
[2021-04-27 07:17] VITALS: BP 155/79; PULSE 100; RESP 18; TEMP 36.2; O2SAT 97
[2021-04-27 07:26] LABS: Glucose, Whole Blood 141 mg/dL (60-115)
[2021-04-27] MEDS: atenoloL 25 MG TABLET PO (07:54)
[2021-04-27] MEDS: lisinopriL 40 MG TABLET PO (07:54)
[2021-04-27] MEDS: Escitalopram Oxalate 10 MG TABLET PO (07:54)
[2021-04-27] MEDS: amLODIPine Besylate 10 MG TABLET PO (07:55)
--- NOTE | 2021-04-27 08:52 | HO.PM.IMPN ---
Subjective Subjective Date of Service: 04/27/21 Interval History: F/u on diabetic foot wound, celulitis and osteomylitis, pain is controlled, no new issues Review of Systems Gen: no fever Resp: no sob, no cough CV: no chest, no MONTES [place] OCA, no leg edema GI: n/v, abd pain Neuro: No confusion no pain in the foot Physical Exam Vital Signs: Vital Signs: Last Vital Signs Temp 97.1 F 04/27/21 07:17 Pulse 100 04/27/21 07:17 Resp 18 04/27/21 07:17 BP 155/79 H 04/27/21 07:17 Pulse Ox 97 04/27/21 07:17 BMI result Body Mass Index 43.9 Const: Other: exam essentially unchanged General: AO X 3, no acute distress Resp: CTA bilateral CVS: S1,S2,RRR GI: +BS, NT, no distention Skin: Neuro: motor grossly intact Psych: appropriate affect Objective Data Active Medications Acetaminophen (Acetaminophen 325 Mg Tablet) 650 mg PO Q6H PRN PRN Reason: Pain, Mild (Pain Scale 1-3) Last Admin: 04/26/21 02:17 Dose: 650 mg Documented by: DUNCAN Albuterol Sulfate (Albuterol Sulfate 90 Mcg 8 Gm Inhaler) 2 puff INHALE Q4H PRN PRN Reason: Shortness Of Breath Amlodipine Besylate (Amlodipine Besylate 10 Mg Tablet) 10 mg PO DAILY [facility]; Protocol Last Admin: 04/27/21 07:55 Dose: 10 mg Documented by: AURY Atenolol (Atenolol 25 Mg Tablet) 25 mg PO DAILY [facility]; Protocol Last Admin: 04/27/21 07:54 Dose: 25 mg Documented by: AURY Clonazepam (Clonazepam 0.5 Mg Tablet) 0.5 mg PO DAILY PRN PRN Reason: Anxiety Last Admin: 04/26/21 20:33 Dose: 0.5 mg Documented by: DIGNA Dextrose (Dextrose 50 % 25 Gm/50 Ml Syringe) 25 gm IVPUSH Q15M PRN; Protocol PRN Reason: per Hypoglycemia Standing Ord. Docusate Sodium (Docusate Sodium 100 Mg Capsule) 100 mg PO DAILY PRN PRN Reason: Constipation Escitalopram Oxalate (Escitalopram Oxalate 10 Mg Tablet) 10 mg PO DAILY [facility] Last Admin: 04/27/21 07:54 Dose: 10 mg Documented by: AURY Fluticasone Propionate (Fluticasone Propionate 100 Mcg Blst.W.Dev) 2 puff INHALE RBID [facility] Last Admin: 04/27/21 07:26 Dose: Not Given Documented by: FARIHA Non-Admin Reason: Med Not Available Gabapentin (Gabapentin 400 Mg Capsule) 800 mg PO TID PRN PRN Reason: NERVE PAIN Last Admin: 04/25/21 09:03 Dose: 800 mg Documented by: JOSE ALBERTO Glucose (Glucose Gel 15 Gm Gel..Gram.) 15 gm PO Q15M PRN; Protocol PRN Reason: per Hypoglycemia Standing Ord. Heparin Sodium (Porcine) (Heparin Sodium,Porcine 5,000 Unit/Ml Vial) 5,000 unit SUBCUT Q12H [facility] Last Admin: 04/26/21 22:28 Dose: 5,000 unit Documented by: DIGNA Hydromorphone HCl (Hydromorphone Hcl 1 Mg/Ml Syringe) 0.5 mg IVPUSH Q4H PRN; Protocol PRN Reason: Pain, Severe (Pain Scale 7-10) Last Admin: 04/27/21 07:56 Dose: 0.5 mg Documented by: AURY Piperacillin Sod/Tazobactam (Sod 3.375 gm/ Sodium Chloride) 50 mls @ 100 mls/hr IV Q6H [facility] Last Infusion: 04/27/21 07:08 Dose: 100 mls/hr Documented by: AURY Vancomycin HCl 1,250 mg/ (Sodium Chloride) 250 mls @ 166.667 mls/hr IV Q12H [facility] Last Infusion: 04/27/21 01:20 Dose: 0 mls/hr Documented by: SANDEEP Insulin Glargine (Insulin Glargine,Hum.Rec.Anlog 100 Unit/Ml 10 Ml Vial) 26 unit SUBCUT DAILY [facility] Last Admin: 04/26/21 10:17 Dose: 26 unit Documented by: SILVESTRE-MALIR Insulin Human Lispro (Insulin Lispro 100 Unit/Ml 3 Ml Vial) 0 unit SUBCUT QIDACHS [facility]; Protocol Last Admin: 04/27/21 07:49 Dose: Not Given Documented by: AURY Non-Admin Reason: No Insulin Coverage Lisinopril (Lisinopril 40 Mg Tablet) 40 mg PO DAILY [facility]; Protocol Last Admin: 04/27/21 07:54 Dose: 40 mg Documented by: AURY Omeprazole (Omeprazole 40 Mg Capsule.Dr) 40 mg PO DAILY@0630 [facility] Last Admin: 04/27/21 05:46 Dose: 40 mg Documented by: SANDEEP Oxycodone HCl (Oxycodone Hcl Immed Release 5 Mg Tablet) 5 mg PO Q6H PRN PRN Reason: Pain, Severe (Pain Scale 7-10) Last Admin: 04/27/21 05:48 Dose: 5 mg Documented by: SANDEEP Pharmacy Consult (Consult Rx Perform Med Rec) 1 each MISCELLANE ONCE PRN PRN Reason: Consult order Pharmacy Consult (Consult Rx Vancomycin Dosing) 1 each MISCELLANE DAILY PRN PRN Reason: Consult order Prochlorperazine Edisylate (Prochlorperazine Edisylate 10 Mg/2 Ml Vial) 5 mg IVPUSH Q4H PRN PRN Reason: Nausea and Vomiting Last Admin: 04/26/21 22:34 Dose: 5 mg Documented by: DIGNA Sodium Chloride (0.9 % Sodium Chloride Flush 3 Ml Syringe) 3 ml IVFLUSH [facility] Last Admin: 04/27/21 07:57 Dose: 3 ml Documented by: AURY Labs CBC & Chem 7: 04/27/21 06:10 04/27/21 06:10 Labs: Laboratory Results - last 24 hr 04/26/21 04/26/21 04/26/21 13:58 16:00 20:14 MCV MCH MCHC RDW Plt Count MPV Absolute Nucleated RBC Nucleated RBC % (auto) Anion Gap Estim Creat Clear Calc Estimated GFR POC Glucose 232 H 195 H 138 H Random Glucose Calcium Vancomycin Trough 04/26/21 04/27/21 04/27/21 21:16 06:10 06:10 MCV 84.5 MCH 28.8 MCHC 34.1 RDW 13.1 Plt Count 392 MPV 10.2 Absolute Nucleated RBC 0.000 Nucleated RBC % (auto) 0.0 Anion Gap 15 Estim Creat Clear Calc 120.2 Estimated GFR > 60 POC Glucose Random Glucose 136 H Calcium 8.7 Vancomycin Trough 7.7 L 04/27/21 07:18 MCV MCH MCHC RDW Plt Count MPV Absolute Nucleated RBC Nucleated RBC % (auto) Anion Gap Estim Creat Clear Calc Estimated GFR POC Glucose 141 H Random Glucose Calcium Vancomycin Trough Microbiology Microbiology Results: Microbiology 04/24/21 21:00 Blood Culture - Preliminary Blood - Venous No growth after 48 hours. 04/24/21 19:58 Blood Culture - Preliminary Blood - Venous No growth after 48 hours. Assessment and Plan (1) Cellulitis: Status: Acute (2) Diabetic foot infection: Status: Acute (3) Hypertension: (4) Diabetes mellitus: Plan 50-year-old male past medical history of diabetes, osteomyelitis of the right foot, complicated left diabetic foot wound presents to the hospital with nonhealing wound now found to have osteomyelitis of the left 1st metatarsal #? sepsis due to left foot cellulitis and osteomylitis of the left 1st metatarsal bone. --sepsis resolved -Zosyn and Vanco -ID recommending nursing home Abx, PICC line tomorrow -Surgery is recommending trial of Abx and if not successful then amputaton. #?Abdominal pain, n/v--seem improved. CT non-obstructing anibal kidney stones, and cholelithiassis. I think symptoms are due to gastroparesis. Will try reglan before meals #? diabetes--Changed TResiba to Lantus, SSI, diabetic diet -? hold Metformin and Jardiance for now #? asthma - ? not in exacerbation -? continue home inhalers #HTN continue home lisinopril, norvasc and atenolol--BP normal hold Lisinopril 40 today #Mood--Continue lexapro, klonopin #peripheral neuropathy continue gabapentin dvt ppx - Heparin code status? - full code Quality Stroke Does the patient have a stroke diagnosis?: No VTE Prior VTE?: No VTE Risk Level:: Medical - moderate - high VTE Device Contraindication: Treatment Not Indicated VTE Drug Contraindication: N/A - Med Ordered
[2021-04-27] MEDS: Insulin Glargine,Hum.rec.anlog 100 UNIT/ML 10 ML VIAL 26 UNIT SUBCUT (09:41)
[2021-04-27] MEDS: Heparin Sodium,Porcine 5,000 UNIT/ML VIAL 5000 UNIT SUBCUT ×2 (10:47→23:04)
[2021-04-27 11:06] VITALS: BP 117/66; PULSE 78; RESP 18; TEMP 36.7; O2SAT 94
[2021-04-27 11:18] LABS: Glucose, Whole Blood 314 mg/dL (60-115)
[2021-04-27] MEDS: vancomycin HCL 1,250 MG in 0.9 % Sodium Chloride 250 ML 166.67 MG IV (11:36)
[2021-04-27] MEDS: Insulin Lispro 100 UNIT/ML 3 ML VIAL SUBCUT ×3 (11:37→20:43)
[2021-04-27] MEDS: Prochlorperazine Edisylate 10 MG/2 ML VIAL 5 MG IVPUSH (12:47)
[2021-04-27 15:02] VITALS: BP 147/79; PULSE 90; RESP 20; TEMP 36.3; O2SAT 96
[2021-04-27 16:05] LABS: Glucose, Whole Blood 226 mg/dL (60-115)
[2021-04-27 19:08] VITALS: BP 149/68; PULSE 84; RESP 20; TEMP 36.5; O2SAT 92
[2021-04-27 19:45] LABS: Glucose, Whole Blood 249 mg/dL (60-115)
[2021-04-27] MEDS: clonazePAM 0.5 MG TABLET PO (20:43)
[2021-04-27 21:53] LABS: Vancomycin Trough 10.6 mcg/mL (10.0-20.0)
--- NOTE | 2021-04-27 22:01 | PHA.PROG ---
Admission Date/Time: April 24, 2021 22:45 Indication: Weight in k.058 kg Adjusted body weight in Kg: [place] body weight in Kg: Obesity Dosing Indication % IBW: Serum Creatinine - Last 168 Hours 04/24/21 04/25/21 04/26/21 19:58 07:10 07:52 Creatinine 0.90 0.95 0.84 04/27/21 06:10 Creatinine 0.72 Estimated CrCl and GFR - Last 168 Hours 04/24/21 04/25/21 04/26/21 19:58 07:10 07:52 Estim Creat Clear Calc 96.1 91.1 103.0 Estimated GFR > 60 > 60 > 60 04/27/21 06:10 Estim Creat Clear Calc 120.2 Estimated GFR > 60 Vancomycin Loading Dose: Current Vancomycin Dosing Regimen: Vancomycin Monitoring using AUC goal of 400 - 600 range with trough as surrogate marker: Date and Time for next Vancomycin Level to be drawn: Vancomycin Trough 10.6 mcg/mL (10.0-20.0) 04/27/21 21:01 Pharmacist Comments on Vancomycin Plan:Increasing to 1 gm q8h Vancomycin dosing will take advantage of [employer] as a clinical decision support tool that uses Bayesian modeling to calculate individual patient's pharmacokinetic parameters and forecast the patient's drug concentration time course with the target goal AUC 24 range of 400 - 600 mg/L/hr.
[2021-04-27] MEDS: vancomycin HCL 1,000 MG in 0.9 % Sodium Chloride 250 ML 270 MG IV (23:48)
[2021-04-28] VITALS (12 sets, daily range): BP systolic 122–166; BP diastolic 54–91; PULSE 76–87; RESP 18–20; TEMP 36.3–37.1; O2SAT 95–99
[2021-04-28] MEDS: HYDROmorphone HCl 1 MG/ML SYRINGE 0.5 MG IVPUSH ×6 (00:47→21:25)
[2021-04-28] MEDS: HYDROmorphone HCl 0.5 MG/0.5 ML SYRINGE IVPUSH (02:27)
[2021-04-28] MEDS: Omeprazole 40 MG CAPSULE.DR PO (05:16)
[2021-04-28] MEDS: Piperacillin Sodium/Tazobactam 3.375 GM in 0.9 % Sodium Chloride 50 ML IV ×4 (05:16→22:34)
[2021-04-28] MEDS: 0.9 % Sodium Chloride Flush 3 ML SYRINGE IVFLUSH ×3 (05:27→16:15)
[2021-04-28] MEDS: vancomycin HCL 1,000 MG in 0.9 % Sodium Chloride 250 ML 270 MG IV ×2 (06:06→16:12)
[2021-04-28 07:06] LABS: Anion Gap 12 (12-20); Blood Urea Nitrogen 9 mg/dL (9-16); Calcium 8.8 mg/dL (8.4-10.2); Carbon Dioxide 29 mmol/L (22-29); Chloride 97 mmol/L (96-108); Creatinine Clr Calc Pharmacy 116.9; Estimated Glomerular Filt Rate > 60; Glucose Random 184 mg/dL (60-115); Potassium 4.2 mmol/L (3.3-5.1); Sodium 134 mmol/L (135-145)
[2021-04-28 07:32] LABS: Glucose, Whole Blood 177 mg/dL (60-115)
--- NOTE | 2021-04-28 07:49 | P.PNIM_ITS ---
Subjective Subjective Date of Service: 04/28/21 Interval History: F/u on diabetic foot wound, celulitis and osteomylitis, pain is controlled, no new issues Physical Exam Vital Signs: Vital Signs: Last Vital Signs Temp 97.4 F 04/28/21 07:02 Pulse 86 04/28/21 07:02 Resp 18 04/28/21 07:02 BP 156/83 H 04/28/21 07:02 Pulse Ox 95 04/28/21 07:02 BMI result Body Mass Index 43.9 Const: Other: General: AO X 3, no acute distress Resp: CTA bilateral CVS: S1,S2,RRR GI: +BS, NT, no distention Skin: foot wound unchange Neuro: motor grossly intact Psych: appropriate affect Objective Data Active Medications Acetaminophen (Acetaminophen 325 Mg Tablet) 650 mg PO Q6H PRN PRN Reason: Pain, Mild (Pain Scale 1-3) Last Admin: 04/26/21 02:17 Dose: 650 mg Documented by: DUNCAN Albuterol Sulfate (Albuterol Sulfate 90 Mcg 8 Gm Inhaler) 2 puff INHALE Q4H PRN PRN Reason: Shortness Of Breath Amlodipine Besylate (Amlodipine Besylate 10 Mg Tablet) 10 mg PO DAILY NICK; Pr otocol Last Admin: 04/27/21 07:55 Dose: 10 mg Documented by: AURY Atenolol (Atenolol 25 Mg Tablet) 25 mg PO DAILY NICK; Protocol Last Admin: 04/27/21 07:54 Dose: 25 mg Documented by: AURY Clonazepam (Clonazepam 0.5 Mg Tablet) 0.5 mg PO DAILY PRN PRN Reason: Anxiety Last Admin: 04/27/21 20:43 Dose: 0.5 mg Documented by: DIGNA Dextrose (Dextrose 50 % 25 Gm/50 Ml Syringe) 25 gm IVPUSH Q15M PRN; Protocol PRN Reason: per Hypoglycemia Standing Ord. Docusate Sodium (Docusate Sodium 100 Mg Capsule) 100 mg PO DAILY PRN PRN Reason: Constipation Escitalopram Oxalate (Escitalopram Oxalate 10 Mg Tablet) 10 mg PO DAILY NICK Last Admin: 04/27/21 07:54 Dose: 10 mg Documented by: AURY Fluticasone Propionate (Fluticasone Propionate 100 Mcg Blst.W.Dev) 2 puff INHALE RBID [facility] Last Admin: 04/27/21 20:28 Dose: Not Given Documented by: MALLORY Non-Admin Reason: Med Not Available Gabapentin (Gabapentin 400 Mg Capsule) 800 mg PO TID PRN PRN Reason: NERVE PAIN Last Admin: 04/25/21 09:03 Dose: 800 mg Documented by: JOSE ALBERTO Glucose (Glucose Gel 15 Gm Gel..Gram.) 15 gm PO Q15M PRN; Protocol PRN Reason: per Hypoglycemia Standing Ord. Heparin Sodium (Porcine) (Heparin Sodium,Porcine 5,000 Unit/Ml Vial) 5,000 unit SUBCUT Q12H [facility] Last Admin: 04/27/21 23:04 Dose: 5,000 unit Documented by: DIGNA Hydromorphone HCl (Hydromorphone Hcl 1 Mg/Ml Syringe) 0.5 mg IVPUSH Q4H PRN; Protocol PRN Reason: Pain, Severe (Pain Scale 7-10) Last Admin: 04/28/21 05:26 Dose: 0.5 mg Documented by: FRITZ Piperacillin Sod/Tazobactam (Sod 3.375 gm/ Sodium Chloride) 50 mls @ 100 mls/hr IV Q6H [facility] Last Infusion: 04/28/21 06:36 Dose: 0 mls/hr Documented by: FRITZ Vancomycin HCl 1,000 mg/ (Sodium Chloride) 270 mls @ 270 mls/hr IV Q8H [facility] Last Admin: 04/28/21 06:06 Dose: 270 mls/hr Documented by: FRITZ Insulin Glargine (Insulin Glargine,Hum.Rec.Anlog 100 Unit/Ml 10 Ml Vial) 26 unit SUBCUT DAILY [facility] Last Admin: 04/27/21 09:41 Dose: 26 unit Documented by: AURY Insulin Human Lispro (Insulin Lispro 100 Unit/Ml 3 Ml Vial) 0 unit SUBCUT QIDACHS [facility]; Protocol Last Admin: 04/27/21 20:43 Dose: 4 unit Documented by: DIGNA Lisinopril (Lisinopril 40 Mg Tablet) 40 mg PO DAILY [facility]; Protocol Last Admin: 04/27/21 07:54 Dose: 40 mg Documented by: AURY Omeprazole (Omeprazole 40 Mg Capsule.) 40 mg PO DAILY@0630 [facility] Last Admin: 04/28/21 05:16 Dose: 40 mg Documented by: FRITZ Oxycodone HCl (Oxycodone Hcl Immed Release 5 Mg Tablet) 5 mg PO Q6H PRN PRN Reason: Pain, Severe (Pain Scale 7-10) Last Admin: 04/27/21 23:12 Dose: 5 mg Documented by: DIGNA Pharmacy Consult (Consult Rx Perform Med Rec) 1 each MISCELLANE ONCE PRN PRN Reason: Consult order Pharmacy Consult (Consult Rx Vancomycin Dosing) 1 each MISCELLANE DAILY PRN PRN Reason: Consult order Prochlorperazine Edisylate (Prochlorperazine Edisylate 10 Mg/2 Ml Vial) 5 mg IVPUSH Q4H PRN PRN Reason: Nausea and Vomiting Last Admin: 04/27/21 12:47 Dose: 5 mg Documented by: AURY Sodium Chloride (0.9 % Sodium Chloride Flush 3 Ml Syringe) [facility] Last Admin: 04/28/21 05:27 Dose: 3 ml Documented by: FRITZ Labs CBC & Chem 7: 04/27/21 06:10 04/28/21 05:58 Labs: Laboratory Results - last 24 hr 04/27/21 04/27/21 04/27/21 11:09 15:58 19:37 Anion Gap Estim Creat Clear Calc Estimated GFR POC Glucose 314 H 226 H 249 H Random Glucose Calcium Vancomycin Trough 04/27/21 04/28/21 04/28/21 21:01 05:58 07:05 Anion Gap 12 Estim Creat Clear Calc 116.9 Estimated GFR > 60 POC Glucose 177 H Random Glucose 184 H D Calcium 8.8 Vancomycin Trough 10.6 Assessment and Plan (1) Cellulitis: Status: Acute (2) Diabetic foot infection: Status: Acute (3) Hypertension: (4) Diabetes mellitus: Plan 50-year-old male past medical history of diabetes, osteomyelitis of the right foot, complicated left diabetic foot wound presents to the hospital with nonhealing wound now found to have osteomyelitis of the left 1st metatarsal #? sepsis due to left foot cellulitis and osteomylitis of the left 1st me tatarsal bone. --sepsis resolved -Zosyn and Vanco -ID recommending custodial Abx, PICC line today and hopefully discharge later -Surgery is recommending trial of Abx and if not successful then amputaton. #?Abdominal pain, n/v--seem improved. CT non-obstructing anibal kidney stones, and cholelithiassis. I think symptoms are due to gastroparesis. Will try reglan before meals #? diabetes--Changed TResiba to Lantus, SSI, diabetic diet -? hold Metformin and Jardiance for now #? asthma - ? not in exacerbation -? continue home inhalers #HTN continue home lisinopril, norvasc and atenolol--BP normal hold Lisinopril 40 today #Mood--Continue lexapro, klonopin #peripheral neuropathy continue gabapentin dvt ppx - Heparin code status? - full code Quality Stroke Does the patient have a stroke diagnosis?: No VTE Prior VTE?: No VTE Risk Level:: Medical - moderate - high VTE Device Contraindication: Treatment Not Indicated VTE Drug Contraindication: N/A - Med Ordered
[2021-04-28] MEDS: Fluticasone Propionate 100 MCG BLST.W.DEV 2 PUFF INHALE ×2 (08:02→19:30)
[2021-04-28] MEDS: Insulin Glargine,Hum.rec.anlog 100 UNIT/ML 10 ML VIAL 26 UNIT SUBCUT (09:22)
[2021-04-28] MEDS: Insulin Lispro 100 UNIT/ML 3 ML VIAL SUBCUT ×4 (09:22→21:26)
[2021-04-28] MEDS: lisinopriL 40 MG TABLET PO (09:23)
[2021-04-28] MEDS: atenoloL 25 MG TABLET PO (09:23)
[2021-04-28] MEDS: Escitalopram Oxalate 10 MG TABLET PO (09:23)
[2021-04-28] MEDS: amLODIPine Besylate 10 MG TABLET PO (09:31)
[2021-04-28 11:18] LABS: Glucose, Whole Blood 289 mg/dL (60-115)
--- NOTE | 2021-04-28 11:40 | MHC.CM.PN ---
Per MD, Patient will be getting a PICC today in anticipation of home dc with LT IVABT. MARIAH CALDERON will follow.
[2021-04-28] MEDS: Heparin Sodium,Porcine 5,000 UNIT/ML VIAL 5000 UNIT SUBCUT ×2 (11:41→22:34)
[2021-04-28] MEDS: oxyCODONE HCl Immed Release 5 MG TABLET PO ×2 (11:41→18:06)
--- NOTE | 2021-04-28 13:32 | PC.NURSE ---
Skin/Wound assessment completed today. Patient has a diabetic ulcer to right great toe with a split open dark callous, silver alginate applied to wound be covered with non woven gauze and roll gauze. Patient also has a small diabetic ulcer to left lateral great toe with slough, silver alginate applied covered with non woven gauze and roll gauze. Patient has osteomylitis and will be receiving 6 weeks antibiotic therapy.
--- NOTE | 2021-04-28 13:34 | MHC.CM.PN ---
Addendum entered by Diana Fontaine 04/28/21 16:04: [facility] unable to accomodate pt: expanded referrals have not produced any accepting agencies: will broaden the search. Pt has done his own IV ATB infusions in the past but will need [facility] for PICC dressing changes and wound assessments/dsg changes. MD to have script and flush order for 04/29 early am to ensure delivery once pt gets his PICC line. [facility] will need to be secured, however. CM to follow Original Note: Call placed to IR to inquire on the PICC insertion today: they are unable to place the line d/t a multitude of factors and will pend him until 04/29. Per conversation with MD: pt will d/c to home on Invanz 1 gram daily for 6 weeks. [facility] cannot offer services until the end of the week. [facility] referral expanded in anticipation of a 04/29 d/c. Pt will need to have one dose of Invanz here before d/c to ensure no adverse reaction to this new med. CM to follow.
[2021-04-28] MEDS: clonazePAM 0.5 MG TABLET PO (14:02)
--- NOTE | 2021-04-28 14:28 | P.CDIC_ITS ---
CDI Concurrent Query Documentation Clarification: PHYSICIAN'S DOCUMENTATION REQUEST Date of Query: 04/28/21 1428 Patient Name: Mike Tineo Admit Date: 04/24/21 Dear Doctor, A review of the medical record indicates additional documentation may be needed. Please review below and update the documentation accordingly. Risk Factors/Clinical Indicators/Treatments Per MD progress note 04/28/21: sepsis due to left foot cellulitis and osteomylitis of the left 1st metatarsal bone PMH: DM Please clarify the relationship between these conditions: * Yes, Cellulitis is related to / associated with / due to Diabetes Mellitus * No, Cellulitis is not related to / associated with / due to Diabetes Mellitus * Unable to determine Use of terms such as suspected, likely, concern for, or probable (associated with a specific diagnosis that is being evaluated, monitored, or treated as if it exists) are acceptable and can be coded in the inpatient setting, when documented at the time of discharge. Thank you, Erika Mckee RN Extension: [phone] Please use your independent medical judgment in providing your response. THIS QUERY IS PART OF THE PERMANENT MEDICAL RECORD Provider Response: Other Other Diagnosis: Cellulitis assocated with diabetes
[2021-04-28 16:54] LABS: Glucose, Whole Blood 255 mg/dL (60-115)
[2021-04-28 20:57] LABS: Glucose, Whole Blood 208 mg/dL (60-115)
--- NOTE | 2021-04-28 21:54 | PHA.PROG ---
Admission Date/Time: April 24, 2021 22:45 Indication: Sepsis - cellulitis & osteomyltisi Weight in k.058 kg Adjusted body weight in K.82 kg [place] body weight in K kg Obesity Dosing Indication % IBW: 204% Serum Creatinine - Last 168 Hours 04/24/21 04/25/21 04/26/21 19:58 07:10 07:52 Creatinine 0.90 0.95 0.84 04/27/21 04/28/21 06:10 05:58 Creatinine 0.72 0.74 Estimated CrCl and GFR - Last 168 Hours 04/24/21 04/25/21 04/26/21 19:58 07:10 07:52 Estim Creat Clear Calc 96.1 91.1 103.0 Estimated GFR > 60 > 60 > 60 04/27/21 04/28/21 06:10 05:58 Estim Creat Clear Calc 120.2 116.9 Estimated GFR > 60 > 60 Vancomycin Loading Dose: 2000 mg Current Vancomycin Dosing Regimen: 1000 mg Q8H Vancomycin Trough 16.0 mcg/mL (10.0-20.0) 04/28/21 21:00 Pharmacist Comments on Vancomycin Plan: Vancomycin trough jump in 24 hr from 10 to 16 with increase of dose from 1250 mg Q12H to 1000 mg Q8H Will change dose to 1500 mg Q12H to allow patient to clear vancomycin prior to next dose beginning. The expected AUC is the same at 464 with a slightly lower trough If patient drop to subtherapuetic levels we will switch patient back to 1000 mg Q8H, however patient is morbidily obese therefore vanco concentration may be hidden in the tissue. Pharmacy will continue to monitor renal function daily Next trough 04/30 @ 1300 Liana Denton PharmD Vancomycin dosing will take advantage of [employer] as a clinical decision support tool that uses Bayesian modeling to calculate individual patient's pharmacokinetic parameters and forecast the patient's drug concentration time course with the target goal AUC 24 range of 400 - 600 mg/L/hr.
[2021-04-29] VITALS (7 sets, daily range): BP systolic 106–176; BP diastolic 53–88; PULSE 77–91; RESP 18–200; TEMP 36.2–37.4; O2SAT 93–96
[2021-04-29] MEDS: 0.9 % Sodium Chloride Flush 3 ML SYRINGE IVFLUSH ×4 (00:23→23:04)
[2021-04-29] MEDS: HYDROmorphone HCl 1 MG/ML SYRINGE 0.5 MG IVPUSH ×6 (02:01→21:36)
[2021-04-29] MEDS: vancomycin HCL 1,500 MG in 0.9 % Sodium Chloride 500 ML 333.33 MG IV (02:36)
[2021-04-29] MEDS: Prochlorperazine Edisylate 10 MG/2 ML VIAL 5 MG IVPUSH (05:33)
[2021-04-29] MEDS: Omeprazole 40 MG CAPSULE.DR PO (05:36)
[2021-04-29] MEDS: Piperacillin Sodium/Tazobactam 3.375 GM in 0.9 % Sodium Chloride 50 ML IV ×2 (05:37→09:45)
[2021-04-29 07:11] LABS: Creatinine Clr Calc Pharmacy 110.9; Estimated Glomerular Filt Rate > 60
[2021-04-29 07:26] LABS: Glucose, Whole Blood 277 mg/dL (60-115)
[2021-04-29] MEDS: Fluticasone Propionate 100 MCG BLST.W.DEV 2 PUFF INHALE (08:00)
[2021-04-29] MEDS: Insulin Glargine,Hum.rec.anlog 100 UNIT/ML 10 ML VIAL 26 UNIT SUBCUT (08:00)
[2021-04-29] MEDS: Insulin Lispro 100 UNIT/ML 3 ML VIAL SUBCUT ×3 (08:00→21:35)
[2021-04-29] MEDS: amLODIPine Besylate 10 MG TABLET PO (08:01)
[2021-04-29] MEDS: lisinopriL 40 MG TABLET PO (08:01)
[2021-04-29] MEDS: Escitalopram Oxalate 10 MG TABLET PO (08:01)
[2021-04-29] MEDS: atenoloL 25 MG TABLET PO (08:01)
[2021-04-29] MEDS: oxyCODONE HCl Immed Release 5 MG TABLET PO (08:04)
[2021-04-29] MEDS: Heparin Sodium,Porcine 5,000 UNIT/ML VIAL 5000 UNIT SUBCUT (09:44)
[2021-04-29 10:59] LABS: Glucose, Whole Blood 110 mg/dL (60-115)
--- NOTE | 2021-04-29 11:34 | P.DS_ITS ---
DS: Providers Provider Date of Service: 04/30/21 Date of admission: 04/24/21 22:45 Primary care physician: Erica Aguilar NP Consults: 04/24/21 22:43 Consult to General Surgery Routine Consulting Provider: Jarek Pelaez Reason for consultation: non-healing wound Has provider been notified: No Consult to Infectious Diseases Routine Consulting Provider: Chantelle Santillan Reason for consultation: non-healing diabetic wound DS: Diagnosis Discharge Diagnosis (1) Cellulitis: Status: Acute (2) Diabetic foot infection: Status: Acute (3) Hypertension: (4) Diabetes mellitus: DS: Summary Hospital Course Hospital Course: Chief Complaint: non-healing foot wound ?this is a 50-year-old male with past medical history of diabetes, history of osteomyelitis with amputation of 3 of his right foot toes, hypertension, hep C, and recently his cellulitis and complicated diabetic wound of the left foot to presents to the hospital with complaints of nonhealing wound.? Patient reports that he has had worsening left foot wound / recurrent infection, the wound is very painful tender of 10, draining, bleeding, he has had some chills with no fever.? He is also complaining of? epigastric abdominal pain associated with nausea and vomiting, pain is radiating to the back, he has had this abdominal pain for the past 1 year, intermittent, but got worse in the past few days.? He has had nausea vomiting diarrhea every other day.? Nonbloody.? Patient was discharged in February after presenting with a left diabetic foot wound/left leg cellulitis.? He was septic at that time, blood cultures were negative but MRI did show complex subcutaneous abscess along the plantar medial aspect of the 1st MTP joint and 1st proximal phalanx.? At that time he was seen by general surgeon and the area abscess was incised and drained.? He? was discharged on Augmentin ? And Ceftinfor 10 days.? Patient reports at that he completed his medications that he was compliant. On arrival to the ED patient hemodynamically stable with no significant abnormal vitals except a slightly elevated heart rate of 107 Labs are significant for WBC count of 20.5, ESR 56,? glucose of 425, lactic acid of 2.9, magnesium of 1.3, UA negative, Foot x-ray showed bone destruction of the plantar surface of the head of the 1st metatarsal and the medial 1st metatarsal plantar consistent with osteomyelitis ?abdominal CT shows bilateral nonobstructing renal calculi, cholelithiasis without evidence of cholecystitis, bilateral thickening of both adrenal glands, no cause for the patient's diffuse abdominal pain nausea vomiting and diarrhea have been found, l. Hospital course: #? sepsis due to left foot cellulitis? and osteomylitis of the left 1st metatarsal bone as evident on xray --sepsis resolved. He was treated in the hospital with IV Zosyn and Vanco. He was seen by Dr. Pelaez with recmmendation of ampuation if antibiotics fail to treat the osteomylitis. Ifection disease Dr. Santillan saw him and recommends IV Invanz for 6 weeks via a PICC line inserted today 04/30/21, first dose of antibiotics given in the hospital . #?Abdominal pain, n/v--seem improved. CT non-obstructing anibal kidney stones, and cholelithiassis. I think symptoms are due to gastroparesis--resolved. #? diabetes--we Changed TResiba to Lantus while in the hospital but can resume upon discharge, also can resume Metformin and Jardiance #? asthma - ? not in exacerbation -? continue home inhalers #HTN--Resume Lisinopril, Norvasc, Atenolol #Mood--Continue lexapro, klonopin #peripheral neuropathy continue gabapentin Time Spent with Patient Time attestation: Total time spent providing and/or coordinating discharge services: Discharge coordination time: Greater than 30 minutes Quality: Stroke Does the patient have a stroke diagnosis?: No Physical Exam Vital Signs: Vital Signs: Selected Entries 04/30/21 11:47 Temperature 98.7 F Pulse Rate 81 Respiratory Rate 18 Blood Pressure 148/71 H Pulse Oximetry 97 Oxygen Delivery Me thod Room Air DS: Data Data Completed and Pending Completed studies during hospitalization [Text1]: Procedures Drainage of Left Foot Skin, External Approach (03/02/21) Insertion of Infusion Device into Superior Vena Cava, Percutaneous Approach (12/06/20) Labs on day of discharge: Laboratory Results - last 24 hr 04/28/21 04/28/21 04/28/21 16:18 20:41 21:00 Creatinine Estim Creat Clear Calc Estimated GFR POC Glucose 255 H 208 H Vancomycin Trough 16.0 04/29/21 04/29/21 04/29/21 06:05 07:12 10:47 Creatinine 0.78 Estim Creat Clear Calc 110.9 Estimated GFR > 60 POC Glucose 277 H 110 Vancomycin Trough Preliminary micro results at discharge 04/24/21 21:00 Blood Culture - Preliminary Blood - Venous No growth after 48 hours. 04/24/21 19:58 Blood Culture - Preliminary Blood - Venous No growth after 48 hours. Discharge Plan Discharge Anticipated Discharge Date/Time: 04/30/21 12:05 Patient Disposition: Home Health Service Discharge Diagnosis: Osteomylitis of foot Referrals: [facility] [Other] - 1 Week (Home Infusion For Medication and Supplies) [facility] [Outside] - 1 Week Erica Aguilar [employer] [Primary Care Provider] - 1 Week Discharge Medications: New ertapenem [Invanz] 1 gram recon soln 1 g IV Q24H Qty: 41 0RF oxycodone 5 mg tablet 5 mg PO Q6H PRN (Reason: pain) Qty: 14 0RF oxycodone 5 mg tablet 5 mg PO Q6H PRN (Reason: pain) Qty: 14 0RF Continued clonazepam 0.5 mg tablet 1 tab PO DAILY PRN (Reason: Anxiety) 0RF atenolol 25 mg tablet 1 tab PO DAILY 0RF gabapentin 800 mg tablet 1 tab PO TID PRN (Reason: NERVE PAIN) 0RF Rx Instructions: rx for qid, pt takes tid amlodipine 10 mg tablet 1 tab PO DAILY 0RF metformin 1,000 mg tablet 1 tab PO BID 0RF albuterol sulfate 90 mcg/actuation HFA aerosol inhaler 2 puff PO Q4H PRN (Reason: Shortness Of Breath) 0RF lisinopril 40 mg tablet 1 tab PO DAILY 0RF Flovent HFA 110 mcg/actuation HFA aerosol inhaler 2 puff PO BID 0RF insulin aspart U-100 [Novolog PenFill U-100 Insulin] 100 unit/mL cartridge 10 - 15 unit subcut TID 0RF escitalopram oxalate 10 mg tablet 1 tab PO DAILY 0RF Tresiba FlexTouch U-100 100 unit/mL (3 mL) insulin pen 33 unit subcut DAILY 0RF ondansetron 4 mg tablet,disintegrating 1 tab sublingual BID PRN (Reason: Nausea) 0RF omeprazole 40 mg Capsule,Delayed Release(Dr/Ec) 40 mg PO DAILY@0630 0RF Jardiance 10 mg Tablet 10 mg PO DAILY 0RF Discharge Orders: Discharge Order (Routine); Ordered 04/30/21 Ordered By: Munir Guido Diet: advance to usual diet and diabetic diet Activity on Discharge: As tolerated Stand Alone Forms: Patient Portal Discharge page Care Plan Goals: Full recovery from osteomylitis Health Concerns: osteomyelitis of the foot Plan of Treatment: Invanz 1 g IV Q 24 hours for a total of 6 weeks Assessment: as above Discharge Date/Time: 04/30/21 14:16
--- NOTE | 2021-04-29 15:54 | MHC.CM.PN ---
Addendum entered by Jaz Tamez 04/29/21 16:11: Transport via BLS. deputy clerk of superior court was scheduled for 55:30 PM. Action has notified CM that 7PM will be the berry picker time. Original Note: IMM04/29/21 Male 50 Osteo foot infection. He will discharge to home today . He will receive services from [facility] as well as [facility]. He will receive 41 doses of Ertapenum. The services will start tomorrow. He will discharge today after 1st dose of IV ABX via PICC. PICC Line info will be sent to [facility] tomorrow morning. AM line info fax OK per Yoanna, [facility].
--- NOTE | 2021-04-29 16:44 | HO.PICC ---
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 Following completion of [place] Protocol the skin and soft tissues were anesthetized with 1% Lidocaine plain. Using ultrasound guidance, [RIGHT BASILIC] vein access was obtained BY TIARA MARVIN RN TWICE ACCESSED BY UNABLE TO WIRE, DR TERRAZAS ACCESSED THE CEPHALIC.. Over an 0.018 wire through peel-away sheath, a [4FR SINGLE LUMEN] PICC line was positioned Catheter length is [32CM] internal length, [0CM] external length, for a total trimmed length of [32CM]. The procedure was performed in [RM.272]. UNABLE TO GET Tip verification by Sammie Miller with [facility] 3CG, DR TERRAZAS ORDERED A CXR. Ultrasound was used to document vein patency and for needle entry. DR QUIÑONES WAS TIGGER CONNECTED ABOUT VENOUS ACCESS FLUSHING ORDERS ALSO AWARE OF CXR ORDERED BY DR TERRAZAS. Currently dressed with a StatLock, Tegaderm, and CHG disc. Verification has been performed for blood return and line patency. PICC line unable to use until results of cxr are read. Arm Circumference: [38cm] Equipment: [[employer] POWER PICC SOLO] Catheter Type: [4FR SINGLE LUMEN PICC] Lot #: [[id number]]
[2021-04-29 17:14] LABS: Glucose, Whole Blood 241 mg/dL (60-115)
--- NOTE | 2021-04-29 18:48 | P.PNIM_ITS ---
Subjective Subjective Date of Service: 04/29/21 Interval History: F/u on diabetic foot wound, celulitis and osteomylitis, pain is controlled, no new issues Physical Exam Vital Signs: Vital Signs: Last Vital Signs Temp 99.3 F 04/29/21 17:09 Pulse 84 04/29/21 17:09 Resp 20 04/29/21 17:09 BP 134/71 04/29/21 17:09 Pulse Ox 96 04/29/21 17:09 BMI result Body Mass Index 43.9 Const: Other: General: AO X 3, no acute distress Resp: CTA bilateral CVS: S1,S2,RRR GI: +BS, NT, no distention Skin: foot wound unchange Neuro: motor grossly intact Psych: appropriate affect Objective Data Active Medications Acetaminophen (Acetaminophen 325 Mg Tablet) 650 mg PO Q6H PRN PRN Reason: Pain, Mild (Pain Scale 1-3) Last Admin: 04/26/21 02:17 Dose: 650 mg Documented by: DUNCAN Albuterol Sulfate (Albuterol Sulfate 90 Mcg 8 Gm Inhaler) 2 puff INHALE Q4H PRN PRN Reason: Shortness Of Breath Amlodipine Besylate (Amlodipine Besylate 10 Mg Tablet) 10 mg PO DAILY NICK; Pr otocol Last Admin: 04/29/21 08:01 Dose: 10 mg Documented by: JOHN Atenolol (Atenolol 25 Mg Tablet) 25 mg PO DAILY NICK; Protocol Last Admin: 04/29/21 08:01 Dose: 25 mg Documented by: JOHN Clonazepam (Clonazepam 0.5 Mg Tablet) 0.5 mg PO DAILY PRN PRN Reason: Anxiety Last Admin: 04/28/21 14:02 Dose: 0.5 mg Documented by: ZULEIMA Comments: MD Hay JOE early dose Dextrose (Dextrose 50 % 25 Gm/50 Ml Syringe) 25 gm IVPUSH Q15M PRN; Protocol PRN Reason: per Hypoglycemia Standing Ord. Docusate Sodium (Docusate Sodium 100 Mg Capsule) 100 mg PO DAILY PRN PRN Reason: Constipation Escitalopram Oxalate (Escitalopram Oxalate 10 Mg Tablet) 10 mg PO DAILY NICK Last Admin: 04/29/21 08:01 Dose: 10 mg Documented by: JOHN Fluticasone Propionate (Fluticasone Propionate 100 Mcg Blst.W.Dev) 2 puff INHALE RBID [facility] Last Admin: 04/29/21 08:00 Dose: 2 puff Documented by: FARIHA Gabapentin (Gabapentin 400 Mg Capsule) 800 mg PO TID PRN PRN Reason: NERVE PAIN Last Admin: 04/25/21 09:03 Dose: 800 mg Documented by: JOSE ALBERTO Glucose (Glucose Gel 15 Gm Gel..Gram.) 15 gm PO Q15M PRN; Protocol PRN Reason: per Hypoglycemia Standing Ord. Heparin Sodium (Porcine) (Heparin Sodium,Porcine 5,000 Unit/Ml Vial) 5,000 unit SUBCUT Q12H [facility] Last Admin: 04/29/21 09:44 Dose: 5,000 unit Documented by: JOHN Hydromorphone HCl (Hydromorphone Hcl 1 Mg/Ml Syringe) 0.5 mg IVPUSH Q4H PRN; Protocol PRN Reason: Pain, Severe (Pain Scale 7-10) Last Admin: 04/29/21 17:38 Dose: 0.5 mg Documented by: JOHN Insulin Glargine (Insulin Glargine,Hum.Rec.Anlog 100 Unit/Ml 10 Ml Vial) 26 unit SUBCUT DAILY [facility] Last Admin: 04/29/21 08:00 Dose: 26 unit Documented by: JOHN Insulin Human Lispro (Insulin Lispro 100 Unit/Ml 3 Ml Vial) 0 unit SUBCUT QIDACHS [facility]; Protocol Last Admin: 04/29/21 17:29 Dose: 4 unit Documented by: JOHN Lisinopril (Lisinopril 40 Mg Tablet) 40 mg PO DAILY [facility]; Protocol Last Admin: 04/29/21 08:01 Dose: 40 mg Documented by: JOHN Omeprazole (Omeprazole 40 Mg Capsule.) 40 mg PO DAILY@0630 [facility] Last Admin: 04/29/21 05:36 Dose: 40 mg Documented by: REBECA Oxycodone HCl (Oxycodone Hcl Immed Release 5 Mg Tablet) 5 mg PO Q6H PRN PRN Reason: Pain, Severe (Pain Scale 7-10) Last Admin: 04/29/21 08:04 Dose: 5 mg Documented by: JOHN Pharmacy Consult (Consult Rx Perform Med Rec) 1 each MISCELLANE ONCE PRN PRN Reason: Consult order Pharmacy Consult (Consult Rx Vancomycin Dosing) 1 each MISCELLANE DAILY PRN PRN Reason: Consult order Prochlorperazine Edisylate (Prochlorperazine Edisylate 10 Mg/2 Ml Vial) 5 mg IVPUSH Q4H PRN PRN Reason: Nausea and Vomiting Last Admin: 04/29/21 05:33 Dose: 5 mg Documented by: REBECA Sodium Chloride (0.9 % Sodium Chloride Flush 3 Ml Syringe) 3 ml IVFLUSH QSHIFT [facility] Last Admin: 04/29/21 17:34 Dose: 3 ml Documented by: JOHN Labs CBC & Chem 7: 04/27/21 06:10 04/29/21 06:05 Labs: Laboratory Results - last 24 hr 04/28/21 04/28/21 04/29/21 20:41 21:00 06:05 Estim Creat Clear Calc 110.9 Estimated GFR > 60 POC Glucose 208 H Vancomycin Trough 16.0 04/29/21 04/29/21 04/29/21 07:12 10:47 17:10 Estim Creat Clear Calc Estimated GFR POC Glucose 277 H 110 241 H Vancomycin Trough Assessment and Plan (1) Cellulitis: Status: Acute (2) Diabetic foot infection: Status: Acute (3) Hypertension: (4) Diabetes mellitus: Plan 50-year-old male past medical history of diabetes, osteomyelitis of the right foot, complicated left diabetic foot wound presents to the hospital with nonhealing wound now found to have osteomyelitis of the left 1st metatarsal #? sepsis due to left foot cellulitis and osteomylitis of the left 1st metatarsal bone. --sepsis resolved -Zosyn and Vanco -ID recommending senior care Abx, PICC placed today, however not in good position and will need to be repositioned..IR not able to do it until AM -Surgery is recommending trial of Abx and if not successful then amputaton. #?Abdominal pain, n/v--seem improved. CT non-obstructing anibal kidney stones, and cholelithiassis. I think symptoms are due to gastroparesis. Will try reglan before meals #? diabetes--Changed TResiba to Lantus, SSI, diabetic diet -? hold Metformin and Jardiance for now #? asthma - ? not in exacerbation -? continue home inhalers #HTN continue home lisinopril, norvasc and atenolol--BP normal hold Lisinopril 40 today #Mood--Continue lexapro, klonopin #peripheral neuropathy continue gabapentin dvt ppx - Heparin code status? - full code Home tomorrow after IR adjust PICC line position, pic line presenty is not to be used until repositioned Quality Stroke Does the patient have a stroke diagnosis?: No VTE Prior VTE?: No VTE Risk Level:: Medical - moderate - high VTE Device Contraindication: Treatment Not Indicated VTE Drug Contraindication: N/A - Med Ordered
[2021-04-29 20:38] LABS: Glucose, Whole Blood 238 mg/dL (60-115)
[2021-04-29] MEDS: clonazePAM 0.5 MG TABLET PO (23:08)
--- NOTE | 2021-04-29 23:19 | PC.NURSE ---
[employer] woke patient for vital signs-pt anxious, stating he would not be able to go back to sleep and asking when he was due for his Dilaudid. Pt informed he had 2.5 hours to wait. Pt declined Tylenol. Patient wanted Klonopin-given. Will continue to monitor.
[2021-04-30 03:56] VITALS: BP 169/82; PULSE 93; RESP 20; TEMP 36.9; O2SAT 100
[2021-04-30] MEDS: HYDROmorphone HCl 1 MG/ML SYRINGE 0.5 MG IVPUSH ×3 (03:57→12:10)
[2021-04-30] MEDS: Omeprazole 40 MG CAPSULE.DR PO (05:46)
[2021-04-30 06:55] LABS: Creatinine Clr Calc Pharmacy 115.4; Estimated Glomerular Filt Rate > 60
[2021-04-30 07:28] VITALS: BP 140/80; PULSE 88; RESP 18; TEMP 36.9; O2SAT 99
[2021-04-30 07:34] LABS: Glucose, Whole Blood 220 mg/dL (60-115)
[2021-04-30] MEDS: amLODIPine Besylate 10 MG TABLET PO (07:47)
[2021-04-30] MEDS: Insulin Glargine,Hum.rec.anlog 100 UNIT/ML 10 ML VIAL 26 UNIT SUBCUT (07:47)
[2021-04-30] MEDS: lisinopriL 40 MG TABLET PO (07:47)
[2021-04-30] MEDS: atenoloL 25 MG TABLET PO (07:47)
[2021-04-30] MEDS: Escitalopram Oxalate 10 MG TABLET PO (07:47)
[2021-04-30] MEDS: Insulin Lispro 100 UNIT/ML 3 ML VIAL SUBCUT ×2 (07:48→12:10)
[2021-04-30] MEDS: 0.9 % Sodium Chloride Flush 3 ML SYRINGE IVFLUSH (07:48)
[2021-04-30] MEDS: iohexoL 300 MG/ML 50 ML INFUS..BTL 10 ML INTRAARTIC (10:55)
[2021-04-30 11:22] VITALS: BP 148/71; PULSE 81; RESP 18; TEMP 37.1; O2SAT 97
[2021-04-30 11:34] LABS: Glucose, Whole Blood 212 mg/dL (60-115)
[2021-04-30] MEDS: Ertapenem Sodium 1 GM in 0.9 % Sodium Chloride 50 ML IV (11:34)
[2021-04-30 11:47] VITALS: BP 148/71; PULSE 81; RESP 18; TEMP 37.1; O2SAT 97
--- NOTE | 2021-04-30 12:43 | PM.IDPN ---
Subjective Subjective Date of Service: 04/30/21 Critical Care Time (minutes): 15 Comment: he has complaints of pain left foot Objective Data Labs CBC & Chem 7: 04/27/21 06:10 04/30/21 05:59 Labs: Laboratory Results - last 24 hr 04/29/21 04/29/21 04/30/21 17:10 20:33 05:59 Creatinine 0.75 Estim Creat Clear Calc 115.4 Estimated GFR > 60 POC Glucose 241 H 238 H 04/30/21 04/30/21 07:30 11:26 Creatinine Estim Creat Clear Calc Estimated GFR POC Glucose 220 H 212 H Microbiology Microbiology Results: Microbiology 04/24/21 21:00 Blood - Venous Blood Culture - Final No growth after 5 days. 04/24/21 19:58 Blood - Venous Blood Culture - Final No growth after 5 days. Physical Exam Vital Signs: Vital Signs: Last Vital Signs Temp 98.7 F 04/30/21 11:47 Pulse 81 04/30/21 11:47 Resp 18 04/30/21 11:47 BP 148/71 H 04/30/21 11:47 Pulse Ox 97 04/30/21 11:47 BMI result Body Mass Index 43.9 Const: General: cooperative Resp: Effort & Inspection: normal respiratory effort Cardio: Rate: regular rate Rhythm: regular rhythm GI: Palpation (GI): Soft to palpation and nontender Assessment and Plan Assessment and plan (1) Sepsis: Status: Acute (2) Osteomyelitis: Problem details: He has been doing well with Ertapenem Status: Acute (3) Diabetic foot infection: Status: Acute Plan Would give six weeks Ertapenem and possible po after Time Spent With Patient Time: Total time spent is greater than 50% in coordination of care (as documented) at patient's floor/unit and/or counseling patient: Time with patient: less than 15 minutes
--- NOTE | 2021-04-30 13:13 | P.F2F_ITS ---
Service Date Service Date: 04/30/21 Encounter Date of encounter: 04/30/21 Reasons for Services Signs and symptoms assessed: Diabetic foot ulcer with osteomylitis and needs intermediate antibiotics Reason for intermediate: wound care Homebound: Leaving the home is medically contraindicated at this time without the asist of a device and/or another person due th the listed conditions above and below. Reason homebound: pain with ambulation Homebound supporting statement: Homebound due to pain with ambulation from diabetic foot ulcer and osteomylitis of the foot and therefore needs the assistance of another person Certification: Based on the above findings, I certify that this patient is confined to the home and needs intermittent intermediate care, physical therapy and/or speech therapy, or continues to need occupational therapy. The patient is under my care, and I have initiated the establishment of the plan of care. The patient will be followed by a physician who will periodically review the plan of care.
== END 2021-04-30 14:16 | disposition home health service (06) | DRG 872 ==
LOC: HO.ED 19:44 → HO.EDOVER 23:27 → HO.S3 04-26 13:28 → HO.IMC 04-26 13:41
PROVIDERS: Physician Assistant; Admitting Provider Internal Medicine; Emergency Provider Emergency Medicine Emergency Medical Services; PCP Nurse Practitioner Pediatrics; Visit Provider Internal Medicine
DX: A41.9 Sepsis, unspecified organism (principal); M86.172 Other acute osteomyelitis, left ankle and foot; L03.116 Cellulitis of left lower limb; Z20.822 Contact with and (suspected) exposure to COVID-19; J45.909 Unspecified asthma, uncomplicated; I10 Essential (primary) hypertension; N20.0 Calculus of kidney; E11.628 Type 2 diabetes mellitus with other skin complications; E11.42 Type 2 diabetes mellitus with diabetic polyneuropathy; F39 Unspecified mood [affective] disorder; E11.69 Type 2 diabetes mellitus with other specified complication; Z87.891 Personal history of nicotine dependence; Z79.4 Long term (current) use of insulin; Z79.899 Other long term (current) drug therapy
CPT/HCPCS: 36415; 36573; 36580; 71045; 73630; 74177; 80048; 80076; 80202; 81001; 82565; 82947; 83605; 83690; 83735; 83880; 84484; 85025; 85027; 85652; 86140; 87040; 87635; 93005; 94640; 96361; 96365; 96375; 99285; 99291; C1751; J1170; J1200; J1335; J1956; J2270; J2405; J2543; J3370; Q9967

== ENCOUNTER 2021-05-13 12:50 | Outpatient (REF) | payer MEDICARE, MEDICAID, SELFPAY ==
[2021-05-13 14:09] LABS: Basophils Percent Auto 0.3 % (0-2); Eosinophils Absolute Auto 0.1 X10*3/uL (0.0-0.4); Hemoglobin 13.7 g/dl (14.0-18.0); Imm Gran Abs Auto 0.06 X10*3/uL (0.00-0.03); Imm Gran Pct Auto 0.5 % (0.0-0.4); Lymphocytes Absolute Auto 2.4 X10*3/uL (1.2-4.9); Lymphocytes Percent Auto 19.2 % (20-40); MANUAL DIFF FLAG NO; Mean Corpuscular HGB Conc 32.6 g/dl (31.0-36.0); Mean Corpuscular Hemoglobin 28.1 pg (27.0-33.0); Mean Corpuscular Volume 86.2 fL (80.0-98.0); Mean Platelet Volume 10.9 fL (9.4-12.4); Monocytes Absolute Auto 0.6 X10*3/uL (0.1-1.2); Monocytes Percent Auto 4.6 % (2-11); Neutrophils Absolute Auto 9.4 x10*3/uL (2.0-8.3); Neutrophils Percent Auto 74.4 % (45-73); Platelet Count 370 X10*3/uL (160-400); Red Blood Count 4.87 X10*6/uL (4.60-5.80); Red Cell Distribution Width 14.4 % (11.0-16.0); White Blood Count 12.6 X10*3/uL (4.8-10.8)
[2021-05-13 14:46] LABS: Alanine Aminotransferase 12 U/L (0-40); Albumin Level 3.7 g/dL (3.5-5.0); Alkaline Phosphatase 147 U/L (39-117); Aspartate Amino Transferase 12 U/L (5-37); Bilirubin Direct 0.2 mg/dL (0.0-0.5); Bilirubin Total 0.4 mg/dL (0.0-1.0); Blood Urea Nitrogen 17 mg/dL (9-16); Estimated Glomerular Filt Rate > 60
[2021-05-13 15:04] LABS: Erythrocyte Sedimentation Rate 31 MM/HR (0-15)
== END 2021-05-13 12:51 | disposition home or self-care (01) ==
LOC: HO.HMGCLNP 12:50
PROVIDERS: PCP Internal Medicine; Visit Provider Internal Medicine
DX: E11.69 Type 2 diabetes mellitus with other specified complication (principal); M86.9 Osteomyelitis, unspecified; Z45.2 Encounter for adjustment and management of vascular access device
CPT/HCPCS: 80076; 82565; 84520; 85025; 85652

== ENCOUNTER 2021-05-20 12:02 | Outpatient (REF) | payer MEDICARE, MEDICAID, SELFPAY ==
[2021-05-20 14:00] LABS: Basophils Percent Auto 0.5 % (0-2); Eosinophils Absolute Auto 0.2 X10*3/uL (0.0-0.4); Eosinophils Percent Auto 3.8 % (0-4); Hematocrit 39.2 % (42.0-52.0); Hemoglobin 12.7 g/dl (14.0-18.0); Imm Gran Abs Auto 0.02 X10*3/uL (0.00-0.03); Imm Gran Pct Auto 0.3 % (0.0-0.4); Lymphocytes Absolute Auto 1.4 X10*3/uL (1.2-4.9); Lymphocytes Percent Auto 21.7 % (20-40); MANUAL DIFF FLAG NO; Mean Corpuscular HGB Conc 32.4 g/dl (31.0-36.0); Mean Corpuscular Hemoglobin 27.7 pg (27.0-33.0); Mean Corpuscular Volume 85.6 fL (80.0-98.0); Mean Platelet Volume 11.3 fL (9.4-12.4); Monocytes Absolute Auto 0.5 X10*3/uL (0.1-1.2); Monocytes Percent Auto 7.2 % (2-11); Neutrophils Absolute Auto 4.3 x10*3/uL (2.0-8.3); Neutrophils Percent Auto 66.5 % (45-73); Platelet Count 295 X10*3/uL (160-400); Red Blood Count 4.58 X10*6/uL (4.60-5.80); White Blood Count 6.4 X10*3/uL (4.8-10.8)
[2021-05-20 14:49] LABS: Alanine Aminotransferase 24 U/L (0-40); Albumin Level 3.4 g/dL (3.5-5.0); Alkaline Phosphatase 173 U/L (39-117); Anion Gap 13 (12-20); Aspartate Amino Transferase 21 U/L (5-37); Bilirubin Direct < 0.2 mg/dL (0.0-0.5); Bilirubin Total 0.3 mg/dL (0.0-1.0); Blood Urea Nitrogen 14 mg/dL (9-16); Calcium 9.1 mg/dL (8.4-10.2); Carbon Dioxide 31 mmol/L (22-29); Chloride 96 mmol/L (96-108); Estimated Glomerular Filt Rate > 60; Glucose Random 393 mg/dL (60-115); Potassium 4.8 mmol/L (3.3-5.1); Sodium 135 mmol/L (135-145); Total Protein 6.5 g/dL (6.5-8.0)
== END 2021-05-20 12:03 | disposition home or self-care (01) ==
LOC: HO.HMGCLNP 12:02
PROVIDERS: PCP Internal Medicine; Visit Provider Internal Medicine
DX: M86.9 Osteomyelitis, unspecified (principal)
CPT/HCPCS: 80053; 82248; 85025

== ENCOUNTER 2021-05-27 12:21 | Outpatient (REF) | payer MEDICARE, MEDICAID, SELFPAY ==
[2021-05-27 14:00] LABS: Basophils Percent Auto 0.4 % (0-2); Eosinophils Absolute Auto 0.4 X10*3/uL (0.0-0.4); Eosinophils Percent Auto 5.5 % (0-4); Hematocrit 38.4 % (42.0-52.0); Hemoglobin 12.9 g/dl (14.0-18.0); Imm Gran Abs Auto 0.03 X10*3/uL (0.00-0.03); Imm Gran Pct Auto 0.4 % (0.0-0.4); Lymphocytes Absolute Auto 1.9 X10*3/uL (1.2-4.9); Lymphocytes Percent Auto 27.7 % (20-40); MANUAL DIFF FLAG NO; Mean Corpuscular HGB Conc 33.6 g/dl (31.0-36.0); Mean Corpuscular Hemoglobin 28.5 pg (27.0-33.0); Mean Platelet Volume 11.2 fL (9.4-12.4); Monocytes Absolute Auto 0.4 X10*3/uL (0.1-1.2); Monocytes Percent Auto 5.8 % (2-11); Neutrophils Absolute Auto 4.1 x10*3/uL (2.0-8.3); Neutrophils Percent Auto 60.2 % (45-73); Platelet Count 245 X10*3/uL (160-400); Red Blood Count 4.52 X10*6/uL (4.60-5.80); Red Cell Distribution Width 14.2 % (11.0-16.0); White Blood Count 6.7 X10*3/uL (4.8-10.8)
[2021-05-27 14:34] LABS: Alanine Aminotransferase 32 U/L (0-40); Albumin Level 3.5 g/dL (3.5-5.0); Alkaline Phosphatase 183 U/L (39-117); Aspartate Amino Transferase 25 U/L (5-37); Bilirubin Direct 0.2 mg/dL (0.0-0.5); Bilirubin Total 0.2 mg/dL (0.0-1.0); Blood Urea Nitrogen 12 mg/dL (9-16); Estimated Glomerular Filt Rate > 60; Total Protein 6.8 g/dL (6.5-8.0)
== END 2021-05-27 12:22 | disposition home or self-care (01) ==
LOC: HO.HMGCLNP 12:21
PROVIDERS: Visit Provider Internal Medicine
DX: M86.9 Osteomyelitis, unspecified (principal)
CPT/HCPCS: 80076; 82565; 84520; 85025

== ENCOUNTER 2021-06-04 11:36 | Outpatient (REF) | payer MEDICARE, MEDICAID, SELFPAY ==
[2021-06-04 13:39] LABS: MANUAL DIFF FLAG NO
[2021-06-04 13:49] LABS: Basophils Percent Auto 0.4 % (0-2); Eosinophils Absolute Auto 0.2 X10*3/uL (0.0-0.4); Eosinophils Percent Auto 2.1 % (0-4); Hematocrit 39.4 % (42.0-52.0); Hemoglobin 12.8 g/dl (14.0-18.0); Imm Gran Abs Auto 0.05 X10*3/uL (0.00-0.03); Imm Gran Pct Auto 0.4 % (0.0-0.4); Lymphocytes Percent Auto 18.2 % (20-40); Mean Corpuscular HGB Conc 32.5 g/dl (31.0-36.0); Mean Corpuscular Hemoglobin 28.1 pg (27.0-33.0); Mean Corpuscular Volume 86.6 fL (80.0-98.0); Monocytes Absolute Auto 0.4 X10*3/uL (0.1-1.2); Monocytes Percent Auto 3.5 % (2-11); Neutrophils Absolute Auto 8.4 x10*3/uL (2.0-8.3); Neutrophils Percent Auto 75.4 % (45-73); Platelet Count 295 X10*3/uL (160-400); Red Blood Count 4.55 X10*6/uL (4.60-5.80); Red Cell Distribution Width 14.9 % (11.0-16.0); White Blood Count 11.2 X10*3/uL (4.8-10.8)
[2021-06-04 14:06] LABS: Alanine Aminotransferase 21 U/L (0-40); Albumin Level 3.6 g/dL (3.5-5.0); Alkaline Phosphatase 186 U/L (39-117); Anion Gap 14 (12-20); Aspartate Amino Transferase 15 U/L (5-37); Bilirubin Direct < 0.2 mg/dL (0.0-0.5); Bilirubin Total 0.4 mg/dL (0.0-1.0); Blood Urea Nitrogen 14 mg/dL (9-16); C Reactive Protein 1.47 mg/dL (< or = 0.50); Calcium 9.3 mg/dL (8.4-10.2); Carbon Dioxide 26 mmol/L (22-29); Chloride 99 mmol/L (96-108); Estimated Glomerular Filt Rate > 60; Glucose Random 256 mg/dL (60-115); Potassium 4.5 mmol/L (3.3-5.1); Sodium 134 mmol/L (135-145); Total Protein 6.8 g/dL (6.5-8.0)
[2021-06-04 14:34] LABS: Erythrocyte Sedimentation Rate 27 MM/HR (0-15)
== END 2021-06-04 11:37 | disposition home or self-care (01) ==
LOC: HO.HMGCLNP 11:36
PROVIDERS: Visit Provider Internal Medicine
DX: M86.9 Osteomyelitis, unspecified (principal)
CPT/HCPCS: 80053; 82248; 85025; 85652; 86140

== ENCOUNTER → 2021-06-10 13:23 | Outpatient (BNVA) | payer MEDICARE, MEDICAID, SELFPAY | PROVIDERS: Visit Provider Internal Medicine | DX: M86.9 Osteomyelitis, unspecified (principal) | CPT/HCPCS: 99212 ==

== ENCOUNTER 2021-07-20 19:21 | Inpatient (IN) | payer MEDICARE, MEDICAID, SELFPAY ==
--- NOTE | ~2021-07-20 | XR_ITS ---
EXAMINATION: RIGHT FOOT 3 VIEWS LEFT FOOT 3 VIEWS CLINICAL INFORMATION: Assess for infection COMPARISON: 12/04/2020 TECHNIQUE: As above nonweightbearing FINDINGS: Amputation changes right second through fourth ray similar to baseline. ORIF changes about the visualized distal tibia and fibula as well as arthrodesis of the subtalar joint appears comparable. There is no soft tissue air measurable. Left soft tissue swelling is evident on the current study. Healed deformity of first metatarsal bone which may be related to realignment osteotomy of previous fracture with bony union. No periosteal new bone formation. Midfoot articulations are stable and notable for early midfoot collapse. Left foot imaging demonstrates notable change in the interim since 03/02/2021. There is destruction of the distal aspect of the first metatarsal bone with significant callus deposition. There is no bony union seen. This is nonspecific and may related to a neuropathic finding as opposed to true infection. There is no soft tissue air or swelling seen. Correlate clinically. Calcaneal spurring. There is diffuse soft tissue swelling about the forefoot. XR/XR foot LT 2V IMPRESSION: Right foot stable without focal findings in the interim. Left foot findings are more suspicious for neuropathic joint with disruption and fracture of the first metatarsal bone as well as disruption of the metatarsophalangeal joint. Correlate clinically. There is notable soft tissue swelling. Chronic osteomyelitis pattern is not absolutely excluded but not characteristic with this appearance. MRI may be obtained for further assessment.
--- NOTE | ~2021-07-20 | XR_ITS ---
EXAMINATION: RIGHT FOOT 3 VIEWS LEFT FOOT 3 VIEWS CLINICAL INFORMATION: Assess for infection COMPARISON: 12/04/2020 TECHNIQUE: As above nonweightbearing FINDINGS: Amputation changes right second through fourth ray similar to baseline. ORIF changes about the visualized distal tibia and fibula as well as arthrodesis of the subtalar joint appears comparable. There is no soft tissue air measurable. Left soft tissue swelling is evident on the current study. Healed deformity of first metatarsal bone which may be related to realignment osteotomy of previous fracture with bony union. No periosteal new bone formation. Midfoot articulations are stable and notable for early midfoot collapse. Left foot imaging demonstrates notable change in the interim since 03/02/2021. There is destruction of the distal aspect of the first metatarsal bone with significant callus deposition. There is no bony union seen. This is nonspecific and may related to a neuropathic finding as opposed to true infection. There is no soft tissue air or swelling seen. Correlate clinically. Calcaneal spurring. There is diffuse soft tissue swelling about the forefoot. XR/XR foot RT 2V IMPRESSION: Right foot stable without focal findings in the interim. Left foot findings are more suspicious for neuropathic joint with disruption and fracture of the first metatarsal bone as well as disruption of the metatarsophalangeal joint. Correlate clinically. There is notable soft tissue swelling. Chronic osteomyelitis pattern is not absolutely excluded but not characteristic with this appearance. MRI may be obtained for further assessment.
--- NOTE | ~2021-07-20 | MR_ITS ---
EXAMINATION: MRI FOOT WITHOUT AND WITH CONTRAST, LEFT CLINICAL HISTORY: Foot infection. TECHNIQUE: MRI of the left foot without and with contrast. 10 mL Gadavist. COMPARISON: X-ray 07/20/2021. MRI left foot 01/01/2021. FINDINGS: There are destructive changes in the distal aspect of the 1st metatarsal, and the proximal aspect of the 1st proximal phalanx. The articular surface of the bones are not visualized. There is extensive diffuse abnormal edema and enhancement in the 1st metatarsal, 1st proximal phalanx. Findings are compatible with osteomyelitis and septic arthritis with bony destructive changes. There is abnormal edema and enhancement in the 1st distal phalanx, compatible with osteomyelitis. Given the osteomyelitis marginating the 1st PIP joint, findings raise concern for 1st PIP joint septic arthritis. There is prominent soft tissue swelling and increased signal surrounding the 1st MTP joint, the metatarsal and proximal phalanges compatible with cellulitis and myositis. There is a peripherally enhancing complex T2 bright focus along the plantar and dorsal aspect of the forefoot in this region, raising concern for abscess. The configuration of the focus makes measurements difficult. The dorsal peripherally enhancing collection measures 3.7 x 1.8 x 2.7 cm. (Transverse, AP, length). Image 5:23, 6:13. The peripherally enhancing complex collection in the plantar aspect of the foot measures 2.5 x 1.8 cm, and measured on image 8:25. This focus tracks from the level of the tarsometatarsal joint proximally to the level of the PIP joint distally on the sagittal sequences, over a distance approximately 8 cm in length. This focus appears be tracking along the flexor hallucis longus tendon, and probably involving the tendon. There is edema and enhancement in the 2nd metatarsal head and the mid/distal shaft. Findings raise concern for osteomyelitis in this region. There is edema and enhancement in the 3rd metatarsal head and neck, nonspecific. This could be related to nonspecific edema, arthritis, or osteomyelitis. There is arthritis in the midfoot. There is soft tissue swelling of the foot, with dorsal subcutaneous edema/cellulitis. There is arthritis in the midfoot. There is cellulitis and myositis surrounding the first ray. There is otherwise edema in the intrinsic muscles of foot, which could be related to myositis or denervation changes. Visualized plantar aponeurosis appears intact. MR/MR foot LT wo/w con IMPRESSION: 1. Findings compatible with osteomyelitis of the 1st metatarsal, 1st proximal phalanx and 1st distal phalanx. There is septic arthritis of the 1st MTP joint. There are bony destructive changes in the distal 1st metatarsal and the proximal phalanx including marginating the joint space. 2. Prominent cellulitis and myositis surrounding the medial aspect of the mid/first ray, and the 1st toe. There is complex peripherally enhancing collection on the dorsal and plantar aspect of the midfoot and in the 1st toe, compatible with abscess. The dominant portion of the peripherally complex collection measures 3.7 x 1.8 x 2.7 cm. The plantar collection suspected to be an abscess extends from the level of the midfoot to the distal 1st toe, as described above. This tracks along the flexor hallucis longus tendon, and likely involves it. 3. Findings suspicious for osteomyelitis of the 2nd metatarsal shaft and head. 4. Abnormal findings in the 3rd metatarsal head and neck, is nonspecific. Osteomyelitis would need to be excluded. 5. Additional findings and details as above. Attempt was made to give a verbal report to referring physician without success. The report will be called to the ordering clinician by a [facility] Phys[facility] Journalism Teacher.
--- NOTE | ~2021-07-20 | IR_ITS ---
PROCEDURE: IR INSERTION OF PICC CLINICAL INFORMATION: Inability to position PICC line on the floor by PICC nurse. COMPARISON: 04/30/2021 TECHNIQUE: Fluoroscopic guided placement of right extremity PICC line. All elements of maximal sterile barrier technique followed including use of cap, mask, sterile gown, sterile gloves, a sterile full body drape and hand hygiene. Also followed skin preparation with 2% chlorhexidine for cutaneous antisepsis, and sterile ultrasound preparation with sterile gel and probe cover when applicable. FINDINGS: The indwelling right upper extremity PICC line is seen to be coiled within the right subclavian vein. Attempts at rapid flushing of PICC line did not straighten the PICC line out. An 0.018 guidewire was then placed through the PICC line and could not be positioned out the tip but was able to partially unfold the PICC line, however the wire could not be removed from the PICC line and therefore the PICC line was pulled back until there was a portion not containing the wire that was still within the vein. The PICC line was cut and a new guidewire placed and following placement of a peel-away sheath a new single lumen PICC line trimmed to 44 cm in length was placed with its tip at the cavoatrial junction. The catheter aspirated and flushed freely. FLUOROSCOPY TIME: 2.3 minutes. DAP 325 Gy-cm2 IR/IR cvc insert peripheral IMPRESSION: Manipulation with replacement of right upper extremity PICC line trimmed to length of 44 cm.
[2021-07-20 19:25] VITALS: BP 105/70; PULSE 90; RESP 18; TEMP 36.8; O2SAT 97; BMI 30.7
[2021-07-20 19:55] VITALS: BP 98/59; PULSE 80; RESP 19; O2SAT 96
--- NOTE | 2021-07-20 20:18 | ED_ITS ---
HPI - General Adult General Chief complaint: General Medical Stated complaint: osteomyelitis Time Seen by Provider: 07/20/21 20:01 Source: patient Mode of arrival: ambulatory Limitations: no limitations History of Present Illness HPI narrative: Patient comes emergency room complaining of bilateral wounds to both of his feet. Patient states that on the right foot, he has a known healing ulcer that has been present for over a year., on the left foot, patient's toes have been erythematous, swollen and very painful for about 2 weeks. Patient denies fever. Patient is known to have history of osteomyelitis, last treated April of this year. Patient also reports episode of nausea vomiting, no URI or UTI symp toms Related Data Home Medications Medication Instructions Recorded Confirmed albuterol sulfate 90 mcg/actuation 2 puff PO Q4H PRN 12/03/20 07/20/21 aerosol inhaler amlodipine 10 mg tablet 1 tab PO DAILY 12/03/20 07/20/21 atenolol 25 mg tablet 1 tab PO DAILY 12/03/20 07/20/21 clonazepam 0.5 mg tablet 1 tab PO DAILY PRN 12/03/20 07/20/21 escitalopram oxalate 10 mg tablet 1 tab PO DAILY 12/03/20 07/20/21 fluticasone propionate 110 2 puff PO BID 12/03/20 07/20/21 mcg/actuation HFA aerosol inhaler (Flovent HFA) gabapentin 800 mg tablet 1 tab PO TID PRN 12/03/20 07/20/21 insulin aspart U-100 100 unit/mL 10 - 15 unit SUBCUT TIDAC 12/03/20 07/20/21 subcutaneous cartridge (Novolog PenFill U-100 Insulin aspart) insulin degludec 100 unit/mL (3 36 unit SUBCUT DAILY 12/03/20 07/20/21 mL) subcutaneous pen (Tresiba FlexTouch U-100 insulin) lisinopril 40 mg tablet 1 tab PO DAILY 12/03/20 07/20/21 metformin 1,000 mg tablet 1 tab PO BID 12/03/20 07/20/21 ondansetron 4 mg disintegrating 1 tab SUBLINGUAL BID PRN 12/03/20 07/20/21 tablet omeprazole 40 mg capsule,delayed 40 mg PO DAILY@0630 03/02/21 07/20/21 release Previous Rx's Medication Instructions Recorded doxycycline hyclate 100 mg capsule 100 mg PO BID 30 Days #60 cap 06/10/21 Allergies Allergy/AdvReac Type Severity Reaction Status Date / Time No Known Allergies Allergy Unknown Verified 06/10/21 13:29 [No Known Allergies*] Review of Systems Review of Systems: Constitutional : No Weight loss, No Fever, No Chills, No Night Sweats, No Fatigue, No Malaise ENT/Mouth : No Hearing loss, No Ear Pain, No Nasal Congestion, No Sinus Pain, No Hoarseness, No sore throat, No Rhinorrhea, No Swallowing Difficulty Eyes: No Eye Pain, No Swelling, No Redness, No Foreign Body, No Discharge, No Vision Changes Cardiovascular : No Chest Pain, No SOB, No Dyspnea on Exertion, No Orthopnea, No Edema, No Palpitations Respiratory : No Cough, No Sputum, No Wheezing, No Smoke Exposure, No Dyspnea Gastrointestinal : Occasional episodes of nausea and vomiting, Diarrhea, No Constipation, No abdominal Pain, No Hematochezia, No Melena Genitourinary : no irregular bleeding, No Dysuria, No Urinary Frequency, No Hematuria, No Urinary Incontinence, No Urgency, No Flank Pain, No Urinary Flow Changes, No Hesitancy Musculoskeletal : Complaining of severe pain in the left foot, distal aspect, erythematous and swollen foot. No pus drainage. No Myalgias, No Joint Swelling Skin : No Skin Lesions, No rash Neuro : No Weakness, No Numbness, No Paresthesias, No Loss of Consciousness, No Dizziness, No Headache Psych : No Anxiety/Panic, No Depression, No SI/HI/AH/VH, No Social Issues, Heme/Lymph: No Bruising, No Bleeding,No Lymphadenopathy Endocrine : No Polyuria, No Polydipsia, No Temperature Intolerance [facility], [facility] Past Medical History Medical History Asthma Diabetes mellitus Hypertension Neuropathy Osteomyelitis Surgical History History of amputation of lesser toe Family History Family History Mother HLD (hyperlipidemia) Father Bladder cancer Social History Social History Household Members: None Household Members Other:: 1 Housing: Apartment Do you presently have visiting nurse or other home services: Yes Alcohol intake: never Patient Tobacco Use Status: Former Tobacco user Second Hand Smoke Exposure: No Substance Use Type: Marijuana Advance Directives: No Advance Directives Information Provided: Yes service: No Current occupational status: unemployed Physical Exam ED Vital Signs: Vital Signs - 24 hr 07/20/21 19:25 07/20/21 19:55 Temperature 98.3 F Pulse Rate 90 80 Respiratory Rate 18 19 Blood Pressure 105/70 98/59 L Pulse Oximetry 97 96 BMI result Body Mass Index 30.7 Const Other: Appearance: Alert. Oriented X3. No acute distress. Eyes: Pupils equal, round and reactive to light. ENT: Pharynx normal. Neck: Normal inspection. Neck supple. No lymph nodes noted. No crepitus CVS: Normal heart rate and rhythm. Pulses normal. Normal S1 and S2 Respiratory: No respiratory distress. Breath sounds normal. No Wheezing. No rales Abdomen: Soft and nontender. No rigidity. No distention. Skin: Skin warm and dry. Missing toes from previous surgery secondary to osteomyelitis on the right foot, left foot is distally swollen, erythematous, tender, see pictures below Extremities: see skin above Neuro: Oriented X 3. No motor deficit. No sensory deficit. Moving all ex tremities. No slurred speech. CN 2 through 12 grossly intact Psych: calm, cooperative, normal affect Course Course Course Narrative: Patient is receiving IV fluids, morphine, vancomycin and Zosyn. At this time sepsis is not suspected. The x-ray shows chronic changes in the left foot especially. Unable to tell if there is active osteomyelitis. Patient will likely need an MRI. In the meantime, as mentioned above patient has been cover with antibiotics. I discussed the patient with Dr. Tamayo, patient being admitted Medical Decision Making Lab Data Result diagrams: 07/20/21 20:25 07/20/21 20:25 Labs: Lab Results 07/20/21 07/20/21 07/20/21 Range/Units 20:25 20:25 20:25 WBC 15.4 H (4.8-10.8) X10*3/uL RBC 5.66 D (4.60-5.80) X10*6/uL Hgb 15.5 D (14.0-18.0) g/dl Hct 45.7 (42.0-52.0) % MCV 80.7 (80.0-98.0) fL MCH 27.4 (27.0-33.0) pg MCHC 33.9 (31.0-36.0) g/dl RDW 14.0 (11.0-16.0) % Plt Count 445 H D (160-400) X10*3/uL MPV 10.2 (9.4-12.4) fL Immature Gran % (Auto) 0.5 H (0.0-0.4) % Neut % (Auto) 72.4 (45-73) % Lymph % (Auto) 20.4 (20-40) % Perry % (Auto) 5.4 (2-11) % Eos % (Auto) 1.1 (0-4) % Baso % (Auto) 0.2 (0-2) % Lymph # (Auto) 3.1 (1.2-4.9) X10*3/uL Perry # (Auto) 0.8 (0.1-1.2) X10*3/uL Eos # (Auto) 0.2 (0.0-0.4) X10*3/uL Baso # (Auto) 0.0 (0.0-0.2) X10*3/uL Abs Immat Gran (auto) 0.07 H (0.00-0.03) X10*3/uL Absolute Neuts (auto) 11.2 H (2.0-8.3) x10*3/uL Absolute Nucleated RBC 0.000 (0.0-0.012) X10*3/uL Nucleated RBC % (auto) 0.0 (0.0-0.2) /100WBC Sodium 134 L (135-145) mmol/L Potassium 4.6 (3.3-5.1) mmol/L Chloride 96 (96-108) mmol/L Carbon Dioxide 25 (22-29) mmol/L Anion Gap 18 (12-20) BUN 41 H D (9-16) mg/dL Creatinine 1.35 (0.5-1.4) mg/dL Estim Creat Clear Calc 77.1 Estimated GFR 55 Random Glucose 177 H (60-115) mg/dL Lactic Acid 1.5 (0.5-2.0) mmol/L Calcium 10.4 H D (8.4-10.2) mg/dL Total Bilirubin 0.4 (0.0-1.0) mg/dL Direct Bilirubin < 0.2 (0.0-0.5) mg/dL AST 18 (5-37) U/L ALT 15 (0-40) U/L Alkaline Phosphatase 138 H D (39-117) U/L C-Reactive Protein 2.13 H (< or = 0.50) mg/dL Total Protein 7.9 (6.5-8.0) g/dL Albumin 4.1 (3.5-5.0) g/dL COVID-19 ([facility]) (Negative) COVID-19 Clin Com 07/20/21 Range/Units 20:25 WBC (4.8-10.8) X10*3/uL RBC (4.60-5.80) X10*6/uL Hgb (14.0-18.0) g/dl Hct (42.0-52.0) % MCV (80.0-98.0) fL MCH (27.0-33.0) pg MCHC (31.0-36.0) g/dl RDW (11.0-16.0) % Plt Count (160-400) X10*3/uL MPV (9.4-12.4) fL Immature Gran % (Auto) (0.0-0.4) % Neut % (Auto) (45-73) % Lymph % (Auto) (20-40) % Perry % (Auto) (2-11) % Eos % (Auto) (0-4) % Baso % (Auto) (0-2) % Lymph # (Auto) (1.2-4.9) X10*3/uL Perry # (Auto) (0.1-1.2) X10*3/uL Eos # (Auto) (0.0-0.4) X10*3/uL Baso # (Auto) (0.0-0.2) X10*3/uL Abs Immat Gran (auto) (0.00-0.03) X10*3/uL Absolute Neuts (auto) (2.0-8.3) x10*3/uL Absolute Nucleated RBC (0.0-0.012) X10*3/uL Nucleated RBC % (auto) (0.0-0.2) /100WBC Sodium (135-145) mmol/L Potassium (3.3-5.1) mmol/L Chloride (96-108) mmol/L Carbon Dioxide (22-29) mmol/L Anion Gap (12-20) BUN (9-16) mg/dL Creatinine (0.5-1.4) mg/dL Estim Creat Clear Calc Estimated GFR Random Glucose (60-115) mg/dL Lactic Acid (0.5-2.0) mmol/L Calcium (8.4-10.2) mg/dL Total Bilirubin (0.0-1.0) mg/dL Direct Bilirubin (0.0-0.5) mg/dL AST (5-37) U/L ALT (0-40) U/L Alkaline Phosphatase (39-117) U/L C-Reactive Protein (< or = 0.50) mg/dL Total Protein (6.5-8.0) g/dL Albumin (3.5-5.0) g/dL COVID-19 ([facility]) Negative (Negative) COVID-19 Clin Com See Note Imaging Data Bilateral foot x-ray: Radiologist's impression: FINDINGS: Amputation changes right second through fourth ray similar to baseline. ORIF changes about the visualized distal tibia and fibula as well as arthrodesis of the subtalar joint appears comparable. There is no soft tissue air measurable. Left soft tissue swelling is evident on the current study. Healed deformity of first metatarsal bone which may be related to realignment osteotomy of previous fracture with bony union. No periosteal new bone formation. Midfoot articulations are stable and notable for early midfoot collapse. Left foot imaging demonstrates notable change in the interim since 03/02/2021. There is destruction of the distal aspect of the first metatarsal bone with significant callus deposition. There is no bony union seen. This is nonspecific and may related to a neuropathic finding as opposed to true infection. There is no soft tissue air or swelling seen. Correlate clinically. Calcaneal spurring. There is diffuse soft tissue swelling about the forefoot.? XR/XR foot LT 2V IMPRESSION: Right foot stable without focal findings in the interim. ? Left foot findings are more suspicious for neuropathic joint with disruption and fracture of the first metatarsal bone as well as disruption of the metatarsophalangeal joint. Correlate clinically. There is notable soft tissue swelling. Chronic osteomyelitis pattern is not absolutely excluded but not characteristic with this appearance. MRI may be obtained for further assessment.? Discharge Plan Discharge Clinical Impression: Cellulitis, Osteomyelitis Patient Disposition: Admitted As Inpatient Prescriptions: No Action clonazepam 0.5 mg tablet 1 tab PO DAILY PRN (Reason: Anxiety) 0RF atenolol 25 mg tablet 1 tab PO DAILY 0RF gabapentin 800 mg tablet 1 tab PO TID PRN (Reason: NERVE PAIN) 0RF Rx Instructions: rx for qid, pt takes tid amlodipine 10 mg tablet 1 tab PO DAILY 0RF metformin 1,000 mg tablet 1 tab PO BID 0RF albuterol sulfate 90 mcg/actuation HFA aerosol inhaler 2 puff PO Q4H PRN (Reason: Shortness Of Breath) 0RF lisinopril 40 mg tablet 1 tab PO DAILY 0RF Flovent HFA 110 mcg/actuation HFA aerosol inhaler 2 puff PO BID 0RF insulin aspart U-100 [Novolog PenFill U-100 Insulin] 100 unit/mL cartridge 10 - 15 unit subcut TIDAC 0RF escitalopram oxalate 10 mg tablet 1 tab PO DAILY 0RF Tresiba FlexTouch U-100 100 unit/mL (3 mL) insulin pen 36 unit subcut DAILY 0RF ondansetron 4 mg tablet,disintegrating 1 tab sublingual BID PRN (Reason: Nausea) 0RF omeprazole 40 mg Capsule,Delayed Release(Dr/Ec) 40 mg PO DAILY@0630 0RF doxycycline hyclate 100 mg capsule 100 mg PO BID 30 Days Qty: 60 1RF
[2021-07-20] MEDS: 0.9 % Sodium Chloride 1,000 ML 999 ML IVCONT (20:28)
[2021-07-20 20:35] LABS: Basophils Percent Auto 0.2 % (0-2); Eosinophils Absolute Auto 0.2 X10*3/uL (0.0-0.4); Eosinophils Percent Auto 1.1 % (0-4); Hematocrit 45.7 % (42.0-52.0); Hemoglobin 15.5 g/dl (14.0-18.0); Imm Gran Abs Auto 0.07 X10*3/uL (0.00-0.03); Imm Gran Pct Auto 0.5 % (0.0-0.4); Lymphocytes Absolute Auto 3.1 X10*3/uL (1.2-4.9); Lymphocytes Percent Auto 20.4 % (20-40); MANUAL DIFF FLAG NO; Mean Corpuscular HGB Conc 33.9 g/dl (31.0-36.0); Mean Corpuscular Hemoglobin 27.4 pg (27.0-33.0); Mean Corpuscular Volume 80.7 fL (80.0-98.0); Mean Platelet Volume 10.2 fL (9.4-12.4); Monocytes Absolute Auto 0.8 X10*3/uL (0.1-1.2); Monocytes Percent Auto 5.4 % (2-11); Neutrophils Absolute Auto 11.2 x10*3/uL (2.0-8.3); Neutrophils Percent Auto 72.4 % (45-73); Platelet Count 445 X10*3/uL (160-400); Red Blood Count 5.66 X10*6/uL (4.60-5.80); White Blood Count 15.4 X10*3/uL (4.8-10.8)
[2021-07-20] MEDS: Morphine Sulfate 4 MG/ML CARTRIDGE IVPUSH (20:35)
--- NOTE | 2021-07-20 20:45 | PHA.MEDREC ---
MED REC COMPLETE, NO ISSUES Pharmacy Consult ? Medication Reconciliation Pharmacy has completed the medication reconciliation.
[2021-07-20 20:46] LABS: Lactic Acid 1.5 mmol/L (0.5-2.0)
[2021-07-20 20:54] LABS: Alanine Aminotransferase 15 U/L (0-40); Albumin Level 4.1 g/dL (3.5-5.0); Alkaline Phosphatase 138 U/L (39-117); Anion Gap 18 (12-20); Aspartate Amino Transferase 18 U/L (5-37); Bilirubin Direct < 0.2 mg/dL (0.0-0.5); Bilirubin Total 0.4 mg/dL (0.0-1.0); Blood Urea Nitrogen 41 mg/dL (9-16); C Reactive Protein 2.13 mg/dL (< or = 0.50); Calcium 10.4 mg/dL (8.4-10.2); Carbon Dioxide 25 mmol/L (22-29); Chloride 96 mmol/L (96-108); Creatinine Clr Calc Pharmacy 77.1; Estimated Glomerular Filt Rate 55; Glucose Random 177 mg/dL (60-115); Potassium 4.6 mmol/L (3.3-5.1); Sodium 134 mmol/L (135-145); Total Protein 7.9 g/dL (6.5-8.0)
[2021-07-20 21:08] LABS: COVID-19 Test Negative (Negative); IDNOW Serial# 16C4AD1C
[2021-07-20 21:18] VITALS: BP 90/59; PULSE 78; RESP 18; O2SAT 98
[2021-07-20 21:19] LABS: Erythrocyte Sedimentation Rate 34 MM/HR (0-15)
[2021-07-20] MEDS: Piperacillin Sodium/Tazobactam 3.375 GM in 0.9 % Sodium Chloride 50 ML IV (21:20)
[2021-07-20 21:31] VITALS: BP 93/57; PULSE 76; RESP 11; O2SAT 96
[2021-07-20] MEDS: vancomycin HCL 1,250 MG in 0.9 % Sodium Chloride 250 ML 166.67 MG IV (21:32)
[2021-07-20 22:37] LABS: Glucose, Whole Blood 176 mg/dL (60-115)
[2021-07-20 22:40] VITALS: BP 107/61; PULSE 88; RESP 14; O2SAT 96
[2021-07-20] MEDS: Heparin Sodium,Porcine 5,000 UNIT/ML VIAL 5000 UNIT SUBCUT (22:49)
--- NOTE | 2021-07-20 22:51 | PHA.PROG ---
Admission Date/Time: July 20, 2021 22:12 Indication: bone and joint Weight in k kg Adjusted body weight in K.2 [place] body weight in K Obesity Dosing Indication % IBW:32% overweight Serum Creatinine - Last 168 Hours 07/20/21 20:25 Creatinine 1.35 Estimated CrCl and GFR - Last 168 Hours 07/20/21 20:25 Estim Creat Clear Calc 77.1 Estimated GFR 55 Vancomycin Loading Dose: 1750 mg Current Vancomycin Dosing Regimen:750 mg q 12 hour Vancomycin Monitoring using AUC goal of 400 - 600 range with trough as surrogate marker:predicted auc 511 Date and Time for next Vancomycin Level to be drawn:will check random level after 2 doses Pharmacist Comments on Vancomycin Plan: Vancomycin dosing will take advantage of [employer] as a clinical decision support tool that uses Bayesian modeling to calculate individual patient's pharmacokinetic parameters and forecast the patient's drug concentration time course with the target goal AUC 24 range of 400 - 600 mg/L/hr.
[2021-07-20] MEDS: vancomycin HCL 500 MG in 0.9 % Sodium Chloride 100 ML 110 MG IV (23:24)
[2021-07-20] MEDS: 0.9 % Sodium Chloride Flush 3 ML SYRINGE IVFLUSH (23:31)
[2021-07-21] VITALS (9 sets, daily range): BP systolic 117–142; BP diastolic 67–94; PULSE 78–92; RESP 12–18; TEMP 36.2–37; O2SAT 92–100
[2021-07-21] MEDS: Morphine Sulfate 4 MG/ML CARTRIDGE IVPUSH ×6 (01:58→22:02)
[2021-07-21] MEDS: Piperacillin Sodium/Tazobactam 3.375 GM in 0.9 % Sodium Chloride 50 ML IV ×3 (01:58→20:35)
[2021-07-21] MEDS: Omeprazole 40 MG CAPSULE.DR PO (06:01)
--- NOTE | 2021-07-21 06:39 | P.HPHOSP_ITS ---
History of Present Illness Date of Service: 07/20/21 Chief Complaint: foot wound this is a 50-year-old male with past medical history of diabetes, history of osteomyelitis with amputation of 3 of his right foot toes, hypertension, hep C,?and recent osteomyelitis of the left foot who returns to the hospital with c omplaints of left foot pain, swelling, and erythema. Patient reports that he was on IV antibiotics and completed a 6 week course at home but he once again developed swelling pain, as well as redness on his left foot for the past 1 week. Patient reports that he missed 3 of his infectious disease follow-up appointments. He reports no drainage. He had a low-grade fever of 99.8, denies any nausea or vomiting, no chest pain, no abdominal pain diarrhea constipation, no urinary symptoms. No headache or change in vision, no numbness tingling. Patient was discharged on 04/29 after management of osteomyelitis of the left 1st metatarsal bone patient was discharged home on Invanz for 6 weeks via PICC line and to follow-up outpatient with Infectious Disease. Patient was also evaluated by surgery at that time who recommended amputation of antibiotic failed On arrival to the ED patient found to be hypotensive with a blood pressure of 98/59, received IV fluids with improvement of his blood pressure Labs noted to be significant for WBC count of 15.4, ESR of 34 which is increased from his previous, sodium of 134, CRP of 2.13 which is also increased from previously in May Left foot x-ray shows left for findings are more suspicious for neuropathic joint with destruction and fracture of the 1st metatarsal bone as well as destruction of the metatarsophalangeal joint. Patient given IV antibiotics and be admitted further management Review of Systems Review of Systems: Yes all other systems are reviewed and are negative [facility] Medical History Asthma Diabetes mellitus Hypertension Neuropathy Osteomyelitis Family History Mother HLD (hyperlipidemia) Father Bladder cancer Surgical History History of amputation of lesser toe Social History Household Members: None Household Members Other:: 1 Housing: Apartment Do you presently have visiting nurse or other home services: Yes Alcohol intake: never Patient Tobacco Use Status: Former Tobacco user Second Hand Smoke Exposure: No Substance Use Type: Marijuana Advance Directives: No Advance Directives Information Provided: Yes service: No Current occupational status: unemployed Meds Allergies Allergy/AdvReac Type Severity Reaction Status Date / Time No Known Allergies Allergy Unknown Verified 06/10/21 13:29 [No Known Allergies*] Active Medications: Current Medications Acetaminophen (Acetaminophen 325 Mg Tablet) 650 mg PO Q6H PRN PRN Reason: Pain, Mild (Pain Scale 1-3) Albuterol Sulfate (Albuterol Sulfate 90 Mcg 8 Gm Inhaler) 2 puff INHALE Q4H PRN PRN Reason: Shortness Of Breath Clonazepam (Clonazepam 0.5 Mg Tablet) 0.5 mg PO DAILY PRN PRN Reason: Anxiety Dextrose (Dextrose 50 % 25 Gm/50 Ml Syringe) 25 gm IVPUSH Q15M PRN; Protocol PRN Reason: per Hypoglycemia Standing Ord. Docusate Sodium (Docusate Sodium 100 Mg Capsule) 100 mg PO DAILY PRN PRN Reason: Constipation Escitalopram Oxalate (Escitalopram Oxalate 10 Mg Tablet) 10 mg PO DAILY [facility] Fluticasone Propionate (Fluticasone Propionate 100 Mcg Blst.W.Dev) 2 puff INHALE RBID [facility] Gabapentin (Gabapentin 400 Mg Capsule) 800 mg PO TID PRN PRN Reason: NERVE PAIN Glucose (Glucose Gel 15 Gm Gel..Gram.) 15 gm PO Q15M PRN; Protocol PRN Reason: per Hypoglycemia Standing Ord. Heparin Sodium (Porcine) (Heparin Sodium,Porcine 5,000 Unit/Ml Vial) 5,000 unit SUBCUT Q12H [facility] Last Admin: 07/20/21 22:49 Dose: 5,000 unit Documented by: Piperacillin Sod/Tazobactam (Sod 3.375 gm/ Sodium Chloride) 50 mls @ 100 mls/hr IV Q6H [facility] Last Infusion: 07/21/21 02:37 Dose: Infused Documented by: Vancomycin HCl 750 mg/ Sodium (Chloride) 265 mls @ 265 mls/hr IV Q12H [facility] Insulin Glargine (Insulin Glargine,Hum.Rec.Anlog 100 Unit/Ml 10 Ml Vial) 25 unit SUBCUT DAILY [facility] Insulin Human Lispro (Insulin Lispro 100 Unit/Ml 3 Ml Vial) 0 unit SUBCUT Q IDACHS [facility]; Protocol Morphine Sulfate (Morphine Sulfate 4 Mg/Ml Cartridge) 4 mg IVPUSH Q4H PRN; Protocol PRN Reason: Pain, Severe (Pain Scale 7-10) Last Admin: 07/21/21 06:02 Dose: 4 mg Documented by: Omeprazole (Omeprazole 40 Mg Capsule.) 40 mg PO DAILY@0630 [facility] Last Admin: 07/21/21 06:01 Dose: 40 mg Documented by: Ondansetron HCl (Ondansetron Hcl 4 Mg/2 Ml Vial) 4 mg IVPUSH Q8H PRN PRN Reason: Nausea and Vomiting Pharmacy Consult (Consult Rx Perform Med Rec) 1 each MISCELLANE ONCE PRN PRN Reason: Consult order Pharmacy Consult (Consult Rx Vancomycin Dosing) 1 each MISCELLANE DAILY PRN PRN Reason: Consult order Sodium Chloride (0.9 % Sodium Chloride Flush 3 Ml Syringe) 3 ml IVFLUSH [facility] Last Admin: 07/20/21 23:31 Dose: 3 ml Documented by: Home Medications Medication Instructions Recorded Confirmed Last Taken Type albuterol sulfate 90 mcg/actuation 2 puff PO Q4H PRN 12/03/20 07/20/21 Unknown History aerosol inhaler amlodipine 10 mg tablet 1 tab PO DAILY 12/03/20 07/20/21 07/20/21 History atenolol 25 mg tablet 1 tab PO DAILY 12/03/20 07/20/21 07/20/21 History clonazepam 0.5 mg tablet 1 tab PO DAILY PRN 12/03/20 07/20/21 Unknown History escitalopram oxalate 10 mg tablet 1 tab PO DAILY 12/03/20 07/20/21 07/20/21 History fluticasone propionate 110 2 puff PO BID 12/03/20 07/20/21 12/03/20 History mcg/actuation HFA aerosol inhaler (Flovent HFA) gabapentin 800 mg tablet 1 tab PO TID PRN 12/03/20 07/20/21 12/03/20 History insulin aspart U-100 100 unit/mL 10 - 15 unit SUBCUT TIDAC 12/03/20 07/20/21 04/24/21 History subcutaneous cartridge (Novolog PenFill U-100 Insulin aspart) insulin degludec 100 unit/mL (3 36 unit SUBCUT DAILY 12/03/20 07/20/21 04/24/21 History mL) subcutaneous pen (Tresiba FlexTouch U-100 insulin) lisinopril 40 mg tablet 1 tab PO DAILY 12/03/20 07/20/21 07/20/21 History metformin 1,000 mg tablet 1 tab PO BID 12/03/20 07/20/21 04/24/21 History ondansetron 4 mg disintegrating 1 tab SUBLINGUAL BID PRN 12/03/20 07/20/21 Unknown History tablet omeprazole 40 mg capsule,delayed 40 mg PO DAILY@0630 03/02/21 07/20/21 07/20/21 History release Physical Exam Vital Signs and Narrative: Vital Signs: Last Vital Signs Temp 98.3 F 07/20/21 19:25 Pulse 84 07/21/21 06:00 Resp 14 07/21/21 06:00 BP 121/89 07/21/21 06:00 Pulse Ox 96 07/21/21 06:00 BMI result Body Mass Index 30.7 Const: General: cooperative and no acute distress Orientation/co nsciousness: patient oriented x3 Eyes: General: appearance normal, both eyes and all related structures Pupils: Equal, round and reactive pupils present Resp: Effort & Inspection: normal respiratory effort Auscultation: clear to auscultation bilaterally Cardio: Rate: regular rate Rhythm: regular rhythm GI: Palpation (GI): Soft to palpation Auscultation: normal bowel sounds Skin: General skin exam: no rashes or lesions noted Neuro: General: patient oriented x3 Cranial nerves: Yes Equal, round and reactive pupils present Cognition (Neuro): normal cognition Extrem: Other: Left foot erythema, warmth, tenderness, as well as edema extending from the metatarsals to the mid foot Right foot with an open wound that looks clean and not infected Results Labs CBC and Chem 7: 07/20/21 20:25 07/20/21 20:25 Labs: Laboratory Results - last 24 hr 07/20/21 07/20/21 07/20/21 20:25 20:25 20:25 MCV 80.7 MCH 27.4 MCHC 33.9 RDW 14.0 Plt Count 445 H D MPV 10.2 Immature Gran % (Auto) 0.5 H Neut % (Auto) 72.4 Lymph % (Auto) 20.4 Mills % (Auto) 5.4 Eos % (Auto) 1.1 Baso % (Auto) 0.2 Lymph # (Auto) 3.1 Mills # (Auto) 0.8 Eos # (Auto) 0.2 Baso # (Auto) 0.0 Abs Immat Gran (auto) 0.07 H Absolute Neuts (auto) 11.2 H Absolute Nucleated RBC 0.000 Nucleated RBC % (auto) 0.0 ESR 34 H Anion Gap 18 Estim Creat Clear Calc 77.1 Estimated GFR 55 POC Glucose Random Glucose 177 H Lactic Acid Calcium 10.4 H D Total Bilirubin 0.4 Direct Bilirubin < 0.2 AST 18 ALT 15 Alkaline Phosphatase 138 H D C-Reactive Protein 2.13 H Total Protein 7.9 Albumin 4.1 COVID-19 ([place]) COVID-19 [employer] Com 07/20/21 07/20/21 07/20/21 20:25 20:25 22:33 MCV MCH MCHC RDW Plt Count MPV Immature Gran % (Auto) Neut % (Auto) Lymph % (Auto) Mills % (Auto) Eos % (Auto) Baso % (Auto) Lymph # (Auto) Mills # (Auto) Eos # (Auto) Baso # (Auto) Abs Immat Gran (auto) Absolute Neuts (auto) Absolute Nucleated RBC Nucleated RBC % (auto) ESR Anion Gap Estim Creat Clear Calc Estimated GFR POC Glucose 176 H Random Glucose Lactic Acid 1.5 Calcium Total Bilirubin Direct Bilirubin AST ALT Alkaline Phosphatase C-Reactive Protein Total Protein Albumin COVID-19 ([place]) Negative COVID-19 Clin Com See Note Imaging Radiologist's Impressions: Impressions Foot X-Ray 07/20/21 20:14 IMPRESSION: Right foot stable without focal findings in the interim. Left foot findings are more suspicious for neuropathic joint with disruption and fracture of the first metatarsal bone as well as disruption of the metatarsophalangeal joint. Correlate clinically. There is notable soft tissue swelling. Chronic osteomyelitis pattern is not absolutely excluded but not characteristic with this appearance. MRI may be obtained for further assessment. Foot X-Ray 07/20/21 20:14 IMPRESSION: Right foot stable without focal findings in the interim. Left foot findings are more suspicious for neuropathic joint with disruption and fracture of the first metatarsal bone as well as disruption of the metatarsophalangeal joint. Correlate clinically. There is notable soft tissue swelling. Chronic osteomyelitis pattern is not absolutely excluded but not characteristic with this appearance. MRI may be obtained for further assessment. Assessment and Plan (1) Diabetic foot infection: Status: Acute (2) Cellulitis: Status: Acute (3) Osteomyelitis: Status: Acute Plan 50-year-old male with past medical history of diabetes and history of osteomyelitis presents to the hospital with complaints of left foot pain as well as erythema, as well as edema # diabetic foot infection - left foot, likely osteomyelitis - patient was admitted and seen as well as evaluated and treated for the same foot in April - patient completed a 6 week antibiotics at that time but missed couple of followups with infectious disease - has elevated ESR and CRP - will treat with IV antibiotics at this time - will obtain MRI - infectious disease as well as general surgery consulted - follow cultures # cellulitis/osteomyelitis - left foot - treatment as above # diabetes - continue home insulin - will add low-dose sliding scale - diabetic diet # hypertension - low on arrival but improved after IV fluids - will hold antihypertensives at this time given the hypotensive episode - can resume home amlodipine and lisinopril once blood pressure stabilizes DVT prophylaxis: SCDs in anticipation of possible surgical intervention Quality Stroke Does the patient have a stroke diagnosis?: No VTE Prior VTE?: No VTE Risk Level:: Medical - moderate - high VTE Device Contraindication: Treatment Not Indicated VTE Drug Contraindication: N/A - Med Ordered
[2021-07-21 06:56] LABS: MANUAL DIFF FLAG NO
[2021-07-21 07:06] LABS: Basophils Percent Auto 0.4 % (0-2); Eosinophils Absolute Auto 0.2 X10*3/uL (0.0-0.4); Eosinophils Percent Auto 1.5 % (0-4); Hematocrit 42.2 % (42.0-52.0); Hemoglobin 14.1 g/dl (14.0-18.0); Imm Gran Abs Auto 0.08 X10*3/uL (0.00-0.03); Imm Gran Pct Auto 0.8 % (0.0-0.4); Lymphocytes Percent Auto 19.3 % (20-40); Mean Corpuscular HGB Conc 33.4 g/dl (31.0-36.0); Mean Corpuscular Hemoglobin 27.2 pg (27.0-33.0); Mean Corpuscular Volume 81.5 fL (80.0-98.0); Mean Platelet Volume 10.2 fL (9.4-12.4); Monocytes Absolute Auto 0.6 X10*3/uL (0.1-1.2); Monocytes Percent Auto 6.1 % (2-11); Neutrophils Absolute Auto 7.3 x10*3/uL (2.0-8.3); Neutrophils Percent Auto 71.9 % (45-73); Platelet Count 363 X10*3/uL (160-400); Red Blood Count 5.18 X10*6/uL (4.60-5.80); Red Cell Distribution Width 13.8 % (11.0-16.0); White Blood Count 10.2 X10*3/uL (4.8-10.8)
[2021-07-21 07:25] LABS: Anion Gap 15 (12-20); Blood Urea Nitrogen 33 mg/dL (9-16); Calcium 9.5 mg/dL (8.4-10.2); Carbon Dioxide 26 mmol/L (22-29); Chloride 98 mmol/L (96-108); Creatinine Clr Calc Pharmacy 91.3; Estimated Glomerular Filt Rate > 60; Glucose Random 307 mg/dL (60-115); Potassium 4.6 mmol/L (3.3-5.1); Sodium 134 mmol/L (135-145)
[2021-07-21 07:43] LABS: Glucose, Whole Blood 342 mg/dL (60-115)
[2021-07-21] MEDS: Insulin Lispro 100 UNIT/ML 3 ML VIAL SUBCUT ×4 (07:46→20:34)
[2021-07-21] MEDS: lisinopriL 40 MG TABLET PO (10:11)
[2021-07-21] MEDS: amLODIPine Besylate 10 MG TABLET PO (10:12)
[2021-07-21] MEDS: Escitalopram Oxalate 10 MG TABLET PO (10:13)
[2021-07-21] MEDS: Insulin Glargine,Hum.rec.anlog 100 UNIT/ML 10 ML VIAL 25 UNIT SUBCUT (10:14)
[2021-07-21] MEDS: 0.9 % Sodium Chloride Flush 3 ML SYRINGE IVFLUSH ×3 (10:14→23:34)
[2021-07-21] MEDS: vancomycin HCL 750 MG in 0.9 % Sodium Chloride 250 ML 265 MG IV (10:16)
[2021-07-21 12:59] LABS: Glucose, Whole Blood 259 mg/dL (60-115)
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
--- NOTE | 2021-07-21 14:00 | MHC.CLN ---
NUTRITION CONSULT FOR DIFFICULTY CHEWING DUE TO NO LOWER DENTURES. VISITED WITH PATIENT. HAS FULL UPPER DENTURES, NO LOWER DENTURES OR TEETH. REPORTS THAT HE HAS ADAPTED, ABLE TO CUT FOODS BY SELF. DOES NOT WANT MECHANICALLY ALTERED FOOD. INCREASED DIET CALORIES TO DIABETIC 2000 KCALS.
--- NOTE | 2021-07-21 14:19 | HO.PM.IMPN ---
Subjective Subjective Date of Service: 07/21/21 Interval History: Left foot pain Review of Systems Patient's has left foot pain similar to last night, denies any chest pain or shortness of breath or abdominal pain or fever chills Physical Exam Vital Signs: Vital Signs: Last Vital Signs Temp 97.4 F 07/21/21 12:00 Pulse 89 07/21/21 12:00 Resp 17 07/21/21 12:00 BP 142/94 H 07/21/21 12:00 Pulse Ox 100 07/21/21 12:00 BMI result Body Mass Index 30.7 Appearance: Alert.? Oriented X3.? not in distress.? cvs: rrr, [id number] . res: clear to auscultation ,no rhonchii or wheezing abd: no rebound or guarding ,nt, bs present. ext pulses present , no cyanosis Left foot erythema, warmth, tenderness, as well as edema extending from the metatarsals to the mid foot Right foot with an open wound that looks clean and not infected. neuro: axo3 , nonfocal. Objective Data Active Medications Acetaminophen (Acetaminophen 325 Mg Tablet) 650 mg PO Q6H PRN PRN Reason: Pain, Mild (Pain Scale 1-3) Albuterol Sulfate (Albuterol Sulfate 90 Mcg 8 Gm Inhaler) 2 puff INHALE Q4H PRN PRN Reason: Shortness Of Breath Amlodipine Besylate (Amlodipine Besylate 10 Mg Tablet) 10 mg PO DAILY [facility]; Protocol Last Admin: 07/21/21 10:12 Dose: 10 mg Documented by: AURY Clonazepam (Clonazepam 0.5 Mg Tablet) 0.5 mg PO DAILY PRN PRN Reason: Anxiety Dextrose (Dextrose 50 % 25 Gm/50 Ml Syringe) 25 gm IVPUSH Q15M PRN; Protocol PRN Reason: per Hypoglycemia Standing Ord. Docusate Sodium (Docusate Sodium 100 Mg Capsule) 100 mg PO DAILY PRN PRN Reason: Constipation Escitalopram Oxalate (Escitalopram Oxalate 10 Mg Tablet) 10 mg PO DAILY [facility] Last Admin: 07/21/21 10:13 Dose: 10 mg Documented by: AURY Fluticasone Propionate (Fluticasone Propionate 100 Mcg Blst.W.Dev) 2 puff INHALE RBID [facility] Last Admin: 07/21/21 09:04 Dose: Not Given Documented by: FARIHA Non-Admin Reason: Med Not Available Gabapentin (Gabapentin 400 Mg Capsule) 800 mg PO TID PRN PRN Reason: NERVE PAIN Glucose (Glucose Gel 15 Gm Gel..Gram.) 15 gm PO Q15M PRN; Protocol PRN Reason: per Hypoglycemia Standing Ord. Piperacillin Sod/Tazobactam (Sod 3.375 gm/ Sodium Chloride) 50 mls @ 100 mls/hr IV Q6H [facility] Last Infusion: 07/21/21 13:54 Dose: 100 mls/hr Documented by: AURY Vancomycin HCl 750 mg/ Sodium (Chloride) 265 mls @ 265 mls/hr IV Q12H [facility] Last Infusion: 07/21/21 11:38 Dose: 265 mls/hr Documented by: AURY Insulin Glargine (Insulin Glargine,Hum.Rec.Anlog 100 Unit/Ml 10 Ml Vial) 25 unit SUBCUT DAILY [facility] Last Admin: 07/21/21 10:14 Dose: 25 unit Documented by: AURY Insulin Human Lispro (Insulin Lispro 100 Unit/Ml 3 Ml Vial) 0 unit SUBCUT QIDACHS [facility]; Protocol Last Admin: 07/21/21 13:08 Dose: 6 unit Documented by: AURY Lisinopril (Lisinopril 40 Mg Tablet) 40 mg PO DAILY [facility]; Protocol Last Admin: 07/21/21 10:11 Dose: 40 mg Documented by: AURY Morphine Sulfate (Morphine Sulfate 4 Mg/Ml Cartridge) 4 mg IVPUSH Q4H PRN; Protocol PRN Reason: Pain, Severe (Pain Scale 7-10) Last Admin: 07/21/21 13:55 Dose: 4 mg Documented by: AURY Omeprazole (Omeprazole 40 Mg Capsule.) 40 mg PO DAILY@0630 [facility] Last Admin: 07/21/21 06:01 Dose: 40 mg Documented by: MARITZA Ondansetron HCl (Ondansetron Hcl 4 Mg/2 Ml Vial) 4 mg IVPUSH Q8H PRN PRN Reason: Nausea and Vomiting Pharmacy Consult (Consult Rx Perform Med Rec) 1 each MISCELLANE ONCE PRN PRN Reason: Consult order Pharmacy Consult (Consult Rx Vancomycin Dosing) 1 each MISCELLANE DAILY PRN PRN Reason: Consult order Sodium Chloride (0.9 % Sodium Chloride Flush 3 Ml Syringe) 3 ml IVFLUSH QSHIFT [facility] Last Admin: 07/21/21 10:14 Dose: 3 ml Documented by: AURY Labs CBC & Chem 7: 07/21/21 06:44 07/21/21 06:44 Labs: Laboratory Results - last 24 hr 07/20/21 07/20/21 07/20/21 20:25 20:25 20:25 MCV 80.7 MCH 27.4 MCHC 33.9 RDW 14.0 Plt Count 445 H D MPV 10.2 Immature Gran % (Auto) 0.5 H Neut % (Auto) 72.4 Lymph % (Auto) 20.4 [place] % (Auto) 5.4 Eos % (Auto) 1.1 Baso % (Auto) 0.2 Lymph # (Auto) 3.1 [place] # (Auto) 0.8 Eos # (Auto) 0.2 Baso # (Auto) 0.0 Abs Immat Gran (auto) 0.07 H Absolute Neuts (auto) 11.2 H Absolute Nucleated RBC 0.000 Nucleated RBC % (auto) 0.0 ESR 34 H Anion Gap 18 Estim Creat Clear Calc 77.1 Estimated GFR 55 POC Glucose Random Glucose 177 H Lactic Acid Calcium 10.4 H D Total Bilirubin 0.4 Direct Bilirubin < 0.2 AST 18 ALT 15 Alkaline Phosphatase 138 H D C-Reactive Protein 2.13 H Total Protein 7.9 Albumin 4.1 COVID-19 ([facility]) COVID-19 Clin Com 07/20/21 07/20/21 07/20/21 20:25 20:25 22:33 MCV MCH MCHC RDW Plt Count MPV Immature Gran % (Auto) Neut % (Auto) Lymph % (Auto) [place] % (Auto) Eos % (Auto) Baso % (Auto) Lymph # (Auto) [place] # (Auto) Eos # (Auto) Baso # (Auto) Abs Immat Gran (auto) Absolute Neuts (auto) Absolute Nucleated RBC Nucleated RBC % (auto) ESR Anion Gap Estim Creat Clear Calc Estimated GFR POC Glucose 176 H Random Glucose Lactic Acid 1.5 Calcium Total Bilirubin Direct Bilirubin AST ALT Alkaline Phosphatase C-Reactive Protein Total Protein Albumin COVID-19 ([facility]) Negative COVID-19 Clin Com See Note 07/21/21 07/21/21 07/21/21 06:44 06:44 07:39 MCV 81.5 MCH 27.2 MCHC 33.4 RDW 13.8 Plt Count 363 MPV 10.2 Immature Gran % (Auto) 0.8 H Neut % (Auto) 71.9 Lymph % (Auto) 19.3 L [place] % (Auto) 6.1 Eos % (Auto) 1.5 Baso % (Auto) 0.4 Lymph # (Auto) 2.0 [place] # (Auto) 0.6 Eos # (Auto) 0.2 Baso # (Auto) 0.0 Abs Immat Gran (auto) 0.08 H Absolute Neuts (auto) 7.3 Absolute Nucleated RBC 0.000 Nucleated RBC % (auto) 0.0 ESR Anion Gap 15 Estim Creat Clear Calc 91.3 Estimated GFR > 60 POC Glucose 342 H Random Glucose 307 H D Lactic Acid Calcium 9.5 D Total Bilirubin Direct Bilirubin AST ALT Alkaline Phosphatase C-Reactive Protein Total Protein Albumin COVID-19 ([facility]) COVID-19 Clin Com 07/21/21 12:52 MCV MCH MCHC RDW Plt Count MPV Immature Gran % (Auto) Neut % (Auto) Lymph % (Auto) [place] % (Auto) Eos % (Auto) Baso % (Auto) Lymph # (Auto) [place] # (Auto) Eos # (Auto) Baso # (Auto) Abs Immat Gran (auto) Absolute Neuts (auto) Absolute Nucleated RBC Nucleated RBC % (auto) ESR Anion Gap Estim Creat Clear Calc Estimated GFR POC Glucose 259 H Random Glucose Lactic Acid Calcium Total Bilirubin Direct Bilirubin AST ALT Alkaline Phosphatase C-Reactive Protein Total Protein Albumin COVID-19 ([facility]) COVID-19 Clin Com Assessment and Plan (1) Osteomyelitis: Status: Acute (2) Diabetic foot infection: Status: Acute Plan 50-year-old male with past medical history of diabetes and history of osteomyelitis presents to the hospital with complaints of left foot pain as well as erythema, as well as edema diabetic foot infection- left foot, possible ? osteomyelitis - patient was admitted and seen as well as evaluated and treated for the same foot in April - patient completed a 6 week antibiotics at that time but missed couple of followups with infectious disease added MRI - has elevated ESR and CRP - will treat with IV antibiotics day1 trend vanco trough as per pharmacy. - infectious disease as well as general surgery consulted - follow cultures cellulitis/osteomyelitis - left foot - treatment as above diabetes - continue home insulin - will add low-dose sliding scale - diabetic diet hypertension - low on arrival but improved after IV fluids - will hold antihypertensives at this time given the hypotensive episode - can resume home amlodipine and lisinopril once blood pressure stabilizes. Obesity: Encouraged for cutting down on calories and weight loss. 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 DVT prophylaxis:? SCDs in anticipation of possible surgical intervention Quality Stroke Does the patient have a stroke diagnosis?: No VTE Prior VTE?: No VTE Risk Level:: Medical - moderate - high VTE Device Contraindication: Treatment Not Indicated VTE Drug Contraindication: N/A - Med Ordered
--- NOTE | 2021-07-21 14:41 | PM.CNGS ---
History of Present Illness Consult details Consult date: 07/21/21 Narrative: 50-year-old male referred to me for osteomyelitis of the left foot. He is a known diabetic and has had osteomyelitis episodes in the past. As a matter of fact, he has had an amputation of the right big toe for this same problem last year. He had been diagnosed to have osteomyelitis of the left big toe at the metatarsal head earlier this year. He had been on 6 week course of IV antibiotics. However, he had missed some follow-up appointments with his infectious disease doctor. He noticed redness and pain for the past few days on the area of the big toe so he came to the emergency room. He says that his blood sugars have been well controlled but his blood sugars have always been elevated here in the hospital. Review of Systems Constitutional: Constitutional: Denies chills and Denies fever(s) Cardiovascular: Cardiovascular: Denies chest pain, Denies dyspnea and Denies dyspnea on exertion Respiratory: Respiratory: Denies cough, Denies dyspnea and Denies dyspnea on exertion Gastrointestinal: Gastrointestinal: Denies hematochezia and Denies change in bowel habits Genitourinary: Genitourinary: Denies hematuria and Denies difficulty urinating Musculoskeletal: Musculoskeletal: Denies back pain and Denies limited range of motion Neurologic: Denies focal weakness and Denies convulsions Psychiatric: Psychiatric: Denies depression and Denies mood swings PMFSH Past Medical History Medical History (Updated 07/23/21 @ 08:09 by Ismael Kim MD) Asthma Diabetes mellitus Foot abscess, left Hypertension Neuropathy Osteomyelitis Family History Family History Mother HLD (hyperlipidemia) Father Bladder cancer Surgical History Surgical History History of amputation of lesser toe Social History Social History Household Members: None Household Members Other:: 1 Housing: Apartment Do you presently have visiting nurse or other home services: No Alcohol intake: never Patient Tobacco Use Status: Former Tobacco user Quit Date: 1.5 years Tobacco use type: Cigarette Second Hand Smoke Exposure: No Substance Use Type: Marijuana service: No Current occupational status: disabled Meds Allergies Allergy/AdvReac Type Severity Reaction Status Date / Time No Known Allergies Allergy Unknown Verified 06/10/21 13:29 [No Known Allergies*] Active Medications: Current Medications Acetaminophen (Acetaminophen 325 Mg Tablet) 650 mg PO Q6H PRN PRN Reason: Pain, Mild (Pain Scale 1-3) Albuterol Sulfate (Albuterol Sulfate 90 Mcg 8 Gm Inhaler) 2 puff INHALE Q4H PRN PRN Reason: Shortness Of Breath Amlodipine Besylate (Amlodipine Besylate 10 Mg Tablet) 10 mg PO DAILY [facility]; Protocol Last Admin: 07/21/21 10:12 Dose: 10 mg Documented by: Clonazepam (Clonazepam 0.5 Mg Tablet) 0.5 mg PO DAILY PRN PRN Reason: Anxiety Dextrose (Dextrose 50 % 25 Gm/50 Ml Syringe) 25 gm IVPUSH Q15M PRN; Protocol PRN Reason: per Hypoglycemia Standing Ord. Docusate Sodium (Docusate Sodium 100 Mg Capsule) 100 mg PO DAILY PRN PRN Reason: Constipation Escitalopram Oxalate (Escitalopram Oxalate 10 Mg Tablet) 10 mg PO DAILY [facility] Last Admin: 07/21/21 10:13 Dose: 10 mg Documented by: Fluticasone Propionate (Fluticasone Propionate 100 Mcg Blst.W.Dev) 2 puff INHALE RBID [facility] Last Admin: 07/21/21 09:04 Dose: Not Given Documented by: Gabapentin (Gabapentin 400 Mg Capsule) 800 mg PO TID PRN PRN Reason: NERVE PAIN Glucose (Glucose Gel 15 Gm Gel..Gram.) 15 gm PO Q15M PRN; Protocol PRN Reason: per Hypoglycemia Standing Ord. Piperacillin Sod/Tazobactam (Sod 3.375 gm/ Sodium Chloride) 50 mls @ 100 mls/hr IV Q6H [facility] Last Infusion: 07/21/21 13:54 Dose: Infused Documented by: Vancomycin HCl 750 mg/ Sodium (Chloride) 265 mls @ 265 mls/hr IV Q12H [facility] Last Infusion: 07/21/21 11:38 Dose: Infused Documented by: Insulin Glargine (Insulin Glargine,Hum.Rec.Anlog 100 Unit/Ml 10 Ml Vial) 25 unit SUBCUT DAILY [facility] Last Admin: 07/21/21 10:14 Dose: 25 unit Documented by: Insulin Human Lispro (Insulin Lispro 100 Unit/Ml 3 Ml Vial) 0 unit SUBCUT QIDACHS [facility]; Protocol Last Admin: 07/21/21 13:08 Dose: 6 unit Documented by: Lisinopril (Lisinopril 40 Mg Tablet) 40 mg PO DAILY [facility]; Protocol Last Admin: 07/21/21 10:11 Dose: 40 mg Documented by: Morphine Sulfate (Morphine Sulfate 4 Mg/Ml Cartridge) 4 mg IVPUSH Q4H PRN; Protocol PRN Reason: Pain, Severe (Pain Scale 7-10) Last Admin: 07/21/21 13:55 Dose: 4 mg Documented by: Omeprazole (Omeprazole 40 Mg Capsule.Dr) 40 mg PO DAILY@0630 [facility] Last Admin: 07/21/21 06:01 Dose: 40 mg Documented by: Ondansetron HCl (Ondansetron Hcl 4 Mg/2 Ml Vial) 4 mg IVPUSH Q8H PRN PRN Reason: Nausea and Vomiting Pharmacy Consult (Consult Rx Perform Med Rec) 1 each MISCELLANE ONCE PRN PRN Reason: Consult order Pharmacy Consult (Consult Rx Vancomycin Dosing) 1 each MISCELLANE DAILY PRN PRN Reason: Consult order Sodium Chloride (0.9 % Sodium Chloride Flush 3 Ml Syringe) [facility] Admin: 07/21/21 10:14 Dose: 3 ml Documented by: Home Medications Medication Instructions Recorded Confirmed Last Taken Type albuterol sulfate 90 mcg/actuation 2 puff PO Q4H PRN 12/03/20 07/20/21 Unknown History aerosol inhaler amlodipine 10 mg tablet 1 tab PO DAILY 12/03/20 07/20/21 07/20/21 History atenolol 25 mg tablet 1 tab PO DAILY 12/03/20 07/20/21 07/20/21 History clonazepam 0.5 mg tablet 1 tab PO DAILY PRN 12/03/20 07/20/21 Unknown History escitalopram oxalate 10 mg tablet 1 tab PO DAILY 12/03/20 07/20/21 07/20/21 History fluticasone propionate 110 2 puff PO BID 12/03/20 07/20/21 12/03/20 History mcg/actuation HFA aerosol inhaler (Flovent HFA) gabapentin 800 mg tablet 1 tab PO TID PRN 12/03/20 07/20/21 12/03/20 History insulin aspart U-100 100 unit/mL 10 - 15 unit SUBCUT TIDAC 12/03/20 07/20/21 04/24/21 History subcutaneous cartridge (Novolog PenFill U-100 Insulin aspart) insulin degludec 100 unit/mL (3 36 unit SUBCUT DAILY 12/03/20 07/20/21 04/24/21 History mL) subcutaneous pen (Tresiba FlexTouch U-100 insulin) lisinopril 40 mg tablet 1 tab PO DAILY 12/03/20 07/20/21 07/20/21 History metformin 1,000 mg tablet 1 tab PO BID 12/03/20 07/20/21 04/24/21 History ondansetron 4 mg disintegrating 1 tab SUBLINGUAL BID PRN 12/03/20 07/20/21 Unknown History tablet omeprazole 40 mg capsule,delayed 40 mg PO DAILY@0630 03/02/21 07/20/21 07/20/21 History release Physical Exam Vital Signs: Vital Signs: Last Vital Signs Temp 97.4 F 07/21/21 12:00 Pulse 89 07/21/21 12:00 Resp 17 07/21/21 12:00 BP 142/94 H 07/21/21 12:00 Pulse Ox 100 07/21/21 12:00 BMI result Body Mass Index 30.7 Const: General: comfortable and no acute distress Orientation/consciousness: patient oriented x3 Neck: Neck: Yes no lymphadenopathy Resp: Auscultation: clear to auscultation bilaterally Cardio: Rhythm: regular rhythm GI: Palpation (GI): Soft to palpation, nontender and no guarding Neuro: General: patient oriented x3 Extrem: Other: Left foot -with diffuse swelling and redness of the big toe with to superficial ulcers laterally, no active drainage, no fluctuance; right foot with amputation of the big toe, with some scabbing on the incision site; 3rd, 4th toes amputated Results Labs Result diagrams: 07/21/21 06:44 07/23/21 05:17 Labs: Abnormal lab results 07/20/21 07/20/21 07/20/21 Range/Units 20:25 20:25 20:25 WBC 15.4 H (4.8-10.8) X10*3/uL Plt Count 445 H D (160-400) X10*3/uL Immature Gran % (Auto) 0.5 H (0.0-0.4) % Lymph % (Auto) (20-40) % Abs Immat Gran (auto) 0.07 H (0.00-0.03) X10*3/uL Absolute Neuts (auto) 11.2 H (2.0-8.3) x10*3/uL ESR 34 H (0-15) MM/HR Sodium 134 L (135-145) mmol/L BUN 41 H D (9-16) mg/dL POC Glucose (60-115) mg/dL Random Glucose 177 H (60-115) mg/dL Calcium 10.4 H D (8.4-10.2) mg/dL Alkaline Phosphatase 138 H D (39-117) U/L C-Reactive Protein 2.13 H (< or = 0.50) mg/dL 07/20/21 07/21/21 07/21/21 Range/Units 22:33 06:44 06:44 WBC (4.8-10.8) X10*3/uL Plt Count (160-400) X10*3/uL Immature Gran % (Auto) 0.8 H (0.0-0.4) % Lymph % (Auto) 19.3 L (20-40) % Abs Immat Gran (auto) 0.08 H (0.00-0.03) X10*3/uL Absolute Neuts (auto) (2.0-8.3) x10*3/uL ESR (0-15) MM/HR Sodium 134 L (135-145) mmol/L BUN 33 H (9-16) mg/dL POC Glucose 176 H (60-115) mg/dL Random Glucose 307 H D (60-115) mg/dL Calcium (8.4-10.2) mg/dL Alkaline Phosphatase (39-117) U/L C-Reactive Protein (< or = 0.50) mg/dL 07/21/21 07/21/21 Range/Units 07:39 12:52 WBC (4.8-10.8) X10*3/uL Plt Count (160-400) X10*3/uL Immature Gran % (Auto) (0.0-0.4) % Lymph % (Auto) (20-40) % Abs Immat Gran (auto) (0.00-0.03) X10*3/uL Absolute Neuts (auto) (2.0-8.3) x10*3/uL ESR (0-15) MM/HR Sodium (135-145) mmol/L BUN (9-16) mg/dL POC Glucose 342 H 259 H (60-115) mg/dL Random Glucose (60-115) mg/dL Calcium (8.4-10.2) mg/dL Alkaline Phosphatase (39-117) U/L C-Reactive Protein (< or = 0.50) mg/dL Short CBC 07/20/21 07/21/21 Range/Units 20:25 06:44 WBC 15.4 H 10.2 (4.8-10.8) X10*3/uL Hgb 15.5 D 14.1 (14.0-18.0) g/dl Hct 45.7 42.2 (42.0-52.0) % Plt Count 445 H D 363 (160-400) X10*3/uL BMP 07/20/21 07/21/21 20:25 06:44 Sodium 134 L 134 L Potassium 4.6 4.6 Chloride 96 98 Carbon Dioxide 25 26 BUN 41 H D 33 H Creatinine 1.35 1.14 Calcium 10.4 H D 9.5 D Liver Function 07/20/21 Range/Units 20:25 Total Bilirubin 0.4 (0.0-1.0) mg/dL Direct Bilirubin < 0.2 (0.0-0.5) mg/dL AST 18 (5-37) U/L ALT 15 (0-40) U/L Alkaline Phosphatase 138 H D (39-117) U/L Albumin 4.1 (3.5-5.0) g/dL All other labs normal. Imaging Additional studies: Laboratory Results WBC 10.2 X10*3/uL (4.8-10.8) 07/21/21 06:44 RBC 5.18 X10*6/uL (4.60-5.80) 07/21/21 06:44 Hgb 14.1 g/dl (14.0-18.0) 07/21/21 06:44 Hct 42.2 % (42.0-52.0) 07/21/21 06:44 MCV 81.5 fL (80.0-98.0) 07/21/21 06:44 MCH 27.2 pg (27.0-33.0) 07/21/21 06:44 MCHC 33.4 g/dl (31.0-36.0) 07/21/21 06:44 RDW 13.8 % (11.0-16.0) 07/21/21 06:44 Plt Count 363 X10*3/uL (160-400) 07/21/21 06:44 MPV 10.2 fL (9.4-12.4) 07/21/21 06:44 Immature Gran % (Auto) 0.8 % (0.0-0.4) H 07/21/21 06:44 Neut % (Auto) 71.9 % (45-73) 07/21/21 06:44 Lymph % (Auto) 19.3 % (20-40) L 07/21/21 06:44 [place] % (Auto) 6.1 % (2-11) 07/21/21 06:44 Eos % (Auto) 1.5 % (0-4) 07/21/21 06:44 Baso % (Auto) 0.4 % (0-2) 07/21/21 06:44 Lymph # (Auto) 2.0 X10*3/uL (1.2-4.9) 07/21/21 06:44 [place] # (Auto) 0.6 X10*3/uL (0.1-1.2) 07/21/21 06:44 Eos # (Auto) 0.2 X10*3/uL (0.0-0.4) 07/21/21 06:44 Baso # (Auto) 0.0 X10*3/uL (0.0-0.2) 07/21/21 06:44 Abs Immat Gran (auto) 0.08 X10*3/uL (0.00-0.03) H 07/21/21 06:44 Absolute Neuts (auto) 7.3 x10*3/uL (2.0-8.3) 07/21/21 06:44 Absolute Nucleated RBC 0.000 X10*3/uL (0.0-0.012) 07/21/21 06:44 Nucleated RBC % (auto) 0.0 /100WBC (0.0-0.2) 07/21/21 06:44 ESR 34 MM/HR (0-15) H 07/20/21 20:25 Sodium 134 mmol/L (135-145) L 07/21/21 06:44 Potassium 4.6 mmol/L (3.3-5.1) 07/21/21 06:44 Chloride 98 mmol/L (96-108) 07/21/21 06:44 Carbon Dioxide 26 mmol/L (22-29) 07/21/21 06:44 Anion Gap 15 (12-20) 07/21/21 06:44 BUN 33 mg/dL (9-16) H 07/21/21 06:44 Creatinine 1.14 mg/dL (0.5-1.4) 07/21/21 06:44 Estim Creat Clear Calc 91.3 07/21/21 06:44 Estimated GFR > 60 07/21/21 06:44 POC Glucose 259 mg/dL (60-115) H 07/21/21 12:52 Random Glucose 307 mg/dL (60-115) H D 07/21/21 06:44 Lactic Acid 1.5 mmol/L (0.5-2.0) 07/20/21 20:25 Calcium 9.5 mg/dL (8.4-10.2) D 07/21/21 06:44 Total Bilirubin 0.4 mg/dL (0.0-1.0) 07/20/21 20:25 Direct Bilirubin < 0.2 mg/dL (0.0-0.5) 07/20/21 20:25 AST 18 U/L (5-37) 07/20/21 20:25 ALT 15 U/L (0-40) 07/20/21 20:25 Alkaline Phosphatase 138 U/L (39-117) H D 07/20/21 20:25 C-Reactive Protein 2.13 mg/dL (< or = 0.50) H 07/20/21 20:25 Total Protein 7.9 g/dL (6.5-8.0) 07/20/21 20:25 Albumin 4.1 g/dL (3.5-5.0) 07/20/21 20:25 COVID-19 ([facility]) Negative (Negative) 07/20/21 20:25 COVID-19 Clin Com See Note 07/20/21 20:25 Impressions Foot X-Ray 07/20/21 20:14 IMPRESSION: Right foot stable without focal findings in the interim. Left foot findings are more suspicious for neuropathic joint with disruption and fracture of the first metatarsal bone as well as disruption of the metatarsophalangeal joint. Correlate clinically. There is notable soft tissue swelling. Chronic osteomyelitis pattern is not absolutely excluded but not characteristic with this appearance. MRI may be obtained for further assessment. Assessment and Plan (1) Osteomyelitis: Status: Acute He has had osteomyelitis of the left big toe at the distal metatarsal treated with IV antibiotics for 6 weeks last April. He was admitted for swelling and redness again of the same big toe. His x-ray shows a Charcot foot on the 1st metatarsal along with the destruction and fracture. He has been sent for an MRI. Most likely, he has osteomyelitis of the left big toe again. He does not want to proceed with amputation of the big toe despite the recurrence. He says that he is willing to undergo another round of prolonged IV antibiotic treatment. He understands that his unlikely long-term benefit to this antibiotic therapy without amputation. I will follow along while he is in the hospital. Procedures Date of Service Date of Service: 07/21/21
[2021-07-21 16:07] LABS: Glucose, Whole Blood 184 mg/dL (60-115)
[2021-07-21] MEDS: Fluticasone Propionate 100 MCG BLST.W.DEV 2 PUFF INHALE (19:40)
[2021-07-21 20:07] LABS: Glucose, Whole Blood 185 mg/dL (60-115)
[2021-07-21 20:55] LABS: Vancomycin Random 9.3 mcg/mL (15-20)
--- NOTE | 2021-07-21 21:09 | HE.PHANOTE ---
Vancomycin Dosing Addendum Vancomycin trough 9.3 before 3rd dose. Increasing from 750 mg q12h to 1250 mg q12h for predicted auc of 498. obese model used. Pts cr decreasing. Next trough 07/22 @1999
[2021-07-21] MEDS: vancomycin HCL 1,250 MG in 0.9 % Sodium Chloride 250 ML 166.67 MG IV (21:29)
[2021-07-22] VITALS (14 sets, daily range): BP systolic 105–155; BP diastolic 64–90; PULSE 80–113; RESP 12–20; TEMP 36.2–36.8; O2SAT 94–99
[2021-07-22] MEDS: Piperacillin Sodium/Tazobactam 3.375 GM in 0.9 % Sodium Chloride 50 ML IV ×4 (02:31→20:04)
[2021-07-22] MEDS: Morphine Sulfate 4 MG/ML CARTRIDGE IVPUSH ×5 (04:06→20:03)
[2021-07-22] MEDS: Omeprazole 40 MG CAPSULE.DR PO (05:58)
--- NOTE | 2021-07-22 06:41 | PC.NURSE ---
PATIENT NOTED TO HAVE DRAINAGE TO HER DRESSING AROUND RIGHT BREAST DRAIN. DRAIN TUBE INTACT AND CONTINUES TO DRAIN THICK DAVIS DRAINAGE AND 8 SHIFT TOTAL 60ML. NEW DRAINAGE IS SEEPING FROM OUTER ASPECT OF RIGHT BREAST AT APPROX. 10 O'CLOCK POSITION. DRNG IS SAME THICK DAVIS CONSISTENCY TO DRAIN. AXIILA NOTED TO BE WET FROM THE SEEPAGE, SKIN CLEANSED AND DRIED AND WITH THE HELP OF THE NURSING SMALL PACKAGE AND BUNDLE SORTER CLERK A FOLDED GAUZE FLUFF AND LARGE TEGADERM APPLIED. SITE TENDER, RED, AND EDEMATOUS. PT TOLERATED WELL AND WILL MONITOR CLOSELY. HOSPITALIST ALERTED VIA TIGER TEXT AND WILL PASS IT ON TO THE MORNING TEAM FOR FOLLOW UP AND TREATMENT.
[2021-07-22 06:56] LABS: Creatinine Clr Calc Pharmacy 126.9; Estimated Glomerular Filt Rate > 60
[2021-07-22 07:09] LABS: Glucose, Whole Blood 206 mg/dL (60-115)
[2021-07-22] MEDS: Insulin Glargine,Hum.rec.anlog 100 UNIT/ML 10 ML VIAL 25 UNIT SUBCUT (07:48)
[2021-07-22] MEDS: Insulin Lispro 100 UNIT/ML 3 ML VIAL SUBCUT ×3 (07:48→16:50)
[2021-07-22] MEDS: lisinopriL 40 MG TABLET PO (07:50)
[2021-07-22] MEDS: Escitalopram Oxalate 10 MG TABLET PO (07:50)
[2021-07-22] MEDS: amLODIPine Besylate 10 MG TABLET PO (07:50)
[2021-07-22] MEDS: 0.9 % Sodium Chloride Flush 3 ML SYRINGE IVFLUSH ×2 (07:50→15:50)
[2021-07-22] MEDS: Fluticasone Propionate 100 MCG BLST.W.DEV 2 PUFF INHALE (08:04)
--- NOTE | 2021-07-22 09:04 | PM.PNGS ---
Subjective Subjective Date of Service: 07/22/21 Interval history: Denies new complaints had multiple questions about his MRI and plan Physical Exam Vital Signs: Vital Signs: Last Vital Signs Temp 98.2 F 07/22/21 08:54 Pulse 113 H 07/22/21 08:54 Resp 18 07/22/21 08:54 BP 140/90 H 07/22/21 08:54 Pulse Ox 98 07/22/21 08:54 BMI result Body Mass Index 30.7 Const: General: comfortable and no acute distress Resp: Effort & Inspection: normal respiratory effort Cardio: Rate: regular rate Extrem: Other: left foot with significant edema, tenderness around the 1st metatarsal head, no active drainage Objective Data Active Medications Acetaminophen (Acetaminophen 325 Mg Tablet) 650 mg PO Q6H PRN PRN Reason: Pain, Mild (Pain Scale 1-3) Albuterol Sulfate (Albuterol Sulfate 90 Mcg 8 Gm Inhaler) 2 puff INHALE Q4H PRN PRN Reason: Shortness Of Breath Amlodipine Besylate (Amlodipine Besylate 10 Mg Tablet) 10 mg PO DAILY [facility]; Protocol Last Admin: 07/22/21 07:50 Dose: 10 mg Documented by: ZULEIMA Clonazepam (Clonazepam 0.5 Mg Tablet) 0.5 mg PO DAILY PRN PRN Reason: Anxiety Dextrose (Dextrose 50 % 25 Gm/50 Ml Syringe) 25 gm IVPUSH Q15M PRN; Protocol PRN Reason: per Hypoglycemia Standing Ord. Docusate Sodium (Docusate Sodium 100 Mg Capsule) 100 mg PO DAILY PRN PRN Reason: Constipation Escitalopram Oxalate (Escitalopram Oxalate 10 Mg Tablet) 10 mg PO DAILY [facility] Last Admin: 07/22/21 07:50 Dose: 10 mg Documented by: ZULEIMA Fluticasone Propionate (Fluticasone Propionate 100 Mcg Blst.W.Dev) 2 puff INHALE RBID [facility] Last Admin: 07/22/21 08:04 Dose: 2 puff Documented by: MILLER Gabapentin (Gabapentin 400 Mg Capsule) 800 mg PO TID PRN PRN Reason: NERVE PAIN Glucose (Glucose Gel 15 Gm Gel..Gram.) 15 gm PO Q15M PRN; Protocol PRN Reason: per Hypoglycemia Standing Ord. Piperacillin Sod/Tazobactam (Sod 3.375 gm/ Sodium Chloride) 50 mls @ 100 mls/hr IV Q6H [facility] Last Infusion: 07/22/21 08:43 Dose: 0 mls/hr Documented by: ZULEIMA Vancomycin HCl 1,250 mg/ (Sodium Chloride) 250 mls @ 166.667 mls/hr IV Q12H [facility] Last Infusion: 07/21/21 23:01 Dose: 0 mls/hr Documented by: SANDY Insulin Glargine (Insulin Glargine,Hum.Rec.Anlog 100 Unit/Ml 10 Ml Vial) 25 unit SUBCUT DAILY [facility] Last Admin: 07/22/21 07:48 Dose: 25 unit Documented by: ZULEIMA Insulin Human Lispro (Insulin Lispro 100 Unit/Ml 3 Ml Vial) 0 unit SUBCUT QIDACHS [facility]; Protocol Last Admin: 07/22/21 07:48 Dose: 4 unit Documented by: ZULEIMA Lisinopril (Lisinopril 40 Mg Tablet) 40 mg PO DAILY [facility]; Protocol Last Admin: 07/22/21 07:50 Dose: 40 mg Documented by: ZULEIMA Morphine Sulfate (Morphine Sulfate 4 Mg/Ml Cartridge) 4 mg IVPUSH Q4H PRN; Protocol PRN Reason: Pain, Severe (Pain Scale 7-10) Last Admin: 07/22/21 04:06 Dose: 4 mg Documented by: JENISE Omeprazole (Omeprazole 40 Mg Capsule.Dr) 40 mg PO DAILY@0630 [facility] Last Admin: 07/22/21 05:58 Dose: 40 mg Documented by: JENISE Ondansetron HCl (Ondansetron Hcl 4 Mg/2 Ml Vial) 4 mg IVPUSH Q8H PRN PRN Reason: Nausea and Vomiting Pharmacy Consult (Consult Rx Perform Med Rec) 1 each MISCELLANE ONCE PRN PRN Reason: Consult order Pharmacy Consult (Consult Rx Vancomycin Dosing) 1 each MISCELLANE DAILY PRN PRN Reason: Consult order Sodium Chloride (0.9 % Sodium Chloride Flush 3 Ml Syringe) 3 ml IVFLUSH QSHIFT [facility] Last Admin: 07/22/21 07:50 Dose: 3 ml Documented by: ZULEIMA Labs CBC & Chem 7: 07/21/21 06:44 07/22/21 05:50 Labs: Laboratory Results - last 24 hr 07/21/21 07/21/21 07/21/21 12:52 16:01 19:18 Estim Creat Clear Calc Estimated GFR POC Glucose 259 H 184 H 185 H Random Vancomycin 07/21/21 07/22/21 07/22/21 20:19 05:50 06:56 Estim Creat Clear Calc 126.9 Estimated GFR > 60 POC Glucose 206 H Random Vancomycin 9.3 L Microbiology Microbiology Results: Microbiology 07/20/21 21:02 Blood Culture - Preliminary Blood - Venous No growth after 24 hours. 07/20/21 20:26 Blood Culture - Preliminary Blood - Venous No growth after 24 hours. Procedures Date of Service Date of Service: 07/22/21 Progress Note: A&P Assessment and plan (1) Osteomyelitis: Status: Acute Assessment and Plan: MRI consistent with osteomyelitis of the distal 1st metatarsal review of images with radiologist shows what appears to be an abscess collection dorsal and plantar around the distal metatarsal, up to 3.7 cm in dimension had a very long discussion with him about benefit of proceeding with I&D this will be done under monitored anesthesia care he does not want to proceed with amputation of the 1st metatarsal at this time I had a lengthy discussion with him about the risks including but not limited to bleeding, infections, postop pain, poor healing Time Spent With Patient Time: Total time spent is greater than 50% in coordination of care (as documented) at patient's floor/unit and/or counseling patient: Quality Stroke Does the patient have a stroke diagnosis?: No VTE Prior VTE?: No VTE Risk Level:: Medical - moderate - high VTE Device Contraindication: Treatment Not Indicated VTE Drug Contraindication: N/A - Med Ordered
--- NOTE | 2021-07-22 09:07 | P.PNIM_ITS ---
Subjective Subjective Date of Service: 07/22/21 Interval History: F/u on osteomylitis Interval history: walked into a very rude, iritated patient, using obesinity and demanding that his surgery be scheduled and done now because he cannot wait to eat later because I am diabetic and can't skip . Attempting to reassure him that his sugars are closely being monitored did not make a di fference. He reportedly was that way with Dr. Julio bennett. When asked if he had other concerns, he demanded I leave the room.. RN and respiratory Therapist were present. Review of Systems he was not cooperative Physical Exam Vital Signs: Vital Signs: Last Vital Signs Temp 98.2 F 07/22/21 08:54 Pulse 113 H 07/22/21 08:54 Resp 18 07/22/21 08:54 BP 140/90 H 07/22/21 08:54 Pulse Ox 98 07/22/21 08:54 BMI result Body Mass Index 30.7 Const: Other: Patient did not allow examed and presumed, the foot unchanged from prior exam Objective Data Active Medications Acetaminophen (Acetaminophen 325 Mg Tablet) 650 mg PO Q6H PRN PRN Reason: Pain, Mild (Pain Scale 1-3) Albuterol Sulfate (Albuterol Sulfate 90 Mcg 8 Gm Inhaler) 2 puff INHALE Q4H PRN PRN Reason: Shortness Of Breath Amlodipine Besylate (Amlodipine Besylate 10 Mg Tablet) 10 mg PO DAILY [facility]; Protocol Last Admin: 07/22/21 07:50 Dose: 10 mg Documented by: ZULEIMA Clonazepam (Clonazepam 0.5 Mg Tablet) 0.5 mg PO DAILY PRN PRN Reason: Anxiety Dextrose (Dextrose 50 % 25 Gm/50 Ml Syringe) 25 gm IVPUSH Q15M PRN; Protocol PRN Reason: per Hypoglycemia Standing Ord. Docusate Sodium (Docusate Sodium 100 Mg Capsule) 100 mg PO DAILY PRN PRN Reason: Constipation Escitalopram Oxalate (Escitalopram Oxalate 10 Mg Tablet) 10 mg PO DAILY [facility] Last Admin: 07/22/21 07:50 Dose: 10 mg Documented by: ZULEIMA Fluticasone Propionate (Fluticasone Propionate 100 Mcg Blst.W.Dev) 2 puff INHALE RBID [facility] Last Admin: 07/22/21 08:04 Dose: 2 puff Documented by: MLILER Gabapentin (Gabapentin 400 Mg Capsule) 800 mg PO TID PRN PRN Reason: NERVE PAIN Glucose (Glucose Gel 15 Gm Gel..Gram.) 15 gm PO Q15M PRN; Protocol PRN Reason: per Hypoglycemia Standing Ord. Piperacillin Sod/Tazobactam (Sod 3.375 gm/ Sodium Chloride) 50 mls @ 100 mls/hr IV Q6H [facility] Last Infusion: 07/22/21 08:43 Dose: 0 mls/hr Documented by: ZULEIMA Vancomycin HCl 1,250 mg/ (Sodium Chloride) 250 mls @ 166.667 mls/hr IV Q12H [facility] Last Infusion: 07/21/21 23:01 Dose: 0 mls/hr Documented by: SANDY Insulin Glargine (Insulin Glargine,Hum.Rec.Anlog 100 Unit/Ml 10 Ml Vial) 25 unit SUBCUT DAILY [facility] Last Admin: 07/22/21 07:48 Dose: 25 unit Documented by: ZULEIMA Insulin Human Lispro (Insulin Lispro 100 Unit/Ml 3 Ml Vial) 0 unit SUBCUT QIDACHS [facility]; Protocol Last Admin: 07/22/21 07:48 Dose: 4 unit Documented by: ZULEIMA Lisinopril (Lisinopril 40 Mg Tablet) 40 mg PO DAILY [facility]; Protocol Last Admin: 07/22/21 07:50 Dose: 40 mg Documented by: ZULEIMA Morphine Sulfate (Morphine Sulfate 4 Mg/Ml Cartridge) 4 mg IVPUSH Q4H PRN; Protocol PRN Reason: Pain, Severe (Pain Scale 7-10) Last Admin: 07/22/21 04:06 Dose: 4 mg Documented by: JENISE Omeprazole (Omeprazole 40 Mg Capsule.) 40 mg PO DAILY@0630 [facility] Last Admin: 07/22/21 05:58 Dose: 40 mg Documented by: JENISE Ondansetron HCl (Ondansetron Hcl 4 Mg/2 Ml Vial) 4 mg IVPUSH Q8H PRN PRN Reason: Nausea and Vomiting Pharmacy Consult (Consult Rx Perform Med Rec) 1 each MISCELLANE ONCE PRN PRN Reason: Consult order Pharmacy Consult (Consult Rx Vancomycin Dosing) 1 each MISCELLANE DAILY PRN PRN Reason: Consult order Sodium Chloride (0.9 % Sodium Chloride Flush 3 Ml Syringe) 3 ml IVFLUSH QSHIFT [facility] Last Admin: 07/22/21 07:50 Dose: 3 ml Documented by: ZULEIMA Labs CBC & Chem 7: 07/21/21 06:44 07/22/21 05:50 Labs: Laboratory Results - last 24 hr 07/21/21 07/21/21 07/21/21 12:52 16:01 19:18 Estim Creat Clear Calc Estimated GFR POC Glucose 259 H 184 H 185 H Random Vancomycin 07/21/21 07/22/21 07/22/21 20:19 05:50 06:56 Estim Creat Clear Calc 126.9 Estimated GFR > 60 POC Glucose 206 H Random Vancomycin 9.3 L Microbiology Microbiology Results: Microbiology 07/20/21 21:02 Blood Culture - Preliminary Blood - Venous No growth after 24 hours. 07/20/21 20:26 Blood Culture - Preliminary Blood - Venous No growth after 24 hours. Assessment and Plan (1) Osteomyelitis: Status: Acute (2) Diabetic foot infection: Status: Acute Plan 50-year-old male with past medical history of diabetes and history of ost eomyelitis presents to the hospital with complaints of left foot pain as well as erythema, as well as edema #Recurrent diabetic foot infection- left foot, ? osteomyelitis and absscess and cellulitisas seen on MRI - patient was admitted and seen as well as evaluated and treated for the same foot in April -Surgery is recommending ampuation, I and D. He has been reluctant for operation. He is seems now agreable, but is been difficult with the surgery schedule, demanding that it be donw now . This decision will be left for sugery and Or to accommodate, in the meantime will continue IV Abx #hypertension--continue home meds #Obesity: weight loss advised and is aware of his options #unclear if hx of TBI-adult protective caseworker trying to get further information. DVT prophylaxis:? SCDs in anticipation of possible surgical intervention Need for inpatient: Needs for IV Abx to treat acute osteomylitis, cellulitis and will need for surgical intervention for that is not advised for outpatient setting at this time. Quality Stroke Does the patient have a stroke diagnosis?: No VTE Prior VTE?: No VTE Risk Level:: Medical - moderate - high VTE Device Contraindication: Treatment Not Indicated VTE Drug Contraindication: N/A - Med Ordered
[2021-07-22 09:40] LABS: Glucose, Whole Blood 217 mg/dL (60-115)
[2021-07-22] MEDS: Albuterol Sulfate (0.083%) 2.5 MG/3 ML VIAL.NEB INHALE (09:41)
--- NOTE | 2021-07-22 10:07 | P.CONAN_ITS ---
HPI - Anesthesia Eval Consult details Narrative: 50 yo male patient for I&D of left foot PMFSH Active Problems Active Problems: All Active Problems (Updated 07/20/21 @ 21:14 by Mabel Garrett MD) Cellulitis (Acute) Osteomyelitis (Acute) Diabetic foot infection (Acute) History of amputation of lesser toe (Acute) Past Medical History Medical History Asthma Diabetes mellitus Hypertension Neuropathy Osteomyelitis Family History Family History Mother HLD (hyperlipidemia) Father Bladder cancer Family history of problems with anesthesia: No Surgical History Surgical History History of amputation of lesser toe History of Problems with Anesthesia: Yes (Breathin difficulty ? post ACDF surgery. Had to be put back to sleep ) Social History Social History Household Members: None Household Members Other:: 1 Housing: Apartment Do you presently have visiting nurse or other home services: No Alcohol intake: never Patient Tobacco Use Status: Former Tobacco user Quit Date: 1.5 years Tobacco use type: Cigarette Second Hand Smoke Exposure: No Substance Use Type: Marijuana service: No Current occupational status: disabled Meds Allergies Allergy/AdvReac Type Severity Reaction Status Date / Time No Known Allergies Allergy Unknown Verified 06/10/21 13:29 [No Known Allergies*] Active Medications: Current Medications Acetaminophen (Acetaminophen 325 Mg Tablet) 650 mg PO Q6H PRN PRN Reason: Pain, Mild (Pain Scale 1-3) Albuterol Sulfate (Albuterol Sulfate 90 Mcg 8 Gm Inhaler) 2 puff INHALE Q4H PRN PRN Reason: Shortness Of Breath Amlodipine Besylate (Amlodipine Besylate 10 Mg Tablet) 10 mg PO DAILY [facility]; Protocol Last Admin: 07/22/21 07:50 Dose: 10 mg Documented by: Clonazepam (Clonazepam 0.5 Mg Tablet) 0.5 mg PO DAILY PRN PRN Reason: Anxiety Dextrose (Dextrose 50 % 25 Gm/50 Ml Syringe) 25 gm IVPUSH Q15M PRN; Protocol PRN Reason: per Hypoglycemia Standing Ord. Docusate Sodium (Docusate Sodium 100 Mg Capsule) 100 mg PO DAILY PRN PRN Reason: Constipation Escitalopram Oxalate (Escitalopram Oxalate 10 Mg Tablet) 10 mg PO DAILY [facility] Last Admin: 07/22/21 07:50 Dose: 10 mg Documented by: Fluticasone Propionate (Fluticasone Propionate 100 Mcg Blst.W.Dev) 2 puff INHALE RBID [facility] Last Admin: 07/22/21 08:04 Dose: 2 puff Documented by: Gabapentin (Gabapentin 400 Mg Capsule) 800 mg PO TID PRN PRN Reason: NERVE PAIN Glucose (Glucose Gel 15 Gm Gel..Gram.) 15 gm PO Q15M PRN; Protocol PRN Reason: per Hypoglycemia Standing Ord. Piperacillin Sod/Tazobactam (Sod 3.375 gm/ Sodium Chloride) 50 mls @ 100 mls/hr IV Q6H [facility] Last Infusion: 07/22/21 08:43 Dose: Infused Documented by: Vancomycin HCl 1,250 mg/ (Sodium Chloride) 250 mls @ 166.667 mls/hr IV Q12H [facility] Last Infusion: 07/21/21 23:01 Dose: Infused Documented by: Lactated Ringer's (Lr) 1,000 mls @ 100 mls/hr IVCONT .Q10H [facility] Insulin Glargine (Insulin Glargine,Hum.Rec.Anlog 100 Unit/Ml 10 Ml Vial) 25 unit SUBCUT DAILY [facility] Last Admin: 07/22/21 07:48 Dose: 25 unit Documented by: Insulin Human Lispro (Insulin Lispro 100 Unit/Ml 3 Ml Vial) 0 unit SUBCUT QIDACHS [facility]; Protocol Last Admin: 07/22/21 07:48 Dose: 4 unit Documented by: Lisinopril (Lisinopril 40 Mg Tablet) 40 mg PO DAILY [facility]; Protocol Last Admin: 07/22/21 07:50 Dose: 40 mg Documented by: Morphine Sulfate (Morphine Sulfate 4 Mg/Ml Cartridge) 4 mg IVPUSH Q4H PRN; Protocol PRN Reason: Pain, Severe (Pain Scale 7-10) Last Admin: 07/22/21 04:06 Dose: 4 mg Documented by: Omeprazole (Omeprazole 40 Mg Capsule.) 40 mg PO DAILY@0630 [facility] Last Admin: 07/22/21 05:58 Dose: 40 mg Documented by: Ondansetron HCl (Ondansetron Hcl 4 Mg/2 Ml Vial) 4 mg IVPUSH Q8H PRN PRN Reason: Nausea and Vomiting Pharmacy Consult (Consult Rx Perform Med Rec) 1 each MISCELLANE ONCE PRN PRN Reason: Consult order Pharmacy Consult (Consult Rx Vancomycin Dosing) 1 each MISCELLANE DAILY PRN PRN Reason: Consult order Sodium Chloride (0.9 % Sodium Chloride Flush 3 Ml Syringe) [facility] Last Admin: 07/22/21 07:50 Dose: 3 ml Documented by: Home Medications Medication Instructions Recorded Confirmed Last Taken Type albuterol sulfate 90 mcg/actuation 2 puff PO Q4H PRN 12/03/20 07/20/21 Unknown History aerosol inhaler amlodipine 10 mg tablet 1 tab PO DAILY 12/03/20 07/20/21 07/20/21 History atenolol 25 mg tablet 1 tab PO DAILY 12/03/20 07/20/21 07/20/21 History clonazepam 0.5 mg tablet 1 tab PO DAILY PRN 12/03/20 07/20/21 Unknown History escitalopram oxalate 10 mg tablet 1 tab PO DAILY 12/03/20 07/20/21 07/20/21 History fluticasone propionate 110 2 puff PO BID 12/03/20 07/20/21 12/03/20 History mcg/actuation HFA aerosol inhaler (Flovent HFA) gabapentin 800 mg tablet 1 tab PO TID PRN 12/03/20 07/20/21 12/03/20 History insulin aspart U-100 100 unit/mL 10 - 15 unit SUBCUT TIDAC 12/03/20 07/20/21 04/24/21 History subcutaneous cartridge (Novolog PenFill U-100 Insulin aspart) insulin degludec 100 unit/mL (3 36 unit SUBCUT DAILY 12/03/20 07/20/21 04/24/21 History mL) subcutaneous pen (Tresiba FlexTouch U-100 insulin) lisinopril 40 mg tablet 1 tab PO DAILY 12/03/20 07/20/21 07/20/21 History metformin 1,000 mg tablet 1 tab PO BID 12/03/20 07/20/21 04/24/21 History ondansetron 4 mg disintegrating 1 tab SUBLINGUAL BID PRN 12/03/20 07/20/21 Unknown History tablet omeprazole 40 mg capsule,delayed 40 mg PO DAILY@0630 03/02/21 07/20/21 07/20/21 History release Exam Exam Date and Time: July 22, 2021 1007 Height,Weight and Vital Signs: Height 5 ft 11 in Weight 100 kg Last Vital Signs Temp 98.2 F 07/22/21 08:54 Pulse 102 H 07/22/21 09:41 Resp 18 07/22/21 09:41 BP 140/90 H 07/22/21 08:54 Pulse Ox 98 07/22/21 08:54 Pertinent Lab Results Pertinent Lab Results: Laboratory Tests 07/20/21 07/20/21 07/20/21 20:25 20:25 20:25 WBC 15.4 H RBC 5.66 D Hgb 15.5 D Hct 45.7 MCV 80.7 MCH 27.4 MCHC 33.9 RDW 14.0 Plt Count 445 H D MPV 10.2 Immature Gran % (Auto) 0.5 H Neut % (Auto) 72.4 Lymph % (Auto) 20.4 Woodward % (Auto) 5.4 Eos % (Auto) 1.1 Baso % (Auto) 0.2 Lymph # (Auto) 3.1 Woodward # (Auto) 0.8 Eos # (Auto) 0.2 Baso # (Auto) 0.0 Abs Immat Gran (auto) 0.07 H Absolute Neuts (auto) 11.2 H Absolute Nucleated RBC 0.000 Nucleated RBC % (auto) 0.0 ESR 34 H Sodium 134 L Potassium 4.6 Chloride 96 Carbon Dioxide 25 Anion Gap 18 BUN 41 H D Creatinine 1.35 Estim Creat Clear Calc 77.1 Estimated GFR 55 POC Glucose Random Glucose 177 H Lactic Acid Calcium 10.4 H D Total Bilirubin 0.4 Direct Bilirubin < 0.2 AST 18 ALT 15 Alkaline Phosphatase 138 H D C-Reactive Protein 2.13 H Total Protein 7.9 Albumin 4.1 Random Vancomycin COVID-19 ([facility]) COVID-19 Clin Com 07/20/21 07/20/21 07/20/21 20:25 20:25 22:33 WBC RBC Hgb Hct MCV MCH MCHC RDW Plt Count MPV Immature Gran % (Auto) Neut % (Auto) Lymph % (Auto) Woodward % (Auto) Eos % (Auto) Baso % (Auto) Lymph # (Auto) Woodward # (Auto) Eos # (Auto) Baso # (Auto) Abs Immat Gran (auto) Absolute Neuts (auto) Absolute Nucleated RBC Nucleated RBC % (auto) ESR Sodium Potassium Chloride Carbon Dioxide Anion Gap BUN Creatinine Estim Creat Clear Calc Estimated GFR POC Glucose 176 H Random Glucose Lactic Acid 1.5 Calcium Total Bilirubin Direct Bilirubin AST ALT Alkaline Phosphatase C-Reactive Protein Total Protein Albumin Random Vancomycin COVID-19 ([facility]) Negative COVID-19 Clin Com See Note 07/21/21 07/21/21 07/21/21 06:44 06:44 07:39 WBC 10.2 RBC 5.18 Hgb 14.1 Hct 42.2 MCV 81.5 MCH 27.2 MCHC 33.4 RDW 13.8 Plt Count 363 MPV 10.2 Immature Gran % (Auto) 0.8 H Neut % (Auto) 71.9 Lymph % (Auto) 19.3 L [place]ward % (Auto) 6.1 Eos % (Auto) 1.5 Baso % (Auto) 0.4 Lymph # (Auto) 2.0 Woodward # (Auto) 0.6 Eos # (Auto) 0.2 Baso # (Auto) 0.0 Abs Immat Gran (auto) 0.08 H Absolute Neuts (auto) 7.3 Absolute Nucleated RBC 0.000 Nucleated RBC % (auto) 0.0 ESR Sodium 134 L Potassium 4.6 Chloride 98 Carbon Dioxide 26 Anion Gap 15 BUN 33 H Creatinine 1.14 Estim Creat Clear Calc 91.3 Estimated GFR > 60 POC Glucose 342 H Random Glucose 307 H D Lactic Acid Calcium 9.5 D Total Bilirubin Direct Bilirubin AST ALT Alkaline Phosphatase C-Reactive Protein Total Protein Albumin Random Vancomycin COVID-19 ([facility]) COVID-19 Clin Com 07/21/21 07/21/21 07/21/21 12:52 16:01 19:18 WBC RBC Hgb Hct MCV MCH MCHC RDW Plt Count MPV Immature Gran % (Auto) Neut % (Auto) Lymph % (Auto) Woodward % (Auto) Eos % (Auto) Baso % (Auto) Lymph # (Auto) [place]ward # (Auto) Eos # (Auto) Baso # (Auto) Abs Immat Gran (auto) Absolute Neuts (auto) Absolute Nucleated RBC Nucleated RBC % (auto) ESR Sodium Potassium Chloride Carbon Dioxide Anion Gap BUN Creatinine Estim Creat Clear Calc Estimated GFR POC Glucose 259 H 184 H 185 H Random Glucose Lactic Acid Calcium Total Bilirubin Direct Bilirubin AST ALT Alkaline Phosphatase C-Reactive Protein Total Protein Albumin Random Vancomycin COVID-19 ([facility]) [email or web address] 07/21/21 07/22/21 07/22/21 20:19 05:50 06:56 WBC RBC Hgb Hct MCV MCH MCHC RDW Plt Count MPV Immature Gran % (Auto) Neut % (Auto) Lymph % (Auto) [place] % (Auto) Eos % (Auto) Baso % (Auto) Lymph # (Auto) [place] # (Auto) Eos # (Auto) Baso # (Auto) Abs Immat Gran (auto) Absolute Neuts (auto) Absolute Nucleated RBC Nucleated RBC % (auto) ESR Sodium Potassium Chloride Carbon Dioxide Anion Gap BUN Creatinine 0.82 Estim Creat Clear Calc 126.9 Estimated GFR > 60 POC Glucose 206 H Random Glucose Lactic Acid Calcium Total Bilirubin Direct Bilirubin AST ALT Alkaline Phosphatase C-Reactive Protein Total Protein Albumin Random Vancomycin 9.3 L COVID-19 ([facility]) [email or web address] 07/22/21 09:32 WBC RBC Hgb Hct MCV MCH MCHC RDW Plt Count MPV Immature Gran % (Auto) Neut % (Auto) Lymph % (Auto) [place]ward % (Auto) Eos % (Auto) Baso % (Auto) Lymph # (Auto) [place] # (Auto) Eos # (Auto) Baso # (Auto) Abs Immat Gran (auto) Absolute Neuts (auto) Absolute Nucleated RBC Nucleated RBC % (auto) ESR Sodium Potassium Chloride Carbon Dioxide Anion Gap BUN Creatinine Estim Creat Clear Calc Estimated GFR POC Glucose 217 H Random Glucose Lactic Acid Calcium Total Bilirubin Direct Bilirubin AST ALT Alkaline Phosphatase C-Reactive Protein Total Protein Albumin Random Vancomycin COVID-19 ([facility]) COVID-19 [employer] Mallampati Class: II TM Dist: >3cm Neck ROM: Limited (Limited sise to side) Denture: Upper Loose/Missing/Broken Teeth: Yes (No teeth bottom- does not wear lower dentures, top dentures out) Heart: RRR Lungs: Expiratory wheezes bilaterally post albuterol treatment Assessment and Plan Assessment Anesthesia Assessment: Anesthesia Plan Discussed and Chart Reviewed Final Anesthetic Review Family History of Problems with Anesthesia: No History of Problems with Anesthesia: Yes (Breathin difficulty ? post ACDF surgery. Had to be put back to sleep ) NPO: Yes ASA Class: III Final Preanesthetic Review: No Changes in Pt Med Stat, Meds/Allgs Chart Reviewed, Consent Obtained/Reviewed and Anes Risks/Benef Reviewed Patient Risk: Intermediate Procedure Risk: Low Assessment/Block/Sedation in SS: Assess/Block/Sedation-SS Anesthetic Plan Anesthetic Plan: GA Disposition: Standard PACU and Inp. Admit - Standard Bed
--- NOTE | 2021-07-22 10:45 | P.OP_ITS ---
Operative Note Operative Note Date of Service: 07/22/21 Narrative: preop diagnosis: Left foot abscess postop diagnosis: left foot abscess procedure: I and D of left foot deep abscess x2, plantar and dorsal aspect around the 1st metatarsal head Surgeon: Ismael Kim MD assistant fitness manager: EMERITA Viera Patient is a 50-year-old male with a long history of diabetes, admitted because of left foot pain. He does have a long history of osteomyelitis on the distal metatarsal. His MRI yesterday however also showed a abscess collection on the dorsal aspect as well as a smaller collection on the plantar aspect around the level of the metatarsal head. This films were reviewed with the radiologist. He agreed to proceed with I and D of this abscesses. He was aware of the the risks, benefits, alternatives. He did not want to proceed with amputation of the big toe as of yet and stated that he was hesitant with amputation as he has had multiple toes amputated already. He was brought to the operating room. He was placed supine. He was under general anesthesia via LMA. The left foot was prepped and draped in the usual sterile fashion. A surgical time-out was done. The patient received cefazolin 2 g IV preoperatively I made an incision on the skin at the level of the metatarsal head near the interspace of the 1st and 2nd metatarsal using blade 15. This was carried down through the full-thickness skin subcutaneous fat deep into the soft tissue until an abscess cavity was entered. Large amounts of pus was evacuated. Cultures were taken and sent to the lab. I lengthened the incision and made this cruciate to allow good drainage. I then proceeded to make a separate incision on the inner aspect at the level of the metatarsal head based on the MRI findings. This was also made with a blade 15. And this was carried down through the full-thickness skin subcutaneous fat. Small amounts fluid were evacuated in this area. I also probed the surrounding plantar deep tissue with a hemostat to make sure that there were no other fluid collections that were missed Once it appeared that we had adequately drained both abscess cavities, I proceeded to apply iodoform packing on both sites. Thick dressings were applied. The foot was wrapped in Kerlix roll and the procedure was completed The patient tolerated procedure well. There were no complications noted. Estimated blood loss about 25 cc The patient was extubated without difficulty and transferred to the recovery room with stable vital signs. .
--- NOTE | 2021-07-22 10:46 | PM.OP ---
Brief Operative Note Date of Service: 07/22/21 <Marii Viera PA-C - Last Filed: 07/22/21 10:48> Pre-op diagnosis: osteomyelitis of left first metatarsal, abscess of left foot <ANTIONE Beatty Last Filed: 07/22/21 10:48> Post-op diagnosis: same <Marii Viera PA-C - Last Filed: 07/22/21 10:48> Procedure: incision and drainage of left foot abscesses <ANTIONE Beatty Last Filed: 07/22/21 10:48> Surgeon: ITALIA KIM MD <Marii Viera PA-C - Last Filed: 07/22/21 10:48> Anesthesia: GLMA <ANTIONE Beatty Last Filed: 07/22/21 10:48> Was an Librarian Special Collections used for this Procedure?: Yes <Marii Viera PA-C - Last Filed: 07/22/21 10:48> No <Italia Kim MD - Last Filed: 07/22/21 10:53> Librarian Special Collections: Marii Viera <ANTIONE Beatyt Last Filed: 07/22/21 10:48> Estimated blood loss (mL): 5 <ANTIONE Beatty Last Filed: 07/22/21 10:48> Pathology: other (LEFT FOOT ABSCESS CULTURES) <ANTIONE Beatty Last Filed: 07/22/21 10:48> Condition: stable <ANTIONE Beatty Last Filed: 07/22/21 10:48> Disposition: PACU <ANTIONE Beatty Last Filed: 07/22/21 10:48>
[2021-07-22] MEDS: vancomycin HCL 1,250 MG in 0.9 % Sodium Chloride 250 ML 166.67 MG IV (11:36)
[2021-07-22 11:52] LABS: Glucose, Whole Blood 226 mg/dL (60-115)
--- NOTE | 2021-07-22 12:39 | MHC.CM.PN ---
NURSE WAGE ANALYST NOTE ELECTRONIC MEDICAL RECORD REVIEWED ALONG WITH CASE DISCUSSED WITH STAFF NURSE AND THE HOSPITLAIT . S/P OR TODAY FOR INCISION AND DRAINAGE OF ( left foot deep abscess x2, plantar and dorsal aspect around the 1st metatarsal head) MRI NOTES OSTEOMYEILITIS PATIENT MET WITH GENERAL SURGEON AND DI NOT WSNT TO HAVE HIS TOE AMPUTATED , PLAN IS TO CONTINUE ON IV ABX, AT THIS TIME . DISCHARGE PLAN ; [facility] FOR ? DRESSING AND POSSIBLE IV ABX WITH PIC LINE IF NEEDED , (HX-TBI CHECKED WITH PCP OFFICE0 WILL ASK FOR [facility] PT /OT ALSO IN THE HOME AT TIME OF DISCHARGE CONTACT [facility] [phone] INVESTIGATING VARIOUS COMMUNITY SUPPORTS FOR T.B.I AND HOW TO CONTACT THESE RESOURCES AT PATIENTS REQUEST PCP [facility] IMM 07/21/21
--- NOTE | 2021-07-22 15:34 | PM.EVENT ---
Event Note Date of Service: 07/22/21 Event Note: Underwent I and D of the left foot earlier Appears comfortable Seems to have good pain control Some staining of dressings on the dorsal aspect the foot Keep left foot elevated Plan to change dressings tomorrow pull out the packings partly
[2021-07-22 16:10] LABS: Glucose, Whole Blood 278 mg/dL (60-115)
[2021-07-22 20:13] LABS: Glucose, Whole Blood 143 mg/dL (60-115)
[2021-07-22 20:19] LABS: Vancomycin Trough 14.9 mcg/mL (10.0-20.0)
[2021-07-22] MEDS: vancomycin HCL 1,250 MG in 0.9 % Sodium Chloride 250 ML 166.6 MG IV (21:22)
[2021-07-23] VITALS (7 sets, daily range): BP systolic 134–166; BP diastolic 63–94; PULSE 93–100; RESP 16–18; TEMP 36.6–37.4; O2SAT 94–99
[2021-07-23] MEDS: Morphine Sulfate 4 MG/ML CARTRIDGE IVPUSH ×6 (00:09→20:17)
[2021-07-23] MEDS: 0.9 % Sodium Chloride Flush 3 ML SYRINGE IVFLUSH ×4 (00:09→23:55)
[2021-07-23] MEDS: Piperacillin Sodium/Tazobactam 3.375 GM in 0.9 % Sodium Chloride 50 ML IV ×4 (02:03→20:18)
[2021-07-23 05:59] LABS: Creatinine Clr Calc Pharmacy 130.1; Estimated Glomerular Filt Rate > 60
[2021-07-23] MEDS: Omeprazole 40 MG CAPSULE.DR PO (06:05)
--- NOTE | 2021-07-23 07:13 | HE.PHANOTE ---
RE JESSICA SCR TODAY WAS 0.8, CONTINUE CURRENT DOSE. NEXT TROUGH DUE
[2021-07-23 07:41] LABS: Glucose, Whole Blood 189 mg/dL (60-115)
[2021-07-23] MEDS: Fluticasone Propionate 100 MCG BLST.W.DEV 2 PUFF INHALE ×2 (07:57→20:39)
--- NOTE | 2021-07-23 08:08 | P.PNGS_ITS ---
Subjective Subjective Date of Service: 07/23/21 Interval history: Says he is okay this morning Good pain control Denies problems overnight Physical Exam Vital Signs: Vital Signs: Last Vital Signs Temp 98.8 F 07/23/21 07:28 Pulse 99 07/23/21 07:59 Resp 18 07/23/21 07:59 BP 159/94 H 07/23/21 07:28 Pulse Ox 96 07/23/21 07:28 BMI result Body Mass Index 30.7 Const: General: comfortable and no acute distress Resp: Effort & Inspection: normal respiratory effort Extrem: Other: Left foot - dressings changed, packing from the I&D site on the plantar aspect removed; packing from the dorsal I&D site withdrawn partly; edema and cellulitis have improved markedly Objective Data Active Medications Acetaminophen (Acetaminophen 325 Mg Tablet) 650 mg PO Q6H PRN PRN Reason: Pain, Mild (Pain Scale 1-3) Acetaminophen (Acetaminophen 325 Mg Tablet) 650 mg PO ONCE PRN PRN Reason: Pain, Mild (Pain Scale 1-3) Albuterol Sulfate (Albuterol Sulfate 90 Mcg 8 Gm Inhaler) 2 puff INHALE Q4H PRN PRN Reason: Shortness Of Breath Amlodipine Besylate (Amlodipine Besylate 10 Mg Tablet) 10 mg PO DAILY [facility]; Protocol Last Admin: 07/22/21 07:50 Dose: 10 mg Documented by: ZULEIMA Clonazepam (Clonazepam 0.5 Mg Tablet) 0.5 mg PO DAILY PRN PRN Reason: Anxiety Dextrose (Dextrose 50 % 25 Gm/50 Ml Syringe) 25 gm IVPUSH Q15M PRN; Protocol PRN Reason: per Hypoglycemia Standing Ord. Docusate Sodium (Docusate Sodium 100 Mg Capsule) 100 mg PO DAILY PRN PRN Reason: Constipation Escitalopram Oxalate (Escitalopram Oxalate 10 Mg Tablet) 10 mg PO DAILY [facility] Last Admin: 07/22/21 07:50 Dose: 10 mg Documented by: ZULEIMA Fentanyl (Fentanyl Citrate/Pf 100 Mcg/2 Ml Vial) 25 mcg IVPUSH Q5M PRN; Protocol PRN Reason: Pain, Moderate (Pain Scale 4-6 Fluticasone Propionate (Fluticasone Propionate 100 Mcg Blst.W.Dev) 2 puff INHALE [facility] Last Admin: 07/23/21 07:57 Dose: 2 puff Documented by: MILLER Gabapentin (Gabapentin 400 Mg Capsule) 800 mg PO TID PRN PRN Reason: NERVE PAIN Glucose (Glucose Gel 15 Gm Gel..Gram.) 15 gm PO Q15M PRN; Protocol PRN Reason: per Hypoglycemia Standing Ord. Piperacillin Sod/Tazobactam (Sod 3.375 gm/ Sodium Chloride) 50 mls @ 100 mls/hr IV Q6H [facility] Last Infusion: 07/23/21 02:38 Dose: 0 mls/hr Documented by: JENISE Vancomycin HCl 1,250 mg/ (Sodium Chloride) 250 mls @ 166.667 mls/hr IV Q12H [facility] Last Infusion: 07/22/21 23:39 Dose: 0 mls/hr Documented by: SANDY Insulin Glargine (Insulin Glargine,Hum.Rec.Anlog 100 Unit/Ml 10 Ml Vial) 25 unit SUBCUT DAILY [facility] Last Admin: 07/22/21 07:48 Dose: 25 unit Documented by: ZULEIMA Insulin Human Lispro (Insulin Lispro 100 Unit/Ml 3 Ml Vial) 0 unit SUBCUT QIDACHS [facility]; Protocol Last Admin: 07/22/21 20:28 Dose: Not Given Documented by: SANDY Non-Admin Reason: No Insulin Coverage Lisinopril (Lisinopril 40 Mg Tablet) 40 mg PO DAILY [facility]; Protocol Last Admin: 07/22/21 07:50 Dose: 40 mg Documented by: ZULEIMA Morphine Sulfate (Morphine Sulfate 4 Mg/Ml Cartridge) 4 mg IVPUSH Q4H PRN; Protocol PRN Reason: Pain, Severe (Pain Scale 7-10) Last Admin: 07/23/21 04:23 Dose: 4 mg Documented by: JENISE Omeprazole (Omeprazole 40 Mg Capsule.) 40 mg PO DAILY@0630 [facility] Last Admin: 07/23/21 06:05 Dose: 40 mg Documented by: TARYN Ondansetron HCl (Ondansetron Hcl 4 Mg/2 Ml Vial) 4 mg IVPUSH Q8H PRN PRN Reason: Nausea and Vomiting Ondansetron HCl (Ondansetron Hcl 4 Mg/2 Ml Vial) 4 mg IVPUSH ONCE PRN PRN Reason: Nausea and Vomiting Oxycodone HCl (Oxycodone Hcl Immed Release 5 Mg Tablet) 5 mg PO ONCE PRN PRN Reason: Pain, Severe (Pain Scale 7-10) Oxycodone HCl (Oxycodone Hcl Immed Release 5 Mg Tablet) 5 mg PO Q4H PRN PRN Reason: Pain, Moderate (Pain Scale 4-6 Oxycodone HCl (Oxycodone Hcl Immed Release 5 Mg Tablet) 10 mg PO Q4H PRN PRN Reason: Pain, Severe (Pain Scale 7-10) Pharmacy Consult (Consult Rx Perform Med Rec) 1 each MISCELLANE ONCE PRN PRN Reason: Consult order Pharmacy Consult (Consult Rx Vancomycin Dosing) 1 each MISCELLANE DAILY PRN PRN Reason: Consult order Sodium Chloride (0.9 % Sodium Chloride Flush 3 Ml Syringe) 3 ml IVFLUSH QSHIFT [facility] Last Admin: 07/23/21 00:09 Dose: 3 ml Documented by: JENISE Labs CBC & Chem 7: 07/21/21 06:44 07/23/21 05:17 Labs: Laboratory Results - last 24 hr 07/22/21 07/22/21 07/22/21 09:32 11:48 16:02 Estim Creat Clear Calc Estimated GFR POC Glucose 217 H 226 H 278 H Vancomycin Trough 07/22/21 07/22/21 07/23/21 19:47 19:53 05:17 Estim Creat Clear Calc 130.1 Estimated GFR > 60 POC Glucose 143 H Vancomycin Trough 14.9 07/23/21 07:26 Estim Creat Clear Calc Estimated GFR POC Glucose 189 H Vancomycin Trough Microbiology Microbiology Results: Microbiology 07/20/21 21:02 Blood Culture - Preliminary Blood - Venous No growth after 48 hours. 07/20/21 20:26 Blood Culture - Preliminary Blood - Venous No growth after 48 hours. 07/22/21 Unknown Gram Stain - Final Foot Left Procedures Date of Service Date of Service: 07/23/21 Progress Note: A&P Assessment and plan (1) Foot abscess, left: Status: Acute Assessment and Plan: Status post I&D x2 Dressings changed Edema and cellulitis are much improved Foot wrapped again with Kerlix roll Plan to remove the other packing tomorrow Continue IV antibiotics Time Spent With Patient Time: Total time spent is greater than 50% in coordination of care (as documented) at patient's floor/unit and/or counseling patient: Quality Stroke Does the patient have a stroke diagnosis?: No VTE Prior VTE?: No VTE Risk Level:: Medical - moderate - high VTE Device Contraindication: Treatment Not Indicated VTE Drug Contraindication: N/A - Med Ordered
[2021-07-23] MEDS: Insulin Lispro 100 UNIT/ML 3 ML VIAL SUBCUT ×4 (08:27→22:10)
[2021-07-23] MEDS: vancomycin HCL 1,250 MG in 0.9 % Sodium Chloride 250 ML IV (09:45)
[2021-07-23] MEDS: Insulin Glargine,Hum.rec.anlog 100 UNIT/ML 10 ML VIAL 25 UNIT SUBCUT (09:46)
[2021-07-23] MEDS: lisinopriL 40 MG TABLET PO (09:46)
[2021-07-23] MEDS: Escitalopram Oxalate 10 MG TABLET PO (09:47)
[2021-07-23] MEDS: amLODIPine Besylate 10 MG TABLET PO (09:47)
--- NOTE | 2021-07-23 09:56 | PM.EVENT ---
Event Note Date of Service: 07/23/21 Event Note: saw patient again in follow-up for osteomyelitis of the foot, os abscess. RN was present He was again belligerent, aggressive, verbally abusive without any apparent provocation and no longer wants to see me. He had no other complaint directed on this foot was intact. Assessment/plan: surgery to continue dressing changes, pain control, to continue antibiotics follow cultures, Infectious Disease to make final recommendation of antibiotics. I will transfer care of this patient to 1 of my colleagues
--- NOTE | 2021-07-23 11:05 | HO.POSTANES ---
Post Anesthesia Evaluation Post Anesthesia Evaluation Vital Signs: Vital Signs Temp Pulse Resp BP Pulse Ox 07/23/21 10:55 99.3 F 96 18 154/85 H 95 07/23/21 07:59 99 18 07/23/21 07:28 98.8 F 100 18 159/94 H 96 07/23/21 03:17 98.3 F 93 17 134/63 94 07/22/21 23:41 97.7 F 97 17 125/75 94 Anesthesia: General LMA Mental Status: Awake Pain Control: Satisfactory Nausea/Vomiting: None Hydration: Adequate Anesthesia-Related Issues: No Anes. Related Issues
[2021-07-23 11:06] LABS: Glucose, Whole Blood 263 mg/dL (60-115)
--- NOTE | 2021-07-23 11:09 | MHC.CM.PN ---
Per ROUNDS discussion, Patient is not yet medically cleared for dc (IV Morphine today, IV VANCO & IV Zosyn, packing to be removed tomorrow);Home with new VNA is the goal and CM will follow for possible need to adjust the dc plan.
[2021-07-23 16:04] LABS: Glucose, Whole Blood 214 mg/dL (60-115)
[2021-07-23 19:33] LABS: Glucose, Whole Blood 177 mg/dL (60-115)
[2021-07-23 20:34] LABS: Vancomycin Trough 12.5 mcg/mL (10.0-20.0)
--- NOTE | 2021-07-23 20:56 | HE.PHANOTE ---
vancomycin addendum: level came back at 12.5, at current dose of 1250 mg q 12hr, still has predicted AUC of just barely over 400, increased dose to 1500 mg q 12 hours, predicted AUC of 490, renal function has improved from scr initially of 1.35 to scr of 0.8 will check another level
[2021-07-23] MEDS: vancomycin HCL 1,500 MG in 0.9 % Sodium Chloride 500 ML 333.33 MG IV (22:11)
[2021-07-24] VITALS (8 sets, daily range): BP systolic 141–174; BP diastolic 81–99; PULSE 82–100; RESP 17–20; TEMP 36.1–36.8; O2SAT 94–98
[2021-07-24] MEDS: Morphine Sulfate 4 MG/ML CARTRIDGE IVPUSH ×6 (00:30→23:45)
[2021-07-24] MEDS: Piperacillin Sodium/Tazobactam 3.375 GM in 0.9 % Sodium Chloride 50 ML IV ×4 (01:55→21:06)
[2021-07-24] MEDS: Omeprazole 40 MG CAPSULE.DR PO (05:56)
[2021-07-24 06:43] LABS: Creatinine Clr Calc Pharmacy 135.2; Estimated Glomerular Filt Rate > 60
[2021-07-24 07:10] LABS: Glucose, Whole Blood 227 mg/dL (60-115)
--- NOTE | 2021-07-24 08:14 | HE.PHANOTE ---
RE JESSICA Continue current dose, next trough is 07/25 @0800. predicted auc 490; trough 14.6
[2021-07-24] MEDS: lisinopriL 40 MG TABLET PO (08:39)
[2021-07-24] MEDS: amLODIPine Besylate 10 MG TABLET PO (08:39)
[2021-07-24] MEDS: Escitalopram Oxalate 10 MG TABLET PO (08:39)
[2021-07-24] MEDS: 0.9 % Sodium Chloride Flush 3 ML SYRINGE IVFLUSH ×3 (08:40→22:04)
[2021-07-24] MEDS: Insulin Lispro 100 UNIT/ML 3 ML VIAL SUBCUT ×4 (08:41→21:06)
[2021-07-24] MEDS: Insulin Glargine,Hum.rec.anlog 100 UNIT/ML 10 ML VIAL 25 UNIT SUBCUT (08:45)
[2021-07-24] MEDS: atenoloL 25 MG TABLET PO (09:15)
--- NOTE | 2021-07-24 10:16 | MHC.CM.PN ---
Addendum entered by Naima Herring RN 07/24/21 11:48: IMM 07/24/21, CM MET W/PT AFTER ROUNDS PT AWARE [facility] CANNOT TAKE HIM AND [facility] IS OFFERING SERVICE, PT HAS NO PREFERENCE FOR [facility] AND REFERRAL PLACED TO [place]. ID CONSULT PENDING, ADNGELO D/C TOMORROW 07/25. Original Note: CM ATTEMPTED TO MEET W/PT TO DISCUSS [facility], [facility] HOWEVER PT RECEIVED IMPORTANT PHONE CALL, CM WILL REVISIT AFTER ROUNDS.
--- NOTE | 2021-07-24 11:07 | P.PNGS_ITS ---
Subjective Subjective Date of Service: 07/24/21 Interval history: Denies new complaints Says his pain is much better Physical Exam Vital Signs: Vital Signs: Last Vital Signs Temp 97.1 F 07/24/21 07:29 Pulse 100 07/24/21 07:29 Resp 20 07/24/21 07:29 BP 148/84 H 07/24/21 07:29 Pulse Ox 98 07/24/21 07:29 BMI result Body Mass Index 30.7 Const: General: comfortable and no acute distress Resp: Effort & Inspection: normal respiratory effort Extrem: Other: Left foot looks much improved, less edema and less redness; two I&D sites clean Objective Data Active Medications Acetaminophen (Acetaminophen 325 Mg Tablet) 650 mg PO Q6H PRN PRN Reason: Pain, Mild (Pain Scale 1-3) Acetaminophen (Acetaminophen 325 Mg Tablet) 650 mg PO ONCE PRN PRN Reason: Pain, Mild (Pain Scale 1-3) Albuterol Sulfate (Albuterol Sulfate 90 Mcg 8 Gm Inhaler) 2 puff INHALE Q4H PRN PRN Reason: Shortness Of Breath Amlodipine Besylate (Amlodipine Besylate 10 Mg Tablet) 10 mg PO DAILY [facility]; Protocol Last Admin: 07/24/21 08:39 Dose: 10 mg Documented by: LAURA Atenolol (Atenolol 25 Mg Tablet) 25 mg PO DAILY [facility]; Protocol Last Admin: 07/24/21 09:15 Dose: 25 mg Documented by: LAURA Clonazepam (Clonazepam 0.5 Mg Tablet) 0.5 mg PO DAILY PRN PRN Reason: Anxiety Dextrose (Dextrose 50 % 25 Gm/50 Ml Syringe) 25 gm IVPUSH Q15M PRN; Protocol PRN Reason: per Hypoglycemia Standing Ord. Docusate Sodium (Docusate Sodium 100 Mg Capsule) 100 mg PO DAILY PRN PRN Reason: Constipation Escitalopram Oxalate (Escitalopram Oxalate 10 Mg Tablet) 10 mg PO DAILY [facility] Last Admin: 07/24/21 08:39 Dose: 10 mg Documented by: LAURA Fentanyl (Fentanyl Citrate/Pf 100 Mcg/2 Ml Vial) 25 mcg IVPUSH Q5M PRN; Protocol PRN Reason: Pain, Moderate (Pain Scale 4-6 Fluticasone Propionate (Fluticasone Propionate 100 Mcg Blst.W.Dev) 2 puff INHALE [facility] Last Admin: 07/24/21 07:59 Dose: Not Given Documented by: FARIHA Non-Admin Reason: pt took on own Gabapentin (Gabapentin 400 Mg Capsule) 800 mg PO TID PRN PRN Reason: NERVE PAIN Glucose (Glucose Gel 15 Gm Gel..Gram.) 15 gm PO Q15M PRN; Protocol PRN Reason: per Hypoglycemia Standing Ord. Piperacillin Sod/Tazobactam (Sod 3.375 gm/ Sodium Chloride) 50 mls @ 100 mls/hr IV Q6H [facility] Last Infusion: 07/24/21 10:41 Dose: 0 mls/hr Documented by: LAURA Vancomycin HCl 1,500 mg/ (Sodium Chloride) 500 mls @ 333.333 mls/hr IV Q12H [facility] Last Infusion: 07/23/21 23:56 Dose: 0 mls/hr Documented by: SHEELA Insulin Glargine (Insulin Glargine,Hum.Rec.Anlog 100 Unit/Ml 10 Ml Vial) 25 un it SUBCUT DAILY [facility] Last Admin: 07/24/21 08:45 Dose: 25 unit Documented by: LAURA Insulin Human Lispro (Insulin Lispro 100 Unit/Ml 3 Ml Vial) 0 unit SUBCUT QIDACHS [facility]; Protocol Last Admin: 07/24/21 08:41 Dose: 4 unit Documented by: LAURA Lisinopril (Lisinopril 40 Mg Tablet) 40 mg PO DAILY [facility]; Protocol Last Admin: 07/24/21 08:39 Dose: 40 mg Documented by: LAURA Morphine Sulfate (Morphine Sulfate 4 Mg/Ml Cartridge) 4 mg IVPUSH Q4H PRN; Protocol PRN Reason: Pain, Severe (Pain Scale 7-10) Last Admin: 07/24/21 08:40 Dose: 4 mg Documented by: LAURA Omeprazole (Omeprazole 40 Mg Capsule.Dr) 40 mg PO DAILY@0630 [facility] Last Admin: 07/24/21 05:56 Dose: 40 mg Documented by: SHEELA Ondansetron HCl (Ondansetron Hcl 4 Mg/2 Ml Vial) 4 mg IVPUSH Q8H PRN PRN Reason: Nausea and Vomiting Ondansetron HCl (Ondansetron Hcl 4 Mg/2 Ml Vial) 4 mg IVPUSH ONCE PRN PRN Reason: Nausea and Vomiting Oxycodone HCl (Oxycodone Hcl Immed Release 5 Mg Tablet) 5 mg PO ONCE PRN PRN Reason: Pain, Severe (Pain Scale 7-10) Oxycodone HCl (Oxycodone Hcl Immed Release 5 Mg Tablet) 5 mg PO Q4H PRN PRN Reason: Pain, Moderate (Pain Scale 4-6 Oxycodone HCl (Oxycodone Hcl Immed Release 5 Mg Tablet) 10 mg PO Q4H PRN PRN Reason: Pain, Severe (Pain Scale 7-10) Pharmacy Consult (Consult Rx Perform Med Rec) 1 each MISCELLANE ONCE PRN PRN Reason: Consult order Pharmacy Consult (Consult Rx Vancomycin Dosing) 1 each MISCELLANE DAILY PRN PRN Reason: Consult order Sodium Chloride (0.9 % Sodium Chloride Flush 3 Ml Syringe) 3 ml IVFLUSH QSHIFT [facility] Last Admin: 07/24/21 08:40 Dose: 3 ml Documented by: LAURA Labs CBC & Chem 7: 07/21/21 06:44 07/24/21 05:21 Labs: Laboratory Results - last 24 hr 07/23/21 07/23/21 07/23/21 10:51 16:00 19:10 Estim Creat Clear Calc Estimated GFR POC Glucose 263 H 214 H 177 H Vancomycin Trough 07/23/21 07/24/21 07/24/21 20:06 05:21 06:59 Estim Creat Clear Calc 135.2 Estimated GFR > 60 POC Glucose 227 H Vancomycin Trough 12.5 Microbiology Microbiology Results: Microbiology 07/22/21 Unknown Gram Stain - Final Foot Left Routine Culture - Preliminary Staphylococcus aureus Procedures Date of Service Date of Service: 07/24/21 Progress Note: A&P Assessment and plan (1) Foot abscess, left: Status: Acute Assessment and Plan: I removed his remaining packing in change all his dressings Wrapped the foot in Kerlix roll Continue wound care daily dry gauze He is to have prolonged IV antibiotics for osteomyelitis He does not want amputation of the big toe He says he needs to be discharged tomorrow Time Spent With Patient Time: Total time spent is greater than 50% in coordination of care (as documented) at patient's floor/unit and/or counseling patient: Quality Stroke Does the patient have a stroke diagnosis?: No VTE Prior VTE?: No VTE Risk Level:: Medical - moderate - high VTE Device Contraindication: Treatment Not Indicated VTE Drug Contraindication: N/A - Med Ordered
[2021-07-24] MEDS: vancomycin HCL 1,500 MG in 0.9 % Sodium Chloride 500 ML 333.33 MG IV ×2 (11:14→22:02)
[2021-07-24 11:40] LABS: Glucose, Whole Blood 301 mg/dL (60-115)
--- NOTE | 2021-07-24 11:59 | HO.PM.IMPN ---
Subjective Subjective Date of Service: 07/24/21 Interval History: dressing changed this AM by surgeon, I+D sites look clean pt denies pain, chills, fever, nausea, vomiting, or diarrhea was verbally aggressive with nurse today Review of Systems Review of Systems: Yes all other systems are reviewed and are negative Physical Exam Vital Signs: Vital Signs: Last Vital Signs Temp 97.1 F 07/24/21 07:29 Pulse 100 07/24/21 07:29 Resp 20 07/24/21 11:00 BP 148/84 H 07/24/21 07:29 Pulse Ox 98 07/24/21 07:29 BMI result Body Mass Index 30.7 Gen: in no acute distress HEENT: sclera anicteric, moist mucus membranes Neck: supple Lungs: clear to auscultation bilaterally Heart: regular rate and rhythm, no murmurs Abd: soft, non-tender, non-distended Ext: R foot with 1st/3rd/4th toe amputations, L foot with edema + erythema + clean I+D sites x2 Skin: warm/well-perfused Neuro: alert and oriented x3, no focal findings Psych: appropriate affect Objective Data Active Medications Acetaminophen (Acetaminophen 325 Mg Tablet) 650 mg PO Q6H PRN PRN Reason: Pain, Mild (Pain Scale 1-3) Acetaminophen (Acetaminophen 325 Mg Tablet) 650 mg PO ONCE PRN PRN Reason: Pain, Mild (Pain Scale 1-3) Albuterol Sulfate (Albuterol Sulfate 90 Mcg 8 Gm Inhaler) 2 puff INHALE Q4H PRN PRN Reason: Shortness Of Breath Amlodipine Besylate (Amlodipine Besylate 10 Mg Tablet) 10 mg PO DAILY [facility]; Protocol Last Admin: 07/24/21 08:39 Dose: 10 mg Documented by: LAURA Atenolol (Atenolol 25 Mg Tablet) 25 mg PO DAILY [facility]; Protocol Last Admin: 07/24/21 09:15 Dose: 25 mg Documented by: LAURA Clonazepam (Clonazepam 0.5 Mg Tablet) 0.5 mg PO DAILY PRN PRN Reason: Anxiety Dextrose (Dextrose 50 % 25 Gm/50 Ml Syringe) 25 gm IVPUSH Q15M PRN; Protocol PRN Reason: per Hypoglycemia Standing Ord. Docusate Sodium (Docusate Sodium 100 Mg Capsule) 100 mg PO DAILY PRN PRN Reason: Constipation Escitalopram Oxalate (Escitalopram Oxalate 10 Mg Tablet) 10 mg PO DAILY [facility] Last Admin: 07/24/21 08:39 Dose: 10 mg Documented by: LAURA Fentanyl (Fentanyl Citrate/Pf 100 Mcg/2 Ml Vial) 25 mcg IVPUSH Q5M PRN; Protocol PRN Reason: Pain, Moderate (Pain Scale 4-6 Fluticasone Propionate (Fluticasone Propionate 100 Mcg Blst.W.Dev) 2 puff INHALE RBID [facility] Last Admin: 07/24/21 07:59 Dose: Not Given Documented by: FARIHA Non-Admin Reason: pt took on own Gabapentin (Gabapentin 400 Mg Capsule) 800 mg PO TID PRN PRN Reason: NERVE PAIN Glucose (Glucose Gel 15 Gm Gel..Gram.) 15 gm PO Q15M PRN; Protocol PRN Reason: per Hypoglycemia Standing Ord. Piperacillin Sod/Tazobactam (Sod 3.375 gm/ Sodium Chloride) 50 mls @ 100 mls/hr IV Q6H [facility] Last Infusion: 07/24/21 10:41 Dose: 0 mls/hr Documented by: LAURA Vancomycin HCl 1,500 mg/ (Sodium Chloride) 500 mls @ 333.333 mls/hr IV Q12H [facility] Last Admin: 07/24/21 11:14 Dose: 333.33 mls/hr Documented by: LAURA Insulin Glargine (Insulin Glargine,Hum.Rec.Anlog 100 Unit/Ml 10 Ml Vial) 25 unit SUBCUT DAILY [facility] Last Admin: 07/24/21 08:45 Dose: 25 unit Documented by: LAURA Insulin Human Lispro (Insulin Lispro 100 Unit/Ml 3 Ml Vial) 0 unit SUBCUT QIDACHS [facility]; Protocol Last Admin: 07/24/21 11:40 Dose: 8 unit Documented by: LAURA Lisinopril (Lisinopril 40 Mg Tablet) 40 mg PO DAILY [facility]; Protocol Last Admin: 07/24/21 08:39 Dose: 40 mg Documented by: LAURA Morphine Sulfate (Morphine Sulfate 4 Mg/Ml Cartridge) 4 mg IVPUSH Q4H PRN; Protocol PRN Reason: Pain, Severe (Pain Scale 7-10) Last Admin: 07/24/21 08:40 Dose: 4 mg Documented by: LAURA Omeprazole (Omeprazole 40 Mg Capsule.Dr) 40 mg PO DAILY@0630 [facility] Last Admin: 07/24/21 05:56 Dose: 40 mg Documented by: SHEELA Ondansetron HCl (Ondansetron Hcl 4 Mg/2 Ml Vial) 4 mg IVPUSH Q8H PRN PRN Reason: Nausea and Vomiting Ondansetron HCl (Ondansetron Hcl 4 Mg/2 Ml Vial) 4 mg IVPUSH ONCE PRN PRN Reason: Nausea and Vomiting Oxycodone HCl (Oxycodone Hcl Immed Release 5 Mg Tablet) 5 mg PO ONCE PRN PRN Reason: Pain, Severe (Pain Scale 7-10) Oxycodone HCl (Oxycodone Hcl Immed Release 5 Mg Tablet) 5 mg PO Q4H PRN PRN Reason: Pain, Moderate (Pain Scale 4-6 Oxycodone HCl (Oxycodone Hcl Immed Release 5 Mg Tablet) 10 mg PO Q4H PRN PRN Reason: Pain, Severe (Pain Scale 7-10) Pharmacy Consult (Consult Rx Perform Med Rec) 1 each MISCELLANE ONCE PRN PRN Reason: Consult order Pharmacy Consult (Consult Rx Vancomycin Dosing) 1 each MISCELLANE DAILY PRN PRN Reason: Consult order Sodium Chloride (0.9 % Sodium Chloride Flush 3 Ml Syringe) 3 ml IVFLUSH QSHIFT [facility] Last Admin: 07/24/21 08:40 Dose: 3 ml Documented by: LAURA Labs CBC & Chem 7: 07/21/21 06:44 07/24/21 05:21 Labs: Laboratory Results - last 24 hr 07/23/21 07/23/21 07/23/21 16:00 19:10 20:06 Estim Creat Clear Calc Estimated GFR POC Glucose 214 H 177 H Vancomycin Trough 12.5 07/24/21 07/24/21 07/24/21 05:21 06:59 11:27 Estim Creat Clear Calc 135.2 Estimated GFR > 60 POC Glucose 227 H 301 H Vancomycin Trough Microbiology Microbiology Results: Microbiology 07/22/21 Unknown Gram Stain - Final Foot Left Routine Culture - Preliminary Staphylococcus aureus Assessment and Plan (1) Osteomyelitis: Status: Acute (2) Diabetic foot infection: Status: Acute Plan hospital d#5 50yo M with DM2, 3 prior episodes of osteomyelitis of feet presenting with L foot pain/erythema/swelling admitted for osteomyelitis and abscess of L foot # DM osteomyelitis/foot abscess/fellulitis - s/p ID x2 on 07/22/21; pt declined amputation, plan 6 wk IV ABX, continue vanco + pip/christiana d#5, ID consult re: ABX [hx MSSA, no MRSA- current wound Cx growing Staph + susceptibilities pending], PICC line placement, surgery f/u # HTN - continue amlodipine + lisinopril, resume atenolol # neuropathy - gabapentin # mood disorder - escitalopram # DM2 - basal/bolus insulin # VTE ppx - SCDs Quality Stroke Does the patient have a stroke diagnosis?: No VTE Prior VTE?: No VTE Risk Level:: Medical - moderate - high VTE Device Contraindication: Treatment Not Indicated VTE Drug Contraindication: N/A - Med Ordered
[2021-07-24 16:36] LABS: Glucose, Whole Blood 228 mg/dL (60-115)
--- NOTE | 2021-07-24 18:56 | PC.NURSE ---
Patient became aggressive and started complaining in, and out of his room (the nurse's station) in the morning when giving his medications. He complained that the doctor did not include his blood pressure medication atenolol among his other blood pressure medications. Nurse cloth brushing and sueding supervisor was called, who came in to talk to the patient. Security was called. I reported to the doctor who prescribed the medication, and was given to the patient.
[2021-07-24 19:56] LABS: Glucose, Whole Blood 297 mg/dL (60-115)
[2021-07-25] MEDS: Piperacillin Sodium/Tazobactam 3.375 GM in 0.9 % Sodium Chloride 50 ML IV (05:09)
[2021-07-25] MEDS: Omeprazole 40 MG CAPSULE.DR PO (05:09)
[2021-07-25] MEDS: Morphine Sulfate 4 MG/ML CARTRIDGE IVPUSH ×2 (05:09→09:24)
--- NOTE | 2021-07-25 05:09 | MHC.PIE ---
late entry p; while in pt room trying to put up abx and asking for pt pain level after pain med given. pt noted by body language upset and anxious. when asked you seem upset, can i help you? pt became angry and even more upset saying why are you telling me that i'm upset? wouldn't you be upset when you are sick? and etc. tried to calm pt multiple times with pt becoming more upset with this selling underwriter i; meds given by another rn. room assignment changed for pt comfort e; will cont to monitor
[2021-07-25 05:51] VITALS: BP 132/77; PULSE 88; RESP 17; TEMP 36.4; O2SAT 95
[2021-07-25 06:52] VITALS: BP 146/84; PULSE 94; RESP 18; TEMP 36.2; O2SAT 98
[2021-07-25 07:13] LABS: Glucose, Whole Blood 214 mg/dL (60-115)
[2021-07-25] MEDS: atenoloL 25 MG TABLET PO (08:14)
[2021-07-25] MEDS: lisinopriL 40 MG TABLET PO (08:14)
[2021-07-25] MEDS: amLODIPine Besylate 10 MG TABLET PO (08:14)
[2021-07-25] MEDS: Escitalopram Oxalate 10 MG TABLET PO (08:14)
[2021-07-25] MEDS: Insulin Glargine,Hum.rec.anlog 100 UNIT/ML 10 ML VIAL 25 UNIT SUBCUT (08:15)
[2021-07-25] MEDS: Insulin Lispro 100 UNIT/ML 3 ML VIAL SUBCUT (08:16)
[2021-07-25] MEDS: 0.9 % Sodium Chloride Flush 3 ML SYRINGE IVFLUSH (08:16)
[2021-07-25] MEDS: Fluticasone Propionate 100 MCG BLST.W.DEV 2 PUFF INHALE (08:19)
[2021-07-25 08:21] VITALS: PULSE 102; RESP 18; O2SAT 96
[2021-07-25 08:54] LABS: Hematocrit 41.7 % (42.0-52.0); Hemoglobin 13.7 g/dl (14.0-18.0); Mean Corpuscular HGB Conc 32.9 g/dl (31.0-36.0); Mean Corpuscular Volume 82.2 fL (80.0-98.0); Mean Platelet Volume 10.1 fL (9.4-12.4); Platelet Count 330 X10*3/uL (160-400); Red Blood Count 5.07 X10*6/uL (4.60-5.80); Red Cell Distribution Width 14.1 % (11.0-16.0); White Blood Count 9.6 X10*3/uL (4.8-10.8)
[2021-07-25 09:08] LABS: Anion Gap 17 (12-20); Blood Urea Nitrogen 14 mg/dL (9-16); C Reactive Protein 0.68 mg/dL (< or = 0.50); Calcium 9.9 mg/dL (8.4-10.2); Carbon Dioxide 29 mmol/L (22-29); Chloride 99 mmol/L (96-108); Creatinine Clr Calc Pharmacy 114.4; Estimated Glomerular Filt Rate > 60; Glucose Random 220 mg/dL (60-115); Potassium 5.5 mmol/L (3.3-5.1); Sodium 139 mmol/L (135-145)
--- NOTE | 2021-07-25 09:10 | PM.PNGS ---
Subjective Subjective Date of Service: 07/25/21 Interval history: denies new complaints left foot continues to feel better he was apologizing about behavior towards me days ago - says he was just stressed at that time Physical Exam Vital Signs: Vital Signs: Last Vital Signs Temp 97.2 F 07/25/21 06:52 Pulse 102 H 07/25/21 08:21 Resp 18 07/25/21 08:21 BP 146/84 H 07/25/21 06:52 Pulse Ox 98 07/25/21 06:52 BMI result Body Mass Index 30.7 Const: General: comfortable and no acute distress Resp: Effort & Inspection: normal respiratory effort Cardio: Rate: regular rate Extrem: Other: left - I and D sites, no signal drainage, overall, swelling and redness much improved Objective Data Active Medications Acetaminophen (Acetaminophen 325 Mg Tablet) 650 mg PO Q6H PRN PRN Reason: Pain, Mild (Pain Scale 1-3) Acetaminophen (Acetaminophen 325 Mg Tablet) 650 mg PO ONCE PRN PRN Reason: Pain, Mild (Pain Scale 1-3) Albuterol Sulfate (Albuterol Sulfate 90 Mcg 8 Gm Inhaler) 2 puff INHALE Q4H PRN PRN Reason: Shortness Of Breath Amlodipine Besylate (Amlodipine Besylate 10 Mg Tablet) 10 mg PO DAILY [facility]; Protocol Last Admin: 07/25/21 08:14 Dose: 10 mg Documented by: PEREZ Atenolol (Atenolol 25 Mg Tablet) 25 mg PO DAILY [facility]; Protocol Last Admin: 07/25/21 08:14 Dose: 25 mg Documented by: PEREZ Clonazepam (Clonazepam 0.5 Mg Tablet) 0.5 mg PO DAILY PRN PRN Reason: Anxiety Dextrose (Dextrose 50 % 25 Gm/50 Ml Syringe) 25 gm IVPUSH Q15M PRN; Protocol PRN Reason: per Hypoglycemia Standing Ord. Docusate Sodium (Docusate Sodium 100 Mg Capsule) 100 mg PO DAILY PRN PRN Reason: Constipation Escitalopram Oxalate (Escitalopram Oxalate 10 Mg Tablet) 10 mg PO DAILY [facility] Last Admin: 07/25/21 08:14 Dose: 10 mg Documented by: PEREZ Fentanyl (Fentanyl Citrate/Pf 100 Mcg/2 Ml Vial) 25 mcg IVPUSH Q5M PRN; Protocol PRN Reason: Pain, Moderate (Pain Scale 4-6 Fluticasone Propionate (Fluticasone Propionate 100 Mcg Blst.W.Dev) 2 puff INHALE RBID [facility] Last Admin: 07/25/21 08:19 Dose: 2 puff Documented by: MILLER Gabapentin (Gabapentin 400 Mg Capsule) 800 mg PO TID PRN PRN Reason: NERVE PAIN Glucose (Glucose Gel 15 Gm Gel..Gram.) 15 gm PO Q15M PRN; Protocol PRN Reason: per Hypoglycemia Standing Ord. Vancomycin HCl 1,500 mg/ (Sodium Chloride) 500 mls @ 333.333 mls/hr IV Q12H [facility] Last Infusion: 07/24/21 23:46 Dose: 0 mls/hr Documented by: TARYN Piperacillin Sod/Tazobactam (Sod 3.375 gm/ Sodium Chloride) 50 mls @ 100 mls/hr IV Q6H [facility] Last Infusion: 07/25/21 06:23 Dose: 0 mls/hr Documented by: TARYN Insulin Glargine (Insulin Glargine,Hum.Rec.Anlog 100 Unit/Ml 10 Ml Vial) 25 unit SUBCUT DAILY [facility] Last Admin: 07/25/21 08:15 Dose: 25 unit Documented by: PEREZ Insulin Human Lispro (Insulin Lispro 100 Unit/Ml 3 Ml Vial) 0 unit SUBCUT QIDACHS [facility]; Protocol Last Admin: 07/25/21 08:16 Dose: 4 unit Documented by: PEREZ Lisinopril (Lisinopril 40 Mg Tablet) 40 mg PO DAILY [facility]; Protocol Last Admin: 07/25/21 08:14 Dose: 40 mg Documented by: PEREZ Morphine Sulfate (Morphine Sulfate 4 Mg/Ml Cartridge) 4 mg IVPUSH Q4H PRN; Protocol PRN Reason: Pain, Severe (Pain Scale 7-10) Last Admin: 07/25/21 05:09 Dose: 4 mg Documented by: TARYN Omeprazole (Omeprazole 40 Mg Capsule.) 40 mg PO DAILY@0630 [facility] Last Admin: 07/25/21 05:09 Dose: 40 mg Documented by: TARYN Ondansetron HCl (Ondansetron Hcl 4 Mg/2 Ml Vial) 4 mg IVPUSH Q8H PRN PRN Reason: Nausea and Vomiting Ondansetron HCl (Ondansetron Hcl 4 Mg/2 Ml Vial) 4 mg IVPUSH ONCE PRN PRN Reason: Nausea and Vomiting Oxycodone HCl (Oxycodone Hcl Immed Release 5 Mg Tablet) 5 mg PO ONCE PRN PRN Reason: Pain, Severe (Pain Scale 7-10) Oxycodone HCl (Oxycodone Hcl Immed Release 5 Mg Tablet) 5 mg PO Q4H PRN PRN Reason: Pain, Moderate (Pain Scale 4-6 Oxycodone HCl (Oxycodone Hcl Immed Release 5 Mg Tablet) 10 mg PO Q4H PRN PRN Reason: Pain, Severe (Pain Scale 7-10) Pharmacy Consult (Consult Rx Perform Med Rec) 1 each MISCELLANE ONCE PRN PRN Reason: Consult order Pharmacy Consult (Consult Rx Vancomycin Dosing) 1 each MISCELLANE DAILY PRN PRN Reason: Consult order Sodium Chloride (0.9 % Sodium Chloride Flush 3 Ml Syringe) [facility] Last Admin: 07/25/21 08:16 Dose: 3 ml Documented by: PEREZ Labs CBC & Chem 7: 07/25/21 08:09 07/25/21 08:09 Labs: Laboratory Results - last 24 hr 07/24/21 07/24/21 07/24/21 11:27 16:26 19:51 MCV MCH MCHC RDW Plt Count MPV Absolute Nucleated RBC Nucleated RBC % (auto) Anion Gap Estim Creat Clear Calc Estimated GFR POC Glucose 301 H 228 H 297 H Random Glucose Calcium C-Reactive Protein 07/25/21 07/25/21 07/25/21 06:59 08:09 08:09 MCV 82.2 MCH 27.0 MCHC 32.9 RDW 14.1 Plt Count 330 MPV 10.1 Absolute Nucleated RBC 0.000 Nucleated RBC % (auto) 0.0 Anion Gap 17 Estim Creat Clear Calc 114.4 Estimated GFR > 60 POC Glucose 214 H Random Glucose 220 H Calcium 9.9 C-Reactive Protein 0.68 H Microbiology Microbiology Results: Microbiology 07/22/21 Unknown Gram Stain - Final Foot Left Routine Culture - Final Staphylococcus aureus Procedures Date of Service Date of Service: 07/25/21 Progress Note: A&P Assessment and plan (1) Foot abscess, left: Status: Acute Assessment and Plan: status post I&D x2 areas much improved he does have osteomyelitis of the the distal metatarsal of the big toe he does not want amputation at this dry dressing daily and wrapped the foot with Kerlix he says he will have a visiting nurse states that he needs to be discharged today was apologetic about behavior 2 days ago Time Spent With Patient Time: Total time spent is greater than 50% in coordination of care (as documented) at patient's floor/unit and/or counseling patient: Quality Stroke Does the patient have a stroke diagnosis?: No VTE Prior VTE?: No VTE Risk Level:: Medical - moderate - high VTE Device Contraindication: Treatment Not Indicated VTE Drug Contraindication: N/A - Med Ordered
[2021-07-25 09:12] LABS: Vancomycin Trough 15.7 mcg/mL (10.0-20.0)
[2021-07-25 09:36] LABS: Erythrocyte Sedimentation Rate 19 MM/HR (0-15)
--- NOTE | 2021-07-25 09:38 | HE.PHANOTE ---
RE SIMRANO CONTINUE CURRENT DOSE, NEXT TROUGH IS 0800 TOMORROW AFTER 2 DOSES DUE TO SCR RISE
--- NOTE | 2021-07-25 09:52 | P.F2F_ITS ---
Service Date Service Date: 07/25/21 Encounter Date of encounter: 07/25/21 Reasons for Services Signs and symptoms assessed: wound care IV ABX Reason for care home: wound care and administration of IV, SQ, or IM injection Overseeing Care: Erica Aguilar Homebound: Leaving the home is medically contraindicated at this time without the asist of a device and/or another person due th the listed conditions above and below. Reason homebound: immunosuppression / infection risk Certification: Based on the above findings, I certify that this patient is confined to the home and needs intermittent care home care, physical therapy and/or speech therapy, or continues to need occupational therapy. The patient is under my care, and I have initiated the establishment of the plan of care. The patient will be followed by a physician who will periodically review the plan of care.
--- NOTE | 2021-07-25 11:05 | PC.NURSE ---
PICC line removed without difficulty. Catheter intact. Pt tolerated well.
--- NOTE | 2021-07-25 11:30 | MHC.CM.PN ---
nurse rn case mgr ntoe electronic medical record reviewed eva case discussed on multipkle disciplianry rounds , patient now no longer needs iv abx per id/hospitlsit , notifed [facility] home infusion to [facility] the referral and notified zuri fraire of the iv abx cancelation , and cancelled dr paul follow up discharge plan home with relara caring for nrusing for wound assessment and reinforcement of dressing changes and medication reconcilation and diagnosis sign symptom managment. d/c ppaerwork sent via [employer] to them pcp patient to call for follow up with [facility] transportation patients demanding to be dischagred taxi voucher given to himm lives in [facility] [place] (pic line was removed vbefore discharge , information on the tbi support groups given to him in this area as he had asked me earlier medicare imm updated
--- NOTE | 2021-07-25 11:56 | P.DS_ITS ---
DS: Providers Provider Date of Service: 07/25/21 Date of admission: 07/20/21 22:12 Date of discharge: 07/25/21 Primary care physician: Erica Aguilar NP Consults: 07/20/21 22:09 Consult to Infectious Diseases Routine Consulting Provider: Chantelle Santillan Reason for consultation: OSteo Has provider been notified: No 07/21/21 06:40 Consult to General Surgery Routine Consulting Provider: Ismael Kim Reason for consultation: osteomyelitis Has provider been notified: No 07/24/21 09:33 Consult to Infectious Diseases Routine Consulting Provider: Chantelle Santillan Reason for consultation: osteomyelitis, needs PICC, s/p I+D, refuses amuptation DS: Diagnosis Discharge Diagnosis (1) Foot abscess, left: Status: Acute (2) Chronic osteomyelitis: Status: Acute (3) Cellulitis: Status: Acute (4) Diabetic foot infection: Status: Acute DS: Summary Hospital Course Hospital Course: from hospitalist Dr Sarahy Tamayo's H+P on 07/21/21, day of admission: this is a 50-year-old male with past medical history of diabetes, history of osteomyelitis with amputation of 3 of his right foot toes, hypertension, hep C,?and recent osteomyelitis of the left foot who returns to the hospital with complaints of left foot pain, swelling, and erythema.? Patient reports that he was on IV antibiotics and completed a 6 week course at home but he once again developed swelling pain, as well as redness on his left foot for the past 1 week.? Patient reports that he missed 3 of his infectious disease follow-up appointments.? He reports no drainage.? He had a low-grade fever of 99.8, denies any nausea or vomiting, no chest pain, no abdominal pain diarrhea constipation, no urinary symptoms.? No headache or change in vision, no numbness tingling. Patient was discharged on 04/29 after management of osteomyelitis of the left 1st metatarsal bone patient was discharged home on Invanz for 6 weeks via PICC line and to follow-up outpatient with Infectious Disease.? Patient was also evaluated by surgery at that time who recommended amputation of antibiotic failed On arrival to the ED patient found to be hypotensive with a blood pressure of 98/59, received IV fluids with improvement of his blood pressure Labs noted to be significant for WBC count of 15.4, ESR of 34 which is increased from his previous, sodium of 134, CRP of 2.13 which is also increased from previously in May Left foot x-ray shows left for findings are more suspicious for neuropathic joint with destruction and fracture of the 1st metatarsal bone as well as destruction of the metatarsophalangeal joint. Patient given IV antibiotics and be admitted further management This 50yo M with DM2 and 3 prior episodes of osteomyelitis of feet presented with L foot pain/erythema/swelling and was admitted for osteomyelitis and abscess of L foot. He was treated with IV vancomycin and piperacillin- tazobactam. He was not bacteremic. ID and Gen Surg were consulted. He declined amputation despite counseling that his osteomyelitis cannot be cured without this intervention. He underwent I+D of two abscesses on his L foot, which grew MSSA. Per ID, the osteomyelitis is chronic. He already took a course of IV ertapenem in Apr- May 2021. He was discharged on two months of suppressive doxycycline but was counseled strongly to re-consider amputation. He was discharged with VNA services for wound care. Time Spent with Patient Time attestation: Total time spent providing and/or coordinating discharge services: Discharge coordination time: Greater than 30 minutes Quality: Safe Use of Opioids Does Pt have an Active Cancer Diagnosis on the Problem List?: No Quality: Stroke Does the patient have a stroke diagnosis?: No Physical Exam Vital Signs: Vital Signs: Last Vital Signs Temp 97.2 F 07/25/21 06:52 Pulse 102 H 07/25/21 08:21 Resp 18 07/25/21 08:21 BP 146/84 H 07/25/21 06:52 Pulse Ox 98 07/25/21 06:52 BMI result Body Mass Index 30.7 Gen: in no acute distress HEENT: sclera anicteric, moist mucus membranes Neck: supple Lungs: clear to auscultation bilaterally Heart: regular rate and rhythm, no murmurs Abd: soft, non-tender, non-distended Ext: R foot with 1st/3rd/4th toe amputations, L foot with clean I+D sites x2, much improved swelling and erythema Skin: warm/well-perfused Neuro: alert and oriented x3, no focal findings Psych: appropriate affect DS: Data Data Completed and Pending Completed studies during hospitalization [Text1]: Laboratory Results WBC 9.6 X10*3/uL (4.8-10.8) 07/25/21 08:09 RBC 5.07 X10*6/uL (4.60-5.80) 07/25/21 08:09 Hgb 13.7 g/dl (14.0-18.0) L 07/25/21 08:09 Hct 41.7 % (42.0-52.0) L 07/25/21 08:09 MCV 82.2 fL (80.0-98.0) 07/25/21 08:09 MCH 27.0 pg (27.0-33.0) 07/25/21 08:09 MCHC 32.9 g/dl (31.0-36.0) 07/25/21 08:09 RDW 14.1 % (11.0-16.0) 07/25/21 08:09 Plt Count 330 X10*3/uL (160-400) 07/25/21 08:09 MPV 10.1 fL (9.4-12.4) 07/25/21 08:09 Immature Gran % (Auto) 0.8 % (0.0-0.4) H 07/21/21 06:44 Neut % (Auto) 71.9 % (45-73) 07/21/21 06:44 Lymph % (Auto) 19.3 % (20-40) L 07/21/21 06:44 [place] % (Auto) 6.1 % (2-11) 07/21/21 06:44 Eos % (Auto) 1.5 % (0-4) 07/21/21 06:44 Baso % (Auto) 0.4 % (0-2) 07/21/21 06:44 Lymph # (Auto) 2.0 X10*3/uL (1.2-4.9) 07/21/21 06:44 [place] # (Auto) 0.6 X10*3/uL (0.1-1.2) 07/21/21 06:44 Eos # (Auto) 0.2 X10*3/uL (0.0-0.4) 07/21/21 06:44 Baso # (Auto) 0.0 X10*3/uL (0.0-0.2) 07/21/21 06:44 Abs Immat Gran (auto) 0.08 X10*3/uL (0.00-0.03) H 07/21/21 06:44 Absolute Neuts (auto) 7.3 x10*3/uL (2.0-8.3) 07/21/21 06:44 Absolute Nucleated RBC 0.000 X10*3/uL (0.0-0.012) 07/25/21 08:09 Nucleated RBC % (auto) 0.0 /100WBC (0.0-0.2) 07/25/21 08:09 ESR 19 MM/HR (0-15) H 07/25/21 08:09 Sodium 139 mmol/L (135-145) 07/25/21 08:09 Potassium 5.5 mmol/L (3.3-5.1) H 07/25/21 08:09 Chloride 99 mmol/L (96-108) 07/25/21 08:09 Carbon Dioxide 29 mmol/L (22-29) 07/25/21 08:09 Anion Gap 17 (12-20) 07/25/21 08:09 BUN 14 mg/dL (9-16) D 07/25/21 08:09 Creatinine 0.91 mg/dL (0.5-1.4) 07/25/21 08:09 Estim Creat Clear Calc 114.4 07/25/21 08:09 Estimated GFR > 60 07/25/21 08:09 POC Glucose 214 mg/dL (60-115) H 07/25/21 06:59 Random Glucose 220 mg/dL (60-115) H 07/25/21 08:09 Lactic Acid 1.5 mmol/L (0.5-2.0) 07/20/21 20:25 Calcium 9.9 mg/dL (8.4-10.2) 07/25/21 08:09 Total Bilirubin 0.4 mg/dL (0.0-1.0) 07/20/21 20:25 Direct Bilirubin < 0.2 mg/dL (0.0-0.5) 07/20/21 20:25 AST 18 U/L (5-37) 07/20/21 20:25 ALT 15 U/L (0-40) 07/20/21 20:25 Alkaline Phosphatase 138 U/L (39-117) H D 07/20/21 20:25 C-Reactive Protein 0.68 mg/dL (< or = 0.50) H 07/25/21 08:09 Total Protein 7.9 g/dL (6.5-8.0) 07/20/21 20:25 Albumin 4.1 g/dL (3.5-5.0) 07/20/21 20:25 Vancomycin Trough 15.7 mcg/mL (10.0-20.0) 07/25/21 08:09 Random Vancomycin 9.3 mcg/mL (15-20) L 07/21/21 20:19 COVID-19 ([place]) Negative (Negative) 07/20/21 20:25 COVID-19 Clin Com See Note 07/20/21 20:25 Impressions Foot X-Ray 07/20/21 20:14 IMPRESSION: Right foot stable without focal findings in the interim. Left foot findings are more suspicious for neuropathic joint with disruption and fracture of the first metatarsal bone as well as disruption of the metatarsophalangeal joint. Correlate clinically. There is notable soft tissue swelling. Chronic osteomyelitis pattern is not absolutely excluded but not characteristic with this appearance. MRI may be obtained for further assessment. Foot MRI 07/21/21 12:37 IMPRESSION: 1. Findings compatible with osteomyelitis of the 1st metatarsal, 1st proximal phalanx and 1st distal phalanx. There is septic arthritis of the 1st MTP joint. There are bony destructive changes in the distal 1st metatarsal and the proximal phalanx including marginating the joint space. 2. Prominent cellulitis and myositis surrounding the medial aspect of the mid/first ray, and the 1st toe. There is complex peripherally enhancing collection on the dorsal and plantar aspect of the midfoot and in the 1st toe, compatible with abscess. The dominant portion of the peripherally complex collection measures 3.7 x 1.8 x 2.7 cm. The plantar collection suspected to be an abscess extends from the level of the midfoot to the distal 1st toe, as described above. This tracks along the flexor hallucis longus tendon, and likely involves it. 3. Findings suspicious for osteomyelitis of the 2nd metatarsal shaft and head. 4. Abnormal findings in the 3rd metatarsal head and neck, is nonspecific. Osteomyelitis would need to be excluded. 5. Additional findings and details as above. Attempt was made to give a verbal report to referring physician without success. The report will be called to the ordering clinician by a [place] [facility] Physician Net Programmer Analyst. PICC Line Insertion 07/24/21 16:08 IMPRESSION: Manipulation with replacement of right upper extremity PICC line trimmed to length of 44 cm. Microbiology 07/22/21 Unknown Foot Left Gram Stain - Final 07/22/21 Unknown Foot Left Routine Culture - Final Staphylococcus aureus 07/20/21 21:02 Blood - Venous Blood Culture - Preliminary No growth after 48 hours. 07/20/21 20:26 Blood - Venous Blood Culture - Preliminary No growth after 48 hours. Discharge Plan Discharge Patient Disposition: Home Health Service Discharge Diagnosis: DM osteomyelitis/foot abscess/cellulitis Referrals: zuri fraire [Other] - 1 Day (they will provide dressing changes and teaching , diagnoisis sign symptom management and medication reconcilation) Erica Aguilar NP [Primary Care Provider] - 1 Week Ismael Kim MD [Physician] - 1 Week Discharge Medications: New oxycodone 5 mg tablet 5 mg PO Q6H PRN (Reason: severe pain (scale score 7-10)) Qty: 12 0RF Continued clonazepam 0.5 mg tablet 1 tab PO DAILY PRN (Reason: Anxiety) 0RF atenolol 25 mg tablet 1 tab PO DAILY 0RF gabapentin 800 mg tablet 1 tab PO TID PRN (Reason: NERVE PAIN) 0RF Rx Instructions: rx for qid, pt takes tid amlodipine 10 mg tablet 1 tab PO DAILY 0RF metformin 1,000 mg tablet 1 tab PO BID 0RF albuterol sulfate 90 mcg/actuation HFA aerosol inhaler 2 puff PO Q4H PRN (Reason: Shortness Of Breath) 0RF lisinopril 40 mg tablet 1 tab PO DAILY 0RF Flovent HFA 110 mcg/actuation HFA aerosol inhaler 2 puff PO BID 0RF insulin aspart U-100 [Novolog PenFill U-100 Insulin] 100 unit/mL cartridge 10 - 15 unit subcut TIDAC 0RF escitalopram oxalate 10 mg tablet 1 tab PO DAILY 0RF Tresiba FlexTouch U-100 100 unit/mL (3 mL) insulin pen 36 unit subcut DAILY 0RF ondansetron 4 mg tablet,disintegrating 1 tab sublingual BID PRN (Reason: Nausea) 0RF omeprazole 40 mg Capsule,Delayed Release(Dr/Ec) 40 mg PO DAILY@0630 0RF doxycycline hyclate 100 mg capsule 100 mg PO BID 30 Days Qty: 60 1RF Discharge Orders: Discharge Order (Routine); Ordered 07/25/21 Ordered By: Rosy Villasenro Diet: advance to usual diet and diabetic diet Activity on Discharge: As tolerated Stand Alone Forms: Patient Portal Discharge page Care Plan Goals: cure or infection Health Concerns: DM osteomyelitis/foot abscess/cellulitis Plan of Treatment: abscesses x2 drained on 07/22/21 osteomyelitis is chronic and can only be cured with amputation; discuss with surgeon and infectious disease specialist if you reconsider amputation; in the meanwhile, take doxycycline 100 mg twice daily for suppression wound care: dry dressing, wrap in Kerlix, change daily follow up with Primary Care in 1 week, Surgery in 1 week,, Infectious Disease in 2 weeks Assessment: See Discharge Summary Patient Instructions: Osteomyelitis (DC) Discharge Date/Time: 07/25/21 11:40
== END 2021-07-25 11:40 | disposition home health service (06) | DRG 638 ==
LOC: HO.ED 21:14 → HO.EDOVER 22:18 → HO.S3 07-21 07:21
PROVIDERS: Internal Medicine; Radiology Diagnostic Radiology; Surgery; Admitting Provider Internal Medicine; Emergency Provider Emergency Medicine; PCP Nurse Practitioner Pediatrics; Visit Provider Family Medicine
PROC: 0J9R0ZZ Drainage of Left Foot Subcutaneous Tissue and Fascia, Open Approach (ICD-10-PCS; principal; 2021-07-22 10:10)
PROC: 02HV33Z Insertion of Infusion Device into Superior Vena Cava, Percutaneous Approach (ICD-10-PCS; principal; 2021-07-24 17:00)
DX: E11.69 Type 2 diabetes mellitus with other specified complication (principal); L03.116 Cellulitis of left lower limb; L02.612 Cutaneous abscess of left foot; M86.672 Other chronic osteomyelitis, left ankle and foot; E11.40 Type 2 diabetes mellitus with diabetic neuropathy, unspecified; I10 Essential (primary) hypertension; E66.9 Obesity, unspecified; F39 Unspecified mood [affective] disorder; J45.909 Unspecified asthma, uncomplicated; Z68.30 Body mass index [BMI] 30.0-30.9, adult; Z20.822 Contact with and (suspected) exposure to COVID-19; Z86.19 Personal history of other infectious and parasitic diseases; Z87.891 Personal history of nicotine dependence; Z79.4 Long term (current) use of insulin; Z79.84 Long term (current) use of oral hypoglycemic drugs; Z79.899 Other long term (current) drug therapy
CPT/HCPCS: 36415; 36573; 73620; 73720; 80048; 80076; 80202; 82565; 82947; 83605; 85025; 85027; 85652; 86140; 87040; 87071; 87077; 87186; 87205; 87635; 94640; 96361; 96365; 96375; 99024; 99285; A9585; C1751; J0690; J2250; J2270; J2370; J2405; J2543; J3010; J3370

== ENCOUNTER → 2021-09-01 14:04 | Outpatient (BNVA) | payer MEDICARE, MEDICAID, SELFPAY | PROVIDERS: PCP Nurse Practitioner Pediatrics; Visit Provider Surgery | DX: M86.60 Other chronic osteomyelitis, unspecified site (principal) | CPT/HCPCS: 99212 ==

== ENCOUNTER → 2021-10-16 13:22 | Outpatient (BNVA) | payer MEDICARE, MEDICAID, SELFPAY | PROVIDERS: PCP Nurse Practitioner Pediatrics; Visit Provider Surgery | DX: M86.672 Other chronic osteomyelitis, left ankle and foot (principal) | CPT/HCPCS: 99212 ==

== ENCOUNTER 2021-11-05 16:12 | Outpatient (REF) | payer MEDICARE, MEDICAID, SELFPAY ==
--- NOTE | ~2021-11-05 | MR_ITS ---
EXAMINATION: MR FOOT WITHOUT AND WITH CONTRAST, LEFT CLINICAL INFORMATION: Osteomyelitis. COMPARISON: Most recent left foot MRI dated 07/21/2021. TECHNIQUE: Multisequence MR imaging of the left foot was obtained before and after the IV administration of 10 mL Gadavist contrast on a high-field strength scanner. FINDINGS: Redemonstration of severe erosion of the 1st metatarsal as well as through the base of the 1st proximal phalanx centered at the metatarsophalangeal joint. Prominent associated marrow edema including increased T2 and decreased T1 signal as well as prominent postcontrast enhancement. There is a peripherally enhancing, lobulated fluid collection associated with the joint space measuring up to 5.8 x 3.6 x 2.4 cm, consistent with abscess formation. Findings are progressed when compared to the prior MRI and are consistent with chronic septic arthritis. Reactive marrow edema within the 1st distal phalanx without associated erosion. Patchy marrow edema throughout the cuneiforms as well as through the proximal aspect of the 2nd and 3rd metatarsals without osseous erosion. Associated postcontrast enhancement. Findings are nonspecific and could represent stress reactions or osseous contusions. Early osteomyelitis cannot be entirely excluded, however, is thought less likely. The visualized muscles and tendons are grossly intact. The Lisfranc ligament is intact. Prominent dorsal subcutaneous edema. MR/MR foot LT wo/w con IMPRESSION: 1. First metatarsophalangeal septic arthritis with a large abscess measuring up to 5.8 cm and prominent erosions in the 1st metatarsal head and 1st proximal phalangeal base. Findings are increased when compared to the MRI dated 07/21/2021. 2. New/increased marrow edema throughout the 2nd and 3rd metatarsals as well as the cuneiforms which could represent stress reactions or osseous contusions. Early osteomyelitis cannot be excluded, however, is thought less likely. 3. Prominent dorsal subcutaneous edema.
--- NOTE | 2021-11-08 10:02 | PM.PNGS ---
Subjective Subjective Date of Service: 11/08/21 Patient reports: nausea Interval history: pt called answering service at 2:00 am saying he needs pain meds. says dr ying said he would call it in but did not. i told him i would review his info in the morning and see what was done. he said he has a bad case of osteo and infection and needs pain meds. i told him if things were worse then he should come to the ER. he replied that i should just callinto the pharmacy for the pain meds and thats it. i told him that i cant and wont do that. on review of his recent mri it seems he has an abscess and osteo and needs most likely amputation as was advised the last 4 months but he wants pain meds right now. i will have him come to the ER or fu with the office early week for appropriate care. Procedures Date of Service Date of Service: 11/08/21 Progress Note: A&P Time Spent With Patient Time: Total time spent is greater than 50% in coordination of care (as documented) at patient's floor/unit and/or counseling patient: Quality Stroke Does the patient have a stroke diagnosis?: No VTE Prior VTE?: No VTE Risk Level:: Surgical - low VTE Device Contraindication: Treatment Not Indicated VTE Drug Contraindication: N/A - Med Ordered
== END 2021-11-05 16:13 | disposition home or self-care (01) ==
LOC: HO.MRI 16:12
PROVIDERS: Visit Provider Nurse Practitioner Pediatrics
DX: M86.672 Other chronic osteomyelitis, left ankle and foot (principal)
CPT/HCPCS: 73720; A9585

== ENCOUNTER → 2021-11-10 09:27 | Outpatient (BNVA) | payer MEDICARE, MEDICAID, SELFPAY | PROVIDERS: PCP Nurse Practitioner Pediatrics; Visit Provider Surgery | DX: E11.65 Type 2 diabetes mellitus with hyperglycemia (principal); E11.69 Type 2 diabetes mellitus with other specified complication; E11.628 Type 2 diabetes mellitus with other skin complications; L02.612 Cutaneous abscess of left foot; M86.672 Other chronic osteomyelitis, left ankle and foot; Z79.4 Long term (current) use of insulin | CPT/HCPCS: 99212 ==

== ENCOUNTER 2021-11-18 12:51 | Day surgery (SDC) | payer MEDICARE, MEDICAID, SELFPAY ==
--- NOTE | 2021-11-14 09:18 | P.CONAN_ITS ---
Documented by User: Agustina Power NP 11/14/21 09:21 HPI - Anesthesia Eval Consult details Narrative: 51yo M for Left I&D Abscess of foot Tx for osteo of L great toe. Pt declines amputation. Chronic opioids PMFSH Active Problems Active Problems: All Active Problems (Updated 11/13/21 @ 09:02 by Ismael Kim MD) Foot abscess, left (Acute) Chronic osteomyelitis (Acute) Cellulitis (Acute) Osteomyelitis (Acute) Diabetic foot infection (Acute) History of amputation of lesser toe (Acute) Past Medical History Medical History Asthma Diabetes mellitus Foot abscess, left Foot abscess, left Hypertension Neuropathy Osteomyelitis PTSD (post-traumatic stress disorder) Family History Family History Mother HLD (hyperlipidemia) Father Bladder cancer Family history of problems with anesthesia: No Surgical History Surgical History (Updated 11/18/21 @ 09:53 by Annetta Rivers RN) History of amputation of lesser toe History of ankle surgery History of hip surgery History of knee surgery History of surgery on lower extremity Hx of abdominal surgery Hx of foot surgery Hx of neck surgery Hx of oral surgery History of Problems with Anesthesia: Yes (Breathin difficulty ? post ACDF surgery. Had to be put back to sleep ) Social History Social History Household Members: None Household Members Other:: 1 Housing: Apartment Do you presently have visiting nurse or other home services: No Alcohol intake: never Patient Tobacco Use Status: Current everyday Tobacco user Tobacco use type: Cigarette Second Hand Smoke Exposure: No Use of substances other than those prescribed or required for medical reasons: Yes Substance Use Type: Marijuana Substance Use Frequency: Daily Are you DNR?: No service: No Current occupational status: disabled Meds Allergies Allergy/AdvReac Type Severity Reaction Status Date / Time No Known Allergies Allergy Unknown Verified 11/18/21 09:52 [No Known Allergies*] Home Medications Medication Instructions Recorded Confirmed Last Taken Type albuterol sulfate 90 mcg/actuation 2 puff PO Q4H PRN Shortness Of 12/03/20 11/18/21 11/17/21 History aerosol inhaler Breath amlodipine 10 mg tablet 1 tab PO DAILY 12/03/20 11/18/21 11/17/21 History atenolol 25 mg tablet 1 tab PO DAILY 12/03/20 11/18/21 11/17/21 History clonazepam 0.5 mg tablet 1 tab PO DAILY PRN Anxiety 12/03/20 11/18/21 09/17/21 History fluticasone propionate 110 2 puff PO BID 12/03/20 11/18/21 11/17/21 History mcg/actuation HFA aerosol inhaler (Flovent HFA) gabapentin 800 mg tablet 1 tab PO QID 12/03/20 11/18/21 11/17/21 23:00 History insulin aspart U-100 100 unit/mL 10 - 15 unit subcut TIDAC PRN 12/03/20 11/18/21 11/18/21 06:00 History subcutaneous cartridge (Novolog Hyperglycemia PenFill U-100 Insulin aspart) insulin degludec 100 unit/mL (3 36 unit subcut DAILY 12/03/20 11/18/21 11/18/21 05:00 History mL) subcutaneous pen (Tresiba FlexTouch U-100 insulin) lisinopril 40 mg tablet 1 tab PO DAILY 12/03/20 11/18/21 11/17/21 History metformin 1,000 mg tablet 1 tab PO BID 12/03/20 11/18/21 11/17/21 History ondansetron 4 mg disintegrating 1 tab sublingual BID PRN Nausea 12/03/20 11/18/21 Unknown History tablet omeprazole 40 mg capsule,delayed 40 mg PO DAILY@0630 03/02/21 11/18/21 11/17/21 History release Exam Exam Date and Time: November 14, [id number] Pertinent Lab Results Pertinent Lab Results: Laboratory Tests 07/25/21 07/25/21 08:09 08:09 WBC 9.6 Hgb 13.7 L Hct 41.7 L Plt Count 330 Sodium 139 Potassium 5.5 H Chloride 99 Carbon Dioxide 29 BUN 14 D Creatinine 0.91 Assessment and Plan Assessment Anesthesia Assessment: Chart Reviewed Final Anesthetic Review Family History of Problems with Anesthesia: No History of Problems with Anesthesia: Yes (Breathin difficulty ? post ACDF surgery. Had to be put back to sleep ) Documented by User: Karla Almendarez MD 11/18/21 10:52 [facility] Past Medical History Medical History Asthma Diabetes mellitus Foot abscess, left Foot abscess, left Hypertension Neuropathy Osteomyelitis PTSD (post-traumatic stress disorder) Functional capacity: uses cane/walker Family History Family History Mother HLD (hyperlipidemia) Father Bladder cancer Surgical History Surgical History (Updated 11/18/21 @ 09:53 by Annetta Rivers RN) History of amputation of lesser toe History of ankle surgery History of hip surgery History of knee surgery History of surgery on lower extremity Hx of abdominal surgery Hx of foot surgery Hx of neck surgery Hx of oral surgery Social History Social History Household Members: None Household Members Other:: 1 Housing: Apartment Do you presently have visiting nurse or other home services: No Alcohol intake: never Patient Tobacco Use Status: Current everyday Tobacco user Tobacco use type: Cigarette Second Hand Smoke Exposure: No Use of substances other than those prescribed or required for medical reasons: Yes Substance Use Type: Marijuana Substance Use Frequency: Daily Are you DNR?: No service: No Current occupational status: disabled Meds Allergies Allergy/AdvReac Type Severity Reaction Status Date / Time No Known Allergies Allergy Unknown Verified 11/18/21 09:52 [No Known Allergies*] Home Medications Medication Instructions Recorded Confirmed Last Taken Type albuterol sulfate 90 mcg/actuation 2 puff PO Q4H PRN Shortness Of 12/03/20 11/18/21 11/17/21 History aerosol inhaler Breath amlodipine 10 mg tablet 1 tab PO DAILY 12/03/20 11/18/21 11/17/21 History atenolol 25 mg tablet 1 tab PO DAILY 12/03/20 11/18/21 11/17/21 History clonazepam 0.5 mg tablet 1 tab PO DAILY PRN Anxiety 12/03/20 11/18/21 09/17/21 History fluticasone propionate 110 2 puff PO BID 12/03/20 11/18/21 11/17/21 History mcg/actuation HFA aerosol inhaler (Flovent HFA) gabapentin 800 mg tablet 1 tab PO QID 12/03/20 11/18/21 11/17/21 23:00 History insulin aspart U-100 100 unit/mL 10 - 15 unit subcut TIDAC PRN 12/03/20 11/18/21 11/18/21 06:00 History subcutaneous cartridge (Novolog Hyperglycemia PenFill U-100 Insulin aspart) insulin degludec 100 unit/mL (3 36 unit subcut DAILY 12/03/20 11/18/21 11/18/21 05:00 History mL) subcutaneous pen (Tresiba FlexTouch U-100 insulin) lisinopril 40 mg tablet 1 tab PO DAILY 12/03/20 11/18/21 11/17/21 History metformin 1,000 mg tablet 1 tab PO BID 12/03/20 11/18/21 11/17/21 History ondansetron 4 mg disintegrating 1 tab sublingual BID PRN Nausea 12/03/20 11/18/21 Unknown History tablet omeprazole 40 mg capsule,delayed 40 mg PO DAILY@0630 03/02/21 11/18/21 11/17/21 History release Exam Airway Mallampati Class: III TM Dist: >3cm Neck ROM: Full Heart: RRR Lungs: CTA Assessment and Plan Final Anesthetic Review NPO: Yes ASA Class: III Final Preanesthetic Review: No Changes in Pt Med Stat, Meds/Allgs Chart Reviewed, Consent Obtained/Reviewed and Anes Risks/Benef Reviewed Patient Risk: Low Procedure Risk: Low Anesthetic Plan Anesthetic Plan: GA Disposition: Standard PACU
[2021-11-18] VITALS (17 sets, daily range): BP systolic 86–138; BP diastolic 43–99; PULSE 70–88; RESP 16–20; TEMP 36.4–36.8; O2SAT 93–99; BMI 31.1
[2021-11-18 09:40] LABS: COVID-19 Test Negative (Negative); IDNOW Serial# 16C4AD1C
[2021-11-18] MEDS: Lactated Ringers 1,000 ML 100 ML IVCONT (10:50)
[2021-11-18] MEDS: fentaNYL citrate/PF 100 MCG/2 ML VIAL 25 MCG IVPUSH ×2 (11:05→13:52)
--- NOTE | 2021-11-18 11:16 | PC.NURSE ---
pt declined to put luggage stratton away. has it taped to his inner arm. antwan valdivia.
--- NOTE | 2021-11-18 11:36 | MHC.SHP ---
Pre-Procedural Eval Section A Date of Service: 11/18/21 The patient is an INPATIENT: No The History & Physical has been completed within 30 days and I have reviewed it.: Yes Section B Chief Complaint: abscess left foot Allergies: Allergies Allergy/AdvReac Type Severity Reaction Status Date / Time No Known Allergies Allergy Unknown Verified 11/18/21 09:52 [No Known Allergies*] Plan I have reviewed the history and physical and performed a pertinent physical examination on my patient. No changes have occurred unless specified.
--- NOTE | 2021-11-18 12:15 | PC.NURSE ---
security called due to aggressive behavior rudeness due to rn's stepping away in order to hear eachother over pt's yelling
--- NOTE | 2021-11-18 12:47 | P.OP_ITS ---
Operative Note Operative Note Date of Service: 11/18/21 Narrative: Preop diagnosis: Left foot plantar abscess Postop diagnosis: The same Procedure: Excision drainage, left foot plantar abscess under anesthesia Surgeon: Ismael Kim MD metal moulder's assistant: EMERITA Rothman The patient is a 51-year-old male, diabetic, with osteomyelitis of the big toe at the metatarsal. He had refused amputation in the past. He has had a chronic abscess and has been causing him pain and discomfort. He agreed to have an I and D of this abscess. Understood that this is not going to cure him of his osteomyelitis. He require a proximal amputation the metatarsal of the 1st toe if we were to treat him for his osteomyelitis. However, he does have severe inflammatory changes around this area so I told him it would be best to proceed with I and D first and hopefully lessen the inflammatory changes. He was brought to the operating room. He was placed supine under general anesthesia via laryngeal mask airway. The left foot was prepped and draped in the usual sterile fashion. A surgical time-out was done. The patient received cefazolin 2 g IV preoperatively. Based on the imaging with MRI as reviewed with the radiologist, I made the incision on the mediolateral aspect of the forefoot at the mid metatarsal head the 1st this was made using blade 15. And this carried down with electrocautery through the full-thickness was thick skin and subcutaneous fat Jah entered an abscess cavity. Cultures of the cavity were taken. There was not much pus within the cavity itself but there was a lot of inflammatory changes. I extended the incision to make sure that we had opened up this entire cavity. Probe this cavity with my finger to make sure that there were no loculations. I copies irrigated.. I then placed a packing lightly inside. I wrapped the foot with fluffy d ressings and Kerlix roll. The procedure was then completed The patient tolerated procedure well. There were no complications noted. Estimated blood loss was less than 10 cc . The patient was extubated without difficulty and transferred to the recovery room with stable vital signs.
[2021-11-18 12:58] LABS: Glucose, Whole Blood 109 mg/dL (60-115)
[2021-11-18] MEDS: HYDROmorphone HCl 0.5 MG/0.5 ML SYRINGE IVPUSH ×2 (13:20→13:27)
--- NOTE | 2021-11-18 13:20 | PHA.MEDREC ---
Pharmacy Consult ? Medication Reconciliation Pharmacy has completed the medication reconciliation. Reviewed med rec done by nursing
[2021-11-18] MEDS: oxyCODONE HCl Immed Release 5 MG TABLET 10 MG PO (14:05)
--- NOTE | 2021-11-18 16:04 | PM.EVENT ---
Event Note Date of Service: 11/18/21 Event Note: Patient had been confrontational with staff preop and postop In ED, multiple complaints Repeatedly said he will go home He says that a visiting nurse takes care of his wound I have written down instructions for wound care as he has a packing in place Visiting nurse to remove packing tomorrow and change dressings daily I have prescribed him Percocet and doxycycline He has been insisting on going home - I had explained to him that my plans were to keep him overnight To make sure he has good wound care and pain control management postop
[2021-11-18 16:11] LABS: Glucose, Whole Blood 120 mg/dL (60-115)
[2021-11-19 12:01] LABS: Glucose, Whole Blood 121 mg/dL (60-115)
== END 2021-11-18 16:15 | disposition home or self-care (01) ==
PROVIDERS: Nurse Practitioner; PCP Nurse Practitioner Pediatrics; Visit Provider Surgery
PROC: (CPT 10061; principal; 2021-11-18 13:10)
DX: L02.612 Cutaneous abscess of left foot (principal); B95.61 Methicillin susceptible Staphylococcus aureus infection as the cause of diseases classified elsewhere; E11.69 Type 2 diabetes mellitus with other specified complication; M86.672 Other chronic osteomyelitis, left ankle and foot; Z79.4 Long term (current) use of insulin; M79.89 Other specified soft tissue disorders; I10 Essential (primary) hypertension; G62.9 Polyneuropathy, unspecified; J45.909 Unspecified asthma, uncomplicated; Z79.51 Long term (current) use of inhaled steroids; Z79.899 Other long term (current) drug therapy; F11.20 Opioid dependence, uncomplicated; Z89.421 Acquired absence of other right toe(s); Z87.891 Personal history of nicotine dependence; F12.90 Cannabis use, unspecified, uncomplicated; Z98.890 Other specified postprocedural states; Z20.822 Contact with and (suspected) exposure to COVID-19
CPT/HCPCS: 10061; 82947; 87071; 87077; 87186; 87205; 87635; J0131; J0690; J1170; J2250; J2795; J3010

== ENCOUNTER → 2021-12-04 11:08 | Outpatient (BNVA) | payer MEDICARE, MEDICAID, SELFPAY | PROVIDERS: PCP Nurse Practitioner Pediatrics; Visit Provider Surgery | DX: L02.612 Cutaneous abscess of left foot (principal); Z98.890 Other specified postprocedural states | CPT/HCPCS: 99212 ==

== ENCOUNTER → 2021-12-23 13:53 | Outpatient (BNVA) | payer MEDICARE, MEDICAID, SELFPAY | PROVIDERS: PCP Nurse Practitioner Pediatrics; Visit Provider Internal Medicine | DX: E11.628 Type 2 diabetes mellitus with other skin complications (principal); L08.9 Local infection of the skin and subcutaneous tissue, unspecified; M86.60 Other chronic osteomyelitis, unspecified site | CPT/HCPCS: 99212 ==